=== PATIENT | female | born 1960 | race Caucasian/White ===

== ENCOUNTER 2016-09-28 08:03 | Inpatient (IN) | payer MEDICAID, MEDICARE ==
[2016-09-28] MEDS ORDERED: ASPIRIN 81 MG TABLET, CHEWABLE PO ONE (08:11)
[2016-09-28] MEDS ORDERED: IPRATROPIUM/ALBUTEROL 0.5-2.5 MG/3 ML AMPUL NEB ONE (08:24)
[2016-09-28] MEDS ORDERED: FUROSEMIDE INJ/PF 40 MG/4 ML SDV IV ONE (08:24)
[2016-09-28] MEDS ORDERED: NORMAL SALINE 500 ML IV ONE ×2 (08:40→10:44)
[2016-09-28 09:12] LABS: ABSOLUTE EOSINOPHILS # (AUTO) 0.1 10^3/uL (0.0-0.6); ABSOLUTE LYMPHOCYTES (AUTO) 1.1 10^3/uL (0.5-4.7); ABSOLUTE MONOCYTES (AUTO) 0.6 10^3/uL (0.1-1.4); ABSOLUTE NEUT (AUTO) 5.8 10^3/uL (1.7-8.2); BASOPHILS % (AUTO) 0.5 % (0-2); EOSINOPHILS % (AUTO) 0.9 % (0-6); HEMATOCRIT 39.6 % (36.0-47.0); HEMOGLOBIN 13.3 g/dL (12.0-15.5); HGB HCT DIFFERENCE 0.3; LYMPHOCYTES % (AUTO) 14.6 % (13-45); MEAN CORPUSCULAR HEMOGLOBIN 29.2 pg (27.0-33.4); MEAN CORPUSCULAR HGB CONC 33.5 g/dL (32.0-36.0); MEAN CORPUSCULAR VOLUME 87 fl (80-97); MONOCYTES % (AUTO) 7.4 % (3-13); RED BLOOD COUNT 4.54 10^6/uL (3.72-5.28); RED CELL DISTRIBUTION WIDTH 13.4 % (11.5-14.0); SEGMENTED NEUTROPHILS % (AUTO) 76.6 % (42-78); WHITE BLOOD COUNT 7.5 10^3/uL (4.0-10.5)
[2016-09-28 10:02] LABS: ALANINE AMINOTRANSFERASE 26 U/L (9-52); ALBUMIN 3.4 g/dL (3.5-5.0); ALKALINE PHOSPHATASE 74 U/L (38-126); ANION GAP 7 (5-19); ASPARTATE AMINO TRANSFERASE 16 U/L (14-36); BILIRUBIN,DIRECT 0.3 mg/dL (0.0-0.4); BILIRUBIN,TOTAL 0.3 mg/dL (0.2-1.3); BLOOD UREA NITROGEN 11 mg/dL (7-20); CALCIUM 8.5 mg/dL (8.4-10.2); CARBON DIOXIDE 29 mmol/L (22-30); CHLORIDE 103 mmol/L (98-107); CREATINE KINASE 28 U/L (30-135); CREATININE RESULT 0.73 mg/dL (0.52-1.25); GLUCOSE 135 mg/dL (75-110); LIPASE 53.2 U/L (23-300); MAGNESIUM 2.2 mg/dL (1.6-2.3); POTASSIUM 3.7 mmol/L (3.6-5.0); SODIUM 138.7 mmol/L (137-145); TOTAL PROTEIN 6.2 g/dL (6.3-8.2)
[2016-09-28 10:14] LABS: CREATINE KINASE MB 0.75 ng/mL (<4.55); TROPONIN I < 0.012 ng/mL
[2016-09-28] MEDS ORDERED: ALBUTEROL SULFATE 0.083% NEB 2.5 MG/3 ML AMPUL NEB ONE (10:57)
--- NOTE | 2016-09-28 11:37 | ER Document Report ---
ED General - General Chief Complaint: Shortness Of Breath Stated Complaint: RESPIRITORY DISTRESS Time Seen by Provider: 09/28/16 08:10 TRAVEL OUTSIDE OF THE [place] IN LAST 30 DAYS: No - HPI Patient complains to provider of: shortness of breath difficulty in breathing Notes: Patient has a history of pulmonic valve replacement CHF COPD coming in today for shortness of breath states once breath ongoing for last few days worse today upon EMS arrival patient was found to be hypoxic patient was given magnesium steroids albuterol transport to the ER for further evaluation. Upon arrival patient states breathing better over still has audible wheezing. Denies any recent travel denies fevers chills chest pain abdominal pain patient otherwise has a normal SPO2 on oxygen. - Related Data Allergies/Adverse Reactions: latex [Latex] Allergy (Mild, Verified 02/29/16 11:25) rash Bees Allergy (Severe, Uncoded 05/15/14 18:26) Facial Edema Home Medications: Current Home Medications Citalopram Hydrobromide [Celexa 20 mg Tablet] 20 mg PO DAILY 09/28/16 [History] Fluticasone/Vilanterol [Breo Ellipta 200-25 Mcg INH] 1 puff IH DAILY 09/28/16 [ History] Furosemide [Lasix 20 mg Tablet] 20 mg PO DAILY 09/28/16 [History] Ibuprofen [Advil] 800 mg PO QIDP PRN 09/28/16 [History] Tiotropium [place] [Spiriva Respimat] 2 puff IH DAILY 09/28/16 [History] Past Medical History - Social History Smoking Status: Former Smoker Chew tobacco use (# tins/day): No Frequency of alcohol use: None Drug Abuse: None Family History: Reviewed & Not Pertinent - Past Medical History Cardiac Medical History: Denies: Hx Hypercholesterolemia, Hx Hypertension Pulmonary Medical History: Reports: Hx Bronchitis, Hx COPD - pulmonary stenosis , Hx Pneumonia Endocrine Medical History: Denies: Hx Diabetes Mellitus Type 1, Hx Diabetes Mellitus Type 2 Malignancy Medical History: Reports: Hx Breast Cancer Skin Medical History: Reports Hx Psoriasis Psychiatric Medical History: Reports: Hx Anxiety, Hx Depression Past Surgical History: Reports: Hx Breast Surgery, Hx Cardiac Surgery - PULMONIC VALVULOPLASTY FOR PULM STENOSIS, Hx Section - X 2, Hx Mastectomy - RIGHT PARTIAL MASTECTOMY 1999, WITH LYMPH NODE DISSECTION, Hx Vascular Surgery - Pulmonary valvuloplasty - Immunizations Hx Diphtheria, Pertussis, Tetanus Vaccination: Yes Review of Systems - Review of Systems Constitutional: No symptoms reported EENT: No symptoms reported Cardiovascular: No symptoms reported Respiratory: Cough, Short of breath, Wheezing Gastrointestinal: No symptoms reported Genitourinary: No symptoms reported Female Genitourinary: No symptoms reported Musculoskeletal: No symptoms reported Skin: No symptoms reported Hematologic/Lymphatic: No symptoms reported Neurological/Psychological: No symptoms reported -: Yes All other systems reviewed and negative Physical Exam - Vital signs Vitals: Pulse Ox 97 09/28/16 08:11 Interpretation: Normal - General General appearance: Appears well, Alert - HEENT Head: Normocephalic, Atraumatic Eyes: Normal Pupils: PERRL - Respiratory Respiratory status: Respiratory distress - Mild to moderate, Tachypnea Chest status: Nontender Breath sounds: Wheezing Chest palpation: Normal - Cardiovascular Rhythm: Regular Heart sounds: Normal auscultation Murmur: No - Abdominal Inspection: Normal Distension: No distension Bowel sounds: Normal Tenderness: Nontender Organomegaly: No organomegaly - Back Back: Normal, Nontender - Extremities General upper extremity: Normal inspection, Nontender, Normal color, Normal ROM , Normal temperature General lower extremity: Normal inspection, Nontender, Normal color, Normal ROM , Normal temperature, Normal weight bearing. No: Mookie's sign - Neurological Neuro grossly intact: Yes Cognition: Normal Orientation: AAOx4 [place] Coma Scale Eye Opening: Spontaneous [place] Coma Scale Verbal: Oriented [place] Coma Scale Motor: Obeys Commands [place] Coma Scale Total: 15 Speech: Normal Motor strength normal: LUE, RUE, LLE, RLE Sensory: Normal - Psychological Associated symptoms: Normal affect, Normal mood - Skin Skin Temperature: Warm Skin Moisture: Dry Skin Color: Normal Course - Re-evaluation Re-evalutation: 09/28/16 15:00 Patient is coming in today for difficulty breathing. Chest x-ray did not reveal any critical pathology. Patient does have chronic pulmonary artery prominence. No signs of pneumonia. Lab work does not show any cardiac pathology EKG does not show any specific cardiac pathology. Patient continues to have audible wheezing although her story rate SPO2 has improved. More likely patient has a COPD exacerbation patient will be admitted to hospitalist for further evaluation - Vital Signs Vital signs: Temp Pulse Resp BP Pulse Ox 97.8 F 92 19 110/62 96 09/28/16 14:16 09/28/16 14:16 09/28/16 14:16 09/28/16 14:16 09/28/16 14:16 - Laboratory Result Diagrams: 09/28/16 08:38 09/28/16 09:40 Laboratory results interpreted by me: 09/28/16 09:40 Glucose 135 H Creatine Kinase 28 L Total Protein 6.2 L Albumin 3.4 L Critical Care Note - Critical Care Note Total time excluding time spent on procedures (mins): 35 Comments: Multiple evaluations for patient with respiratory distress Discharge - Discharge Clinical Impression: COPD exacerbation, Acute respiratory failure with hypoxia Admitting Provider: Hospitalist - [facility] Admitted: Telemetry
--- NOTE | 2016-09-28 12:12 | EKG REPORT ---
SEVERITY:- ABNORMAL ECG - SINUS TACHYCARDIA POSSIBLE LVH ABNRM R PROG, CONSIDER ASMI OR LEAD PLACEMENT NONSPECIFIC T ABNORMALITIES, LATERAL LEADS : Confirmed by: Vitor Lerma 28-Sep-2016 12:12:00
[2016-09-28] MEDS ORDERED: (PENDING PHARMACY ID) (Alprazolam [Xanax 1 Mg Tablet] 1 MG) PO PRN (12:44)
--- NOTE | 2016-09-28 12:44 | PDOC H&P ---
History of Present Illness Admission Date/PCP: 09/28/16 11:47 Patient complains of: Cough and shortness of breath. History of Present Illness: SHAHAB MONROE is a 56 year old female with a history of COPD on oxygen at 2 L per nasal cannula at night who quit smoking 1 week ago presents with a three- day history of worsening shortness of breath, cough, low-grade fevers, wheezing. The patient also does report some pleuritic chest pain associated with coughing. She reports she's had a dry cough and denies any orthopnea or PND. She does have some chronic lower extremity edema but it has not changed. She called the EMS because her shortness of breath and she was found to have an oxygen saturation of 86%. The patient presented at home she has checked her oxygen saturations any been in the high 70s at times. The patient is admitted for acute COPD exacerbation along with acute bronchitis. Past Medical History Cardiac Medical History: Reports: Other - Congenital pulmonic stenosis. Patient has not had valve replacement but has been seen at [facility]. Denies: Hyperlipidema, Hypertension Pulmonary Medical History: Reports: Bronchitis, Chronic Obstructive Pulmonary Disease (COPD) - pulmonary stenosis, Pneumonia EENT Medical History: Reports: None Neurological Medical History: Reports: None Endocrine Medical History: Reports: None Renal/ Medical History: Reports: None Malignancy Medical History: Reports: Breast Cancer GI Medical History: Reports: None Musculoskeltal Medical History: Reports: Other - Psoriatic arthritis Skin Medical History: Reports: Psoriasis Psychiatric Medical History: Reports: Depression Hematology: Reports: None Infectious Medical History: Reports: None Past Surgical History Past Surgical History: Reports: Section - X 2, Mastectomy - RIGHT PARTIAL MASTECTOMY 1999, WITH LYMPH NODE DISSECTION, Vascular Surgery - Pulmonary valvuloplasty per the emergency room physician although she deny Social History Information Source: Patient Lives with: Family Smoking Status: Former Smoker Frequency of Alcohol Use: None Hx Recreational Drug Use: No Drugs: None Hx Prescription Drug Abuse: No - Advance Directive Resuscitation Status: Full Code Family History Family History: Mother at age 54 with diabetes, coronary disease, CVA. Father at age 62 from COPD and coronary artery disease. Parental Family History Reviewed: Yes Children Family History Reviewed: No Sibling(s) Family History Reviewed.: No Medication/Allergy Home Medications: Alprazolam [Xanax 1 mg Tablet] 1 mg PO TID PRN 07/15/11 Albuterol Sulfate [Albuterol Sulfate 2.5mg/3 mL] 2 puff IH BID 06/11/12 Budesonide/Formoterol Fumarate [Symbicort HFA 160-4.5 mcg Inhaler 6 gm] 2 puff IH Q12 05/14/14 Albuterol Sulfate [Ventolin 0.083% Neb 2.5 mg/3 mL Ampul] 2.5 mg NEB [id number] PRN #60 vial.neb 05/16/14 Levofloxacin [Levaquin 750 mg Tablet] 750 mg PO DAILY #7 tablet 05/16/14 Prednisone [Deltasone 20 mg Tablet] 40 mg PO DAILY #7 tablet 05/16/14 Prednisone [Deltasone 20 mg Tablet] 3 tab PO DAILY 5 Days 09/12/15 Allergies/Adverse Reactions: latex [Latex] Allergy (Mild, Verified 02/29/16 11:25) rash Bees Allergy (Severe, Uncoded 05/15/14 18:26) Facial Edema Review of Systems Constitutional: PRESENT: chills, fever(s) - Temperature 100.5.. ABSENT: headache(s), weight gain, weight loss Eyes: ABSENT: visual disturbances Breasts: PRESENT: other - History of right partial mastectomy Cardiovascular: PRESENT: chest pain - Associated with coughing., dyspnea on exertion, edema - Trace chronic edema.. ABSENT: orthropnea, palpitations Respiratory: PRESENT: as per HPI Gastrointestinal: ABSENT: abdominal pain, constipation, diarrhea, hematemesis, hematochezia, nausea, vomiting Musculoskeletal: ABSENT: joint swelling Integumentary: PRESENT: other - Patient has some psoriasis. Neurological: ABSENT: abnormal gait, abnormal speech, confusion, dizziness, focal weakness, syncope Psychiatric: ABSENT: anxiety, depression Endocrine: ABSENT: cold intolerance, heat intolerance, polydipsia, polyuria Hematologic/Lymphatic: ABSENT: easy bleeding, easy bruising Physical Exam Vital Signs: Temp Pulse Resp BP Pulse Ox 97.7 F 102 H 20 116/68 96 09/28/16 08:30 09/28/16 08:30 09/28/16 12:01 09/28/16 12:01 09/28/16 12:01 General appearance: PRESENT: no acute distress Eye exam: PRESENT: conjunctiva pink. ABSENT: scleral icterus Ear exam: PRESENT: normal external ear exam Mouth exam: PRESENT: moist, tongue midline Neck exam: ABSENT: carotid bruit, JVD, lymphadenopathy, thyromegaly Respiratory exam: PRESENT: wheezes - Expiratory wheezes in all lung duque.. ABSENT: rales, rhonchi Cardiovascular exam: PRESENT: RRR. ABSENT: diastolic murmur, rubs, systolic murmur Pulses: PRESENT: normal dorsalis pedis pul Vascular exam: PRESENT: normal capillary refill GI/Abdominal exam: PRESENT: normal bowel sounds, soft. ABSENT: distended, guarding, mass, organolmegaly, rebound, tenderness Rectal exam: PRESENT: deferred Extremities exam: PRESENT: pedal edema - Trace pedal edema.. ABSENT: calf tenderness, clubbing Neurological exam: PRESENT: alert, awake, oriented to person, oriented to place , oriented to time, oriented to situation, CN II-XII grossly intact. ABSENT: motor sensory deficit Psychiatric exam: PRESENT: appropriate affect, normal mood Skin exam: PRESENT: other - Some areas of psoriasis on her palm Results Impressions: Chest X-Ray 09/28/16 08:11 IMPRESSION: STABLE CHRONIC FINDINGS. NO ACUTE RADIOGRAPHIC FINDING IN THE CHEST. Assessment & Plan - Diagnosis (1) Acute respiratory failure with hypoxia Is this a current diagnosis for this admission?: YesPlan: Secondary to acute COPD exacerbation. (2) COPD exacerbation Is this a current diagnosis for this admission?: YesPlan: We'll give IV steroids and nebulizers. Will start on Rocephin and Zithromax. (3) Psoriatic arthritis Is this a current diagnosis for this admission?: Yes (4) Pulmonic stenosis Is this a current diagnosis for this admission?: YesPlan: Emergency physician reported that the patient had had valvuloplasty. Patient reports to me that she's not had any surgery on this but has been seen by the physicians at [facility]. (5) Acute bronchitis Is this a current diagnosis for this admission?: YesPlan: Continue with Rocephin and Zithromax. (6) Breast cancer Is this a current diagnosis for this admission?: Yes (7) Anxiety Is this a current diagnosis for this admission?: YesPlan: Patient will continue Xanax when necessary. - Time Time Spent: 50 to 70 Minutes - Inpatient Certification Medical Necessity: Need for IV Antibiotics
[2016-09-28] MEDS ORDERED: ALPRAZOLAM 0.5 MG TABLET PO PRN (12:50)
[2016-09-28] MEDS ORDERED: CEFTRIAXONE 1 GM/D5W RTU 1 GM/50 ML RTUPB IV ONE (13:30)
[2016-09-28] MEDS ORDERED: METHYLPREDNISOLONE INJ 40 MG/1 ML SDV IV ONE (13:30)
[2016-09-28] MEDS ORDERED: ENOXAPARIN SODIUM INJ 40 MG/0.4 ML DISP.SYRIN SUBCUT ONE (13:30)
[2016-09-28] MEDS: IPRATROPIUM/ALBUTEROL 0.5-2.5 MG/3 ML AMPUL NEB SCH ×2 (14:14→20:06)
[2016-09-28] MEDS ORDERED: AZITHROMYCIN 500 MG in DEXTROSE 5%-WATER 250 ML IV ONE (14:30)
[2016-09-28] MEDS: IBUPROFEN 800 MG TABLET PO PRN (17:00)
[2016-09-28] MEDS ORDERED: CITALOPRAM HYDROBROMIDE 20 MG TABLET PO ONE (19:00)
[2016-09-28] MEDS: ALPRAZOLAM 0.5 MG TABLET PO PRN (21:59)
[2016-09-28] MEDS: METHYLPREDNISOLONE INJ 40 MG/1 ML SDV IV SCH (21:59)
[2016-09-28] MEDS: FAMOTIDINE 20 MG TABLET PO SCH (22:00)
[2016-09-28] MEDS: ACETAMINOPHEN 325 MG TABLET PO PRN (22:13)
[2016-09-29 05:46] LABS: HEMATOCRIT 37.2 % (36.0-47.0); HEMOGLOBIN 12.2 g/dL (12.0-15.5); HGB HCT DIFFERENCE -0.6; MEAN CORPUSCULAR HEMOGLOBIN 28.6 pg (27.0-33.4); MEAN CORPUSCULAR HGB CONC 32.7 g/dL (32.0-36.0); MEAN CORPUSCULAR VOLUME 87 fl (80-97); RED BLOOD COUNT 4.25 10^6/uL (3.72-5.28); WHITE BLOOD COUNT 4.8 10^3/uL (4.0-10.5)
[2016-09-29 05:59] LABS: ANION GAP 11 (5-19); BLOOD UREA NITROGEN 10 mg/dL (7-20); CALCIUM 8.9 mg/dL (8.4-10.2); CARBON DIOXIDE 25 mmol/L (22-30); CHLORIDE 104 mmol/L (98-107); CREATININE RESULT 0.53 mg/dL (0.52-1.25); GLUCOSE 134 mg/dL (75-110); SODIUM 140.1 mmol/L (137-145)
[2016-09-29 06:08] LABS: POTASSIUM 4.7 mmol/L (3.6-5.0)
[2016-09-29] MEDS: IBUPROFEN 800 MG TABLET PO PRN ×2 (06:30→15:46)
[2016-09-29] MEDS ORDERED: ENOXAPARIN SODIUM INJ 40 MG/0.4 ML DISP.SYRIN SUBCUT SCH (08:00)
[2016-09-29] MEDS: IPRATROPIUM/ALBUTEROL 0.5-2.5 MG/3 ML AMPUL NEB SCH ×3 (08:17→20:16)
[2016-09-29] MEDS: CEFTRIAXONE 1 GM/D5W RTU 1 GM/50 ML RTUPB IV SCH (09:14)
[2016-09-29] MEDS: FAMOTIDINE 20 MG TABLET PO SCH ×2 (09:14→20:26)
[2016-09-29] MEDS: CITALOPRAM HYDROBROMIDE 20 MG TABLET PO SCH (09:14)
[2016-09-29] MEDS: METHYLPREDNISOLONE INJ 40 MG/1 ML SDV IV SCH ×2 (09:15→20:25)
[2016-09-29] MEDS: ALPRAZOLAM 0.5 MG TABLET PO PRN ×2 (09:18→20:03)
[2016-09-29] MEDS: AZITHROMYCIN 500 MG in DEXTROSE 5%-WATER 250 ML IV SCH (10:28)
--- NOTE | 2016-09-29 11:02 | PDOC PROGRESS REPORT ---
Subjective Subjective:: Patient continues to have complaints of shortness of breath but reports is improved. Physical Exam Vital Signs: Temp Pulse Resp BP Pulse Ox 97.8 F 88 22 H 137/75 H 94 09/29/16 08:42 09/29/16 08:42 09/29/16 08:42 09/29/16 08:42 09/29/16 08:42 Intake & Output 09/28/16 09/29/16 09/30/16 06:59 06:59 06:59 Intake Total 585 Output Total 500 Balance 85 Weight 86.5 kg General appearance: PRESENT: no acute distress Eye exam: PRESENT: conjunctiva pink. ABSENT: scleral icterus Ear exam: PRESENT: normal external ear exam Mouth exam: PRESENT: moist, tongue midline Neck exam: ABSENT: JVD Respiratory exam: PRESENT: wheezes - Bilateral expiratory wheezes. ABSENT: rales, rhonchi Cardiovascular exam: PRESENT: RRR. ABSENT: diastolic murmur, rubs, systolic murmur GI/Abdominal exam: PRESENT: normal bowel sounds, soft. ABSENT: distended, guarding, mass, organolmegaly, rebound, tenderness Rectal exam: PRESENT: deferred Extremities exam: ABSENT: calf tenderness, clubbing, pedal edema Neurological exam: PRESENT: alert, awake, oriented to person, oriented to place , oriented to time, oriented to situation, CN II-XII grossly intact. ABSENT: motor sensory deficit Psychiatric exam: PRESENT: appropriate affect Skin exam: PRESENT: dry, intact, warm. ABSENT: cyanosis, rash Results Laboratory Results: 09/29/16 04:46 09/29/16 04:46 09/29/16 09/29/16 04:46 04:46 WBC 4.8 RBC 4.25 Hgb 12.2 Hct 37.2 MCV 87 MCH 28.6 MCHC 32.7 RDW 13.0 Plt Count 222 Sodium 140.1 Potassium 4.7 D Chloride 104 Carbon Dioxide 25 Anion Gap 11 BUN 10 Creatinine 0.53 Est GFR ( Amer) > 60 Est GFR (Non-Af Amer) > 60 Glucose 134 H Calcium 8.9 09/28/16 13:48 Troponin I < 0.012 Impressions: Chest X-Ray 09/28/16 08:11 IMPRESSION: STABLE CHRONIC FINDINGS. NO ACUTE RADIOGRAPHIC FINDING IN THE CHEST. Assessment & Plan - Diagnosis (1) Acute respiratory failure with hypoxia Is this a current diagnosis for this admission?: YesPlan: Secondary to acute COPD exacerbation. (2) COPD exacerbation Is this a current diagnosis for this admission?: YesPlan: We'll give IV steroids and nebulizers. Will continue Rocephin and Zithromax. (3) Psoriatic arthritis Is this a current diagnosis for this admission?: Yes (4) Pulmonic stenosis Is this a current diagnosis for this admission?: YesPlan: Emergency physician reported that the patient had had valvuloplasty. Patient reports to me that she's not had any surgery on this but has been seen by the physicians at [facility]. (5) Acute bronchitis Is this a current diagnosis for this admission?: YesPlan: Continue with Rocephin and Zithromax. (6) Breast cancer Is this a current diagnosis for this admission?: Yes (7) Anxiety Is this a current diagnosis for this admission?: YesPlan: Patient will continue Xanax when necessary. - Time Time Spent with patient: 25-34 minutes - Inpatient Certification Medical Necessity: Need Close Monitoring Due to Risk of Patient Decompensation, Need for IV Antibiotics
[2016-09-29] MEDS: ACETAMINOPHEN 325 MG TABLET PO PRN (20:04)
[2016-09-29] MEDS ORDERED: ASPIRIN 325 MG TABLET PO ONE (20:38)
[2016-09-29] MEDS ORDERED: LORAZEPAM INJ 2 MG/1 ML VIAL IV ONE (20:39)
[2016-09-29 21:05] LABS: ARTERIAL BLOOD BASE EXCESS -0.4 mmol/L; ARTERIAL BLOOD O2 SATURATION 95.3 % (94-98)
[2016-09-29 22:02] LABS: CREATINE KINASE MB 3.25 ng/mL (<4.55); TROPONIN I 0.075 ng/mL
[2016-09-30 04:53] LABS: ABSOLUTE LYMPHOCYTES (AUTO) 0.7 10^3/uL (0.5-4.7); ABSOLUTE MONOCYTES (AUTO) 0.6 10^3/uL (0.1-1.4); ABSOLUTE NEUT (AUTO) 8.8 10^3/uL (1.7-8.2); BASOPHILS % (AUTO) 0.2 % (0-2); HEMATOCRIT 38.1 % (36.0-47.0); HEMOGLOBIN 12.7 g/dL (12.0-15.5); LYMPHOCYTES % (AUTO) 6.6 % (13-45); MEAN CORPUSCULAR HEMOGLOBIN 28.9 pg (27.0-33.4); MEAN CORPUSCULAR HGB CONC 33.2 g/dL (32.0-36.0); MEAN CORPUSCULAR VOLUME 87 fl (80-97); RED BLOOD COUNT 4.39 10^6/uL (3.72-5.28); RED CELL DISTRIBUTION WIDTH 13.6 % (11.5-14.0); SEGMENTED NEUTROPHILS % (AUTO) 87.2 % (42-78)
[2016-09-30 05:09] LABS: WHITE BLOOD COUNT 10.1 10^3/uL (4.0-10.5)
[2016-09-30 05:14] LABS: ANION GAP 5 (5-19); BLOOD UREA NITROGEN 14 mg/dL (7-20); CALCIUM 9.2 mg/dL (8.4-10.2); CARBON DIOXIDE 30 mmol/L (22-30); CHLORIDE 104 mmol/L (98-107); CREATINE KINASE 52 U/L (30-135); CREATININE RESULT 0.52 mg/dL (0.52-1.25); GLUCOSE 112 mg/dL (75-110); SODIUM 138.5 mmol/L (137-145)
[2016-09-30 05:23] LABS: CREATINE KINASE MB 5.9 ng/mL (<4.55)
[2016-09-30 05:30] LABS: TROPONIN I 0.561 ng/mL
[2016-09-30] MEDS ORDERED: ATORVASTATIN CALCIUM 80 MG TABLET PO ONE (05:35)
[2016-09-30] MEDS ORDERED: CLOPIDOGREL BISULFATE 300 MG TABLET PO ONE (05:35)
[2016-09-30] MEDS ORDERED: METOPROLOL TARTRATE PF/INJ 5 MG/5 ML SDV IV ONE ×2 (05:59→06:07)
[2016-09-30] MEDS ORDERED: LORAZEPAM INJ 2 MG/1 ML VIAL ONE (06:02)
[2016-09-30] MEDS ORDERED: CLOPIDOGREL BISULFATE 300 MG TABLET ONE (06:02)
[2016-09-30] MEDS ORDERED: LORAZEPAM INJ 2 MG/1 ML VIAL IV ONE (06:07)
[2016-09-30] MEDS ORDERED: METHYLPREDNISOLONE INJ 125 MG/2 ML SDV IV SCH ×2 (06:15→09:22)
[2016-09-30 06:23] LABS: ARTERIAL BLOOD BASE EXCESS -0.3 mmol/L; ARTERIAL BLOOD O2 SATURATION 98.5 % (94-98)
[2016-09-30] MEDS: ENOXAPARIN SODIUM INJ 100 MG/1 ML DISP.SYRIN SUBCUT SCH ×2 (06:28→18:18)
[2016-09-30] MEDS ORDERED: FENTANYL CITRATE INJ/PF 100 MCG/2 ML AMPUL IV PRN (06:40)
[2016-09-30] MEDS ORDERED: PROPOFOL 100 ML IV PRN (06:40)
[2016-09-30] MEDS ORDERED: PHARMACY COMMUNICATION ORDER MC NR (06:45)
[2016-09-30] MEDS ORDERED: PROPOFOL INJ 200 MG/20 ML VIAL IV ONE (07:16)
[2016-09-30] MEDS: IPRATROPIUM/ALBUTEROL 0.5-2.5 MG/3 ML AMPUL NEB SCH ×3 (07:49→20:00)
[2016-09-30 08:24] LABS: ARTERIAL BLOOD BASE EXCESS 1.2 mmol/L; ARTERIAL BLOOD O2 SATURATION 96.5 % (94-98)
[2016-09-30] MEDS ORDERED: DEXTROSE 40% GEL 15 GM TUBE PO PRN ×4 (09:06→09:19)
[2016-09-30] MEDS ORDERED: DEXTROSE 50%-WATER 25 GM/50 ML DISP.SYRIN IV PRN ×4 (09:06→09:19)
[2016-09-30] MEDS ORDERED: GLUCAGON,HUMAN RECOMB 1 MG INJ SUBCUT PRN (09:06)
[2016-09-30] MEDS ORDERED: NORMAL SALINE 1000 ML 1,000 ML IV ONE (09:18)
[2016-09-30] MEDS ORDERED: GLUCAGON,HUMAN RECOMB 1 MG INJ IM PRN (09:19)
[2016-09-30] MEDS ORDERED: MIDAZOLAM HCL 100 ML IV ONE (09:26)
[2016-09-30] MEDS ORDERED: DEXTROSE 5%-WATER 250 ML with PHENYLEPHRINE HCL 40 MG IV PRN ×2 (09:47)
[2016-09-30 10:44] LABS: CREATINE KINASE MB 8.91 ng/mL (<4.55); TROPONIN I 1.1 ng/mL
[2016-09-30] MEDS: METHYLPREDNISOLONE INJ 40 MG/1 ML SDV IV SCH ×2 (11:01→18:18)
[2016-09-30] MEDS: CITALOPRAM HYDROBROMIDE 20 MG TABLET PO SCH (11:02)
[2016-09-30] MEDS: FAMOTIDINE 20 MG TABLET PO SCH ×2 (11:02→22:58)
[2016-09-30] MEDS: CEFTRIAXONE 1 GM/D5W RTU 1 GM/50 ML RTUPB IV SCH (11:02)
[2016-09-30] MEDS: AZITHROMYCIN 500 MG in DEXTROSE 5%-WATER 250 ML IV SCH (11:38)
[2016-09-30] MEDS: DEXTROSE 5%-NORMAL SALINE 1,000 ML IV PRN ×2 (11:39→23:00)
--- NOTE | 2016-09-30 11:40 | EKG REPORT ---
SEVERITY:- ABNORMAL ECG - SINUS TACHYCARDIA NONSPECIFIC T ABNORMALITIES, LATERAL LEADS : Confirmed by: Vitor Lerma 30-Sep-2016 11:39:43
--- NOTE | 2016-09-30 11:40 | EKG REPORT ---
SEVERITY:- ABNORMAL ECG - SINUS TACHYCARDIA NONSPECIFIC T ABNORMALITIES, LATERAL LEADS : Confirmed by: Vitor Lerma 30-Sep-2016 11:39:52
[2016-09-30 13:17] LABS: ARTERIAL BLOOD BASE EXCESS -1.9 mmol/L; ARTERIAL BLOOD O2 SATURATION 98.5 % (94-98)
--- NOTE | 2016-09-30 14:56 | PDOC CONSULTATION ---
Consultation Consult Date: 09/30/16 Attending physician:: RADHA BOBBY Consult reason:: resp fail History of Present Illness Admission Date/PCP: 09/28/16 12:19 History of Present Illness: All information from chart as patient is intubated and sedatedSHAHAB MONROE is a 56 year old female with a history of COPD on oxygen at 2 L per nasal cannula at night who quit smoking 1 week ago presents with a three-day history of worsening shortness of breath, cough, low-grade fevers, wheezing. The patient also does report some pleuritic chest pain associated with coughing. She reports she's had a dry cough and denies any orthopnea or PND. She does have some chronic lower extremity edema but it has not changed. She called the EMS because her shortness of breath and she was found to have an oxygen saturation of 86%. The patient presented at home she has checked her oxygen saturations any been in the high 70s at times. The patient is admitted for acute COPD exacerbation along with acute bronchitis. Past Medical History Cardiac Medical History: Reports: Other - Congenital pulmonic stenosis. Patient has not had valve replacement but has been seen at [facility]. Denies: Hyperlipidema, Hypertension Pulmonary Medical History: Reports: Bronchitis, Chronic Obstructive Pulmonary Disease (COPD) - pulmonary stenosis, Pneumonia EENT Medical History: Reports: None Neurological Medical History: Reports: None Endocrine Medical History: Reports: None Denies: Diabetes Mellitus Type 1, Diabetes Mellitus Type 2 Renal/ Medical History: Reports: None Malignancy Medical History: Reports: Breast Cancer GI Medical History: Reports: None Musculoskeltal Medical History: Reports: Other - Psoriatic arthritis Skin Medical History: Reports: Psoriasis Psychiatric Medical History: Reports: Depression Hematology: Reports: None Infectious Medical History: Reports: None Past Surgical History Past Surgical History: Reports: Section - X 2, Mastectomy - RIGHT PARTIAL MASTECTOMY 1999, WITH LYMPH NODE DISSECTION, Vascular Surgery - Pulmonary valvuloplasty Social History Information Source: [facility] Records Lives with: Family Smoking Status: Former Smoker Last Time Smoked: 09/25/16 Frequency of Alcohol Use: None Hx Recreational Drug Use: No Drugs: None Hx Prescription Drug Abuse: No - Advance Directive Resuscitation Status: Full Code Family History Family History: Reviewed & Not Pertinent Parental Family History Reviewed: No Children Family History Reviewed: No Sibling(s) Family History Reviewed.: No Medication/Allergy Home Medications: Alprazolam [Xanax 1 mg Tablet] 1 mg PO BIDP PRN 07/15/11 Albuterol Sulfate [Albuterol Sulfate 2.5mg/3 mL] 2 puff IH QIDP PRN 06/11/12 Citalopram Hydrobromide [Celexa 20 mg Tablet] 20 mg PO DAILY 09/28/16 Fluticasone/Vilanterol [Breo Ellipta 200-25 Mcg INH] 1 puff IH DAILY 09/28/16 Furosemide [Lasix 20 mg Tablet] 20 mg PO DAILY 09/28/16 Ibuprofen [Advil] 800 mg PO QIDP PRN 09/28/16 Tiotropium [place] [Spiriva Respimat] 2 puff IH DAILY 09/28/16 Allergies/Adverse Reactions: latex [Latex] Allergy (Mild, Verified 02/29/16 11:25) rash Bees Allergy (Severe, Uncoded 05/15/14 18:26) Facial Edema Review of Systems ROS unobtainable: Due to endotracheal tube Physical Exam Vital Signs: Temp Pulse Resp BP Pulse Ox 97.4 F 81 14 84/71 L 100 09/30/16 12:00 09/30/16 12:00 09/30/16 12:00 09/30/16 12:00 09/30/16 12:00 Intake & Output 09/29/16 09/30/16 10/01/16 06:59 06:59 06:59 Intake Total 585 930 Output Total 500 200 105 Balance 85 730 -105 Weight 86.5 kg 86.7 kg General appearance: PRESENT: no acute distress, disheveled, obese Head exam: PRESENT: atraumatic, normocephalic Eye exam: PRESENT: conjunctiva pale Mouth exam: PRESENT: dry mucosa, neck supple, other - ET tube Neck exam: ABSENT: carotid bruit, JVD, lymphadenopathy, thyromegaly Respiratory exam: PRESENT: decreased breath sounds, prolonged expiratory phas, rhonchi, symmetrical, unlabored, wheezes Cardiovascular exam: PRESENT: RRR, +S1, +S2 Pulses: PRESENT: normal radial pulses GI/Abdominal exam: PRESENT: normal bowel sounds, soft. ABSENT: distended, guarding, mass, organolmegaly, rebound, tenderness Rectal exam: PRESENT: deferred Gentrourinary exam: PRESENT: indwelling catheter Musculoskeletal exam: PRESENT: normal inspection Skin exam: PRESENT: dry, warm Results Laboratory Results: 09/30/16 03:47 09/30/16 03:47 09/29/16 09/30/16 09/30/16 20:55 03:47 03:47 WBC 10.1 D RBC 4.39 Hgb 12.7 Hct 38.1 MCV 87 MCH 28.9 MCHC 33.2 RDW 13.6 Plt Count 243 Seg Neutrophils % 87.2 H Lymphocytes % 6.6 L Monocytes % 6.0 Eosinophils % 0.0 Basophils % 0.2 Absolute Neutrophils 8.8 H Absolute Lymphocytes 0.7 Absolute Monocytes 0.6 Absolute Eosinophils 0.0 Absolute Basophils 0.0 Carbonic Acid 2.38 H HCO3/H2CO3 Ratio 12:1 ABG pH 7.20 L* ABG pCO2 79.1 H* ABG pO2 95.1 ABG HCO3 30.0 H ABG O2 Saturation 95.3 ABG Base Excess -0.4 FiO2 6 L/MIN Sodium 138.5 Potassium 5.0 Chloride 104 Carbon Dioxide 30 Anion Gap 5 BUN 14 Creatinine 0.52 Est GFR ( Amer) > 60 Est GFR (Non-Af Amer) > 60 Glucose 112 H Calcium 9.2 09/30/16 09/30/16 06:15 08:05 WBC RBC Hgb Hct MCV MCH MCHC RDW Plt Count Seg Neutrophils % Lymphocytes % Monocytes % Eosinophils % Basophils % Absolute Neutrophils Absolute Lymphocytes Absolute Monocytes Absolute Eosinophils Absolute Basophils Carbonic Acid 2.75 H 1.94 H HCO3/H2CO3 Ratio 11:1 15:1 ABG pH 7.15 L* 7.28 L ABG pCO2 91.2 H* 64.3 H ABG pO2 165.9 H 98.4 ABG HCO3 31.3 H 29.5 H ABG O2 Saturation 98.5 H 96.5 ABG Base Excess -0.3 1.2 FiO2 FLOW RATE 2 2L Sodium Potassium Chloride Carbon Dioxide Anion Gap BUN Creatinine Est GFR ( Amer) Est GFR (Non-Af Amer) Glucose Calcium 09/28/16 09/29/16 09/29/16 13:48 21:34 21:34 Creatine Kinase 42 CK-MB (CK-2) 3.25 Troponin I < 0.012 0.075 09/30/16 09/30/16 09/30/16 03:47 03:47 09:40 Creatine Kinase 52 62 CK-MB (CK-2) 5.90 H Troponin I 0.561 09/30/16 09:40 Creatine Kinase CK-MB (CK-2) 8.91 H Troponin I 1.100 Impressions: Chest X-Ray 09/30/16 07:15 IMPRESSION: No consolidation or pleural effusion. Prominent main pulmonary artery, probably corresponding to previously described aneurysmal dilation. Support devices in expected locations. Assessment & Plan - Diagnosis (1) Acute respiratory failure with hypoxia Is this a current diagnosis for this admission?: YesPlan: correcting acidosi withmechanical ventilation (2) Anxiety Is this a current diagnosis for this admission?: Yes (3) COPD exacerbation Is this a current diagnosis for this admission?: YesPlan: continue current broncho-dialator therapy - Time Critical Time spent with patient: 35 or more minutes
[2016-09-30 15:39] LABS: ARTERIAL BLOOD BASE EXCESS 0.6 mmol/L; ARTERIAL BLOOD O2 SATURATION 97.1 % (94-98)
[2016-09-30] MEDS ORDERED: PROPOFOL 100 ML IV ONE (15:41)
[2016-09-30] MEDS: PROPOFOL 100 ML IV PRN ×2 (15:47→22:59)
[2016-09-30] MEDS: MIDAZOLAM HCL 100 ML IV PRN ×2 (15:47→22:59)
--- NOTE | 2016-09-30 16:01 | XCELERA REPORT ---
[address] [address] Transthoracic Echocardiogram Report Name: SHAHBA MONROE Age: 56 yrs Gender: Female : 1960 Patient Status: Inpatient Patient Location: ICU\S\612\S\A Study Date: 09/30/2016 01:19 PM Height: 61 in Weight: 191 lb BSA: 1.9 m2 Procedure: A two-dimensional transthoracic echocardiogram with color flow and Doppler was performed. The study was technically difficult with many images being suboptimal in quality. Reason For Study: hypotension, per Dr. Rosa History: HYPOTENSION / CHF /SOB. Ordering Physician: ARABELLA WILLIS Performed By: Gudio Lemus Interpretation Summary Recommend SBE prophylaxis with antibiotics prior to GI,, and Dental surgeries / procedures. The left ventricle is normal in size. There is normal left ventricular wall thickness. LV EF is 45% T050% Left ventricular systolic function is mildly reduced. Doppler measurements suggest normal left ventricular diastolic function There is septal wall mild hypokinesis rEST OF THE lv FITZGERALD ARE NORMAL IN CONTRACTION. The right ventricle is normal in size and function. The left atrial size is normal. There is no evidence of mitral valve prolapse. There is no mitral valve stenosis. eCCENTRIC POSTERIORLY DIRECTED MODERATE TO SEVERE MR. There is no aortic valve stenosis There is no LVOT obstruction. No aortic regurgitation is present. There is a mild amount of tricuspid regurgitation Right ventricular systolic pressure is normal. RVSP is 28 mmm of Hg , with RA mean of 10. Pumonic Valve is replaced with Mild PS (Peak Gradient of 16 mm of Hg ), and mild NJ. There is no pericardial effusion. Recommend SBE prophylaxis with antibiotics prior to GI,, and Dental surgeries / procedures. MMode/2D Measurements \T\ Calculations RVDd: 2.4 cm LVIDd: 5.2 cm FS: 12.3 % Ao root diam: 3.0 cm IVSd: 0.78 cm LVIDs: 4.5 cm EDV(Teich): 127.5 ml LVPWd: 0.76 cm ESV(Teich): 93.9 ml Ao root area: 6.9 cm2 EF(Teich): 26.3 % LA dimension: 3.8 cm Doppler Measurements \T\ Calculations MV E max krystian: MV P1/2t max krystian: Ao V2 max: LV V1 max P.1 cm/sec 81.0 cm/sec 84.0 cm/sec 1.8 mmHg MV A max krystian: MV P1/2t: 53.1 msec Ao max PG: LV V1 max: 64.0 cm/sec 2.8 mmHg 66.7 cm/sec MV E/A: 1.2 MVA(P1/2t): 4.1 cm2 MV dec slope: 446.7 cm/sec2 PA V2 max: PI end-d krystian: TR max krystian: RAP systole: 201.3 cm/sec 171.6 cm/sec 214.2 cm/sec 10.0 mmHg PA max PG: TR max P.2 mmHg 18.7 mmHg RVSP(TR): 28.7 mmHg Left Ventricle The left ventricle is normal in size. There is normal left ventricular wall thickness. LV EF is 45% T050%. Left ventricular systolic function is mildly reduced. Doppler measurements suggest normal left ventricular diastolic function. There is septal wall mild hypokinesis. rEST OF THE lv [place] ARE NORMAL IN CONTRACTION. There is no ventricular septal defect visualized. There is no thrombus. Right Ventricle The right ventricle is normal in size and function. Atria The right atrium is normal. The left atrial size is normal. The interatrial septum is intact with no evidence for an atrial septal defect. Mitral Valve There is no evidence of mitral valve prolapse. There is no vegetation seen on the mitral valve. There is no mitral valve stenosis. eCCENTRIC POSTERIORLY DIRECTED MODERATE TO SEVERE MR. Aortic Valve There is no aortic valvular vegetation. There is no aortic valve stenosis. There is no LVOT obstruction. No aortic regurgitation is present. Tricuspid Valve There is no tricuspid stenosis. There is a mild amount of tricuspid regurgitation. Right ventricular systolic pressure is normal. RVSP is 28 mmm of Hg , with RA mean of 10. Pulmonic Valve Pumonic Valve is replaced with Mild PS (Peak Gradient of 16 mm of Hg ), and mild NJ. Great Vessels The aortic root is normal size. Effusions There is no pericardial effusion. : ARABELLA WILLIS > Kaylah Desouza
--- NOTE | 2016-09-30 16:02 | PDOC PROGRESS REPORT ---
Subjective Progress Note for:: 09/30/16 Subjective:: Overnight physician reports that patient had decompensated respiratory status requiring transfer to intensive care unit and intubation. I cannot obtain history from patient secondary to sedated/intubated state. Physical Exam Vital Signs: Temp Pulse Resp BP Pulse Ox 97.8 F 87 16 137/92 H 100 09/30/16 14:00 09/30/16 14:01 09/30/16 14:01 09/30/16 14:00 09/30/16 14:01 Intake & Output 09/29/16 09/30/16 10/01/16 06:59 06:59 06:59 Intake Total 585 930 Output Total 500 200 245 Balance 85 730 -245 Weight 86.5 kg 86.7 kg GENERAL: Intubated HEENT: Conjunctiva clear, nonicteric, moist mucous membranes, no JVD, midline trachea RESPIRATORY: Diminished breath sounds bilaterally, faint wheezes, poor air excursion CARDIAC: Regular rate and rhythm, no murmurs/gallops/rubs ABDOMEN: Soft, nondistended, nontender, positive bowel sounds, no rebound, no guarding EXTREMETIES: No edema, cyanosis, clubbing NEUROLOGIC: Sedated SKIN: No rash, wounds Results Laboratory Results: 09/30/16 03:47 09/30/16 03:47 09/29/16 09/30/16 09/30/16 20:55 03:47 03:47 WBC 10.1 D RBC 4.39 Hgb 12.7 Hct 38.1 MCV 87 MCH 28.9 MCHC 33.2 RDW 13.6 Plt Count 243 Seg Neutrophils % 87.2 H Lymphocytes % 6.6 L Monocytes % 6.0 Eosinophils % 0.0 Basophils % 0.2 Absolute Neutrophils 8.8 H Absolute Lymphocytes 0.7 Absolute Monocytes 0.6 Absolute Eosinophils 0.0 Absolute Basophils 0.0 Carbonic Acid 2.38 H HCO3/H2CO3 Ratio 12:1 ABG pH 7.20 L* ABG pCO2 79.1 H* ABG pO2 95.1 ABG HCO3 30.0 H ABG O2 Saturation 95.3 ABG Base Excess -0.4 FiO2 6 L/MIN Sodium 138.5 Potassium 5.0 Chloride 104 Carbon Dioxide 30 Anion Gap 5 BUN 14 Creatinine 0.52 Est GFR ( Amer) > 60 Est GFR (Non-Af Amer) > 60 Glucose 112 H Calcium 9.2 09/30/16 09/30/16 09/30/16 06:15 08:05 13:10 WBC RBC Hgb Hct MCV MCH MCHC RDW Plt Count Seg Neutrophils % Lymphocytes % Monocytes % Eosinophils % Basophils % Absolute Neutrophils Absolute Lymphocytes Absolute Monocytes Absolute Eosinophils Absolute Basophils Carbonic Acid 2.75 H 1.94 H 1.60 H HCO3/H2CO3 Ratio 11:1 15:1 15:1 ABG pH 7.15 L* 7.28 L 7.29 L ABG pCO2 91.2 H* 64.3 H 53.1 H ABG pO2 165.9 H 98.4 142.3 H ABG HCO3 31.3 H 29.5 H 25.2 ABG O2 Saturation 98.5 H 96.5 98.5 H ABG Base Excess -0.3 1.2 -1.9 FiO2 FLOW RATE 2 2L 40% Sodium Potassium Chloride Carbon Dioxide Anion Gap BUN Creatinine Est GFR ( Amer) Est GFR (Non-Af Amer) Glucose Calcium 09/30/16 15:15 WBC RBC Hgb Hct MCV MCH MCHC RDW Plt Count Seg Neutrophils % Lymphocytes % Monocytes % Eosinophils % Basophils % Absolute Neutrophils Absolute Lymphocytes Absolute Monocytes Absolute Eosinophils Absolute Basophils Carbonic Acid 1.57 H HCO3/H2CO3 Ratio 17:1 ABG pH 7.34 L ABG pCO2 52.2 H ABG pO2 100.4 H ABG HCO3 27.2 H ABG O2 Saturation 97.1 ABG Base Excess 0.6 FiO2 40% Sodium Potassium Chloride Carbon Dioxide Anion Gap BUN Creatinine Est GFR ( Amer) Est GFR (Non-Af Amer) Glucose Calcium 09/28/16 09/29/16 09/29/16 13:48 21:34 21:34 Creatine Kinase 42 CK-MB (CK-2) 3.25 Troponin I < 0.012 0.075 09/30/16 09/30/16 09/30/16 03:47 03:47 09:40 Creatine Kinase 52 62 CK-MB (CK-2) 5.90 H Troponin I 0.561 09/30/16 09:40 Creatine Kinase CK-MB (CK-2) 8.91 H Troponin I 1.100 Impressions: Chest/Abdomen CTA 09/30/16 00:00 IMPRESSION: No evidence for pulmonary embolic disease. No acute consolidations or pleural effusions are identified. Other findings as noted above Chest X-Ray 09/30/16 07:15 IMPRESSION: No consolidation or pleural effusion. Prominent main pulmonary artery, probably corresponding to previously described aneurysmal dilation. Support devices in expected locations. Assessment & Plan - Diagnosis (1) Acute and chronic respiratory failure Is this a current diagnosis for this admission?: YesPlan: Continue mechanical ventilation. Consult Dr. Larios of pulmonary medicine for ventilator management. CTA of chest negative for pulmonary embolism, infiltrate (2) COPD exacerbation Is this a current diagnosis for this admission?: YesPlan: Continue IV Solu-Medrol. Scheduled and PRN DuoNeb's. Continue IV Rocephin and IV azithromycin until clinical status improves. (3) Elevated troponin Is this a current diagnosis for this admission?: YesPlan: Dr. Desouza of cardiology following. He feels this is most likely secondary to respiratory failure and hypotension. Echocardiogram pending. Patient remains on full dose anticoagulation with Lovenox for now. (4) Anxiety Is this a current diagnosis for this admission?: Yes (5) Breast cancer Is this a current diagnosis for this admission?: Yes (6) Pulmonic stenosis Is this a current diagnosis for this admission?: Yes (7) Hypotension Is this a current diagnosis for this admission?: YesPlan: This started after patient was placed on IV sedation for mechanical ventilation. Patient was started on Frederick-Synephrine and this can be titrated off as tolerated to maintain mean arterial pressure greater than 65. - Time Critical Time spent with patient: 35 or more minutes
[2016-09-30] MEDS: INSULIN LISPRO 100 UNIT/ML 3 ML VIAL SUBCUT PRN (18:37)
[2016-09-30] MEDS ORDERED: NORMAL SALINE INJ/PF 0.9% 10 ML SDV IV PRN (18:59)
[2016-09-30] MEDS ORDERED: ASPIRIN 81 MG TABLET, CHEWABLE NG ONE (21:30)
[2016-09-30] MEDS: ALPRAZOLAM 0.5 MG TABLET PO PRN (22:58)
[2016-10-01] MEDS: INSULIN LISPRO 100 UNIT/ML 3 ML VIAL SUBCUT PRN ×2 (00:36→23:43)
[2016-10-01] MEDS: PROPOFOL 100 ML IV PRN ×5 (01:11→20:59)
[2016-10-01] MEDS: METHYLPREDNISOLONE INJ 40 MG/1 ML SDV IV SCH ×3 (01:22→17:36)
[2016-10-01] MEDS: ALBUTEROL SULFATE 0.083% NEB 2.5 MG/3 ML AMPUL NEB PRN (01:24)
[2016-10-01 07:18] LABS: ARTERIAL BLOOD BASE EXCESS 0.7 mmol/L; ARTERIAL BLOOD O2 SATURATION 98.2 % (94-98)
[2016-10-01 07:20] LABS: HEMATOCRIT 35.6 % (36.0-47.0); HEMOGLOBIN 11.8 g/dL (12.0-15.5); HGB HCT DIFFERENCE -0.2; MEAN CORPUSCULAR HEMOGLOBIN 28.9 pg (27.0-33.4); MEAN CORPUSCULAR HGB CONC 33.3 g/dL (32.0-36.0); MEAN CORPUSCULAR VOLUME 87 fl (80-97); RED BLOOD COUNT 4.09 10^6/uL (3.72-5.28); RED CELL DISTRIBUTION WIDTH 13.5 % (11.5-14.0); WHITE BLOOD COUNT 7.4 10^3/uL (4.0-10.5)
[2016-10-01 07:31] LABS: ANION GAP 6 (5-19); BLOOD UREA NITROGEN 9 mg/dL (7-20); CALCIUM 8.3 mg/dL (8.4-10.2); CARBON DIOXIDE 26 mmol/L (22-30); CHLORIDE 108 mmol/L (98-107); GLUCOSE 169 mg/dL (75-110); MAGNESIUM 1.9 mg/dL (1.6-2.3); POTASSIUM 3.9 mmol/L (3.6-5.0); SODIUM 140.3 mmol/L (137-145)
[2016-10-01] MEDS: ENOXAPARIN SODIUM INJ 100 MG/1 ML DISP.SYRIN SUBCUT SCH (07:32)
[2016-10-01] MEDS: MIDAZOLAM HCL 100 ML IV PRN (07:55)
[2016-10-01 07:59] LABS: APPEARANCE,URINE CLEAR; BILIRUBIN,URINE NEGATIVE (NEGATIVE); GLUCOSE, URINE NEGATIVE (NEGATIVE); KETONES,URINE NEGATIVE (NEGATIVE); LEUKOCYTE ESTERASE,URINE NEGATIVE (NEGATIVE); NITRITE,URINE NEGATIVE (NEGATIVE); PROTEIN,URINE NEGATIVE (NEGATIVE); URINE SPECIFIC GRAVITY 1.011; UROBILINOGEN,URINE NEGATIVE mg/dL (<2.0)
[2016-10-01] MEDS: IPRATROPIUM/ALBUTEROL 0.5-2.5 MG/3 ML AMPUL NEB SCH ×3 (08:43→20:36)
[2016-10-01] MEDS: CEFTRIAXONE 1 GM/D5W RTU 1 GM/50 ML RTUPB IV SCH (09:35)
[2016-10-01] MEDS: FAMOTIDINE 20 MG TABLET PO SCH ×2 (09:35→21:00)
[2016-10-01] MEDS: AZITHROMYCIN 500 MG in DEXTROSE 5%-WATER 250 ML IV SCH (09:35)
[2016-10-01] MEDS: CITALOPRAM HYDROBROMIDE 20 MG TABLET PO SCH (09:36)
[2016-10-01] MEDS: ASPIRIN 81 MG TABLET, CHEWABLE NG SCH (09:36)
[2016-10-01] MEDS: ALPRAZOLAM 0.5 MG TABLET PO PRN (10:56)
[2016-10-01] MEDS: IPRATROPIUM/ALBUTEROL 0.5-2.5 MG/3 ML AMPUL NEB PRN (11:51)
--- NOTE | 2016-10-01 12:23 | CONSULTATION REPORT E ---
Consultation Report NAME: SHAHAB MONROE : 1960 AGE: 56Y DATE: 09/30/2016 612 A TO: SHAYY MOYA M.D. FROM: Requesting Physician REASON FOR CONSULTATION: I was with the patient from 11:45 a.m. to 12:30 p.m., a total of 45 minutes of critical care. Note that the patient is intubated and sedated, hence there is no list available. There is no relatives to give me history or review of systems. All of the information obtained from the medical records from the patient of this admission. HISTORY: The patient is a 56-year-old female with history of COPD on home oxygen at 2L per minute nasal cannula who quit smoking about a week ago and was admitted with cough, shortness of breath, low-grade fever, wheezing and shortness of breath worsened to rest shortness of breath. She also had chest wall pain associated with coughing. She states that the cough is nonproductive, but did not have orthopnea or PND or leg edema. There are no clear-cut anginal symptoms. She had some mild lower extremity edema also. The patient was treated with acute exacerbation of COPD. The patient decompensated and had to be intubated and transferred to the ICU where she was also hypotensive with a blood pressure of 84. She was also on admission hypoxic with an O2 saturation of 86%. I believe the admitting physician said at home at times O2 saturation was in the 70's. PAST MEDICAL HISTORY: Positive for: 1. History of hypertension. 2. Hyperlipidemia. 3. COPD on home oxygen. 4. She has a history of pulmonic stenosis, status post valvuloplasty. 5. She has a history of pneumonia in the past. 6. She has a history of breast cancer. 7. Psoriatic arthritis. 8. History of depression. There is no history of sleep apnea. No history of sleep apnea. No history of TIA or CVA as per my search in the records, which has not been mentioned and hence I assume that these are not present. She has no history of diabetes mellitus and no history of chronic kidney disease. PAST SURGICAL HISTORY: 1. section x1. 2. Mastectomy, right partial in 1999 with lymph node dissection. 3. Vascular surgery. 4. Pulmonary valvuloplasty. SOCIAL HISTORY: Former smoker. Quit smoking 1 year and 1 week ago. FAMILY HISTORY: Positive for mother at 54 with diabetes, coronary artery disease and CVA. Father at age 62 from COPD and coronary artery disease. ALLERGIES: She is allergic to LATEX and BEE STINGS. CODE STATUS: As per chart the patient is a FULL CODE. Her daughter is her surrogate healthcare decision maker. REVIEW OF SYMPTOMS: Not available. MEDICATIONS: 1. Tylenol 650 mg p.o. q.4 h. p.r.n. 2. Albuterol nebulizer treatment 2.5 mg q.4 h. p.r.n. 3. Xanax 1 mg p.o. t.i.d. p.r.n. 4. Atorvastatin 80 mg p.o. x1. 5. Celexa 20 mg p.o. daily. 6. She got 2 doses of Plavix on the morning of 09/30/2016. 7. She is on 40% gel, 15 g p.o. p.r.n. 8. gel 30 g p.o. p.r.n. hypoglycemia. 9. Dextrose 50% 12.5 g IV and 25 g IV p.r.n. 10. Lovenox 90 mcg subcutaneously q.12 h. 11. Pepcid 20 mg p.o. q.12 h. 12. Her propofol drip has been stopped and she will be on a Versed drip. 13. She is on glucagon 1 mg IV p.r.n. hypoglycemia. 14. Zithromax 500 mg IV piggyback daily. 15. Ceftriaxone 1 g IV piggyback daily. 16. Normal saline, she had a 1000 mL bolus and subsequently will get dextrose 5% with normal saline at 125 mL/h. She is on Accu-Cheks a.c. and bedtime with sliding scale insulin coverage. 17. Ipratropium and albuterol nebulizer treatment q.4 h. p.r.n. 18. Methylprednisolone 80 mg IV q.8 h. PHYSICAL EXAMINATION: VITAL SIGNS: Her temperature is 97.4 degrees Fahrenheit. Her pulse is 81 beats per minute, blood pressure after she came back from the CT scan of the chest in spite of the boluses her blood pressure was 84/71, respirations 14 per minute. O2 sat is 100% with FIO2 of 40%. GENERAL: The patient is intubated and sedated. HEENT: Head is atraumatic, normocephalic. EYES: Pupils are equal, round, regular, reactive to light. EARS: Tympanic membranes are intact. External auditory canals are clear. NOSE/THROAT: Not examined. Nose not examined since the patient is intubated and has an endotracheal tube and an NG tube. SKIN: There are no skin rashes. There is no petechiae or ecchymosis. There are no skin lesions. NECK: Supple. There is no JVD. Carotids are equal. There is no bruit. There is no goiter. There is no lymphadenopathy. LUNGS: Show a few scattered rhonchi. There is hyperinflation in the lungs. HEART: Heart sounds are distant. S1 and S2 are heard. There is no S4 gallop present. There is no S3 gallop. There is a systolic murmur at left sternal border at the apex, suggestive of mitral regurgitation and tricuspid regurgitation. There is no rub. ABDOMEN: Soft, nontender. There is no hepatosplenomegaly. Bowel sounds are well heard. EXTREMITIES: Femorals are diminished. There are no femoral bruit. Leg pulses are diminished. There is trace pedal edema. There is no DVT or cellulitis. There is no calf tenderness. CENTRAL NERVOUS SYSTEM: Not examined. PSYCHIATRIC: Not examined. DIAGNOSTIC TEST RESULTS: The patient's EKG shows sinus rhythm with T-wave inversion in 1 and aVR. The patient's chest x-ray shows no heart failure or infiltrates. The patient's abdominal CT is negative for pulmonary embolism. Lungs show no masses, infiltrates pleural effusion. Essentially there is no evidence of pulmonary embolic disease. No acute consolidations or pleural effusions and no evidence of heart failure. The patient's subsequent EKG done today in the morning shows T-wave inversion in 1 and aVL. Earlier this morning sodium was 138.5, potassium was 5.0, chloride 104, CO2 was 30. The patient's BUN 14, creatinine 0.52. GFR is greater than 60, glucose 112, calcium 9.2. Her initial troponin was 0.075 and subsequently was 0.561 and subsequently went up to 1.10. The patient's white count is 10,100, hemoglobin 12.7, hematocrit is 38.1, platelet count is 243,000. Her ABGs have been noted initially on 09/29/2016. She was acidotic with a pH of 7.20, pCO2 was 79.1, pO2 was 95.1, but today her pH was 7.34, pCO2 is still high at 52.4, pO2 is 100.4 and O2 sat is 97.1% on FIO2 of 40%. IMPRESSION: 1. ELEVATED TROPONIN. The question is whether this is non ST-elevation [place] in view of the subtle EKG changes versus secondary to type 2 myocardial infarction (secondary to supply demand mismatch) due to hypotension, hypoxemia and acute exacerbation of COPD. Hence, would recommend strongly to start the patient on aspirin. The patient already got Plavix. I would not continue the patient on Plavix. We will start the patient on aspirin. The patient's blood pressure is low and hence cannot use any nitrates or beta-blockers at present and also the patient is having acute exacerbation of COPD. Would recommend getting an echocardiogram to look for wall motion abnormality in the view of patient's EKG changes being present, although subtle. 2. HYPOTENSION. Start Frederick-Synephrine drip and titrate to keep the blood pressure above 100 systolic with mean arterial pressure above 65. 3. JCMOM-QI-FRFTEXP RESPIRATORY FAILURE WITH HYPERCAPNIA. Continue intubation. Continue respiratory treatments and antibiotics. 4. ACUTE EXACERBATION OF COPD. As mentioned, continue ventilator support or oxygen, respiratory treatment and antibiotics. 5. PAST HISTORY OF HYPERTENSION. 6. 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 This is another reason for the patient to have an echocardiogram. 7. PSORIATIC ARTHRITIS. 8. HISTORY OF BREAST CANCER, STATUS POST MASTECTOMY. 9. HYPERLIPIDEMIA. RECOMMENDATIONS: Note 45 minutes of critical care time spent on this patient including review of the medication, adjusting the patient's medications and starting the patient on pressors and discussion with the nurse taking care of the patient and also discussing with Dr. Mills, who is the hospitalist taking care of the patient. We will check the patient's echocardiogram and see whether this still towards a diagnosis of non ST-elevation W[place] versus this being secondary to type 2 myocardial infarction due to supply/demand mismatch for reasons mentioned above. DICTATING PHYSICIAN: SHAYY MOYA M.D. [id number] PHY#: [id number] ID: [id number] JOB#: [id number] ACCT: [id number] cc:SHAYY MOYA M.D. >
--- NOTE | 2016-10-01 12:25 | OPERATIVE REPORT E ---
Operative Report NAME: SHAHAB MONROE : 1960 AGE: 56Y DATE OF SURGERY: 09/30/2016 ROOM: 612 PREOPERATIVE DIAGNOSIS: Poor veins for peripheral IV access. POSTOPERATIVE DIAGNOSIS: Poor veins for peripheral IV access. PROCEDURE: Placement of a right internal jugular triple-lumen catheter under ultrasound guidance. SURGEON: COLLINS GONZALEZ M.D. ANESTHESIA: Local. INDICATION: This is a 56-year-old female who was intubated and has poor veins for IV access. A request for central line placement was done by Dr. Hogan. DESCRIPTION OF PROCEDURE: The patient was in slight Trendelenburg position, intubated, and the right neck prepped and draped in the usual sterile fashion. With the use of the ultrasound, the right internal jugular vein was then identified. Local anesthesia infiltrated along the skin toward the internal jugular vein. The vein was then punctured under ultrasound guidance, and the guidewire passed through the needle into the area of the superior vena cava. The needle was then subsequently removed and the puncture site enlarged with an #11 blade. A dilator was then passed through the guidewire toward the insertion site. Next, a triple-lumen catheter was then inserted through the guidewire and into the superior vena cava. The catheter was placed up to about 16 cm. The catheter was then anchored to the skin with 3-0 silk. A Biopatch was then placed over the insertion site and a transparent sterile dressing was then placed over the Biopatch and catheter. The patient tolerated the procedure well. A chest x-ray will be obtained for placement. The 3 ports easily aspirated blood and easily injected saline. DICTATING PHYSICIAN: COLLINS GONZALEZ M.D. [id number] PHY#: [id number] ID: [id number] JOB#: [id number] ACCT: [id number] cc:COLLINS GONZALEZ M.D. >
[2016-10-01] MEDS: DEXTROSE 5%-NORMAL SALINE 1,000 ML IV PRN ×2 (13:27→22:28)
--- NOTE | 2016-10-01 13:39 | PDOC PROGRESS REPORT ---
Subjective Progress Note for:: 10/01/16 Subjective:: Patient failed ventilator weaning trial today secondary to tachypnea. I cannot obtain history from patient secondary to sedated/intubated state. Physical Exam Vital Signs: Temp Pulse Resp BP Pulse Ox 98.8 F 108 H 15 131/86 H 100 10/01/16 12:00 10/01/16 12:00 10/01/16 12:00 10/01/16 12:00 10/01/16 12:00 Intake & Output 09/30/16 10/01/16 10/02/16 06:59 06:59 06:59 Intake Total 930 4251 Output Total 200 1520 470 Balance 730 2731 -470 Weight 86.7 kg 90.9 kg GENERAL: Intubated HEENT: Conjunctiva clear, nonicteric, moist mucous membranes, no JVD, midline trachea RESPIRATORY: Clear to auscultation anteriorly CARDIAC: Regular rate and rhythm, no murmurs/gallops/rubs ABDOMEN: Soft, nondistended, nontender, positive bowel sounds, no rebound, no guarding EXTREMETIES: No edema, cyanosis, clubbing NEUROLOGIC: Sedated SKIN: No rash, wounds Results Laboratory Results: 10/01/16 07:00 10/01/16 07:00 09/30/16 10/01/16 10/01/16 15:15 07:00 07:00 WBC 7.4 RBC 4.09 Hgb 11.8 L Hct 35.6 L MCV 87 MCH 28.9 MCHC 33.3 RDW 13.5 Plt Count 241 Carbonic Acid 1.57 H 1.39 H HCO3/H2CO3 Ratio 17:1 18:1 ABG pH 7.34 L 7.37 ABG pCO2 52.2 H 46.3 H ABG pO2 100.4 H 117.3 H ABG HCO3 27.2 H 26.3 H ABG O2 Saturation 97.1 98.2 H ABG Base Excess 0.6 0.7 FiO2 40% 40% Sodium Potassium Chloride Carbon Dioxide Anion Gap BUN Creatinine Est GFR ( Amer) Est GFR (Non-Af Amer) Glucose Calcium Magnesium Urine Color Urine Appearance Urine pH Ur Specific [place] Urine Protein Urine Glucose (UA) Urine Ketones Urine Blood Urine Nitrite Ur Leukocyte Esterase Urine WBC (Auto) Urine RBC (Auto) 10/01/16 10/01/16 07:00 07:15 WBC RBC Hgb Hct MCV MCH MCHC RDW Plt Count Carbonic Acid HCO3/H2CO3 Ratio ABG pH ABG pCO2 ABG pO2 ABG HCO3 ABG O2 Saturation ABG Base Excess FiO2 Sodium 140.3 Potassium 3.9 Chloride 108 H Carbon Dioxide 26 Anion Gap 6 BUN 9 Creatinine 0.50 L Est GFR ( Amer) > 60 Est GFR (Non-Af Amer) > 60 Glucose 169 H Calcium 8.3 L Magnesium 1.9 Urine Color YELLOW Urine Appearance CLEAR Urine pH 6.0 Ur Specific [place] 1.011 Urine Protein NEGATIVE Urine Glucose (UA) NEGATIVE Urine Ketones NEGATIVE Urine Blood SMALL H Urine Nitrite NEGATIVE Ur Leukocyte Esterase NEGATIVE Urine WBC (Auto) 1 Urine RBC (Auto) 11 09/28/16 09/29/16 09/29/16 13:48 21:34 21:34 Creatine Kinase 42 CK-MB (CK-2) 3.25 Troponin I < 0.012 0.075 09/30/16 09/30/16 09/30/16 03:47 03:47 09:40 Creatine Kinase 52 62 CK-MB (CK-2) 5.90 H Troponin I 0.561 09/30/16 10/01/16 09:40 07:15 Creatine Kinase CK-MB (CK-2) 8.91 H Troponin I 1.100 0.530 Impressions: Chest/Abdomen CTA 09/30/16 00:00 IMPRESSION: No evidence for pulmonary embolic disease. No acute consolidations or pleural effusions are identified. Other findings as noted above Chest X-Ray 10/01/16 06:00 IMPRESSION: Pulmonary arterial hypertension. Lines and tubes. Assessment & Plan - Diagnosis (1) Acute and chronic respiratory failure Is this a current diagnosis for this admission?: YesPlan: Continue mechanical ventilation. Consult Dr. Larios of pulmonary medicine for ventilator management. CTA of chest negative for pulmonary embolism, infiltrate (2) COPD exacerbation Is this a current diagnosis for this admission?: YesPlan: Continue IV Solu-Medrol. Scheduled and PRN DuoNeb's. Continue IV Rocephin and IV azithromycin until clinical status improves. (3) Elevated troponin Is this a current diagnosis for this admission?: YesPlan: Dr. Desouza of cardiology following. He feels this is most likely secondary to respiratory failure and hypotension. He stated that patient had normal cardiac catheterization in October 2015. Echocardiogram shows left ventricular ejection fraction 45-50%, moderate to severe mitral regurgitation. Discontinue Lovenox. (4) Anxiety Is this a current diagnosis for this admission?: Yes (5) Breast cancer Is this a current diagnosis for this admission?: Yes (6) Pulmonic stenosis Is this a current diagnosis for this admission?: Yes (7) Hypotension Is this a current diagnosis for this admission?: YesPlan: This started after patient was placed on IV sedation for mechanical ventilation. Patient was started on Frederick-Synephrine and this can be titrated off as tolerated to maintain mean arterial pressure greater than 65. (8) Mitral regurgitation Is this a current diagnosis for this admission?: YesPlan: Dr. Desouza has recommended introducing JADA inhibitor once blood pressure is stable off Frederick-Synephrine. - Time Critical Time spent with patient: 35 or more minutes
[2016-10-01] MEDS: HEPARIN SOD (PORCINE) 5,000 UNIT/ML 1 ML SYRINGE SUBCUT SCH ×2 (14:32→21:03)
--- NOTE | 2016-10-01 20:35 | PDOC PROGRESS REPORT ---
Subjective Progress Note for:: 10/01/16 Subjective:: intubated Physical Exam Vital Signs: Temp Pulse Resp BP Pulse Ox 98.4 F 59 L 20 138/87 H 99 10/01/16 07:57 10/01/16 07:57 10/01/16 07:57 10/01/16 07:57 10/01/16 07:57 Intake & Output 09/30/16 10/01/16 10/02/16 06:59 06:59 06:59 Intake Total 930 4251 Output Total 200 1520 60 Balance 730 2731 -60 Weight 86.7 kg 90.9 kg General appearance: PRESENT: no acute distress, disheveled, obese, well- developed Head exam: PRESENT: atraumatic, normocephalic Eye exam: PRESENT: conjunctiva pale Mouth exam: PRESENT: dry mucosa, neck supple, other - ET tube in place Neck exam: ABSENT: carotid bruit, JVD, lymphadenopathy, thyromegaly Respiratory exam: PRESENT: decreased breath sounds, prolonged expiratory phas, rhonchi, symmetrical, tachypnea Cardiovascular exam: PRESENT: RRR, +S1, +S2 Pulses: PRESENT: normal radial pulses GI/Abdominal exam: PRESENT: normal bowel sounds, soft. ABSENT: distended, guarding, mass, organolmegaly, rebound, tenderness Rectal exam: PRESENT: deferred Gentrourinary exam: PRESENT: indwelling catheter Skin exam: PRESENT: dry, warm Results Laboratory Results: 10/01/16 07:00 10/01/16 07:00 09/30/16 09/30/16 10/01/16 13:10 15:15 07:00 WBC 7.4 RBC 4.09 Hgb 11.8 L Hct 35.6 L MCV 87 MCH 28.9 MCHC 33.3 RDW 13.5 Plt Count 241 Carbonic Acid 1.60 H 1.57 H HCO3/H2CO3 Ratio 15:1 17:1 ABG pH 7.29 L 7.34 L ABG pCO2 53.1 H 52.2 H ABG pO2 142.3 H 100.4 H ABG HCO3 25.2 27.2 H ABG O2 Saturation 98.5 H 97.1 ABG Base Excess -1.9 0.6 FiO2 40% 40% Sodium Potassium Chloride Carbon Dioxide Anion Gap BUN Creatinine Est GFR ( Amer) Est GFR (Non-Af Amer) Glucose Calcium Magnesium Urine Color Urine Appearance Urine pH Ur Specific [place] Urine Protein Urine Glucose (UA) Urine Ketones Urine Blood Urine Nitrite Ur Leukocyte Esterase Urine WBC (Auto) Urine RBC (Auto) 10/01/16 10/01/16 10/01/16 07:00 07:00 07:15 WBC RBC Hgb Hct MCV MCH MCHC RDW Plt Count Carbonic Acid 1.39 H HCO3/H2CO3 Ratio 18:1 ABG pH 7.37 ABG pCO2 46.3 H ABG pO2 117.3 H ABG HCO3 26.3 H ABG O2 Saturation 98.2 H ABG Base Excess 0.7 FiO2 40% Sodium 140.3 Potassium 3.9 Chloride 108 H Carbon Dioxide 26 Anion Gap 6 BUN 9 Creatinine 0.50 L Est GFR ( Amer) > 60 Est GFR (Non-Af Amer) > 60 Glucose 169 H Calcium 8.3 L Magnesium 1.9 Urine Color YELLOW Urine Appearance CLEAR Urine pH 6.0 Ur Specific [place] 1.011 Urine Protein NEGATIVE Urine Glucose (UA) NEGATIVE Urine Ketones NEGATIVE Urine Blood SMALL H Urine Nitrite NEGATIVE Ur Leukocyte Esterase NEGATIVE Urine WBC (Auto) 1 Urine RBC (Auto) 11 09/28/16 09/29/16 09/29/16 13:48 21:34 21:34 Creatine Kinase 42 CK-MB (CK-2) 3.25 Troponin I < 0.012 0.075 09/30/16 09/30/16 09/30/16 03:47 03:47 09:40 Creatine Kinase 52 62 CK-MB (CK-2) 5.90 H Troponin I 0.561 09/30/16 10/01/16 09:40 07:15 Creatine Kinase CK-MB (CK-2) 8.91 H Troponin I 1.100 0.530 Impressions: Chest/Abdomen CTA 09/30/16 00:00 IMPRESSION: No evidence for pulmonary embolic disease. No acute consolidations or pleural effusions are identified. Other findings as noted above Chest X-Ray 10/01/16 06:00 IMPRESSION: Pulmonary arterial hypertension. Lines and tubes. Assessment & Plan - Diagnosis (1) Acute respiratory failure with hypoxia Is this a current diagnosis for this admission?: YesPlan: improving very tachypnic during sedation vacation (2) Anxiety Is this a current diagnosis for this admission?: Yes (3) COPD exacerbation Is this a current diagnosis for this admission?: YesPlan: continue current broncho-dialator therapy - Time Critical Time spent with patient: 25-34 minutes
--- NOTE | 2016-10-01 23:08 | PROGRESS NOTE E ---
Progress Note NAME: SHAHAB MONROE : 1960 AGE: 56Y DATE: 10/01/2016 ROOM: 612 SUBJECTIVE: Note that the patient was seen between 2:15 and 3 o'clock on 10/01/2016. The patient is still intubated and sedated. There is no atrial fibrillation or flutter. There is no ventricular arrhythmia seen. The patient appears to be sedated and is not fighting the ventilator. She still requires 20 mcg of Frederick-Synephrine to keep her blood pressure. OBJECTIVE: VITAL SIGNS: On examination earlier, the patient is afebrile with a temperature of 98.8 degrees Fahrenheit; at present, the patient's pulse 102 beats per minute, blood pressure is 137/73 on 20 mcg of Frederick-Synephrine. Respirations are 19 per minute and O2 sats are 98% on mechanical ventilator with FiO2 of 40%. HEENT: Head: Atraumatic, normocephalic. Eyes: Pupils are equal, round, regular, and reactive to light. ENT: Tympanic membranes are intact. External auditory canals are clear. Nose, throat and mouth not examined. SKIN: There are no skin rashes. There is no petechia or ecchymosis. There are no skin lesions. NECK: Supple. There is no JVD. Carotids are equal. There is no bruit. There is no goiter. There is no lymphadenopathy. LUNGS: Show a few scattered rhonchi. There are hyperinflation of the lungs. CARDIOVASCULAR: Heart sounds are distant. S1, S2 is heard. There is no S4 gallop. There is no S3 gallop. There is a systolic murmur in the left sternal border and the apex suggestive of mitral regurgitation and tricuspid regurgitation. There is no rub. ABDOMEN: Soft, nontender. There is no hepatosplenomegaly. Bowel sounds are well heard. EXTREMITIES: Femorals are diminished. There are no femoral bruits. Leg pulses are diminished. There is no pedal edema. There is no DVT or cellulitis. There is no calf tenderness. CENTRAL NERVOUS SYSTEM: Not examined. PSYCHIATRIC: Not examined. DIAGNOSTIC DATA: The patient's chest x-ray shows pulmonary arterial hypertension, but I do not see any evidence of any congestive heart failure. There are no infiltrates. LABORATORY: The patient's white count is 7400, hemoglobin is 11.8, hematocrit 35.6, platelet count is 241,000. The patient's sodium is 140.3, potassium 3.9, chloride 108, CO2 26, BUN 9, creatinine 0.50, GFR is greater than 60, glucose is 169, calcium is 8.3, magnesium is 1.9. The patient's troponin I has trended down to 0.530. ADDENDUM: The patient had records from [facility] has been reviewed. The patient had a cardiac catheterization in November 2015 and this showed normal epicardial arteries. There was mild pulmonic stenosis with variant varying from 14 mm to 24 mmHg, moderate pulmonary hypertension, and has pulmonary artery dilatation. IMPRESSION: 1. ELEVATED TROPONIN I. This most likely is non-ST elevation IN secondary to supply-demand mismatch and not a non-ST elevation IN since the patient has normal epicardial coronary arteries in October. 2. HYPOTENSION. Blood pressure better but still requiring pressors. 3. [id number] RESPIRATORY FAILURE WITH HYPERCAPNIA. Continue intubation. Continue respiratory treatments and antibiotics. Note that the patient's blood gas today shows a slightly improved PCO2 but it is still a little high. The pH is 7.37, PCO2 is 46.3, PO2 is 117.3, FiO2 of 40%, and the O2 sat is 98.2%. 4. ACUTE EXACERBATION OF COPD. 5. PAST HISTORY OF HYPERTENSION. 6. 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 The patient has a gradient of 16 at present. 7. PSORIATIC ARTHRITIS. 8. HISTORY OF BREAST CANCER STATUS POST MASTECTOMY. 9. HYPERLIPIDEMIA. RECOMMENDATIONS: Continue pressors to keep the blood pressure up as mentioned earlier, systolic blood pressure about 100 and also mean arterial pressure about 65 mmHg. Continue ventilator support and respiratory treatments and antibiotics. Discussed this with the patient's daughter. Note, 35 minutes of critical care time spent on reviewing the patient's medications and adjusting the patient's medications and discussions with the patient's daughter and also discussion with other caregiving providers. *------* medications were reviewed. Thanking you. DICTATING PHYSICIAN: SHAYY MOYA M.D. [id number] PHY#: [id number] ID: [id number] JOB#: [id number] ACCT: [id number] cc: >
[2016-10-02] MEDS: MIDAZOLAM HCL 100 ML IV PRN (00:48)
[2016-10-02] MEDS: PROPOFOL 100 ML IV PRN ×7 (00:48→22:28)
[2016-10-02] MEDS: IPRATROPIUM/ALBUTEROL 0.5-2.5 MG/3 ML AMPUL NEB PRN (00:58)
[2016-10-02] MEDS: METHYLPREDNISOLONE INJ 40 MG/1 ML SDV IV SCH ×3 (01:59→17:20)
[2016-10-02 04:51] LABS: ARTERIAL BLOOD O2 SATURATION 98.3 % (94-98)
[2016-10-02 04:55] LABS: ABSOLUTE LYMPHOCYTES (AUTO) 0.5 10^3/uL (0.5-4.7); ABSOLUTE MONOCYTES (AUTO) 0.6 10^3/uL (0.1-1.4); ABSOLUTE NEUT (AUTO) 7.3 10^3/uL (1.7-8.2); BASOPHILS % (AUTO) 0.1 % (0-2); HEMATOCRIT 32.6 % (36.0-47.0); HEMOGLOBIN 10.8 g/dL (12.0-15.5); HGB HCT DIFFERENCE -0.2; LYMPHOCYTES % (AUTO) 6.4 % (13-45); MEAN CORPUSCULAR HEMOGLOBIN 28.8 pg (27.0-33.4); MEAN CORPUSCULAR HGB CONC 33.2 g/dL (32.0-36.0); MEAN CORPUSCULAR VOLUME 87 fl (80-97); RED BLOOD COUNT 3.76 10^6/uL (3.72-5.28); RED CELL DISTRIBUTION WIDTH 13.6 % (11.5-14.0); SEGMENTED NEUTROPHILS % (AUTO) 86.5 % (42-78); WHITE BLOOD COUNT 8.4 10^3/uL (4.0-10.5)
[2016-10-02 05:03] LABS: APPEARANCE,URINE CLEAR; BILIRUBIN,URINE NEGATIVE (NEGATIVE); GLUCOSE, URINE NEGATIVE (NEGATIVE); KETONES,URINE NEGATIVE (NEGATIVE); LEUKOCYTE ESTERASE,URINE NEGATIVE (NEGATIVE); NITRITE,URINE NEGATIVE (NEGATIVE); PROTEIN,URINE NEGATIVE (NEGATIVE); URINE SPECIFIC GRAVITY 1.011; UROBILINOGEN,URINE NEGATIVE mg/dL (<2.0)
[2016-10-02 05:08] LABS: ANION GAP 5 (5-19); BLOOD UREA NITROGEN 8 mg/dL (7-20); CALCIUM 8.2 mg/dL (8.4-10.2); CARBON DIOXIDE 28 mmol/L (22-30); CHLORIDE 110 mmol/L (98-107); CREATININE RESULT 0.51 mg/dL (0.52-1.25); GLUCOSE 151 mg/dL (75-110); MAGNESIUM 1.9 mg/dL (1.6-2.3); POTASSIUM 3.8 mmol/L (3.6-5.0); SODIUM 143.4 mmol/L (137-145)
[2016-10-02] MEDS: HEPARIN SOD (PORCINE) 5,000 UNIT/ML 1 ML SYRINGE SUBCUT SCH ×2 (05:29→16:21)
[2016-10-02] MEDS: INSULIN LISPRO 100 UNIT/ML 3 ML VIAL SUBCUT PRN (05:29)
[2016-10-02] MEDS: DEXTROSE 5%-NORMAL SALINE 1,000 ML IV PRN ×2 (06:43→16:20)
[2016-10-02] MEDS: IPRATROPIUM/ALBUTEROL 0.5-2.5 MG/3 ML AMPUL NEB SCH ×3 (08:41→19:50)
[2016-10-02] MEDS: CEFTRIAXONE 1 GM/D5W RTU 1 GM/50 ML RTUPB IV SCH (09:08)
[2016-10-02] MEDS: ASPIRIN 81 MG TABLET, CHEWABLE NG SCH (09:09)
[2016-10-02] MEDS: ALPRAZOLAM 0.5 MG TABLET PO PRN ×2 (09:09→22:27)
[2016-10-02] MEDS: CITALOPRAM HYDROBROMIDE 20 MG TABLET PO SCH (09:09)
[2016-10-02] MEDS: FAMOTIDINE 20 MG TABLET PO SCH ×2 (09:09→22:27)
[2016-10-02] MEDS: LORAZEPAM INJ 2 MG/1 ML VIAL IV PRN (09:10)
[2016-10-02] MEDS: AZITHROMYCIN 500 MG in DEXTROSE 5%-WATER 250 ML IV SCH (09:13)
--- NOTE | 2016-10-02 10:41 | EKG REPORT ---
SEVERITY:- BORDERLINE ECG - SINUS RHYTHM BORDERLINE T ABNORMALITIES, ANT-LAT LEADS : Confirmed by: Kaylah Desouza MD 02-Oct-2016 10:40:41
--- NOTE | 2016-10-02 11:27 | PDOC PROGRESS REPORT ---
Subjective Progress Note for:: 10/02/16 Subjective:: intubated failed prior sedation vacation Physical Exam Vital Signs: Temp Pulse Resp BP Pulse Ox 98.0 F 70 12 112/65 98 10/02/16 08:00 10/02/16 08:00 10/02/16 08:00 10/02/16 08:00 10/02/16 08:00 Intake & Output 10/01/16 10/02/16 10/03/16 06:59 06:59 06:59 Intake Total 4251 3836 Output Total 1520 1945 75 Balance 2731 1891 -75 Weight 90.9 kg 92.6 kg General appearance: PRESENT: no acute distress, disheveled, well-developed Head exam: PRESENT: atraumatic, normocephalic Eye exam: PRESENT: conjunctiva pale Mouth exam: PRESENT: dry mucosa, neck supple, other - ET tube Neck exam: ABSENT: carotid bruit, JVD, lymphadenopathy, thyromegaly Cardiovascular exam: PRESENT: +S1, +S2 Pulses: PRESENT: normal radial pulses GI/Abdominal exam: PRESENT: normal bowel sounds, soft. ABSENT: distended, guarding, mass, organolmegaly, rebound, tenderness Rectal exam: PRESENT: deferred Gentrourinary exam: PRESENT: indwelling catheter Musculoskeletal exam: PRESENT: normal inspection Skin exam: PRESENT: dry, warm Results Laboratory Results: 10/02/16 04:45 10/02/16 04:45 10/02/16 10/02/16 10/02/16 04:45 04:45 04:45 WBC 8.4 RBC 3.76 Hgb 10.8 L Hct 32.6 L MCV 87 MCH 28.8 MCHC 33.2 RDW 13.6 Plt Count 223 Seg Neutrophils % 86.5 H Lymphocytes % 6.4 L Monocytes % 7.0 Eosinophils % 0.0 Basophils % 0.1 Absolute Neutrophils 7.3 Absolute Lymphocytes 0.5 Absolute Monocytes 0.6 Absolute Eosinophils 0.0 Absolute Basophils 0.0 Carbonic Acid 1.63 H HCO3/H2CO3 Ratio 15:1 ABG pH 7.29 L ABG pCO2 54.2 H ABG pO2 131.8 H ABG HCO3 25.2 ABG O2 Saturation 98.3 H ABG Base Excess -2.0 FiO2 50% Sodium 143.4 Potassium 3.8 Chloride 110 H Carbon Dioxide 28 Anion Gap 5 BUN 8 Creatinine 0.51 L Est GFR ( Amer) > 60 Est GFR (Non-Af Amer) > 60 Glucose 151 H Calcium 8.2 L Magnesium 1.9 Urine Color Urine Appearance Urine pH Ur Specific [place] Urine Protein Urine Glucose (UA) Urine Ketones Urine Blood Urine Nitrite Ur Leukocyte Esterase Urine WBC (Auto) Urine RBC (Auto) 10/02/16 04:45 WBC RBC Hgb Hct MCV MCH MCHC RDW Plt Count Seg Neutrophils % Lymphocytes % Monocytes % Eosinophils % Basophils % Absolute Neutrophils Absolute Lymphocytes Absolute Monocytes Absolute Eosinophils Absolute Basophils Carbonic Acid HCO3/H2CO3 Ratio ABG pH ABG pCO2 ABG pO2 ABG HCO3 ABG O2 Saturation ABG Base Excess FiO2 Sodium Potassium Chloride Carbon Dioxide Anion Gap BUN Creatinine Est GFR ( Amer) Est GFR (Non-Af Amer) Glucose Calcium Magnesium Urine Color YELLOW Urine Appearance CLEAR Urine pH 6.0 Ur Specific [place] 1.011 Urine Protein NEGATIVE Urine Glucose (UA) NEGATIVE Urine Ketones NEGATIVE Urine Blood SMALL H Urine Nitrite NEGATIVE Ur Leukocyte Esterase NEGATIVE Urine WBC (Auto) 1 Urine RBC (Auto) 16 09/30/16 13:00 Tracheal Aspirate Gram Stain - Final 09/30/16 13:00 Tracheal Aspirate Sputum Culture - Final NORMAL JAVIER 09/28/16 09/29/16 09/29/16 13:48 21:34 21:34 Creatine Kinase 42 CK-MB (CK-2) 3.25 Troponin I < 0.012 0.075 09/30/16 09/30/16 09/30/16 03:47 03:47 09:40 Creatine Kinase 52 62 CK-MB (CK-2) 5.90 H Troponin I 0.561 09/30/16 10/01/16 10/02/16 09:40 07:15 05:00 Creatine Kinase CK-MB (CK-2) 8.91 H Troponin I 1.100 0.530 0.263 Impressions: Chest/Abdomen CTA 09/30/16 00:00 IMPRESSION: No evidence for pulmonary embolic disease. No acute consolidations or pleural effusions are identified. Other findings as noted above Chest X-Ray 10/02/16 06:00 IMPRESSION: Stable. Lines and tubes. Assessment & Plan - Diagnosis (1) Acute respiratory failure with hypoxia Is this a current diagnosis for this admission?: YesPlan: improving very tachypnic during sedation vacaalleged due to anxiety add medication per pcp (2) Anxiety Is this a current diagnosis for this admission?: Yes (3) COPD exacerbation Is this a current diagnosis for this admission?: Yes - Time Critical Time spent with patient: 35 or more minutes
[2016-10-02 12:47] LABS: ARTERIAL BLOOD BASE EXCESS 3.3 mmol/L; ARTERIAL BLOOD O2 SATURATION 95.1 % (94-98)
--- NOTE | 2016-10-02 16:08 | PDOC PROGRESS REPORT ---
Subjective Progress Note for:: 10/02/16 Subjective:: FiO2 increased to 50% overnight and patient O2 sat 98-99%. Patient's PCO2 went up afterwards and pH went down. Unable to obtain history from patient secondary to sedated/intubated state. Physical Exam Vital Signs: Temp Pulse Resp BP Pulse Ox 99.4 F 100 18 113/69 95 10/02/16 12:00 10/02/16 14:00 10/02/16 14:34 10/02/16 14:34 10/02/16 14:34 Intake & Output 10/01/16 10/02/16 10/03/16 06:59 06:59 06:59 Intake Total 4251 3836 Output Total 1520 0205 485 Balance 2731 1891 -485 Weight 90.9 kg 92.6 kg GENERAL: Intubated HEENT: Conjunctiva clear, nonicteric, moist mucous membranes, no JVD, midline trachea RESPIRATORY: Clear to auscultation anteriorly CARDIAC: Regular rate and rhythm, no murmurs/gallops/rubs ABDOMEN: Soft, nondistended, nontender, positive bowel sounds, no rebound, no guarding EXTREMETIES: No edema, cyanosis, clubbing NEUROLOGIC: Sedated SKIN: No rash, wounds Results Laboratory Results: 10/02/16 04:45 10/02/16 04:45 10/02/16 10/02/16 10/02/16 04:45 04:45 04:45 WBC 8.4 RBC 3.76 Hgb 10.8 L Hct 32.6 L MCV 87 MCH 28.8 MCHC 33.2 RDW 13.6 Plt Count 223 Seg Neutrophils % 86.5 H Lymphocytes % 6.4 L Monocytes % 7.0 Eosinophils % 0.0 Basophils % 0.1 Absolute Neutrophils 7.3 Absolute Lymphocytes 0.5 Absolute Monocytes 0.6 Absolute Eosinophils 0.0 Absolute Basophils 0.0 Carbonic Acid 1.63 H HCO3/H2CO3 Ratio 15:1 ABG pH 7.29 L ABG pCO2 54.2 H ABG pO2 131.8 H ABG HCO3 25.2 ABG O2 Saturation 98.3 H ABG Base Excess -2.0 FiO2 50% Sodium 143.4 Potassium 3.8 Chloride 110 H Carbon Dioxide 28 Anion Gap 5 BUN 8 Creatinine 0.51 L Est GFR ( Amer) > 60 Est GFR (Non-Af Amer) > 60 Glucose 151 H Calcium 8.2 L Magnesium 1.9 Urine Color Urine Appearance Urine pH Ur Specific [place] Urine Protein Urine Glucose (UA) Urine Ketones Urine Blood Urine Nitrite Ur Leukocyte Esterase Urine WBC (Auto) Urine RBC (Auto) 10/02/16 10/02/16 04:45 12:15 WBC RBC Hgb Hct MCV MCH MCHC RDW Plt Count Seg Neutrophils % Lymphocytes % Monocytes % Eosinophils % Basophils % Absolute Neutrophils Absolute Lymphocytes Absolute Monocytes Absolute Eosinophils Absolute Basophils Carbonic Acid 1.68 H HCO3/H2CO3 Ratio 17:1 ABG pH 7.35 ABG pCO2 55.8 H ABG pO2 80.5 ABG HCO3 30.0 H ABG O2 Saturation 95.1 ABG Base Excess 3.3 FiO2 35% Sodium Potassium Chloride Carbon Dioxide Anion Gap BUN Creatinine Est GFR ( Amer) Est GFR (Non-Af Amer) Glucose Calcium Magnesium Urine Color YELLOW Urine Appearance CLEAR Urine pH 6.0 Ur Specific [place] 1.011 Urine Protein NEGATIVE Urine Glucose (UA) NEGATIVE Urine Ketones NEGATIVE Urine Blood SMALL H Urine Nitrite NEGATIVE Ur Leukocyte Esterase NEGATIVE Urine WBC (Auto) 1 Urine RBC (Auto) 16 09/30/16 13:00 Tracheal Aspirate Gram Stain - Final 09/30/16 13:00 Tracheal Aspirate Sputum Culture - Final NORMAL JAVIER 09/28/16 09/29/16 09/29/16 13:48 21:34 21:34 Creatine Kinase 42 CK-MB (CK-2) 3.25 Troponin I < 0.012 0.075 09/30/16 09/30/16 09/30/16 03:47 03:47 09:40 Creatine Kinase 52 62 CK-MB (CK-2) 5.90 H Troponin I 0.561 09/30/16 10/01/16 10/02/16 09:40 07:15 05:00 Creatine Kinase CK-MB (CK-2) 8.91 H Troponin I 1.100 0.530 0.263 Impressions: Chest/Abdomen CTA 09/30/16 00:00 IMPRESSION: No evidence for pulmonary embolic disease. No acute consolidations or pleural effusions are identified. Other findings as noted above Chest X-Ray 10/02/16 06:00 IMPRESSION: Stable. Lines and tubes. Assessment & Plan - Diagnosis (1) Acute and chronic respiratory failure Is this a current diagnosis for this admission?: YesPlan: Continue mechanical ventilation. Dr. Larios of pulmonary medicine for ventilator management. Dr. Larios will attempt weaning trials today and if patient does well may consider extubation tomorrow. I have discussed with nursing and respiratory therapy staff to decrease FiO2 to maintain O2 sat in the low 90s secondary to hypercapnia and advanced lung disease. CTA of chest negative for pulmonary embolism, infiltrate (2) COPD exacerbation Is this a current diagnosis for this admission?: YesPlan: Continue IV Solu-Medrol. Scheduled and PRN DuoNeb's. Continue IV Rocephin and IV azithromycin until clinical status improves. (3) Elevated troponin Is this a current diagnosis for this admission?: YesPlan: Dr. Desouza of cardiology following. He feels this is most likely secondary to respiratory failure and hypotension. He stated that patient had normal cardiac catheterization in October 2015. Echocardiogram shows left ventricular ejection fraction 45-50%, moderate to severe mitral regurgitation. (4) Anxiety Is this a current diagnosis for this admission?: Yes (5) Breast cancer Is this a current diagnosis for this admission?: Yes (6) Pulmonic stenosis Is this a current diagnosis for this admission?: Yes (7) Hypotension Is this a current diagnosis for this admission?: YesPlan: This started after patient was placed on IV sedation for mechanical ventilation. Patient was started on Frederick-Synephrine and this can be titrated off as tolerated to maintain mean arterial pressure greater than 65. (8) Mitral regurgitation Is this a current diagnosis for this admission?: YesPlan: Dr. Desouza has recommended introducing JADA inhibitor once blood pressure is stable off Frederick-Synephrine. - Time Critical Time spent with patient: 35 or more minutes
[2016-10-02 18:32] LABS: PROTHROMBIN TIME 12.1 SEC (11.4-15.4)
[2016-10-02 18:33] LABS: PARTIAL THROMBOPLASTIN TIME 25.2 SEC (23.5-35.8)
[2016-10-03] MEDS: DEXTROSE 5%-NORMAL SALINE 1,000 ML IV PRN ×2 (00:18→21:32)
[2016-10-03] MEDS: METHYLPREDNISOLONE INJ 40 MG/1 ML SDV IV SCH ×3 (02:12→18:00)
[2016-10-03] MEDS: INSULIN LISPRO 100 UNIT/ML 3 ML VIAL SUBCUT PRN (02:12)
[2016-10-03] MEDS: PROPOFOL 100 ML IV PRN ×2 (02:13→22:52)
[2016-10-03] MEDS: IPRATROPIUM/ALBUTEROL 0.5-2.5 MG/3 ML AMPUL NEB SCH ×3 (08:00→21:03)
[2016-10-03] MEDS ORDERED: DEXAMETHASONE SOD PHOSPHATE INJ 4 MG/1 ML VIAL ONE (09:27)
[2016-10-03] MEDS: CEFTRIAXONE 1 GM/D5W RTU 1 GM/50 ML RTUPB IV SCH (10:00)
[2016-10-03] MEDS: CITALOPRAM HYDROBROMIDE 20 MG TABLET PO SCH (10:00)
[2016-10-03] MEDS: ASPIRIN 81 MG TABLET, CHEWABLE NG SCH (10:00)
[2016-10-03] MEDS: FAMOTIDINE 20 MG TABLET PO SCH ×2 (10:00→21:31)
[2016-10-03] MEDS: AZITHROMYCIN 500 MG in DEXTROSE 5%-WATER 250 ML IV SCH (10:00)
[2016-10-03] MEDS ORDERED: METOPROLOL TARTRATE PF/INJ 5 MG/5 ML SDV IV ONE (13:10)
[2016-10-04] MEDS: METHYLPREDNISOLONE INJ 40 MG/1 ML SDV IV SCH ×3 (01:40→17:15)
[2016-10-04] MEDS: PROPOFOL 100 ML IV PRN (05:48)
[2016-10-04 06:25] LABS: ARTERIAL BLOOD BASE EXCESS 2.7 mmol/L; ARTERIAL BLOOD O2 SATURATION 94.7 % (94-98)
[2016-10-04 06:32] LABS: ANION GAP 5 (5-19); BLOOD UREA NITROGEN 18 mg/dL (7-20); CALCIUM 8.2 mg/dL (8.4-10.2); CARBON DIOXIDE 29 mmol/L (22-30); CHLORIDE 110 mmol/L (98-107); CREATININE RESULT 0.49 mg/dL (0.52-1.25); GLUCOSE 172 mg/dL (75-110); POTASSIUM 3.6 mmol/L (3.6-5.0); SODIUM 144.1 mmol/L (137-145)
[2016-10-04 06:34] LABS: HEMATOCRIT 33.7 % (36.0-47.0); HEMOGLOBIN 10.8 g/dL (12.0-15.5); HGB HCT DIFFERENCE -1.3; MEAN CORPUSCULAR HEMOGLOBIN 28.1 pg (27.0-33.4); MEAN CORPUSCULAR VOLUME 88 fl (80-97); RED BLOOD COUNT 3.83 10^6/uL (3.72-5.28); RED CELL DISTRIBUTION WIDTH 13.8 % (11.5-14.0); WHITE BLOOD COUNT 9.9 10^3/uL (4.0-10.5)
[2016-10-04 07:00] LABS: BAND NEUTROPHILS % (MANUAL) 1 % (3-5); BASOPHILS % (MANUAL) 0 % (0-2); EOSINOPHILS % (MANUAL) 0 % (0-6); LYMPHOCYTES % (MANUAL) 4 % (13-45); TOTAL CELLS COUNTED 100
[2016-10-04 07:02] LABS: POLYCHROMASIA SLIGHT
[2016-10-04 07:59] LABS: ABSOLUTE LYMPHOCYTES (AUTO) 0.6 10^3/uL (0.5-4.7); ABSOLUTE MONOCYTES (AUTO) 0.5 10^3/uL (0.1-1.4); ABSOLUTE NEUT (AUTO) 6.5 10^3/uL (1.7-8.2); BASOPHILS % (AUTO) 0.1 % (0-2); HEMATOCRIT 33.3 % (36.0-47.0); HEMOGLOBIN 10.9 g/dL (12.0-15.5); HGB HCT DIFFERENCE -0.6; LYMPHOCYTES % (AUTO) 7.8 % (13-45); MEAN CORPUSCULAR HEMOGLOBIN 28.2 pg (27.0-33.4); MEAN CORPUSCULAR HGB CONC 32.7 g/dL (32.0-36.0); MEAN CORPUSCULAR VOLUME 86 fl (80-97); MONOCYTES % (AUTO) 6.8 % (3-13); RED BLOOD COUNT 3.86 10^6/uL (3.72-5.28); RED CELL DISTRIBUTION WIDTH 13.6 % (11.5-14.0); SEGMENTED NEUTROPHILS % (AUTO) 85.3 % (42-78); WHITE BLOOD COUNT 7.6 10^3/uL (4.0-10.5)
[2016-10-04] MEDS: ACETYLCYSTEINE 20% SOLN 800 MG/4 ML VIAL.NEB IH SCH ×2 (08:27→20:11)
[2016-10-04] MEDS: IPRATROPIUM/ALBUTEROL 0.5-2.5 MG/3 ML AMPUL NEB SCH ×3 (08:27→20:11)
[2016-10-04] MEDS: DEXTROSE 5%-NORMAL SALINE 1,000 ML IV PRN (08:40)
--- NOTE | 2016-10-04 08:41 | PROGRESS NOTE E ---
Progress Note NAME: SHAHAB MONROE : 1960 AGE: 56Y DATE: 10/03/2016 ROOM: 612 CRITICAL CARE TIME SPENT MANAGING PATIENT: Forty minutes. SUBJECTIVE: Patient tolerated weaning trial yesterday. She did have some issues with bleeding yesterday from her nares and in her urine. Her subcutaneous heparin was discontinued. Blood pressure is now stable off pressors. I cannot obtain history from patient secondary to sedated/intubated state. OBJECTIVE: VITAL SIGNS: Blood pressure is 147/87, pulse 62, respirations 18, O2 saturations 98% on FiO2 35% mechanical ventilation. GENERAL: Patient is sedated, intubated on the ventilator. HEENT: Endotracheal tube in place. RESPIRATORY: She has faint wheezes bilaterally, but good air excursion. ABDOMEN: Soft, nontender. EXTREMITIES: Have no edema. LABORATORY DATA: White blood count 7.6, hemoglobin 10.9, platelets 249. ABG shows pH of 7.37, PCO2 of 43, PaO2 of 84, bicarbonate 24.9. ASSESSMENT AND PLAN: 1. ACUTE ON CHRONIC HYPOXEMIC AND HYPERCAPNIC RESPIRATORY FAILURE. Continue mechanical ventilation. Continue weaning strategy per Dr. Larios of pulmonary medicine. 2. COPD EXACERBATION. Continue IV Solu-Medrol and IV antibiotics. Continue bronchodilators. 3. EPISTAXIS. Heparin was discontinued. I will also hold aspirin. 4. HYPOTENSION/SHOCK. BLOOD PRESSURE IS NOW STABLE OFF PRESSORS. DICTATING PHYSICIAN: ARABELLA WILLIS M.D. [id number] PHY#: [id number] ID: [id number] JOB#: [id number] ACCT: [id number] cc: >
[2016-10-04] MEDS ORDERED: FUROSEMIDE INJ/PF 20 MG/2 ML SDV IV ONE (09:10)
[2016-10-04] MEDS ORDERED: DEXTROSE 5%-NORMAL SALINE 1,000 ML IV PRN (09:10)
[2016-10-04] MEDS: CITALOPRAM HYDROBROMIDE 20 MG TABLET PO SCH (09:18)
[2016-10-04] MEDS: FAMOTIDINE 20 MG TABLET PO SCH ×2 (09:18→21:34)
[2016-10-04] MEDS: AZITHROMYCIN 500 MG in DEXTROSE 5%-WATER 250 ML IV SCH (09:19)
[2016-10-04] MEDS: CEFTRIAXONE 1 GM/D5W RTU 1 GM/50 ML RTUPB IV SCH (09:19)
[2016-10-04] MEDS: ALPRAZOLAM 0.5 MG TABLET PO PRN (09:19)
[2016-10-04] MEDS ORDERED: FUROSEMIDE INJ/PF 40 MG/4 ML SDV IV ONE (10:00)
--- NOTE | 2016-10-04 10:28 | PROGRESS NOTE E ---
Progress Note NAME: SHAHAB MONROE : 1960 AGE: 56Y DATE: 10/04/2016 ROOM: 612 CRITICAL CARE TIME SPENT MANAGING PATIENT: Forty minutes. SUBJECTIVE: Patient was not able to extubate yesterday due to increased respiratory rate while on pressure support trial. I have discussed the case with Dr. Larios of pulmonary medicine this morning and he states that he is going to extubate patient today as he thinks her anxiety may be contributing to these issues. I cannot obtain history from patient secondary to sedated and intubated state. OBJECTIVE: VITAL SIGNS: Temperature 98.5, blood pressure 117/74, pulse 81, respirations 25, O2 sat 96% on FiO2 35% mechanica ventilation. GENERAL: Patient is sedated and intubated on the ventilator. HEENT: Endotracheal tube in place. RESPIRATORY: She has faint wheezes bilaterally but good air excursion. CARDIAC: Regular rate and rhythm. EXTREMITIES: No edema, cyanosis, or clubbing. LABORATORY: Sputum cultures and blood cultures are no growth. CBC: White blood count 9.9, hemoglobin 10.8, hematocrit 33.7, platelets 243. Sodium 144, potassium 3.6, chloride 110, bicarb 29, BUN 18, creatinine 0.49, glucose 172, calcium 8.2. ABG shows pH of 7.39, pCO2 of 48.0, pAO2 of 74.3, bicarb 28.3. ASSESSMENT AND PLAN: 1. [id number] HYPOXEMIC AND HYPERCAPNIC RESPIRATORY FAILURE. I have discussed the case with Dr. Larios of pulmonary medicine and he will extubate today. We will have to monitor patient very closely post extubation given her advanced COPD. CTA of the chest was negative for pulmonary embolism early in admission. Note that the patient should have her O2 sat maintained in the 88-92% range given her chronic hypercapnia. 2. COPD EXACERBATION. Continue IV Solu-Medrol. Continue nebulizer treatments. Continue IV Rocephin and IV azithromycin for now until clinical status stabilizes. 3. ELEVATED TROPONIN. According to Dr. Desouza of cardiology, patient had a normal cardiac cath in October of 2015. He feels that patient's elevated troponins were likely secondary to respiratory failure and hypotension. Echocardiogram showed left ventricular ejection fraction of 45-50% and moderate to severe mitral regurgitation. 4. CHF WITH SYSTOLIC DYSFUNCTION, EF OF 45-50%, AND MODERATE TO SEVERE MITRAL REGURGITATION. Dr. Desouza has recommended starting an JADA inhibitor once patient's blood pressure stabilizes. She was hypotensive but now blood pressure is low but stable off of pressors. 5. ANXIETY. Continue patient on Xanax and Ativan p.r.n. DICTATING PHYSICIAN: ARABELLA WILLIS M.D. [id number] PHY#: [id number] ID: [id number] JOB#: [id number] ACCT: [id number] cc: >
--- NOTE | 2016-10-04 10:31 | PDOC PROGRESS REPORT ---
Subjective Progress Note for:: 10/03/16 Subjective:: Awake intubated but not responsive Physical Exam Vital Signs: Temp Pulse Resp BP Pulse Ox 98.1 F 57 L 18 117/74 93 10/04/16 06:39 10/04/16 06:39 10/04/16 06:39 10/04/16 06:39 10/04/16 06:39 Intake & Output 10/03/16 10/04/16 10/05/16 06:59 06:59 06:59 Intake Total 1835 1822 Output Total 1220 1300 Balance 615 522 Weight 95.1 kg General appearance: PRESENT: no acute distress, disheveled, obese, well- developed Head exam: PRESENT: normocephalic Eye exam: PRESENT: conjunctiva pale Mouth exam: PRESENT: dry mucosa, neck supple, other - ET tube in place Neck exam: ABSENT: carotid bruit, JVD, lymphadenopathy, thyromegaly Respiratory exam: PRESENT: decreased breath sounds, prolonged expiratory phas, rhonchi, unlabored Cardiovascular exam: PRESENT: RRR, +S1, +S2 Pulses: PRESENT: normal radial pulses GI/Abdominal exam: PRESENT: normal bowel sounds, soft. ABSENT: distended, guarding, mass, organolmegaly, rebound, tenderness Rectal exam: PRESENT: deferred Gentrourinary exam: PRESENT: indwelling catheter Musculoskeletal exam: PRESENT: tenderness Neurological exam: PRESENT: awake Skin exam: PRESENT: dry, warm Results Laboratory Results: 10/04/16 05:18 10/04/16 05:18 10/04/16 10/04/16 10/04/16 05:18 05:18 05:18 WBC 9.9 RBC 3.83 Hgb 10.8 L Hct 33.7 L MCV 88 MCH 28.1 MCHC 32.0 RDW 13.8 Plt Count 243 Seg Neutrophils % Not Reportable Lymphocytes % Not Reportable Monocytes % Not Reportable Eosinophils % Not Reportable Basophils % Not Reportable Absolute Neutrophils Not Reportable Absolute Lymphocytes Not Reportable Absolute Monocytes Not Reportable Absolute Eosinophils Not Reportable Absolute Basophils Not Reportable Carbonic Acid 1.44 H HCO3/H2CO3 Ratio 19:1 ABG pH 7.39 ABG pCO2 48.0 H ABG pO2 74.3 L ABG HCO3 28.3 H ABG O2 Saturation 94.7 ABG Base Excess 2.7 FiO2 40% Sodium 144.1 Potassium 3.6 Chloride 110 H Carbon Dioxide 29 Anion Gap 5 BUN 18 Creatinine 0.49 L Est GFR ( Amer) > 60 Est GFR (Non-Af Amer) > 60 Glucose 172 H Calcium 8.2 L 09/28/16 09/29/16 09/29/16 13:48 21:34 21:34 Creatine Kinase 42 CK-MB (CK-2) 3.25 Troponin I < 0.012 0.075 09/30/16 09/30/16 09/30/16 03:47 03:47 09:40 Creatine Kinase 52 62 CK-MB (CK-2) 5.90 H Troponin I 0.561 09/30/16 10/01/16 10/02/16 09:40 07:15 05:00 Creatine Kinase CK-MB (CK-2) 8.91 H Troponin I 1.100 0.530 0.263 Impressions: Chest/Abdomen CTA 09/30/16 00:00 IMPRESSION: No evidence for pulmonary embolic disease. No acute consolidations or pleural effusions are identified. Other findings as noted above Assessment & Plan - Diagnosis (1) Acute respiratory failure with hypoxia Is this a current diagnosis for this admission?: YesPlan: Patient continues to become very agitated during sedation vacation. (2) Anxiety Is this a current diagnosis for this admission?: YesPlan: Discussed with Dr. Mills additional therapy to treat anxiety (3) COPD exacerbation Is this a current diagnosis for this admission?: YesPlan: continue current broncho-dilator therapy - Time Critical Time spent with patient: 35 or more minutes
[2016-10-04 13:46] LABS: APPEARANCE,URINE CLEAR; BILIRUBIN,URINE NEGATIVE (NEGATIVE); GLUCOSE, URINE NEGATIVE (NEGATIVE); KETONES,URINE NEGATIVE (NEGATIVE); LEUKOCYTE ESTERASE,URINE NEGATIVE (NEGATIVE); NITRITE,URINE NEGATIVE (NEGATIVE); PROTEIN,URINE 30 mg/dL (NEGATIVE); URINE SPECIFIC GRAVITY 1.014; UROBILINOGEN,URINE NEGATIVE mg/dL (<2.0)
[2016-10-04] MEDS: ACETAMINOPHEN 325 MG TABLET PO PRN ×2 (14:19→22:44)
[2016-10-04] MEDS: HYDRALAZINE HCL INJ/PF 20 MG/1 ML SDV IV PRN (16:47)
[2016-10-04 20:04] LABS: ARTERIAL BLOOD BASE EXCESS 7.3 mmol/L; ARTERIAL BLOOD O2 SATURATION 94.5 % (94-98)
[2016-10-04] MEDS ORDERED: FUROSEMIDE INJ/PF 40 MG/4 ML SDV ONE (20:33)
[2016-10-04] MEDS ORDERED: FUROSEMIDE INJ/PF 20 MG/2 ML SDV IV SCH (22:00)
[2016-10-05] MEDS: ALPRAZOLAM 0.5 MG TABLET PO PRN (01:07)
[2016-10-05] MEDS: METHYLPREDNISOLONE INJ 40 MG/1 ML SDV IV SCH ×3 (01:11→17:36)
[2016-10-05 05:59] LABS: ARTERIAL BLOOD BASE EXCESS 13.4 mmol/L; ARTERIAL BLOOD O2 SATURATION 97.2 % (94-98)
[2016-10-05 06:05] LABS: APPEARANCE,URINE SLIGHTLY-CLOUDY; BILIRUBIN,URINE NEGATIVE (NEGATIVE); GLUCOSE, URINE NEGATIVE (NEGATIVE); KETONES,URINE NEGATIVE (NEGATIVE); LEUKOCYTE ESTERASE,URINE NEGATIVE (NEGATIVE); NITRITE,URINE NEGATIVE (NEGATIVE); PROTEIN,URINE 30 mg/dL (NEGATIVE); URINE SPECIFIC GRAVITY 1.026; UROBILINOGEN,URINE NEGATIVE mg/dL (<2.0)
[2016-10-05 06:06] LABS: HEMATOCRIT 36.1 % (36.0-47.0); HEMOGLOBIN 12.1 g/dL (12.0-15.5); HGB HCT DIFFERENCE 0.2; MEAN CORPUSCULAR HEMOGLOBIN 28.8 pg (27.0-33.4); MEAN CORPUSCULAR HGB CONC 33.4 g/dL (32.0-36.0); MEAN CORPUSCULAR VOLUME 86 fl (80-97); RED BLOOD COUNT 4.19 10^6/uL (3.72-5.28); RED CELL DISTRIBUTION WIDTH 13.6 % (11.5-14.0); WHITE BLOOD COUNT 12.6 10^3/uL (4.0-10.5)
[2016-10-05 06:10] LABS: BLOOD UREA NITROGEN 25 mg/dL (7-20); CALCIUM 8.9 mg/dL (8.4-10.2); CARBON DIOXIDE 39 mmol/L (22-30); CREATININE RESULT 0.57 mg/dL (0.52-1.25); GLUCOSE 135 mg/dL (75-110); POTASSIUM 3.3 mmol/L (3.6-5.0)
[2016-10-05 06:23] LABS: ANION GAP 6 (5-19); CHLORIDE 102 mmol/L (98-107); SODIUM 146.8 mmol/L (137-145)
[2016-10-05 06:37] LABS: BASOPHILS % (MANUAL) 0 % (0-2); EOSINOPHILS % (MANUAL) 0 % (0-6); LYMPHOCYTES % (MANUAL) 0 % (13-45); TOTAL CELLS COUNTED 100
[2016-10-05 06:40] LABS: RBC MORPHOLOGY COMMENT NORMO-CYTIC/CHROMIC; TOXIC GRANULATION 1+
[2016-10-05] MEDS ORDERED: VANCOMYCIN HCL 0 MG in DEXTROSE 5%-WATER 250 ML IV NR (08:00)
[2016-10-05] MEDS: IPRATROPIUM/ALBUTEROL 0.5-2.5 MG/3 ML AMPUL NEB SCH ×3 (08:36→20:18)
[2016-10-05] MEDS: ACETYLCYSTEINE 20% SOLN 800 MG/4 ML VIAL.NEB IH SCH ×2 (08:37→20:18)
[2016-10-05 08:51] LABS: CREATINE KINASE MB 1.34 ng/mL (<4.55); TROPONIN I 0.091 ng/mL
--- NOTE | 2016-10-05 08:53 | PROGRESS NOTE E ---
Progress Note NAME: SHAHAB MONROE : 1960 AGE: 56Y DATE: 10/05/2016 ROOM: 612 CRITICAL CARE TIME SPENT MANAGING PATIENT: 40 minutes. SUBJECTIVE: Nursing reports that patient has had lethargy overnight. This morning, patient was complaining of chest pain that was nonspecific. Nursing also reports that patient has abnormal chest x-ray this morning showing left lung field airspace disease. It is difficult to obtain history from patient due to mildly encephalopathic state. OBJECTIVE: VITAL SIGNS: Temperature 97.8, blood pressure 160/96, pulse 89, respirations 17, O2 saturation is 97% on FiO2 of 40% BiPAP. GENERAL: Patient is lethargic and will not really respond to questions consistently. HEENT: Nasogastric tube in place. Patient is on BiPAP. She has scleral edema noted. Oropharynx has moist mucous membranes. NECK: No JVD. Midline trachea. RESPIRATORY: She has wheezes in all lung duque on forced expiration, but decent air excursion. CARDIAC: Regular rate and rhythm. No murmurs, gallops, or rubs. ABDOMEN: Soft, nontender, nondistended. Positive bowel sounds. No rebound. No guarding. EXTREMITIES: No edema, cyanosis, clubbing. NEUROLOGIC: She is drowsy, but arousable and will not respond consistently to questions or command. LABORATORY: White blood count 12.6, hemoglobin 12.1, platelets 296. Sodium is 146, potassium 3.3, chloride 102, bicarb 39, BUN 25, creatinine 0.57. ABG this morning shows pH 7.45, PCO2 of 59.0, PaO2 of 92.4, bicarb 39.9. This is on BiPAP with FiO2 of 40%. Chest x-ray shows new left lung field airspace disease, likely representing pulmonary infiltrate. ASSESSMENT AND PLAN: 1. ACUTE ON CHRONIC HYPOXIC AND HYPERCAPNIC RESPIRATORY FAILURE. Patient is maintaining on BIPAP/noninvasive inhalation at this time. Dr. Larios of Pulmonary Medicine is following. Will continue to treat COPD exacerbation and also start treating new left lung field pneumonia. CTA of the chest this admission was negative for pulmonary embolism. Given patient's hypercapnia, we probably should maintain her O2 sat in the 88-92% range. 2. SYSTEMIC INFLAMMATORY RESPONSE SYNDROME. LIKELY SECONDARY TO NEW PNEUMONIA. PATIENT HAS LEUKOCYTOSIS AND WAS MILDLY HYPOTHERMIC. Blood pressure is stable, however. 3. LEFT LUNG FIELD PNEUMONIA. Discontinue Rocephin and Zithromax. Start patient on IV cefepime, IV Levaquin, IV vancomycin. Repeat blood cultures. Sputum culture is pending. We will start chest physical therapy, and patient is also on Mucomyst in addition to antibiotic therapy. 4. ELEVATED TROPONIN. Patient has been seen by Cardiology and apparently had a normal cardiac cath in October of 2015. They feel like her elevated troponin was a result of respiratory failure and hypotension. Echocardiogram showed EF 45-50%, severe mitral regurgitation. 5. CHF WITH SYSTOLIC DYSFUNCTION. EF 45-50% and moderate to severe mitral regurgitation. I will start lisinopril based on Cardiology recommendation. 6. ELEVATED BLOOD PRESSURE. Start lisinopril 5 mg daily for this as well as CHF. 7. ANXIETY. Continue Xanax and p.r.n. Ativan. 8. GASTROCCULT POSITIVE. Discontinue Pepcid and start patient on IV Protonix. 9. CHEST PAIN. Check STAT EKG and serial cardiac enzymes. As mentioned above, patient had a negative cardiac cath last year, but did have elevated troponin earlier this admission. DICTATING PHYSICIAN: ARABELLA WILLIS M.D. [id number] PHY#: [id number] ID: [id number] JOB#: [id number] ACCT: [id number] cc: >
[2016-10-05] MEDS: LEVOFLOXACIN 750 MG/D5W RTU 750 MG/150 ML RTUPB IV SCH (08:56)
[2016-10-05] MEDS ORDERED: POTASSI CL 20 MEQ/50 ML RIDER 20 MEQ/50 ML RTUPB IV ONE (09:00)
[2016-10-05] MEDS: LISINOPRIL 5 MG TABLET PO SCH (09:17)
[2016-10-05] MEDS: CITALOPRAM HYDROBROMIDE 20 MG TABLET PO SCH (09:17)
[2016-10-05] MEDS: PANTOPRAZOLE SODIUM 40 MG VIAL IV SCH ×2 (09:17→21:25)
[2016-10-05 09:51] LABS: ANION GAP 7 (5-19); BLOOD UREA NITROGEN 14 mg/dL (7-20); CALCIUM 8.4 mg/dL (8.4-10.2); CARBON DIOXIDE 27 mmol/L (22-30); CHLORIDE 110 mmol/L (98-107); CREATININE RESULT 0.49 mg/dL (0.52-1.25); GLUCOSE 174 mg/dL (75-110); POTASSIUM 3.8 mmol/L (3.6-5.0); SODIUM 144.4 mmol/L (137-145)
[2016-10-05 09:52] LABS: ARTERIAL BLOOD BASE EXCESS -0.3 mmol/L
[2016-10-05 09:53] LABS: ARTERIAL BLOOD O2 SATURATION 96.1 % (94-98)
[2016-10-05] MEDS: CEFEPIME 1 GM/D5W RTU 1 GM/50 ML RTUPB IV SCH ×2 (10:35→21:22)
[2016-10-05] MEDS: VANCOMYCIN HCL 1,500 MG in DEXTROSE 5%-WATER 250 ML IV SCH ×2 (10:36→21:58)
[2016-10-05] MEDS: DEXTROSE 5%-NORMAL SALINE 1,000 ML IV PRN (10:36)
[2016-10-05 12:43] LABS: ABSOLUTE LYMPHOCYTES (AUTO) 0.7 10^3/uL (0.5-4.7); ABSOLUTE NEUT (AUTO) 11.1 10^3/uL (1.7-8.2); BASOPHILS % (AUTO) 0.1 % (0-2); HEMOGLOBIN 11.6 g/dL (12.0-15.5); HGB HCT DIFFERENCE -1.2; LYMPHOCYTES % (AUTO) 5.5 % (13-45); MEAN CORPUSCULAR HEMOGLOBIN 27.9 pg (27.0-33.4); MEAN CORPUSCULAR HGB CONC 32.1 g/dL (32.0-36.0); MEAN CORPUSCULAR VOLUME 87 fl (80-97); RED BLOOD COUNT 4.14 10^6/uL (3.72-5.28); RED CELL DISTRIBUTION WIDTH 13.6 % (11.5-14.0); SEGMENTED NEUTROPHILS % (AUTO) 86.4 % (42-78); WHITE BLOOD COUNT 12.8 10^3/uL (4.0-10.5)
[2016-10-05 12:58] LABS: ALBUMIN 2.8 g/dL (3.5-5.0); ANION GAP 7 (5-19); BLOOD UREA NITROGEN 29 mg/dL (7-20); CALCIUM 8.9 mg/dL (8.4-10.2); CARBON DIOXIDE 39 mmol/L (22-30); CHLORIDE 101 mmol/L (98-107); CREATINE KINASE 33 U/L (30-135); CREATININE RESULT 0.51 mg/dL (0.52-1.25); GLUCOSE 156 mg/dL (75-110); MAGNESIUM 2.3 mg/dL (1.6-2.3); POTASSIUM 3.7 mmol/L (3.6-5.0); SODIUM 146.7 mmol/L (137-145)
[2016-10-05 14:21] LABS: CREATINE KINASE MB 1.05 ng/mL (<4.55); TROPONIN I 0.079 ng/mL
--- NOTE | 2016-10-05 17:57 | Progress Note ---
Provider Note Provider Note: ADDENDUM: 1. Abnormal chest x-ray- chest x-ray repeated by Dr. Larios of pulmonary medicine as he felt left lung field opacity was due to rotation and breast shadow. Repeat chest x-ray showed no airspace disease. Continue IV antibiotics for now secondary to elevated white blood count. Consider de-escalation of antibiotics if blood cultures negative.
[2016-10-05] MEDS: LORAZEPAM INJ 2 MG/1 ML VIAL IV PRN (20:51)
[2016-10-05] MEDS ORDERED: LORAZEPAM 0.5 MG TABLET NG PRN (21:22)
[2016-10-05 21:25] LABS: CREATINE KINASE MB 0.89 ng/mL (<4.55); TROPONIN I 0.067 ng/mL
[2016-10-05] MEDS: ACETAMINOPHEN 325 MG TABLET PO PRN (22:17)
[2016-10-06] MEDS: METHYLPREDNISOLONE INJ 40 MG/1 ML SDV IV SCH ×3 (01:48→17:58)
[2016-10-06 04:58] LABS: HEMATOCRIT 36.5 % (36.0-47.0); HEMOGLOBIN 11.7 g/dL (12.0-15.5); HGB HCT DIFFERENCE -1.4; MEAN CORPUSCULAR HGB CONC 32.1 g/dL (32.0-36.0); MEAN CORPUSCULAR VOLUME 87 fl (80-97); RED BLOOD COUNT 4.19 10^6/uL (3.72-5.28); RED CELL DISTRIBUTION WIDTH 13.2 % (11.5-14.0); WHITE BLOOD COUNT 13.2 10^3/uL (4.0-10.5)
[2016-10-06 05:06] LABS: ANION GAP 5 (5-19); BLOOD UREA NITROGEN 32 mg/dL (7-20); CALCIUM 9.3 mg/dL (8.4-10.2); CARBON DIOXIDE 37 mmol/L (22-30); CHLORIDE 104 mmol/L (98-107); CREATININE RESULT 0.55 mg/dL (0.52-1.25); GLUCOSE 152 mg/dL (75-110); POTASSIUM 4.1 mmol/L (3.6-5.0); SODIUM 145.7 mmol/L (137-145)
[2016-10-06 05:12] LABS: BAND NEUTROPHILS % (MANUAL) 1 % (3-5); BASOPHILS % (MANUAL) 0 % (0-2); EOSINOPHILS % (MANUAL) 0 % (0-6); LYMPHOCYTES % (MANUAL) 1 % (13-45); TOTAL CELLS COUNTED 100
[2016-10-06 05:13] LABS: ARTERIAL BLOOD BASE EXCESS 10.6 mmol/L; ARTERIAL BLOOD O2 SATURATION 96.3 % (94-98)
[2016-10-06 05:15] LABS: POIKILOCYTOSIS SLIGHT; TARGET CELLS SLIGHT; TOXIC GRANULATION SLIGHT
[2016-10-06] MEDS: DEXTROSE 5%-NORMAL SALINE 1,000 ML IV PRN (06:41)
[2016-10-06] MEDS: IPRATROPIUM/ALBUTEROL 0.5-2.5 MG/3 ML AMPUL NEB SCH ×3 (07:58→20:18)
[2016-10-06] MEDS: ACETYLCYSTEINE 20% SOLN 800 MG/4 ML VIAL.NEB IH SCH ×2 (07:58→20:18)
[2016-10-06] MEDS: LEVOFLOXACIN 750 MG/D5W RTU 750 MG/150 ML RTUPB IV SCH (08:41)
[2016-10-06] MEDS: PANTOPRAZOLE SODIUM 40 MG VIAL IV SCH ×2 (08:42→22:10)
[2016-10-06] MEDS: CITALOPRAM HYDROBROMIDE 20 MG TABLET PO SCH (08:42)
[2016-10-06] MEDS: LISINOPRIL 5 MG TABLET PO SCH (08:43)
[2016-10-06] MEDS: CEFEPIME 1 GM/D5W RTU 1 GM/50 ML RTUPB IV SCH ×2 (11:44→22:09)
[2016-10-06] MEDS: VANCOMYCIN HCL 1,500 MG in DEXTROSE 5%-WATER 250 ML IV SCH ×2 (11:45→22:09)
[2016-10-06] MEDS ORDERED: FUROSEMIDE 20 MG TABLET PO ONE (13:00)
[2016-10-06] MEDS: ALPRAZOLAM 0.5 MG TABLET PO PRN ×2 (13:08→22:10)
[2016-10-06] MEDS: HYDRALAZINE HCL INJ/PF 20 MG/1 ML SDV IV PRN (13:44)
[2016-10-06 14:21] LABS: CREATININE RESULT 0.53 mg/dL (0.52-1.25)
--- NOTE | 2016-10-06 14:45 | PDOC PROGRESS REPORT ---
Subjective Progress Note for:: 10/06/16 Subjective:: Patient seen on morning rounds, She is awake, alert, oriented x 3 but lethargic. She has continued requiring BiPAP therapy postextubation. She continues to have nasogastric feedings. She complains of sore throat secondary to NG tube. She denies any significant shortness of breath, dyspnea or cough. She denies any chest pain, palpitations or dizziness. She denies any nausea, vomiting or abdominal pain Physical Exam Vital Signs: Temp Pulse Resp BP Pulse Ox 99.1 F 112 H 23 H 136/81 H 95 10/05/16 22:00 10/06/16 07:58 10/06/16 14:00 10/06/16 13:50 10/06/16 14:00 Intake & Output 10/05/16 10/06/16 10/07/16 06:59 06:59 06:59 Intake Total 6 5 Output Total 7835 64166 875 Balance -5779 -59334 -875 Weight 95.1 kg 89.3 kg General appearance: PRESENT: no acute distress, obese, well-developed, well- nourished Head exam: PRESENT: atraumatic, normocephalic Eye exam: PRESENT: conjunctiva pink, EOMI, periorbital swelling, PERRLA. ABSENT : scleral icterus Ear exam: PRESENT: normal external ear exam Mouth exam: PRESENT: moist, tongue midline Neck exam: ABSENT: carotid bruit, JVD, lymphadenopathy, thyromegaly Respiratory exam: PRESENT: crackles, decreased breath sounds, symmetrical, unlabored Cardiovascular exam: PRESENT: RRR. ABSENT: diastolic murmur, rubs, systolic murmur Pulses: PRESENT: normal dorsalis pedis pul Vascular exam: PRESENT: normal capillary refill GI/Abdominal exam: PRESENT: normal bowel sounds, soft. ABSENT: distended, guarding, mass, organolmegaly, rebound, tenderness Rectal exam: PRESENT: deferred Extremities exam: PRESENT: full ROM. ABSENT: calf tenderness, clubbing, pedal edema Neurological exam: PRESENT: alert, awake, oriented to person, oriented to place , oriented to time, oriented to situation, CN II-XII grossly intact. ABSENT: motor sensory deficit Psychiatric exam: PRESENT: appropriate affect, normal mood. ABSENT: homicidal ideation, suicidal ideation Skin exam: PRESENT: dry, intact, warm. ABSENT: cyanosis, rash Results Laboratory Results: 10/06/16 04:20 10/06/16 11:45 10/06/16 10/06/16 10/06/16 04:20 04:20 04:20 WBC 13.2 H RBC 4.19 Hgb 11.7 L Hct 36.5 MCV 87 MCH 28.0 MCHC 32.1 RDW 13.2 Plt Count 288 Seg Neutrophils % Not Reportable Lymphocytes % Not Reportable Monocytes % Not Reportable Eosinophils % Not Reportable Basophils % Not Reportable Absolute Neutrophils Not Reportable Absolute Lymphocytes Not Reportable Absolute Monocytes Not Reportable Absolute Eosinophils Not Reportable Absolute Basophils Not Reportable Carbonic Acid 1.71 H HCO3/H2CO3 Ratio 21:1 ABG pH 7.43 ABG pCO2 56.8 H ABG pO2 83.3 ABG HCO3 36.9 H ABG O2 Saturation 96.3 ABG Base Excess 10.6 FiO2 35% Sodium 145.7 H Potassium 4.1 Chloride 104 Carbon Dioxide 37 H Anion Gap 5 BUN 32 H Creatinine 0.55 Est GFR ( Amer) > 60 Est GFR (Non-Af Amer) > 60 Glucose 152 H Calcium 9.3 10/06/16 11:45 WBC RBC Hgb Hct MCV MCH MCHC RDW Plt Count Seg Neutrophils % Lymphocytes % Monocytes % Eosinophils % Basophils % Absolute Neutrophils Absolute Lymphocytes Absolute Monocytes Absolute Eosinophils Absolute Basophils Carbonic Acid HCO3/H2CO3 Ratio ABG pH ABG pCO2 ABG pO2 ABG HCO3 ABG O2 Saturation ABG Base Excess FiO2 Sodium Potassium Chloride Carbon Dioxide Anion Gap BUN Creatinine 0.53 Est GFR ( Amer) > 60 Est GFR (Non-Af Amer) > 60 Glucose Calcium 09/28/16 09/29/16 09/29/16 13:48 21:34 21:34 Creatine Kinase 42 CK-MB (CK-2) 3.25 Troponin I < 0.012 0.075 09/30/16 09/30/16 09/30/16 03:47 03:47 09:40 Creatine Kinase 52 62 CK-MB (CK-2) 5.90 H Troponin I 0.561 09/30/16 10/01/16 10/02/16 09:40 07:15 05:00 Creatine Kinase CK-MB (CK-2) 8.91 H Troponin I 1.100 0.530 0.263 10/05/16 10/05/16 10/05/16 07:45 07:45 12:15 Creatine Kinase 32 33 CK-MB (CK-2) 1.34 Troponin I 0.091 10/05/16 10/05/16 10/05/16 13:40 20:30 20:30 Creatine Kinase 27 L CK-MB (CK-2) 1.05 0.89 Troponin I 0.079 0.067 Impressions: Chest/Abdomen CTA 09/30/16 00:00 IMPRESSION: No evidence for pulmonary embolic disease. No acute consolidations or pleural effusions are identified. Other findings as noted above Chest X-Ray 10/06/16 06:00 IMPRESSION: No significant interval change. Lines and tubes. Assessment & Plan - Diagnosis (1) Acute and chronic respiratory failure Qualifiers: Respiratory failure complication: hypoxia and hypercapnia Qualified Code(s): J96.21 - Acute and chronic respiratory failure with hypoxia; J96.22 - Acute and chronic respiratory failure with hypercapnia Is this a current diagnosis for this admission?: YesPlan: Continue BiPAP therapy. Continue nebulizers will wean steroids. Patient will be out of bed with trials of nasal cannula. (2) PNA (pneumonia) Is this a current diagnosis for this admission?: YesPlan: Continue broad spectrum antibiotics with cultures pending. (3) Mitral regurgitation Qualifiers: Cardiac valve disease etiology: nonrheumatic Qualified Code(s): I34.0 - Nonrheumatic mitral (valve) insufficiency Is this a current diagnosis for this admission?: Yes (4) Pulmonic stenosis Qualifiers: Cardiac valve disease etiology: nonrheumatic Qualified Code(s): I37.0 - Nonrheumatic pulmonary valve stenosis Is this a current diagnosis for this admission?: Yes (5) Psoriatic arthritis Is this a current diagnosis for this admission?: Yes (6) Anxiety Is this a current diagnosis for this admission?: YesPlan: Continue anxiolytics (7) COPD exacerbation Is this a current diagnosis for this admission?: Yes - Time Time Spent with patient: 25-34 minutes Critical Time spent with patient: 15-24 minutes Medications reviewed and adjusted accordingly: Yes Anticipated discharge: Home with Homehealth
[2016-10-06] MEDS: ALBUTEROL SULFATE 0.083% NEB 2.5 MG/3 ML AMPUL NEB PRN (16:40)
[2016-10-06] MEDS ORDERED: CEFTRIAXONE 1 GM/D5W RTU 1 GM/50 ML RTUPB IV SCH (17:00)
--- NOTE | 2016-10-06 17:46 | EKG REPORT ---
SEVERITY:- BORDERLINE ECG - SINUS RHYTHM BORDERLINE T ABNORMALITIES, ANT-LAT LEADS : Confirmed by: Kaylah Desouza MD 06-Oct-2016 17:46:34
[2016-10-06] MEDS ORDERED: AZITHROMYCIN 500 MG in DEXTROSE 5%-WATER 250 ML IV SCH (18:00)
--- NOTE | 2016-10-06 18:09 | PDOC PROGRESS REPORT ---
Subjective Progress Note for:: 10/02/16 Subjective:: Patient about the same and has made very little progress. There is no significant change in general condition. Patient remains intubated, sedated, patient however looks comfortable and in acute distress. Medications reviewed. Physical Exam Vital Signs: Temp Pulse Resp BP Pulse Ox 98.0 F 76 18 130/82 H 97 10/02/16 16:00 10/02/16 18:00 10/02/16 18:06 10/02/16 18:06 10/02/16 18:06 Intake & Output 10/01/16 10/02/16 10/03/16 06:59 06:59 06:59 Intake Total 4251 3836 1835 Output Total 1520 1945 695 Balance 2731 1891 1140 Weight 90.9 kg 92.6 kg Exam: GENERAL: well-nourished and in no acute distress. Patient is intubated and sedated. Orientation cannot be checked HEAD: Atraumatic, normocephalic. EYES: Pupils equal round and reactive to light, extraocular movements could not be checked, sclera anicteric, conjunctiva are normal. ENT: TMs normal, nares patent, oropharynx clear without exudates. Moist mucous membranes. No oral ulcerations or bleeding gums noted NECK: supple without lymphadenopathy or JVD. Trachea is central. No cervical or axillary lymphadenopathy noted. Carotids are 2+ LUNGS: Breath sounds mostly clear to auscultation patient is noted to have bibasal crackles at the extreme bases CHEST: Palpation of the chest wall shows no significant chest wall tenderness or abnormalities. HEART: [place] GLOVE CUFFER, No PSH, 2/6 GREG aortic area, 1/6 rene systolic murmur mitral area , no rubs or gallops. ABDOMEN: Soft, no significant tenderness appreciated, normoactive bowel sounds. No guarding, no rebound. No rigidity noted . No masses appreciated. EXTREMITIES: Pedal pulses are 1-2+, no calf tenderness noted, 1+ pedal edema noted. No clubbing or cyanosis. NEUROLOGICAL: The patient cannot participate in the neurological exam but no facial asymmetry noted. Extremities slightly hypotonic PSYCH: This cannot be evaluated. Patient cannot participate. SKIN: No significant ecchymosis, rash, or signs of pruritus noted. MUSCULOSKELETAL EXAM: No significant joint swelling noted. Patient cannot participate in musculoskeletal exam Results Laboratory Results: 10/02/16 04:45 05/16/17 04:45 10/02/16 10/02/16 10/02/16 04:45 04:45 04:45 WBC 8.4 RBC 3.76 Hgb 10.8 L Hct 32.6 L MCV 87 MCH 28.8 MCHC 33.2 RDW 13.6 Plt Count 223 Seg Neutrophils % 86.5 H Lymphocytes % 6.4 L Monocytes % 7.0 Eosinophils % 0.0 Basophils % 0.1 Absolute Neutrophils 7.3 Absolute Lymphocytes 0.5 Absolute Monocytes 0.6 Absolute Eosinophils 0.0 Absolute Basophils 0.0 Carbonic Acid 1.63 H HCO3/H2CO3 Ratio 15:1 ABG pH 7.29 L ABG pCO2 54.2 H ABG pO2 131.8 H ABG HCO3 25.2 ABG O2 Saturation 98.3 H ABG Base Excess -2.0 FiO2 50% Sodium 143.4 Potassium 3.8 Chloride 110 H Carbon Dioxide 28 Anion Gap 5 BUN 8 Creatinine 0.51 L Est GFR ( Amer) > 60 Est GFR (Non-Af Amer) > 60 Glucose 151 H Calcium 8.2 L Magnesium 1.9 Urine Color Urine Appearance Urine pH Ur Specific Campbell Urine Protein Urine Glucose (UA) Urine Ketones Urine Blood Urine Nitrite Ur Leukocyte Esterase Urine WBC (Auto) Urine RBC (Auto) 10/02/16 10/02/16 04:45 12:15 WBC RBC Hgb Hct MCV MCH MCHC RDW Plt Count Seg Neutrophils % Lymphocytes % Monocytes % Eosinophils % Basophils % Absolute Neutrophils Absolute Lymphocytes Absolute Monocytes Absolute Eosinophils Absolute Basophils Carbonic Acid 1.68 H HCO3/H2CO3 Ratio 17:1 ABG pH 7.35 ABG pCO2 55.8 H ABG pO2 80.5 ABG HCO3 30.0 H ABG O2 Saturation 95.1 ABG Base Excess 3.3 FiO2 35% Sodium Potassium Chloride Carbon Dioxide Anion Gap BUN Creatinine Est GFR ( Amer) Est GFR (Non-Af Amer) Glucose Calcium Magnesium Urine Color YELLOW Urine Appearance CLEAR Urine pH 6.0 Ur Specific Campbell 1.011 Urine Protein NEGATIVE Urine Glucose (UA) NEGATIVE Urine Ketones NEGATIVE Urine Blood SMALL H Urine Nitrite NEGATIVE Ur Leukocyte Esterase NEGATIVE Urine WBC (Auto) 1 Urine RBC (Auto) 16 09/30/16 13:00 Tracheal Aspirate Gram Stain - Final 09/30/16 13:00 Tracheal Aspirate Sputum Culture - Final NORMAL JAVIER 09/28/16 09/29/16 09/29/16 13:48 21:34 21:34 Creatine Kinase 42 CK-MB (CK-2) 3.25 Troponin I < 0.012 0.075 09/30/16 09/30/16 09/30/16 03:47 03:47 09:40 Creatine Kinase 52 62 CK-MB (CK-2) 5.90 H Troponin I 0.561 09/30/16 10/01/16 10/02/16 09:40 07:15 05:00 Creatine Kinase CK-MB (CK-2) 8.91 H Troponin I 1.100 0.530 0.263 EKG Comments: 12-lead EKG reviewed. Shows sinus rhythm, no acute ST-T wave changes are noted. Impressions: Chest/Abdomen CTA 09/30/16 00:00 IMPRESSION: No evidence for pulmonary embolic disease. No acute consolidations or pleural effusions are identified. Other findings as noted above Chest X-Ray 10/02/16 06:00 IMPRESSION: Stable. Lines and tubes. Assessment & Plan - Diagnosis (1) Hypotension Qualifiers: Hypotension type: unspecified hypotension type Qualified Code(s): I95.9 - Hypotension, unspecified Is this a current diagnosis for this admission?: Yes (2) Acute and chronic respiratory failure Qualifiers: Respiratory failure complication: hypoxia and hypercapnia Qualified Code(s): J96.21 - Acute and chronic respiratory failure with hypoxia Is this a current diagnosis for this admission?: Yes (3) COPD exacerbation Is this a current diagnosis for this admission?: Yes (4) Elevated troponin Is this a current diagnosis for this admission?: Yes (5) Pulmonic stenosis Qualifiers: Cardiac valve disease etiology: nonrheumatic Qualified Code(s): I37.0 - Nonrheumatic pulmonary valve stenosis Is this a current diagnosis for this admission?: Yes (6) Mitral regurgitation Qualifiers: Cardiac valve disease etiology: nonrheumatic Qualified Code(s): I34.0 - Nonrheumatic mitral (valve) insufficiency Is this a current diagnosis for this admission?: Yes - Notes Notes: Arterial hypotension: Patient noted to be off [place]-Synephrine. Blood pressure seems stable. Continue to follow closely. Acute on chronic respiratory failure: Patient currently intubated with some sedation. Maintain oxygenation. Pulmonary following. COPD exacerbation: Continue current therapy. Elevated troponin I in the non-STEMI range. This is secondary to supply demand mismatch. Patient was noted to have normal epicardial coronary arteries in 2016. Mitral regurgitation: Moderate to severe by recent echocardiogram. Will follow closely. Recommend vasodilator therapy as patient is able to tolerate. Pulmonary stenosis: Currently stable. Seems to be mild. - Time Time with patient: Greater than 35 minutes - Approximately 45 minutes spent in reviewing patient's chart and examining on the case. Patient is noted to be critically ill. Discussed with patient's daughter. CODE STATUS was discussed, patient remains full code. Surrogate decision-maker patient's daughter. Multiple medical problems were addressed. More than 50% of the time spent coordinating care, discussing management plans with involved caregivers. Management plans discussed with involved personnels. Medical decision making was of moderate to high complexity, patient's has multiple severe comorbidities. Medications reviewed and adjusted accordingly: Yes
--- NOTE | 2016-10-06 18:16 | PDOC PROGRESS REPORT ---
Subjective Progress Note for:: 10/03/16 Subjective:: Patient about the same and has made very little progress. There is no significant change in general condition. Patient remains off vasodilators. Still needing intubation and ventilation. Patient remains intubated, sedated, patient however looks comfortable and in acute distress. Medications reviewed. Physical Exam Vital Signs: Temp Pulse Resp BP Pulse Ox 98.8 F 93 18 130/74 H 99 10/03/16 21:48 10/03/16 21:48 10/03/16 22:00 10/03/16 21:48 10/03/16 22:00 Intake & Output 10/02/16 10/03/16 10/04/16 06:59 06:59 06:59 Intake Total 3836 1835 Output Total 1945 1220 350 Balance 1891 615 -350 Weight 92.6 kg Exam: GENERAL: well-nourished and in no acute distress. Patient is intubated and sedated. Orientation cannot be checked HEAD: Atraumatic, normocephalic. EYES: Pupils equal round and reactive to light, extraocular movements could not be checked, sclera anicteric, conjunctiva are normal. ENT: TMs normal, nares patent, oropharynx clear without exudates. Moist mucous membranes. No oral ulcerations or bleeding gums noted NECK: supple without lymphadenopathy or JVD. Trachea is central. No cervical or axillary lymphadenopathy noted. Carotids are 2+ LUNGS: Breath sounds mostly clear to auscultation patient is noted to have bibasal crackles at the extreme bases CHEST: Palpation of the chest wall shows no significant chest wall tenderness or abnormalities. 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 ABDOMEN: Soft, no significant tenderness appreciated, normoactive bowel sounds. No guarding, no rebound. No rigidity noted . No masses appreciated. EXTREMITIES: Pedal pulses are 1-2+, no calf tenderness noted, 1+ pedal edema noted. No clubbing or cyanosis. NEUROLOGICAL: The patient cannot participate in the neurological exam but no facial asymmetry noted. Extremities slightly hypotonic PSYCH: This cannot be evaluated. Patient cannot participate. SKIN: No significant ecchymosis, rash, or signs of pruritus noted. MUSCULOSKELETAL EXAM: No significant joint swelling noted. Patient cannot participate in musculoskeletal exam Results Laboratory Results: 10/02/16 04:45 10/02/16 04:45 09/28/16 09/29/16 09/29/16 13:48 21:34 21:34 Creatine Kinase 42 CK-MB (CK-2) 3.25 Troponin I < 0.012 0.075 09/30/16 09/30/16 09/30/16 03:47 03:47 09:40 Creatine Kinase 52 62 CK-MB (CK-2) 5.90 H Troponin I 0.561 09/30/16 10/01/16 10/02/16 09:40 07:15 05:00 Creatine Kinase CK-MB (CK-2) 8.91 H Troponin I 1.100 0.530 0.263 Impressions: Chest/Abdomen CTA 09/30/16 00:00 IMPRESSION: No evidence for pulmonary embolic disease. No acute consolidations or pleural effusions are identified. Other findings as noted above Chest X-Ray 10/03/16 06:00 IMPRESSION: Stable mild prominence of interstitial markings in small left mid lung atelectasis or scar. Lines and tubes. Assessment & Plan - Diagnosis (1) Acute and chronic respiratory failure Qualifiers: Respiratory failure complication: hypoxia and hypercapnia Qualified Code(s): J96.21 - Acute and chronic respiratory failure with hypoxia Is this a current diagnosis for this admission?: Yes (2) COPD exacerbation Is this a current diagnosis for this admission?: Yes (3) Elevated troponin Is this a current diagnosis for this admission?: Yes (4) Hypotension Qualifiers: Hypotension type: unspecified hypotension type Qualified Code(s): I95.9 - Hypotension, unspecified Is this a current diagnosis for this admission?: Yes (5) Mitral regurgitation Qualifiers: Cardiac valve disease etiology: nonrheumatic Qualified Code(s): I34.0 - Nonrheumatic mitral (valve) insufficiency Is this a current diagnosis for this admission?: Yes (6) Pulmonic stenosis Qualifiers: Cardiac valve disease etiology: nonrheumatic Qualified Code(s): I37.0 - Nonrheumatic pulmonary valve stenosis Is this a current diagnosis for this admission?: Yes - Notes Notes: Arterial hypotension: Patient remains off off [place]-Synephrine and other vasopressors. Blood pressure seems stable. Continue to follow closely. Acute on chronic respiratory failure: Patient currently intubated with some sedation. Maintain oxygenation. Pulmonary following. COPD exacerbation: Continue current therapy. Elevated troponin I in the non-STEMI range. This is secondary to supply demand mismatch. Patient was noted to have normal epicardial coronary arteries in 2016. Mitral regurgitation: Moderate to severe by recent echocardiogram. Will follow closely. Recommend vasodilator therapy as patient is able to tolerate. Pulmonary stenosis: Currently stable. Seems to be mild. Possibly not a problem. - Time Time with patient: 15-25 minutes - More than 50% of the time spent coordinating care, discussing management plans with involved caregivers. Management plans discussed with involved personnels. Medical decision making was of moderate to high complexity, patient's has multiple severe comorbidities. Medications reviewed and adjusted accordingly: Yes
--- NOTE | 2016-10-06 18:20 | PDOC PROGRESS REPORT ---
Subjective Progress Note for:: 10/04/16 Subjective:: Patient about the same and has made some progress. There is no significant change in general condition. Telemetry strips reviewed patient maintaining sinus rhythm. Patient noted to be more alert by the nurses. Patient to have a weaning trial today and attempt to wean from ventilator. Patient was seen on morning rounds. Patient remains intubated, sedated, patient however looks comfortable and in acute distress. Medications reviewed. Physical Exam Vital Signs: Temp Pulse Resp BP Pulse Ox 96.5 F L 108 H 22 H 153/98 H 94 10/04/16 20:00 10/04/16 20:00 10/04/16 20:00 10/04/16 20:00 10/04/16 20:00 Intake & Output 10/03/16 10/04/16 10/05/16 06:59 06:59 06:59 Intake Total 1835 1822 1581 Output Total 1220 1300 4835 Balance 615 522 -3254 Weight 95.1 kg Exam: GENERAL: well-nourished and in no acute distress. Patient is intubated. Orientation cannot be checked HEAD: Atraumatic, normocephalic. EYES: Pupils equal round and reactive to light, extraocular movements could not be checked, sclera anicteric, conjunctiva are normal. ENT: TMs normal, nares patent, oropharynx clear without exudates. Moist mucous membranes. No oral ulcerations or bleeding gums noted NECK: supple without lymphadenopathy or JVD. Trachea is central. No cervical or axillary lymphadenopathy noted. Carotids are 2+ LUNGS: Breath sounds mostly clear to auscultation patient is noted to have bibasal crackles at the extreme bases CHEST: Palpation of the chest wall shows no significant chest wall tenderness or abnormalities. 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 ABDOMEN: Soft, no significant tenderness appreciated, normoactive bowel sounds. No guarding, no rebound. No rigidity noted . No masses appreciated. EXTREMITIES: Pedal pulses are 1-2+, no calf tenderness noted, 1+ pedal edema noted. No clubbing or cyanosis. NEUROLOGICAL: The patient cannot participate in the neurological exam but no facial asymmetry noted. Extremities slightly hypotonic PSYCH: This cannot be evaluated. Patient cannot participate. SKIN: No significant ecchymosis, rash, or signs of pruritus noted. MUSCULOSKELETAL EXAM: No significant joint swelling noted. Patient cannot participate in musculoskeletal exam Results Laboratory Results: 10/04/16 05:18 10/04/16 05:18 10/03/16 10/03/16 10/04/16 05:57 05:57 05:18 WBC 7.6 9.9 RBC 3.86 3.83 Hgb 10.9 L 10.8 L Hct 33.3 L 33.7 L MCV 86 88 MCH 28.2 28.1 MCHC 32.7 32.0 RDW 13.6 13.8 Plt Count 249 243 Seg Neutrophils % 85.3 H Not Reportable Lymphocytes % 7.8 L Not Reportable Monocytes % 6.8 Not Reportable Eosinophils % 0.0 Not Reportable Basophils % 0.1 Not Reportable Absolute Neutrophils 6.5 Not Reportable Absolute Lymphocytes 0.6 Not Reportable Absolute Monocytes 0.5 Not Reportable Absolute Eosinophils 0.0 Not Reportable Absolute Basophils 0.0 Not Reportable Carbonic Acid HCO3/H2CO3 Ratio ABG pH ABG pCO2 ABG pO2 ABG HCO3 ABG O2 Saturation ABG Base Excess FiO2 Sodium Potassium Chloride Carbon Dioxide Anion Gap BUN Creatinine Est GFR ( Amer) Est GFR (Non-Af Amer) Glucose Calcium Urine Color YELLOW Urine Appearance CLEAR Urine pH 6.0 Ur Specific [place] 1.014 Urine Protein 30 H Urine Glucose (UA) NEGATIVE Urine Ketones NEGATIVE Urine Blood LARGE H Urine Nitrite NEGATIVE Ur Leukocyte Esterase NEGATIVE Urine WBC (Auto) 11 Urine RBC (Auto) >182 10/04/16 10/04/16 10/04/16 05:18 05:18 19:30 WBC RBC Hgb Hct MCV MCH MCHC RDW Plt Count Seg Neutrophils % Lymphocytes % Monocytes % Eosinophils % Basophils % Absolute Neutrophils Absolute Lymphocytes Absolute Monocytes Absolute Eosinophils Absolute Basophils Carbonic Acid 1.44 H 1.51 H HCO3/H2CO3 Ratio 19:1 21:1 ABG pH 7.39 7.43 ABG pCO2 48.0 H 50.2 H ABG pO2 74.3 L 70.7 L ABG HCO3 28.3 H 32.9 H ABG O2 Saturation 94.7 94.5 ABG Base Excess 2.7 7.3 FiO2 40% 40% Sodium 144.1 Potassium 3.6 Chloride 110 H Carbon Dioxide 29 Anion Gap 5 BUN 18 Creatinine 0.49 L Est GFR ( Amer) > 60 Est GFR (Non-Af Amer) > 60 Glucose 172 H Calcium 8.2 L Urine Color Urine Appearance Urine pH Ur Specific [place] Urine Protein Urine Glucose (UA) Urine Ketones Urine Blood Urine Nitrite Ur Leukocyte Esterase Urine WBC (Auto) Urine RBC (Auto) 09/28/16 09/29/16 09/29/16 13:48 21:34 21:34 Creatine Kinase 42 CK-MB (CK-2) 3.25 Troponin I < 0.012 0.075 09/30/16 09/30/16 09/30/16 03:47 03:47 09:40 Creatine Kinase 52 62 CK-MB (CK-2) 5.90 H Troponin I 0.561 09/30/16 10/01/16 10/02/16 09:40 07:15 05:00 Creatine Kinase CK-MB (CK-2) 8.91 H Troponin I 1.100 0.530 0.263 Impressions: Chest/Abdomen CTA 09/30/16 00:00 IMPRESSION: No evidence for pulmonary embolic disease. No acute consolidations or pleural effusions are identified. Other findings as noted above Chest X-Ray 10/04/16 06:00 IMPRESSION: A limited left lower lobe or lingular infiltrate cannot be ruled out. Assessment & Plan - Diagnosis (1) Acute and chronic respiratory failure Qualifiers: Respiratory failure complication: hypoxia and hypercapnia Qualified Code(s): J96.21 - Acute and chronic respiratory failure with hypoxia Is this a current diagnosis for this admission?: Yes (2) COPD exacerbation Is this a current diagnosis for this admission?: Yes (3) Elevated troponin Is this a current diagnosis for this admission?: Yes (4) Hypotension Qualifiers: Hypotension type: unspecified hypotension type Qualified Code(s): I95.9 - Hypotension, unspecified Is this a current diagnosis for this admission?: Yes (5) Mitral regurgitation Qualifiers: Cardiac valve disease etiology: nonrheumatic Qualified Code(s): I34.0 - Nonrheumatic mitral (valve) insufficiency Is this a current diagnosis for this admission?: Yes (6) Pulmonic stenosis Qualifiers: Cardiac valve disease etiology: nonrheumatic Qualified Code(s): I37.0 - Nonrheumatic pulmonary valve stenosis Is this a current diagnosis for this admission?: Yes - Notes Notes: Arterial hypotension: Blood pressure has been stable for last several days.. Continue to follow closely. Acute on chronic respiratory failure: Patient currently intubated and is going to have weaning trial. Maintain oxygenation. Pulmonary following. COPD exacerbation: Continue current therapy. Elevated troponin I in the non-STEMI range. This is secondary to supply demand mismatch. Patient was noted to have normal epicardial coronary arteries in 2016. Will continue to follow patient expectantly. Mitral regurgitation: Moderate to severe by recent echocardiogram. Will follow closely. Recommend vasodilator therapy as patient is able to tolerate. Pulmonary stenosis: Currently stable. Seems to be mild. We will continue to follow patient is very sick. But has shown gradual improvement. - Time Time with patient: 15-25 minutes - More than 50% of the time spent coordinating care, discussing management plans with involved caregivers. Management plans discussed with involved personnels. Medical decision making was of moderate to high complexity, patient's has multiple severe comorbidities. CODE STATUS was discussed, patient remains full code. Surrogate decision-maker unchanged. Multiple medical problems were addressed. Medications reviewed and adjusted accordingly: Yes
--- NOTE | 2016-10-06 18:26 | PDOC PROGRESS REPORT ---
Subjective Progress Note for:: 10/05/16 Subjective:: And has been extubated. Currently she is on noninvasive positive pressure ventilation via mask. Patient did complain of some chest discomfort. 12-lead EKG shows no ischemic changes.. Patient is now suspected to have systemic inflammatory response syndrome and also pneumonia. Patient being started on lisinopril. Medications reviewed. Physical Exam Vital Signs: Temp Pulse Resp BP Pulse Ox 98.5 F 90 27 H 160/86 H 98 10/05/16 12:00 10/05/16 21:09 10/05/16 20:18 10/05/16 20:00 10/05/16 20:18 Intake & Output 10/04/16 10/05/16 10/06/16 06:59 06:59 06:59 Intake Total 1822 2056 1000 Output Total 9830 7834 12817 Balance 587 -9510 -40792 Weight 95.1 kg 95.1 kg Exam: GENERAL: well-nourished and in no acute distress. Patient is alert but not oriented to place time or person. Patient currently on noninvasive ventilation. HEAD: Atraumatic, normocephalic. EYES: Pupils equal round and reactive to light, extraocular movements intact, sclera anicteric, conjunctiva are normal. ENT: TMs normal, nares patent, oropharynx clear without exudates. Moist mucous membranes. No oral ulcerations or bleeding gums noted NECK: supple without lymphadenopathy or JVD. Trachea is central. No cervical or axillary lymphadenopathy noted. Carotids are 2+ LUNGS: Breath sounds bibasilar fine crackles at bases. No significant dullness noted. CHEST: Palpation of chest wall shows no significant chest wall tenderness. 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 ABDOMEN: Soft, no significant tenderness appreciated, normoactive bowel sounds. No guarding, no rebound. No rigidity noted . No masses appreciated. EXTREMITIES: Pedal pulses are 1-2+, no calf tenderness noted, Trace + pedal edema noted. No clubbing or cyanosis. NEUROLOGICAL: Patient is alert but is not able to participate in neurological exam because of patient's current mental status PSYCH: Patient cannot participate in a neurologic and psych exam because of the patient's current mental status SKIN: No significant ecchymosis, rash, ulcerations or signs of pruritus noted. MUSCULOSKELETAL EXAM: No significant joint swelling noted. Results Laboratory Results: 10/05/16 12:15 10/05/16 12:15 10/03/16 10/03/16 10/05/16 05:57 05:57 05:28 WBC RBC Hgb Hct MCV MCH MCHC RDW Plt Count Seg Neutrophils % Lymphocytes % Monocytes % Eosinophils % Basophils % Absolute Neutrophils Absolute Lymphocytes Absolute Monocytes Absolute Eosinophils Absolute Basophils Carbonic Acid 1.30 HCO3/H2CO3 Ratio 19:1 ABG pH 7.38 ABG pCO2 43.2 ABG pO2 84.1 ABG HCO3 24.9 ABG O2 Saturation 96.1 ABG Base Excess -0.3 FiO2 35% Sodium 144.4 Potassium 3.8 Chloride 110 H Carbon Dioxide 27 Anion Gap 7 BUN 14 Creatinine 0.49 L Est GFR ( Amer) > 60 Est GFR (Non-Af Amer) > 60 Glucose 174 H Calcium 8.4 Magnesium 2.0 Albumin Urine Color YELLOW Urine Appearance SLIGHTLY-CLOUDY Urine pH 6.0 Ur Specific [place] 1.026 Urine Protein 30 H Urine Glucose (UA) NEGATIVE Urine Ketones NEGATIVE Urine Blood MODERATE H Urine Nitrite NEGATIVE Ur Leukocyte Esterase NEGATIVE Urine RBC (Auto) >182 10/05/16 10/05/16 10/05/16 05:35 05:35 05:40 WBC 12.6 H RBC 4.19 Hgb 12.1 Hct 36.1 MCV 86 MCH 28.8 MCHC 33.4 RDW 13.6 Plt Count 296 Seg Neutrophils % Not Reportable Lymphocytes % Not Reportable Monocytes % Not Reportable Eosinophils % Not Reportable Basophils % Not Reportable Absolute Neutrophils Not Reportable Absolute Lymphocytes Not Reportable Absolute Monocytes Not Reportable Absolute Eosinophils Not Reportable Absolute Basophils Not Reportable Carbonic Acid 1.78 H HCO3/H2CO3 Ratio 22:1 ABG pH 7.45 ABG pCO2 59.0 H ABG pO2 92.4 ABG HCO3 39.9 H ABG O2 Saturation 97.2 ABG Base Excess 13.4 FiO2 40% Sodium 146.8 H Potassium 3.3 L Chloride 102 Carbon Dioxide 39 H Anion Gap 6 BUN 25 H Creatinine 0.57 Est GFR ( Amer) > 60 Est GFR (Non-Af Amer) > 60 Glucose 135 H Calcium 8.9 Magnesium Albumin Urine Color Urine Appearance Urine pH Ur Specific [place] Urine Protein Urine Glucose (UA) Urine Ketones Urine Blood Urine Nitrite Ur Leukocyte Esterase Urine RBC (Auto) 10/05/16 10/05/16 12:15 12:15 WBC 12.8 H RBC 4.14 Hgb 11.6 L Hct 36.0 MCV 87 MCH 27.9 MCHC 32.1 RDW 13.6 Plt Count 280 Seg Neutrophils % 86.4 H Lymphocytes % 5.5 L Monocytes % 8.0 Eosinophils % 0.0 Basophils % 0.1 Absolute Neutrophils 11.1 H Absolute Lymphocytes 0.7 Absolute Monocytes 1.0 Absolute Eosinophils 0.0 Absolute Basophils 0.0 Carbonic Acid HCO3/H2CO3 Ratio ABG pH ABG pCO2 ABG pO2 ABG HCO3 ABG O2 Saturation ABG Base Excess FiO2 Sodium 146.7 H Potassium 3.7 Chloride 101 Carbon Dioxide 39 H Anion Gap 7 BUN 29 H Creatinine 0.51 L Est GFR ( Amer) > 60 Est GFR (Non-Af Amer) > 60 Glucose 156 H Calcium 8.9 Magnesium 2.3 Albumin 2.8 L Urine Color Urine Appearance Urine pH Ur Specific [place] Urine Protein Urine Glucose (UA) Urine Ketones Urine Blood Urine Nitrite Ur Leukocyte Esterase Urine RBC (Auto) 10/03/16 14:30 Sputum Gram Stain - Final 10/03/16 14:30 Sputum Sputum Culture - Final REDUCED NORMAL JAVIER 09/28/16 09/29/16 09/29/16 13:48 21:34 21:34 Creatine Kinase 42 CK-MB (CK-2) 3.25 Troponin I < 0.012 0.075 09/30/16 09/30/16 09/30/16 03:47 03:47 09:40 Creatine Kinase 52 62 CK-MB (CK-2) 5.90 H Troponin I 0.561 09/30/16 10/01/16 10/02/16 09:40 07:15 05:00 Creatine Kinase CK-MB (CK-2) 8.91 H Troponin I 1.100 0.530 0.263 10/05/16 10/05/16 10/05/16 07:45 07:45 12:15 Creatine Kinase 32 33 CK-MB (CK-2) 1.34 Troponin I 0.091 10/05/16 10/05/16 10/05/16 13:40 20:30 20:30 Creatine Kinase 27 L CK-MB (CK-2) 1.05 0.89 Troponin I 0.079 0.067 Impressions: Chest/Abdomen CTA 09/30/16 00:00 IMPRESSION: No evidence for pulmonary embolic disease. No acute consolidations or pleural effusions are identified. Other findings as noted above Chest X-Ray 10/05/16 09:00 IMPRESSION: IMPROVED AERATION. INTERVAL REMOVAL OF THE ENDOTRACHEAL TUBE. Assessment & Plan - Diagnosis (1) Acute and chronic respiratory failure Qualifiers: Respiratory failure complication: hypoxia and hypercapnia Qualified Code(s): J96.21 - Acute and chronic respiratory failure with hypoxia Is this a current diagnosis for this admission?: Yes (2) Elevated troponin Is this a current diagnosis for this admission?: Yes (3) Mitral regurgitation Qualifiers: Cardiac valve disease etiology: nonrheumatic Qualified Code(s): I34.0 - Nonrheumatic mitral (valve) insufficiency Is this a current diagnosis for this admission?: Yes (4) Pulmonic stenosis Qualifiers: Cardiac valve disease etiology: nonrheumatic Qualified Code(s): I37.0 - Nonrheumatic pulmonary valve stenosis Is this a current diagnosis for this admission?: Yes - Notes Notes: Acute on chronic respiratory failure: Patient currently noninvasive ventilation with facial mask. Maintain oxygenation. Pulmonary following. At some point patient will need a sleep study. COPD exacerbation: Continue current therapy. Elevated troponin I in the non-STEMI range. This is secondary to supply demand mismatch. Patient was noted to have normal epicardial coronary arteries in 2016. Mitral regurgitation: Moderate to severe by recent echocardiogram. Patient on lisinopril. Gradually escalate the dose. No evidence of CHF by chest x-ray. BNP level was WNL. Pulmonary stenosis: Currently stable. Seems to be mild. - Time Time with patient: 15-25 minutes Medications reviewed and adjusted accordingly: Yes
--- NOTE | 2016-10-06 18:32 | PDOC PROGRESS REPORT ---
Subjective Progress Note for:: 10/06/16 Subjective:: Patient is much more alert and is oriented 2. She has no ongoing complaints. Her breathing is easy. She did use intermittent bilevel therapy but currently on nasal cannula. Patient does have a history of COPD. Yesterday's twelve- lead EKG reviewed and it shows shows no ischemic changes.. Patient tolerating lisinopril.. Medications reviewed. Physical Exam Vital Signs: Temp Pulse Resp BP Pulse Ox 98.4 F 92 16 132/72 H 94 10/06/16 15:28 10/06/16 15:28 10/06/16 15:28 10/06/16 15:28 10/06/16 15:41 Intake & Output 10/05/16 10/06/16 10/07/16 06:59 06:59 06:59 Intake Total 2055 2044 Output Total 7835 34647 875 Balance -5779 -14224 -875 Weight 95.1 kg 89.3 kg Exam: GENERAL: well-nourished and in no acute distress. Alert and oriented x 2 HEAD: Atraumatic, normocephalic. EYES: Pupils equal round and reactive to light, extraocular movements intact, sclera anicteric, conjunctiva are normal. ENT: TMs normal, nares patent, oropharynx clear without exudates. Moist mucous membranes. No oral ulcerations or bleeding gums noted NECK: supple without lymphadenopathy. Trachea is central. No cervical or axillary lymphadenopathy noted. Carotids are 2+, JVD WNL LUNGS: Respiration seems nonlabored, no significant accessory muscle action noted. Few bibasilar crackles noted. No significant wheezing noted no dullness noted CHEST: Palpation of the chest wall shows no significant chest wall tenderness. No other significant abnormalities noted. HEART: [place] RN IV THERAPY, No PSH, 1/6 GREG aortic area, 1/6 rene systolic murmur mitral area, no rubs, no gallops. ABDOMEN: Soft, no significant tenderness appreciated, normoactive bowel sounds. No guarding, no rebound. No rigidity noted . No masses appreciated. EXTREMITIES: Pedal pulses are 1-2+, no calf tenderness noted. No clubbing or cyanosis.trace to 1+ pedal edema noted NEUROLOGICAL: Focused neurological exam showed no significant neurologic deficit. Normal speech, no focal weakness appreciated. PSYCH: Normal mood, normal affect. Judgment and insight within normal limits. SKIN: No significant ecchymosis, rash, ulcerations or signs of pruritus noted. MUSCULOSKELETAL EXAM: No significant joint swelling noted. Results Laboratory Results: 10/06/16 04:20 10/06/16 11:45 10/06/16 10/06/16 10/06/16 04:20 04:20 04:20 WBC 13.2 H RBC 4.19 Hgb 11.7 L Hct 36.5 MCV 87 MCH 28.0 MCHC 32.1 RDW 13.2 Plt Count 288 Seg Neutrophils % Not Reportable Lymphocytes % Not Reportable Monocytes % Not Reportable Eosinophils % Not Reportable Basophils % Not Reportable Absolute Neutrophils Not Reportable Absolute Lymphocytes Not Reportable Absolute Monocytes Not Reportable Absolute Eosinophils Not Reportable Absolute Basophils Not Reportable Carbonic Acid 1.71 H HCO3/H2CO3 Ratio 21:1 ABG pH 7.43 ABG pCO2 56.8 H ABG pO2 83.3 ABG HCO3 36.9 H ABG O2 Saturation 96.3 ABG Base Excess 10.6 FiO2 35% Sodium 145.7 H Potassium 4.1 Chloride 104 Carbon Dioxide 37 H Anion Gap 5 BUN 32 H Creatinine 0.55 Est GFR ( Amer) > 60 Est GFR (Non-Af Amer) > 60 Glucose 152 H Calcium 9.3 10/06/16 11:45 WBC RBC Hgb Hct MCV MCH MCHC RDW Plt Count Seg Neutrophils % Lymphocytes % Monocytes % Eosinophils % Basophils % Absolute Neutrophils Absolute Lymphocytes Absolute Monocytes Absolute Eosinophils Absolute Basophils Carbonic Acid HCO3/H2CO3 Ratio ABG pH ABG pCO2 ABG pO2 ABG HCO3 ABG O2 Saturation ABG Base Excess FiO2 Sodium Potassium Chloride Carbon Dioxide Anion Gap BUN Creatinine 0.53 Est GFR ( Amer) > 60 Est GFR (Non-Af Amer) > 60 Glucose Calcium 09/28/16 09/29/16 09/29/16 13:48 21:34 21:34 Creatine Kinase 42 CK-MB (CK-2) 3.25 Troponin I < 0.012 0.075 09/30/16 09/30/16 09/30/16 03:47 03:47 09:40 Creatine Kinase 52 62 CK-MB (CK-2) 5.90 H Troponin I 0.561 09/30/16 10/01/16 10/02/16 09:40 07:15 05:00 Creatine Kinase CK-MB (CK-2) 8.91 H Troponin I 1.100 0.530 0.263 10/05/16 10/05/16 10/05/16 07:45 07:45 12:15 Creatine Kinase 32 33 CK-MB (CK-2) 1.34 Troponin I 0.091 10/05/16 10/05/16 10/05/16 13:40 20:30 20:30 Creatine Kinase 27 L CK-MB (CK-2) 1.05 0.89 Troponin I 0.079 0.067 Impressions: Chest/Abdomen CTA 09/30/16 00:00 IMPRESSION: No evidence for pulmonary embolic disease. No acute consolidations or pleural effusions are identified. Other findings as noted above Chest X-Ray 10/06/16 06:00 IMPRESSION: No significant interval change. Lines and tubes. Assessment & Plan - Diagnosis (1) Acute and chronic respiratory failure Qualifiers: Respiratory failure complication: hypoxia and hypercapnia Qualified Code(s): J96.21 - Acute and chronic respiratory failure with hypoxia Is this a current diagnosis for this admission?: Yes (2) Elevated troponin Is this a current diagnosis for this admission?: Yes (3) Mitral regurgitation Qualifiers: Cardiac valve disease etiology: nonrheumatic Qualified Code(s): I34.0 - Nonrheumatic mitral (valve) insufficiency Is this a current diagnosis for this admission?: Yes (4) Pulmonic stenosis Qualifiers: Cardiac valve disease etiology: nonrheumatic Qualified Code(s): I37.0 - Nonrheumatic pulmonary valve stenosis Is this a current diagnosis for this admission?: Yes - Notes Notes: Acute on chronic respiratory failure: Stable on intermittent bilevel therapy and mostly oxygen supplementation by nasal cannula. Maintain oxygenation. Pulmonary following. COPD exacerbation: Continue current therapy. Elevated troponin I in the non-STEMI range. This is secondary to supply demand mismatch. Patient was noted to have normal epicardial coronary arteries in 2016. Mitral regurgitation: Moderate to severe by recent echocardiogram. Recommend gradual escalation of lisinopril dose. Patient will benefit from periodic repeat echocardiogram. Pulmonary stenosis: Currently stable. Seems to be mild. - Time Time with patient: 15-25 minutes Medications reviewed and adjusted accordingly: Yes
[2016-10-06 22:06] LABS: CREATININE RESULT 0.55 mg/dL (0.52-1.25)
[2016-10-07] MEDS: METHYLPREDNISOLONE INJ 40 MG/1 ML SDV IV SCH ×2 (01:17→09:45)
[2016-10-07 05:22] LABS: BLOOD UREA NITROGEN 27 mg/dL (7-20); CALCIUM 8.6 mg/dL (8.4-10.2); CARBON DIOXIDE 39 mmol/L (22-30); CREATININE RESULT 0.56 mg/dL (0.52-1.25); GLUCOSE 122 mg/dL (75-110); MAGNESIUM 2.1 mg/dL (1.6-2.3); POTASSIUM 4.3 mmol/L (3.6-5.0)
[2016-10-07 05:32] LABS: ANION GAP 2 (5-19); CHLORIDE 100 mmol/L (98-107); SODIUM 141.2 mmol/L (137-145)
[2016-10-07] MEDS: LEVOFLOXACIN 750 MG/D5W RTU 750 MG/150 ML RTUPB IV SCH (07:49)
[2016-10-07] MEDS: IPRATROPIUM/ALBUTEROL 0.5-2.5 MG/3 ML AMPUL NEB SCH ×3 (08:52→20:01)
[2016-10-07] MEDS: ACETYLCYSTEINE 20% SOLN 800 MG/4 ML VIAL.NEB IH SCH ×2 (08:54→20:03)
[2016-10-07] MEDS: CITALOPRAM HYDROBROMIDE 20 MG TABLET PO SCH (09:44)
[2016-10-07] MEDS: PANTOPRAZOLE SODIUM 40 MG VIAL IV SCH ×2 (09:44→21:20)
[2016-10-07] MEDS: LISINOPRIL 5 MG TABLET PO SCH (09:44)
[2016-10-07] MEDS: FUROSEMIDE 20 MG TABLET PO SCH (09:44)
[2016-10-07] MEDS: CEFEPIME 1 GM/D5W RTU 1 GM/50 ML RTUPB IV SCH ×2 (09:45→21:19)
[2016-10-07] MEDS ORDERED: (PENDING PHARMACY ID) (Tiotropium Bromide [Spiriva Respimat] 2 PUFF) IH SCH (10:00)
[2016-10-07] MEDS ORDERED: CITALOPRAM HYDROBROMIDE 20 MG TABLET PO SCH (10:00)
[2016-10-07] MEDS ORDERED: (PENDING PHARMACY ID) (Fluticasone/Vilanterol [Breo Ellipta 200-25 Mcg Inh] 1 PUFF) IH SCH (10:00)
--- NOTE | 2016-10-07 10:50 | PDOC PROGRESS REPORT ---
Subjective Progress Note for:: 10/07/16 Subjective:: Patient seen on morning rounds, She is awake, alert, oriented x 3 presently on a nasal cannula at 3l/min. She looks much less puffy from yesterday. She has been able to tolerate clear liquid diet. She states she is hungry. She denies any significant shortness of breath, dyspnea or cough. She denies any chest pain , palpitations or dizziness. She denies any nausea, vomiting or abdominal pain. Rest of the review of systems are negative. Physical Exam Vital Signs: Temp Pulse Resp BP Pulse Ox 98.2 F 74 20 145/81 H 99 10/07/16 07:10 10/07/16 07:10 10/07/16 07:10 10/07/16 07:10 10/07/16 07:10 Intake & Output 10/06/16 10/07/16 10/08/16 06:59 06:59 06:59 Intake Total 2045 528 Output Total 39069 1805 Balance -86701 -8877 Weight 89.3 kg 92.6 kg General appearance: PRESENT: no acute distress, obese, well-developed, well- nourished Head exam: PRESENT: atraumatic, normocephalic Eye exam: PRESENT: conjunctiva pink, EOMI, PERRLA. ABSENT: scleral icterus Ear exam: PRESENT: normal external ear exam Mouth exam: PRESENT: moist, tongue midline Neck exam: PRESENT: carotid bruit Respiratory exam: PRESENT: crackles, symmetrical, unlabored - right base Cardiovascular exam: PRESENT: +S1, +S2 - 3/6 mitral area, systolic murmur Pulses: PRESENT: normal dorsalis pedis pul Vascular exam: PRESENT: normal capillary refill GI/Abdominal exam: PRESENT: normal bowel sounds, soft. ABSENT: distended, guarding, mass, organolmegaly, rebound, tenderness Rectal exam: PRESENT: deferred Extremities exam: PRESENT: calf tenderness, +1 edema - lower extremities Musculoskeletal exam: PRESENT: full ROM, normal inspection Neurological exam: PRESENT: alert, awake, oriented to person, oriented to place , oriented to time, oriented to situation, CN II-XII grossly intact. ABSENT: motor sensory deficit Psychiatric exam: PRESENT: appropriate affect, normal mood. ABSENT: homicidal ideation, suicidal ideation Skin exam: PRESENT: dry, intact, warm. ABSENT: cyanosis, rash Results Laboratory Results: 10/06/16 04:20 10/07/16 04:30 10/06/16 10/06/16 10/07/16 11:45 21:25 04:30 Sodium 141.2 Potassium 4.3 Chloride 100 Carbon Dioxide 39 H Anion Gap 2 L BUN 27 H Creatinine 0.53 0.55 0.56 Est GFR ( Amer) > 60 > 60 > 60 Est GFR (Non-Af Amer) > 60 > 60 > 60 Glucose 122 H Calcium 8.6 Magnesium 2.1 09/28/16 09/29/16 09/29/16 13:48 21:34 21:34 Creatine Kinase 42 CK-MB (CK-2) 3.25 Troponin I < 0.012 0.075 NT-Pro-B Natriuret Pep 09/30/16 09/30/16 09/30/16 03:47 03:47 09:40 Creatine Kinase 52 62 CK-MB (CK-2) 5.90 H Troponin I 0.561 NT-Pro-B Natriuret Pep 09/30/16 10/01/16 10/02/16 09:40 07:15 05:00 Creatine Kinase CK-MB (CK-2) 8.91 H Troponin I 1.100 0.530 0.263 NT-Pro-B Natriuret Pep 10/05/16 10/05/16 10/05/16 07:45 07:45 12:15 Creatine Kinase 32 33 CK-MB (CK-2) 1.34 Troponin I 0.091 NT-Pro-B Natriuret Pep 10/05/16 10/05/16 10/05/16 13:40 20:30 20:30 Creatine Kinase 27 L CK-MB (CK-2) 1.05 0.89 Troponin I 0.079 0.067 NT-Pro-B Natriuret Pep 10/07/16 04:30 Creatine Kinase CK-MB (CK-2) Troponin I NT-Pro-B Natriuret Pep 1300 H Impressions: Chest/Abdomen CTA 09/30/16 00:00 IMPRESSION: No evidence for pulmonary embolic disease. No acute consolidations or pleural effusions are identified. Other findings as noted above Chest X-Ray 10/06/16 06:00 IMPRESSION: No significant interval change. Lines and tubes. Assessment & Plan - Diagnosis (1) Acute and chronic respiratory failure Qualifiers: Respiratory failure complication: hypoxia and hypercapnia Qualified Code(s): J96.21 - Acute and chronic respiratory failure with hypoxia Is this a current diagnosis for this admission?: YesPlan: Improving. She has diuresed well over the last 48hrs. She has been able to be weaned down to nasal cannula. Will start to descalate antibiotics. Check PA/lat chest xray tomorrow (2) PNA (pneumonia) Is this a current diagnosis for this admission?: YesPlan: Continue broad spectrum antibiotics with cultures pending. (3) Mitral regurgitation Qualifiers: Cardiac valve disease etiology: nonrheumatic Qualified Code(s): I34.0 - Nonrheumatic mitral (valve) insufficiency Is this a current diagnosis for this admission?: YesPlan: Continue current medications. Cardiology consult (4) Pulmonic stenosis Qualifiers: Cardiac valve disease etiology: nonrheumatic Qualified Code(s): I37.0 - Nonrheumatic pulmonary valve stenosis Is this a current diagnosis for this admission?: Yes (5) Psoriatic arthritis Is this a current diagnosis for this admission?: Yes (6) Anxiety Is this a current diagnosis for this admission?: YesPlan: Continue anxiolytics (7) COPD exacerbation Is this a current diagnosis for this admission?: YesPlan: Continue nebulizers . Wean steroids - Time Time Spent with patient: 25-34 minutes Medications reviewed and adjusted accordingly: Yes
[2016-10-07] MEDS: ALPRAZOLAM 0.5 MG TABLET PO PRN (13:31)
--- NOTE | 2016-10-07 18:57 | PDOC PROGRESS REPORT ---
Subjective Progress Note for:: 10/07/16 Subjective:: Patient is much more alert and is oriented to treat today. She has no ongoing complaints. Her breathing is easy. She did use intermittent bilevel therapy but currently on nasal cannula. Patient does have a history of COPD. Patient is resting comfortably. Patient named that she was smoking until recent admission. She is going to quit smoking. Physical Exam Vital Signs: Temp Pulse Resp BP Pulse Ox 98.0 F 79 18 153/77 H 91 L 10/07/16 15:38 10/07/16 15:38 10/07/16 15:38 10/07/16 15:38 10/07/16 15:38 Intake & Output 10/06/16 10/07/16 10/08/16 06:59 06:59 06:59 Intake Total 2045 528 1596 Output Total 32962 2155 1400 Balance -71521 -4365 196 Weight 89.3 kg 92.6 kg Exam: GENERAL: well-nourished and in no acute distress. Alert and oriented x3 HEAD: Atraumatic, normocephalic. EYES: Pupils equal round and reactive to light, extraocular movements intact, sclera anicteric, conjunctiva are normal. ENT: TMs normal, nares patent, oropharynx clear without exudates. Moist mucous membranes. No oral ulcerations or bleeding gums noted NECK: supple without lymphadenopathy. Trachea is central. No cervical or axillary lymphadenopathy noted. Carotids are 2+, JVD WNL LUNGS: Respiration seems nonlabored, no significant accessory muscle action noted. Bibasilar fine crackles are noted. No wheezing noted. Minimal dullness noted both bases CHEST: Palpation of the chest wall shows no significant chest wall tenderness. No other significant abnormalities noted. 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 ABDOMEN: Soft, no significant tenderness appreciated, normoactive bowel sounds. No guarding, no rebound. No rigidity noted . No masses appreciated. EXTREMITIES: Pedal pulses are 1-2+, no calf tenderness noted. No clubbing or cyanosis. 1+ pedal edema noted NEUROLOGICAL: Focused neurological exam showed no significant neurologic deficit. Normal speech, no focal weakness appreciated. PSYCH: Normal mood, normal affect. Judgment and insight within normal limits. SKIN: No significant ecchymosis, rash, ulcerations or signs of pruritus noted. MUSCULOSKELETAL EXAM: No significant joint swelling noted. Results Laboratory Results: 10/06/16 04:20 10/07/16 04:30 10/06/16 10/07/16 21:25 04:30 Sodium 141.2 Potassium 4.3 Chloride 100 Carbon Dioxide 39 H Anion Gap 2 L BUN 27 H Creatinine 0.55 0.56 Est GFR ( Amer) > 60 > 60 Est GFR (Non-Af Amer) > 60 > 60 Glucose 122 H Calcium 8.6 Magnesium 2.1 09/28/16 09/29/16 09/29/16 13:48 21:34 21:34 Creatine Kinase 42 CK-MB (CK-2) 3.25 Troponin I < 0.012 0.075 NT-Pro-B Natriuret Pep 09/30/16 09/30/16 09/30/16 03:47 03:47 09:40 Creatine Kinase 52 62 CK-MB (CK-2) 5.90 H Troponin I 0.561 NT-Pro-B Natriuret Pep 09/30/16 10/01/16 10/02/16 09:40 07:15 05:00 Creatine Kinase CK-MB (CK-2) 8.91 H Troponin I 1.100 0.530 0.263 NT-Pro-B Natriuret Pep 10/05/16 10/05/16 10/05/16 07:45 07:45 12:15 Creatine Kinase 32 33 CK-MB (CK-2) 1.34 Troponin I 0.091 NT-Pro-B Natriuret Pep 10/05/16 10/05/16 10/05/16 13:40 20:30 20:30 Creatine Kinase 27 L CK-MB (CK-2) 1.05 0.89 Troponin I 0.079 0.067 NT-Pro-B Natriuret Pep 10/07/16 04:30 Creatine Kinase CK-MB (CK-2) Troponin I NT-Pro-B Natriuret Pep 1300 H Impressions: Chest/Abdomen CTA 09/30/16 00:00 IMPRESSION: No evidence for pulmonary embolic disease. No acute consolidations or pleural effusions are identified. Other findings as noted above Chest X-Ray 10/06/16 06:00 IMPRESSION: No significant interval change. Lines and tubes. Assessment & Plan - Diagnosis (1) Acute and chronic respiratory failure Qualifiers: Respiratory failure complication: hypoxia and hypercapnia Qualified Code(s): J96.21 - Acute and chronic respiratory failure with hypoxia Is this a current diagnosis for this admission?: Yes (2) Elevated troponin Is this a current diagnosis for this admission?: Yes (3) Mitral regurgitation Qualifiers: Cardiac valve disease etiology: nonrheumatic Qualified Code(s): I34.0 - Nonrheumatic mitral (valve) insufficiency Is this a current diagnosis for this admission?: Yes (4) Pulmonic stenosis Qualifiers: Cardiac valve disease etiology: nonrheumatic Qualified Code(s): I37.0 - Nonrheumatic pulmonary valve stenosis Is this a current diagnosis for this admission?: Yes - Notes Notes: Acute on chronic respiratory failure: Patient has tolerated extubation. Currently on nasal cannula. Patient has underlying COPD and possibly obesity hypoventilation syndrome. Patient has a history of nocturnal hypoxemia but will benefit from evaluation for underlying sleep apnea. Elevated troponin I: [place] to be related to supply demand mismatch and not related to ACS. Patient did have a recent heart catheterization which was negative. Mitral regurgitation: Patient will need follow-up echocardiogram. This will be scheduled as an outpatient. Pulmonary stenosis: [place] to be mild based on echocardiogram. Obesity: Patient advised on weight loss. We will continue to follow patient. Telemetry strips reviewed showed sinus rhythm. - Time Time with patient: 15-25 minutes - CODE STATUS was discussed, patient remains full code. Surrogate decision-maker patient's daughter. Multiple medical problems were addressed. More than 50% of the time spent coordinating care, discussing management plans with involved caregivers. Management plans discussed with involved personnels. Medical decision making was of moderate to high complexity, patient's has multiple comorbidities.
[2016-10-07] MEDS ORDERED: METHYLPREDNISOLONE INJ 40 MG/1 ML SDV IV SCH (22:00)
[2016-10-08 05:19] LABS: AMORPHOUS SEDIMENT,URINE 1+ /HPF; APPEARANCE,URINE CLOUDY; BILIRUBIN,URINE NEGATIVE (NEGATIVE); GLUCOSE, URINE NEGATIVE (NEGATIVE); KETONES,URINE NEGATIVE (NEGATIVE); LEUKOCYTE ESTERASE,URINE NEGATIVE (NEGATIVE); NITRITE,URINE NEGATIVE (NEGATIVE); PROTEIN,URINE NEGATIVE (NEGATIVE); URINE SPECIFIC GRAVITY 1.012; UROBILINOGEN,URINE NEGATIVE mg/dL (<2.0)
[2016-10-08 05:41] LABS: ABSOLUTE NEUT (AUTO) 12.2 10^3/uL (1.7-8.2); BASOPHILS % (AUTO) 0.1 % (0-2); HEMATOCRIT 35.2 % (36.0-47.0); HEMOGLOBIN 11.4 g/dL (12.0-15.5); MEAN CORPUSCULAR HEMOGLOBIN 28.1 pg (27.0-33.4); MEAN CORPUSCULAR HGB CONC 32.5 g/dL (32.0-36.0); MEAN CORPUSCULAR VOLUME 87 fl (80-97); RED BLOOD COUNT 4.06 10^6/uL (3.72-5.28); RED CELL DISTRIBUTION WIDTH 13.2 % (11.5-14.0); SEGMENTED NEUTROPHILS % (AUTO) 85.9 % (42-78); WHITE BLOOD COUNT 14.1 10^3/uL (4.0-10.5)
[2016-10-08 06:06] LABS: BLOOD UREA NITROGEN 23 mg/dL (7-20); CALCIUM 8.6 mg/dL (8.4-10.2); CREATININE RESULT 0.54 mg/dL (0.52-1.25); GLUCOSE 119 mg/dL (75-110)
[2016-10-08 06:20] LABS: CARBON DIOXIDE 39 mmol/L (22-30); CHLORIDE 97 mmol/L (98-107); POTASSIUM 4.4 mmol/L (3.6-5.0); SODIUM 137.7 mmol/L (137-145)
[2016-10-08 06:31] LABS: ANION GAP 2 (5-19)
[2016-10-08] MEDS: LEVOFLOXACIN 750 MG/D5W RTU 750 MG/150 ML RTUPB IV SCH (07:22)
[2016-10-08] MEDS: ALPRAZOLAM 0.5 MG TABLET PO PRN ×2 (07:22→17:32)
[2016-10-08] MEDS: ACETAMINOPHEN 325 MG TABLET PO PRN (07:22)
[2016-10-08] MEDS: IPRATROPIUM/ALBUTEROL 0.5-2.5 MG/3 ML AMPUL NEB SCH ×3 (07:57→20:38)
[2016-10-08] MEDS: ACETYLCYSTEINE 20% SOLN 800 MG/4 ML VIAL.NEB IH SCH ×2 (07:57→20:37)
[2016-10-08] MEDS ORDERED: PREDNISONE 20 MG TABLET PO SCH (10:00)
[2016-10-08] MEDS: FUROSEMIDE 20 MG TABLET PO SCH (10:07)
[2016-10-08] MEDS: CITALOPRAM HYDROBROMIDE 20 MG TABLET PO SCH (10:07)
[2016-10-08] MEDS: LEVOFLOXACIN 750 MG TABLET PO SCH (10:09)
[2016-10-08] MEDS: LISINOPRIL 5 MG TABLET PO SCH (10:10)
[2016-10-08] MEDS ORDERED: LANSOPRAZOLE 30 MG TAB.RAP.DR PO ONE (10:15)
--- NOTE | 2016-10-08 12:52 | RADIOLOGY REPORT (SQ) ---
EXAM DESCRIPTION: CHEST PA/LAT COMPLETED DATE/TIME: 10/08/2016 12:38 pm REASON FOR STUDY: cough, shortness of breath COMPARISON: 10/06/2016 EXAM PARAMETERS: NUMBER OF VIEWS: two views TECHNIQUE: Digital Frontal and Lateral radiographic views of the chest acquired. RADIATION DOSE: NA LIMITATIONS: none FINDINGS: LUNGS AND PLEURA: Subsegmental atelectasis in the left base. MEDIASTINUM AND HILAR STRUCTURES: No masses or contour abnormalities. HEART AND VASCULAR STRUCTURES: Heart normal size. No evidence for failure. BONES: No acute findings. HARDWARE: Right internal jugular catheter has its tip in the superior vena cava. An NG tube is been removed. OTHER: No other significant finding. IMPRESSION: No acute cardiopulmonary disease. Catheter remains in good position. TECHNICAL DOCUMENTATION: JOB ID: [id number] [employer]- All Rights Reserved
[2016-10-08 15:11] LABS: ARTERIAL BLOOD BASE EXCESS 10.1 mmol/L; ARTERIAL BLOOD O2 SATURATION 90.3 % (94-98)
--- NOTE | 2016-10-08 15:37 | PDOC PROGRESS REPORT ---
Subjective Progress Note for:: 10/08/16 Subjective:: Patient seen on morning rounds, She is awake, alert, oriented x 3 presently on a nasal cannula at 3l/min. She states she was able to get out of bed to the chair yesterday. She has been able to tolerate a regular diet. She denies any significant shortness of breath, dyspnea or cough. She denies any chest pain, palpitations or dizziness. She denies any nausea, vomiting or abdominal pain. Rest of the review of systems are negative. Physical Exam Vital Signs: Temp Pulse Resp BP Pulse Ox 97.4 F 90 18 127/102 H 95 10/08/16 11:25 10/08/16 14:14 10/08/16 14:14 10/08/16 11:25 10/08/16 14:14 Intake & Output 10/07/16 10/08/16 10/09/16 06:59 06:59 06:59 Intake Total 528 2236 Output Total 4075 2340 Balance -3547 -104 Weight 92.6 kg 91 kg General appearance: PRESENT: no acute distress, well-developed, well-nourished Head exam: PRESENT: atraumatic, normocephalic Eye exam: PRESENT: conjunctiva pink, EOMI, PERRLA. ABSENT: scleral icterus Ear exam: PRESENT: normal external ear exam Mouth exam: PRESENT: moist, tongue midline Neck exam: ABSENT: carotid bruit, JVD, lymphadenopathy, thyromegaly Respiratory exam: PRESENT: clear to auscultation joseluis. ABSENT: rales, rhonchi, wheezes Cardiovascular exam: PRESENT: RRR. ABSENT: diastolic murmur, rubs, systolic murmur Pulses: PRESENT: normal dorsalis pedis pul Vascular exam: PRESENT: normal capillary refill GI/Abdominal exam: PRESENT: normal bowel sounds, soft. ABSENT: distended, guarding, mass, organolmegaly, rebound, tenderness Rectal exam: PRESENT: deferred Extremities exam: PRESENT: full ROM. ABSENT: calf tenderness, clubbing, pedal edema Neurological exam: PRESENT: alert, awake, oriented to person, oriented to place , oriented to time, oriented to situation, CN II-XII grossly intact. ABSENT: motor sensory deficit Psychiatric exam: PRESENT: appropriate affect, normal mood. ABSENT: homicidal ideation, suicidal ideation Skin exam: PRESENT: dry, intact, warm. ABSENT: cyanosis, rash Results Laboratory Results: 10/08/16 04:45 10/08/16 04:45 10/08/16 10/08/16 10/08/16 04:45 04:45 04:50 WBC 14.1 H RBC 4.06 Hgb 11.4 L Hct 35.2 L MCV 87 MCH 28.1 MCHC 32.5 RDW 13.2 Plt Count 285 Seg Neutrophils % 85.9 H Lymphocytes % 7.0 L Monocytes % 7.0 Eosinophils % 0.0 Basophils % 0.1 Absolute Neutrophils 12.2 H Absolute Lymphocytes 1.0 Absolute Monocytes 1.0 Absolute Eosinophils 0.0 Absolute Basophils 0.0 Carbonic Acid HCO3/H2CO3 Ratio ABG pH ABG pCO2 ABG pO2 ABG HCO3 ABG O2 Saturation ABG Base Excess FiO2 Sodium 137.7 Potassium 4.4 Chloride 97 L Carbon Dioxide 39 H Anion Gap 2 L BUN 23 H Creatinine 0.54 Est GFR ( Amer) > 60 Est GFR (Non-Af Amer) > 60 Glucose 119 H Calcium 8.6 Urine Color YELLOW Urine Appearance CLOUDY Urine pH 8.0 Ur Specific [place] 1.012 Urine Protein NEGATIVE Urine Glucose (UA) NEGATIVE Urine Ketones NEGATIVE Urine Blood MODERATE H Urine Nitrite NEGATIVE Ur Leukocyte Esterase NEGATIVE Urine WBC (Auto) 1 Urine RBC (Auto) 12 10/08/16 15:00 WBC RBC Hgb Hct MCV MCH MCHC RDW Plt Count Seg Neutrophils % Lymphocytes % Monocytes % Eosinophils % Basophils % Absolute Neutrophils Absolute Lymphocytes Absolute Monocytes Absolute Eosinophils Absolute Basophils Carbonic Acid 1.43 H HCO3/H2CO3 Ratio 24:1 ABG pH 7.49 H ABG pCO2 47.5 H ABG pO2 54.6 L ABG HCO3 35.0 H ABG O2 Saturation 90.3 L ABG Base Excess 10.1 FiO2 32% Sodium Potassium Chloride Carbon Dioxide Anion Gap BUN Creatinine Est GFR ( Amer) Est GFR (Non-Af Amer) Glucose Calcium Urine Color Urine Appearance Urine pH Ur Specific [place] Urine Protein Urine Glucose (UA) Urine Ketones Urine Blood Urine Nitrite Ur Leukocyte Esterase Urine WBC (Auto) Urine RBC (Auto) 09/28/16 09/29/16 09/29/16 13:48 21:34 21:34 Creatine Kinase 42 CK-MB (CK-2) 3.25 Troponin I < 0.012 0.075 NT-Pro-B Natriuret Pep 09/30/16 09/30/16 09/30/16 03:47 03:47 09:40 Creatine Kinase 52 62 CK-MB (CK-2) 5.90 H Troponin I 0.561 NT-Pro-B Natriuret Pep 09/30/16 10/01/16 10/02/16 09:40 07:15 05:00 Creatine Kinase CK-MB (CK-2) 8.91 H Troponin I 1.100 0.530 0.263 NT-Pro-B Natriuret Pep 10/05/16 10/05/16 10/05/16 07:45 07:45 12:15 Creatine Kinase 32 33 CK-MB (CK-2) 1.34 Troponin I 0.091 NT-Pro-B Natriuret Pep 10/05/16 10/05/16 10/05/16 13:40 20:30 20:30 Creatine Kinase 27 L CK-MB (CK-2) 1.05 0.89 Troponin I 0.079 0.067 NT-Pro-B Natriuret Pep 10/07/16 04:30 Creatine Kinase CK-MB (CK-2) Troponin I NT-Pro-B Natriuret Pep 1300 H Impressions: Chest/Abdomen CTA 09/30/16 00:00 IMPRESSION: No evidence for pulmonary embolic disease. No acute consolidations or pleural effusions are identified. Other findings as noted above Chest X-Ray 10/08/16 00:00 IMPRESSION: No acute cardiopulmonary disease. Catheter remains in good position. Assessment & Plan - Diagnosis (1) Acute and chronic respiratory failure Qualifiers: Respiratory failure complication: hypoxia and hypercapnia Qualified Code(s): J96.21 - Acute and chronic respiratory failure with hypoxia Is this a current diagnosis for this admission?: YesPlan: Chest xray shows no infiltrate or signs of failure. Descalated antibiotics and prednisone (2) PNA (pneumonia) Is this a current diagnosis for this admission?: YesPlan: Levaquin 750 mg daily (3) Mitral regurgitation Qualifiers: Cardiac valve disease etiology: nonrheumatic Qualified Code(s): I34.0 - Nonrheumatic mitral (valve) insufficiency Is this a current diagnosis for this admission?: YesPlan: Continue current medications. Cardiology consult (4) Pulmonic stenosis Qualifiers: Cardiac valve disease etiology: nonrheumatic Qualified Code(s): I37.0 - Nonrheumatic pulmonary valve stenosis Is this a current diagnosis for this admission?: Yes (5) Psoriatic arthritis Is this a current diagnosis for this admission?: Yes (6) Anxiety Is this a current diagnosis for this admission?: YesPlan: Continue anxiolytics (7) COPD exacerbation Is this a current diagnosis for this admission?: YesPlan: Continue nebulizers . Wean steroids - Time Time Spent with patient: 25-34 minutes Critical Time spent with patient: 15-24 minutes Medications reviewed and adjusted accordingly: Yes
--- NOTE | 2016-10-08 19:55 | PDOC PROGRESS REPORT ---
Subjective Progress Note for:: 10/08/16 Subjective:: Patient seen on morning rounds, She is awake, alert, oriented x 3 presently on a nasal cannula at 3l/min. She states she was able to get out of bed to the chair yesterday. She has been able to tolerate a regular diet. She denies any significant shortness of breath, dyspnea or cough. She denies any chest pain, palpitations or dizziness. She denies any nausea, vomiting or abdominal pain. Patient gets however extremely fatigued and tired and also gets short of breath on minimal exertion. Patient got very tired after physical therapy session. Rest of the review of systems are negative. . Physical Exam Vital Signs: Temp Pulse Resp BP Pulse Ox 98.6 F 102 H 18 144/97 H 95 10/08/16 16:52 10/08/16 18:33 10/08/16 14:14 10/08/16 16:52 10/08/16 16:52 Intake & Output 10/07/16 10/08/16 10/09/16 06:59 06:59 06:59 Intake Total 528 2236 1733 Output Total 4075 2340 1999 [facility] -[id number] -104 -267 Weight 92.6 kg 91 kg Exam: GENERAL: well-nourished and in no acute distress. Alert and oriented x3 HEAD: Atraumatic, normocephalic. EYES: Pupils equal round and reactive to light, extraocular movements intact, sclera anicteric, conjunctiva are normal. ENT: TMs normal, nares patent, oropharynx clear without exudates. Moist mucous membranes. No oral ulcerations or bleeding gums noted NECK: supple without lymphadenopathy. Trachea is central. No cervical or axillary lymphadenopathy noted. Carotids are 2+, JVD WNL LUNGS: Respiration seems nonlabored, no significant accessory muscle action noted. Breath sounds clear to auscultation bilaterally and equal noted. No wheezes rales or rhonchi noted. No significant dullness noted on percussion. CHEST: Palpation of the chest wall shows no significant chest wall tenderness. No other significant abnormalities noted. HEART: [place] [employer], No PSH, 1/6 GREG aortic area, 1/6 rene systolic murmur mitral area, no rubs, no gallops. ABDOMEN: Soft, no significant tenderness appreciated, normoactive bowel sounds. No guarding, no rebound. No rigidity noted . No masses appreciated. EXTREMITIES: Pedal pulses are 1-2+, no calf tenderness noted. No clubbing or cyanosis. 1+ pedal edema noted NEUROLOGICAL: Focused neurological exam showed no significant neurologic deficit. Normal speech, no focal weakness appreciated. PSYCH: Normal mood, normal affect. Judgment and insight within normal limits. SKIN: No significant ecchymosis, rash, ulcerations or signs of pruritus noted. MUSCULOSKELETAL EXAM: No significant joint swelling noted. Results Laboratory Results: 10/08/16 04:45 10/08/16 04:45 10/08/16 10/08/16 10/08/16 04:45 04:45 04:50 WBC 14.1 H RBC 4.06 Hgb 11.4 L Hct 35.2 L MCV 87 MCH 28.1 MCHC 32.5 RDW 13.2 Plt Count 285 Seg Neutrophils % 85.9 H Lymphocytes % 7.0 L Monocytes % 7.0 Eosinophils % 0.0 Basophils % 0.1 Absolute Neutrophils 12.2 H Absolute Lymphocytes 1.0 Absolute Monocytes 1.0 Absolute Eosinophils 0.0 Absolute Basophils 0.0 Carbonic Acid HCO3/H2CO3 Ratio ABG pH ABG pCO2 ABG pO2 ABG HCO3 ABG O2 Saturation ABG Base Excess FiO2 Sodium 137.7 Potassium 4.4 Chloride 97 L Carbon Dioxide 39 H Anion Gap 2 L BUN 23 H Creatinine 0.54 Est GFR ( Amer) > 60 Est GFR (Non-Af Amer) > 60 Glucose 119 H Calcium 8.6 Urine Color YELLOW Urine Appearance CLOUDY Urine pH 8.0 Ur Specific [place] 1.012 Urine Protein NEGATIVE Urine Glucose (UA) NEGATIVE Urine Ketones NEGATIVE Urine Blood MODERATE H Urine Nitrite NEGATIVE Ur Leukocyte Esterase NEGATIVE Urine WBC (Auto) 1 Urine RBC (Auto) 12 10/08/16 15:00 WBC RBC Hgb Hct MCV MCH MCHC RDW Plt Count Seg Neutrophils % Lymphocytes % Monocytes % Eosinophils % Basophils % Absolute Neutrophils Absolute Lymphocytes Absolute Monocytes Absolute Eosinophils Absolute Basophils Carbonic Acid 1.43 H HCO3/H2CO3 Ratio 24:1 ABG pH 7.49 H ABG pCO2 47.5 H ABG pO2 54.6 L ABG HCO3 35.0 H ABG O2 Saturation 90.3 L ABG Base Excess 10.1 FiO2 32% Sodium Potassium Chloride Carbon Dioxide Anion Gap BUN Creatinine Est GFR ( Amer) Est GFR (Non-Af Amer) Glucose Calcium Urine Color Urine Appearance Urine pH Ur Specific [place] Urine Protein Urine Glucose (UA) Urine Ketones Urine Blood Urine Nitrite Ur Leukocyte Esterase Urine WBC (Auto) Urine RBC (Auto) 09/28/16 09/29/16 09/29/16 13:48 21:34 21:34 Creatine Kinase 42 CK-MB (CK-2) 3.25 Troponin I < 0.012 0.075 NT-Pro-B Natriuret Pep 09/30/16 09/30/16 09/30/16 03:47 03:47 09:40 Creatine Kinase 52 62 CK-MB (CK-2) 5.90 H Troponin I 0.561 NT-Pro-B Natriuret Pep 09/30/16 10/01/16 10/02/16 09:40 07:15 05:00 Creatine Kinase CK-MB (CK-2) 8.91 H Troponin I 1.100 0.530 0.263 NT-Pro-B Natriuret Pep 10/05/16 10/05/16 10/05/16 07:45 07:45 12:15 Creatine Kinase 32 33 CK-MB (CK-2) 1.34 Troponin I 0.091 NT-Pro-B Natriuret Pep 10/05/16 10/05/16 10/05/16 13:40 20:30 20:30 Creatine Kinase 27 L CK-MB (CK-2) 1.05 0.89 Troponin I 0.079 0.067 NT-Pro-B Natriuret Pep 10/07/16 04:30 Creatine Kinase CK-MB (CK-2) Troponin I NT-Pro-B Natriuret Pep 1300 H Impressions: Chest/Abdomen CTA 09/30/16 00:00 IMPRESSION: No evidence for pulmonary embolic disease. No acute consolidations or pleural effusions are identified. Other findings as noted above Chest X-Ray 10/08/16 00:00 IMPRESSION: No acute cardiopulmonary disease. Catheter remains in good position. Assessment & Plan - Diagnosis (1) Acute and chronic respiratory failure Qualifiers: Respiratory failure complication: hypoxia and hypercapnia Qualified Code(s): J96.21 - Acute and chronic respiratory failure with hypoxia Is this a current diagnosis for this admission?: Yes (2) Elevated troponin Is this a current diagnosis for this admission?: Yes (3) Mitral regurgitation Qualifiers: Cardiac valve disease etiology: nonrheumatic Qualified Code(s): I34.0 - Nonrheumatic mitral (valve) insufficiency Is this a current diagnosis for this admission?: Yes (4) Pulmonic stenosis Qualifiers: Cardiac valve disease etiology: nonrheumatic Qualified Code(s): I37.0 - Nonrheumatic pulmonary valve stenosis Is this a current diagnosis for this admission?: Yes - Notes Notes: Acute on chronic respiratory failure: Much improved currently on nasal cannula oxygen. Chest x-ray shows clearing lung [place]. Elevated troponin I: Secondary to supply demand mismatch. No ischemia evaluation planned. Patient has history of nose widely patent coronaries by heart cath about a year ago. This is by her history. Mitral regurgitation: Moderate to severe by echo report. Patient will need follow-up. Pulmonary stenosis: Stable COPD: Currently stable continue bronchodilator therapy. Obesity: Patient probably has associated obesity hypoventilation syndrome. Patient likely to have underlying sleep apnea and may need evaluation as an outpatient. - Time Time with patient: 15-25 minutes - CODE STATUS was discussed, patient remains full code. Surrogate decision-maker patient's daughter. More than 50% of the time spent coordinating care, discussing management plans with involved caregivers. Management plans discussed with involved personnels. Medical decision making was of moderate to high complexity, patient's has multiple comorbidities. Medications reviewed and adjusted accordingly: Yes
[2016-10-09] MEDS: IPRATROPIUM/ALBUTEROL 0.5-2.5 MG/3 ML AMPUL NEB SCH ×3 (08:02→20:54)
[2016-10-09] MEDS: ACETYLCYSTEINE 20% SOLN 800 MG/4 ML VIAL.NEB IH SCH ×2 (08:02→20:54)
[2016-10-09] MEDS: LANSOPRAZOLE 30 MG TAB.RAP.DR PO SCH (08:38)
[2016-10-09] MEDS: ALPRAZOLAM 0.5 MG TABLET PO PRN ×2 (08:41→21:17)
[2016-10-09] MEDS: LISINOPRIL 5 MG TABLET PO SCH (10:52)
[2016-10-09] MEDS: FUROSEMIDE 20 MG TABLET PO SCH (10:52)
[2016-10-09] MEDS: LEVOFLOXACIN 750 MG TABLET PO SCH (10:52)
[2016-10-09] MEDS: CITALOPRAM HYDROBROMIDE 20 MG TABLET PO SCH (10:52)
[2016-10-09] MEDS: PREDNISONE 20 MG TABLET PO SCH (10:53)
--- NOTE | 2016-10-09 13:53 | PDOC PROGRESS REPORT ---
Subjective Progress Note for:: 10/09/16 Subjective:: Patient seen on morning rounds, She is awake, alert, oriented x 3 presently on a nasal cannula at 3l/min. She states she was able to get out of bed to the chair yesterday with the assistance of 2 people. She has been able to tolerate a regular diet. She denies any significant shortness of breath, dyspnea or cough at rest, mild with exertion. She denies any chest pain, palpitations or dizziness. She denies any nausea, vomiting or abdominal pain. Rest of the review of systems are negative. Physical Exam Vital Signs: Temp Pulse Resp BP Pulse Ox 97.9 F 95 18 94/53 L 93 10/09/16 11:24 10/09/16 11:24 10/09/16 11:24 10/09/16 11:24 10/09/16 11:24 Intake & Output 10/08/16 10/09/16 10/10/16 06:59 06:59 06:59 Intake Total 2236 2453 459 Output Total 2340 2900 200 Balance -104 -447 259 Weight 91 kg 88.9 kg General appearance: PRESENT: no acute distress, well-developed, well-nourished Head exam: PRESENT: atraumatic, normocephalic Eye exam: PRESENT: conjunctiva pink, EOMI, PERRLA. ABSENT: scleral icterus Ear exam: PRESENT: normal external ear exam Mouth exam: PRESENT: moist, tongue midline Respiratory exam: PRESENT: clear to auscultation joseluis, decreased breath sounds - bilateral bases, symmetrical, unlabored Cardiovascular exam: PRESENT: RRR. ABSENT: diastolic murmur, rubs, systolic murmur Pulses: PRESENT: normal dorsalis pedis pul Vascular exam: PRESENT: normal capillary refill GI/Abdominal exam: PRESENT: normal bowel sounds, soft. ABSENT: distended, guarding, mass, organolmegaly, rebound, tenderness Rectal exam: PRESENT: deferred Extremities exam: PRESENT: full ROM. ABSENT: calf tenderness, clubbing, pedal edema Neurological exam: PRESENT: alert, awake, oriented to person, oriented to place , oriented to time, oriented to situation, CN II-XII grossly intact. ABSENT: motor sensory deficit Psychiatric exam: PRESENT: appropriate affect, normal mood. ABSENT: homicidal ideation, suicidal ideation Skin exam: PRESENT: dry, intact, warm. ABSENT: cyanosis, rash Results Laboratory Results: 10/08/16 04:45 10/08/16 04:45 10/08/16 10/09/16 15:00 03:20 Carbonic Acid 1.43 H HCO3/H2CO3 Ratio 24:1 ABG pH 7.49 H ABG pCO2 47.5 H ABG pO2 54.6 L ABG HCO3 35.0 H ABG O2 Saturation 90.3 L ABG Base Excess 10.1 FiO2 32% Stool Occult Blood NEGATIVE 09/28/16 09/29/16 09/29/16 13:48 21:34 21:34 Creatine Kinase 42 CK-MB (CK-2) 3.25 Troponin I < 0.012 0.075 NT-Pro-B Natriuret Pep 09/30/16 09/30/16 09/30/16 03:47 03:47 09:40 Creatine Kinase 52 62 CK-MB (CK-2) 5.90 H Troponin I 0.561 NT-Pro-B Natriuret Pep 09/30/16 10/01/16 10/02/16 09:40 07:15 05:00 Creatine Kinase CK-MB (CK-2) 8.91 H Troponin I 1.100 0.530 0.263 NT-Pro-B Natriuret Pep 10/05/16 10/05/16 10/05/16 07:45 07:45 12:15 Creatine Kinase 32 33 CK-MB (CK-2) 1.34 Troponin I 0.091 NT-Pro-B Natriuret Pep 10/05/16 10/05/16 10/05/16 13:40 20:30 20:30 Creatine Kinase 27 L CK-MB (CK-2) 1.05 0.89 Troponin I 0.079 0.067 NT-Pro-B Natriuret Pep 10/07/16 04:30 Creatine Kinase CK-MB (CK-2) Troponin I NT-Pro-B Natriuret Pep 1300 H Impressions: Chest/Abdomen CTA 09/30/16 00:00 IMPRESSION: No evidence for pulmonary embolic disease. No acute consolidations or pleural effusions are identified. Other findings as noted above Chest X-Ray 10/08/16 00:00 IMPRESSION: No acute cardiopulmonary disease. Catheter remains in good position. Assessment & Plan - Diagnosis (1) Acute and chronic respiratory failure Qualifiers: Respiratory failure complication: hypoxia and hypercapnia Qualified Code(s): J96.21 - Acute and chronic respiratory failure with hypoxia Is this a current diagnosis for this admission?: YesPlan: Slowly improving. Chest xray shows no infiltrates or effusions (2) PNA (pneumonia) Is this a current diagnosis for this admission?: YesPlan: Levaquin 750 mg daily (3) Mitral regurgitation Qualifiers: Cardiac valve disease etiology: nonrheumatic Qualified Code(s): I34.0 - Nonrheumatic mitral (valve) insufficiency Is this a current diagnosis for this admission?: YesPlan: Continue current medications. Cardiology following. Patient has diuresed well (4) Pulmonic stenosis Qualifiers: Cardiac valve disease etiology: nonrheumatic Qualified Code(s): I37.0 - Nonrheumatic pulmonary valve stenosis Is this a current diagnosis for this admission?: Yes (5) Psoriatic arthritis Is this a current diagnosis for this admission?: Yes (6) Anxiety Is this a current diagnosis for this admission?: YesPlan: Continue anxiolytics (7) COPD exacerbation Is this a current diagnosis for this admission?: YesPlan: Continue nebulizers . Wean steroids - Time Time Spent with patient: 25-34 minutes Critical Time spent with patient: 15-24 minutes Medications reviewed and adjusted accordingly: Yes Anticipated discharge: Home with Homehealth
[2016-10-09] MEDS: ACETAMINOPHEN 325 MG TABLET PO PRN (15:05)
--- NOTE | 2016-10-09 19:45 | PDOC PROGRESS REPORT ---
Subjective Progress Note for:: 10/09/16 Subjective:: Patient seen on morning rounds, She is awake, alert, oriented x 3 presently on a nasal cannula at 3l/min. She states she was able to get out of bed to the chair yesterday. She has been able to tolerate a regular diet. She denies any significant shortness of breath, dyspnea or cough. She denies any chest pain, palpitations or dizziness. She denies any nausea, vomiting or abdominal pain. Patient gets however extremely fatigued and tired and also gets short of breath on minimal exertion. Patient got very tired after physical therapy session. Rest of the review of systems are negative. Telemetry strips reviewed shows sinus rhythm . Physical Exam Vital Signs: Temp Pulse Resp BP Pulse Ox 98.1 F 94 18 94/64 L 91 L 10/09/16 07:16 10/09/16 08:20 10/09/16 08:20 10/09/16 07:16 10/09/16 08:20 Intake & Output 10/08/16 10/09/16 10/10/16 06:59 06:59 06:59 Intake Total 2236 2453 Output Total 2340 2900 Balance -104 -447 Weight 91 kg 88.9 kg Exam: GENERAL: well-nourished and in no acute distress. Alert and oriented x3 HEAD: Atraumatic, normocephalic. EYES: Pupils equal round and reactive to light, extraocular movements intact, sclera anicteric, conjunctiva are normal. ENT: TMs normal, nares patent, oropharynx clear without exudates. Moist mucous membranes. No oral ulcerations or bleeding gums noted NECK: supple without lymphadenopathy. Trachea is central. No cervical or axillary lymphadenopathy noted. Carotids are 2+, JVD WNL LUNGS: Respiration seems nonlabored, no significant accessory muscle action noted. Breath sounds clear to auscultation bilaterally and equal noted. No wheezes rales or rhonchi noted. No significant dullness noted on percussion. CHEST: Palpation of the chest wall shows no significant chest wall tenderness. No other significant abnormalities noted. HEART: [place] [employer], No PSH, 1/6 GREG aortic area, 1/6 rene systolic murmur mitral area, no rubs, no gallops. ABDOMEN: Soft, no significant tenderness appreciated, normoactive bowel sounds. No guarding, no rebound. No rigidity noted . No masses appreciated. EXTREMITIES: Pedal pulses are 1-2+, no calf tenderness noted. No clubbing or cyanosis.trace to 1+ pedal edema noted NEUROLOGICAL: Focused neurological exam showed no significant neurologic deficit. Normal speech, no focal weakness appreciated. PSYCH: Normal mood, normal affect. Judgment and insight within normal limits. SKIN: No significant ecchymosis, rash, ulcerations or signs of pruritus noted. MUSCULOSKELETAL EXAM: No significant joint swelling noted. Results Laboratory Results: 10/08/16 04:45 10/08/16 04:45 10/08/16 10/09/16 15:00 03:20 Carbonic Acid 1.43 H HCO3/H2CO3 Ratio 24:1 ABG pH 7.49 H ABG pCO2 47.5 H ABG pO2 54.6 L ABG HCO3 35.0 H ABG O2 Saturation 90.3 L ABG Base Excess 10.1 FiO2 32% Stool Occult Blood NEGATIVE 09/28/16 09/29/16 09/29/16 13:48 21:34 21:34 Creatine Kinase 42 CK-MB (CK-2) 3.25 Troponin I < 0.012 0.075 NT-Pro-B Natriuret Pep 09/30/16 09/30/16 09/30/16 03:47 03:47 09:40 Creatine Kinase 52 62 CK-MB (CK-2) 5.90 H Troponin I 0.561 NT-Pro-B Natriuret Pep 09/30/16 10/01/16 10/02/16 09:40 07:15 05:00 Creatine Kinase CK-MB (CK-2) 8.91 H Troponin I 1.100 0.530 0.263 NT-Pro-B Natriuret Pep 10/05/16 10/05/16 10/05/16 07:45 07:45 12:15 Creatine Kinase 32 33 CK-MB (CK-2) 1.34 Troponin I 0.091 NT-Pro-B Natriuret Pep 10/05/16 10/05/16 10/05/16 13:40 20:30 20:30 Creatine Kinase 27 L CK-MB (CK-2) 1.05 0.89 Troponin I 0.079 0.067 NT-Pro-B Natriuret Pep 10/07/16 04:30 Creatine Kinase CK-MB (CK-2) Troponin I NT-Pro-B Natriuret Pep 1300 H Impressions: Chest/Abdomen CTA 09/30/16 00:00 IMPRESSION: No evidence for pulmonary embolic disease. No acute consolidations or pleural effusions are identified. Other findings as noted above Chest X-Ray 10/08/16 00:00 IMPRESSION: No acute cardiopulmonary disease. Catheter remains in good position. Assessment & Plan - Diagnosis (1) Acute and chronic respiratory failure Qualifiers: Respiratory failure complication: hypoxia and hypercapnia Qualified Code(s): J96.21 - Acute and chronic respiratory failure with hypoxia Is this a current diagnosis for this admission?: Yes (2) Elevated troponin Is this a current diagnosis for this admission?: Yes (3) Mitral regurgitation Qualifiers: Cardiac valve disease etiology: nonrheumatic Qualified Code(s): I34.0 - Nonrheumatic mitral (valve) insufficiency Is this a current diagnosis for this admission?: Yes (4) Pulmonic stenosis Qualifiers: Cardiac valve disease etiology: nonrheumatic Qualified Code(s): I37.0 - Nonrheumatic pulmonary valve stenosis Is this a current diagnosis for this admission?: Yes - Notes Notes: Acute on chronic respiratory failure: Much improved currently on nasal cannula oxygen. Chest x-ray from yesterday results reviewed. Elevated troponin I: Secondary to supply demand mismatch. No ischemia evaluation planned. Patient has history of widely patent coronaries by heart cath about a year ago. This is by her history. Mitral regurgitation: Moderate to severe by echo report. Patient will need follow-up. Pulmonary stenosis: Stable COPD: Currently stable continue bronchodilator therapy. Obesity: Patient probably has associated obesity hypoventilation syndrome. Patient likely to have underlying sleep apnea and may need evaluation as an outpatient. Patient has been stable from cardiac standpoint. We will therefore off sign off. Please reconsult if needed. - Time Time with patient: 15-25 minutes - CODE STATUS was discussed, patient remains full code. Surrogate decision-maker unchanged. Multiple medical problems were addressed. More than 50% of the time spent coordinating care, discussing management plans with involved caregivers. Management plans discussed with involved personnels. Medical decision making was of moderate to high complexity , patient's has multiple comorbidities.
[2016-10-10 06:06] LABS: HEMATOCRIT 35.5 % (36.0-47.0); HEMOGLOBIN 11.7 g/dL (12.0-15.5); HGB HCT DIFFERENCE -0.4; MEAN CORPUSCULAR HEMOGLOBIN 28.6 pg (27.0-33.4); MEAN CORPUSCULAR VOLUME 87 fl (80-97); RED CELL DISTRIBUTION WIDTH 13.5 % (11.5-14.0); WHITE BLOOD COUNT 14.9 10^3/uL (4.0-10.5)
[2016-10-10] MEDS: IPRATROPIUM/ALBUTEROL 0.5-2.5 MG/3 ML AMPUL NEB SCH ×3 (08:37→20:46)
[2016-10-10] MEDS: ACETYLCYSTEINE 20% SOLN 800 MG/4 ML VIAL.NEB IH SCH ×2 (08:37→20:47)
[2016-10-10] MEDS: LANSOPRAZOLE 30 MG TAB.RAP.DR PO SCH (08:43)
[2016-10-10] MEDS ORDERED: SODIUM CHLORIDE NASAL SPRAY 44 ML NASL PRN (09:15)
[2016-10-10] MEDS: FLUTICASONE NASAL SPRAY 50 MCG/SPRY 120 SPRAY/16 GM NASL SCH (09:49)
[2016-10-10] MEDS: LEVOFLOXACIN 750 MG TABLET PO SCH (09:50)
[2016-10-10] MEDS: CITALOPRAM HYDROBROMIDE 20 MG TABLET PO SCH (09:50)
[2016-10-10] MEDS: FUROSEMIDE 20 MG TABLET PO SCH (09:50)
[2016-10-10] MEDS: ACETAMINOPHEN 325 MG TABLET PO PRN ×3 (09:51→21:27)
[2016-10-10] MEDS: LISINOPRIL 5 MG TABLET PO SCH (09:51)
[2016-10-10] MEDS: PREDNISONE 20 MG TABLET PO SCH (09:53)
--- NOTE | 2016-10-10 13:27 | PDOC PROGRESS REPORT ---
Subjective Progress Note for:: 10/10/16 Subjective:: Patient seen on morning rounds, She is awake, alert, oriented x 3 presently on a nasal cannula at 3l/min. She states she was able to get out of bed to the chair yesterday with the assistance of 2 people. She has been able to tolerate a regular diet. She denies any significant shortness of breath, dyspnea or cough at rest, mild with exertion. She denies any chest pain, palpitations or dizziness. She denies any nausea, vomiting or abdominal pain. Rest of the review of systems are negative. Physical Exam Vital Signs: Temp Pulse Resp BP Pulse Ox 97.5 F 98 16 121/83 96 10/10/16 11:59 10/10/16 11:59 10/10/16 11:59 10/10/16 11:59 10/10/16 11:59 Intake & Output 10/09/16 10/10/16 10/11/16 06:59 06:59 06:59 Intake Total 2453 2135 Output Total 2900 1600 Balance -447 535 Weight 88.9 kg 87.8 kg General appearance: PRESENT: no acute distress, obese, well-developed, well- nourished Head exam: PRESENT: atraumatic, normocephalic Eye exam: PRESENT: conjunctiva pink, EOMI, PERRLA. ABSENT: scleral icterus Ear exam: PRESENT: normal external ear exam Mouth exam: PRESENT: moist, tongue midline Neck exam: ABSENT: carotid bruit, JVD, lymphadenopathy, thyromegaly Respiratory exam: PRESENT: decreased breath sounds, symmetrical, unlabored Cardiovascular exam: PRESENT: RRR. ABSENT: diastolic murmur, rubs, systolic murmur Pulses: PRESENT: normal dorsalis pedis pul Vascular exam: PRESENT: normal capillary refill GI/Abdominal exam: PRESENT: normal bowel sounds, soft. ABSENT: distended, guarding, mass, organolmegaly, rebound, tenderness Rectal exam: PRESENT: deferred Extremities exam: PRESENT: full ROM. ABSENT: calf tenderness, clubbing, pedal edema Musculoskeletal exam: PRESENT: ambulatory, full ROM, normal inspection Neurological exam: PRESENT: alert, awake, oriented to person, oriented to place , oriented to time, oriented to situation, CN II-XII grossly intact. ABSENT: motor sensory deficit Psychiatric exam: PRESENT: appropriate affect, normal mood. ABSENT: homicidal ideation, suicidal ideation Skin exam: PRESENT: dry, intact, warm. ABSENT: cyanosis, rash Results Laboratory Results: 10/10/16 05:15 10/08/16 04:45 10/10/16 05:15 WBC 14.9 H RBC 4.10 Hgb 11.7 L Hct 35.5 L MCV 87 MCH 28.6 MCHC 33.0 RDW 13.5 Plt Count 290 10/05/16 12:15 Blood Blood Culture - Final NO GROWTH IN 5 DAYS 09/28/16 09/29/16 09/29/16 13:48 21:34 21:34 Creatine Kinase 42 CK-MB (CK-2) 3.25 Troponin I < 0.012 0.075 NT-Pro-B Natriuret Pep 09/30/16 09/30/16 09/30/16 03:47 03:47 09:40 Creatine Kinase 52 62 CK-MB (CK-2) 5.90 H Troponin I 0.561 NT-Pro-B Natriuret Pep 09/30/16 10/01/16 10/02/16 09:40 07:15 05:00 Creatine Kinase CK-MB (CK-2) 8.91 H Troponin I 1.100 0.530 0.263 NT-Pro-B Natriuret Pep 10/05/16 10/05/16 10/05/16 07:45 07:45 12:15 Creatine Kinase 32 33 CK-MB (CK-2) 1.34 Troponin I 0.091 NT-Pro-B Natriuret Pep 10/05/16 10/05/16 10/05/16 13:40 20:30 20:30 Creatine Kinase 27 L CK-MB (CK-2) 1.05 0.89 Troponin I 0.079 0.067 NT-Pro-B Natriuret Pep 10/07/16 04:30 Creatine Kinase CK-MB (CK-2) Troponin I NT-Pro-B Natriuret Pep 1300 H Impressions: Chest/Abdomen CTA 09/30/16 00:00 IMPRESSION: No evidence for pulmonary embolic disease. No acute consolidations or pleural effusions are identified. Other findings as noted above Chest X-Ray 10/08/16 00:00 IMPRESSION: No acute cardiopulmonary disease. Catheter remains in good position. Assessment & Plan - Diagnosis (1) Acute and chronic respiratory failure Qualifiers: Respiratory failure complication: hypoxia and hypercapnia Qualified Code(s): J96.21 - Acute and chronic respiratory failure with hypoxia Is this a current diagnosis for this admission?: YesPlan: Slowly improving. Chest xray shows no infiltrates or effusions (2) PNA (pneumonia) Is this a current diagnosis for this admission?: YesPlan: Levaquin 750 mg daily (3) Mitral regurgitation Qualifiers: Cardiac valve disease etiology: nonrheumatic Qualified Code(s): I34.0 - Nonrheumatic mitral (valve) insufficiency Is this a current diagnosis for this admission?: YesPlan: Continue current medications. Cardiology following. Patient has diuresed well (4) Pulmonic stenosis Qualifiers: Cardiac valve disease etiology: nonrheumatic Qualified Code(s): I37.0 - Nonrheumatic pulmonary valve stenosis Is this a current diagnosis for this admission?: Yes (5) Psoriatic arthritis Is this a current diagnosis for this admission?: Yes (6) Anxiety Is this a current diagnosis for this admission?: YesPlan: Continue anxiolytics (7) COPD exacerbation Is this a current diagnosis for this admission?: YesPlan: Continue nebulizers . Wean steroids - Time Time Spent with patient: 25-34 minutes Critical Time spent with patient: 15-24 minutes Smoking Cessation Education: 3 to 10 minutes Medications reviewed and adjusted accordingly: Yes Anticipated discharge: Home with Homehealth Within: within 24 hours
[2016-10-10] MEDS: ALPRAZOLAM 0.5 MG TABLET PO PRN ×2 (13:57→21:27)
[2016-10-10 21:34] LABS: APPEARANCE,URINE CLEAR; BILIRUBIN,URINE NEGATIVE (NEGATIVE); GLUCOSE, URINE NEGATIVE (NEGATIVE); KETONES,URINE NEGATIVE (NEGATIVE); LEUKOCYTE ESTERASE,URINE NEGATIVE (NEGATIVE); NITRITE,URINE NEGATIVE (NEGATIVE); PROTEIN,URINE NEGATIVE (NEGATIVE); UROBILINOGEN,URINE NEGATIVE mg/dL (<2.0)
[2016-10-11] MEDS: IPRATROPIUM/ALBUTEROL 0.5-2.5 MG/3 ML AMPUL NEB SCH ×3 (08:34→19:33)
[2016-10-11] MEDS: FUROSEMIDE 20 MG TABLET PO SCH (09:53)
[2016-10-11] MEDS: PREDNISONE 20 MG TABLET PO SCH (09:53)
[2016-10-11] MEDS: LISINOPRIL 5 MG TABLET PO SCH (09:53)
[2016-10-11] MEDS: ALPRAZOLAM 0.5 MG TABLET PO PRN ×2 (09:54→19:36)
[2016-10-11] MEDS: LANSOPRAZOLE 30 MG TAB.RAP.DR PO SCH (09:54)
[2016-10-11] MEDS: ACETAMINOPHEN 325 MG TABLET PO PRN ×2 (09:54→19:35)
[2016-10-11] MEDS: CITALOPRAM HYDROBROMIDE 20 MG TABLET PO SCH (09:55)
[2016-10-11] MEDS: LEVOFLOXACIN 750 MG TABLET PO SCH (09:55)
[2016-10-11] MEDS: FLUTICASONE NASAL SPRAY 50 MCG/SPRY 120 SPRAY/16 GM NASL SCH (09:59)
[2016-10-11 12:45] LABS: ARTERIAL BLOOD O2 SATURATION 92.7 % (94-98)
--- NOTE | 2016-10-11 15:13 | PDOC PROGRESS REPORT ---
Subjective Progress Note for:: 10/11/16 Subjective:: Patient seen on morning rounds, She is awake, alert, oriented x 3 presently on a nasal cannula at 2l/min. She states she was able to get out of bed to the chair yesterday with the assistance of 2 people. She is improving her endurance daily. She has been able to tolerate a regular diet. She denies any significant shortness of breath, dyspnea or cough at rest, mild with exertion. She denies any chest pain, palpitations or dizziness. She denies any nausea, vomiting or abdominal pain. Rest of the review of systems are negative. Physical Exam Vital Signs: Temp Pulse Resp BP Pulse Ox 97.8 F 101 H 28 H 98/57 L 92 10/11/16 04:36 10/11/16 13:53 10/11/16 13:53 10/11/16 04:36 10/11/16 14:10 Intake & Output 10/10/16 10/11/16 10/12/16 06:59 06:59 06:59 Intake Total 2135 1289 Output Total 1600 1675 Balance 535 -386 Weight 87.8 kg 88.1 kg General appearance: PRESENT: no acute distress, obese, well-developed, well- nourished Head exam: PRESENT: atraumatic, normocephalic Eye exam: PRESENT: conjunctiva pink, EOMI, PERRLA. ABSENT: scleral icterus Ear exam: PRESENT: normal external ear exam Mouth exam: PRESENT: moist, tongue midline Neck exam: ABSENT: carotid bruit, JVD, lymphadenopathy, thyromegaly Respiratory exam: PRESENT: decreased breath sounds, unlabored Cardiovascular exam: PRESENT: RRR. ABSENT: diastolic murmur, rubs, systolic murmur Pulses: PRESENT: normal dorsalis pedis pul Vascular exam: PRESENT: normal capillary refill GI/Abdominal exam: PRESENT: normal bowel sounds, soft. ABSENT: distended, guarding, mass, organolmegaly, rebound, tenderness Rectal exam: PRESENT: deferred Extremities exam: PRESENT: full ROM. ABSENT: calf tenderness, clubbing, pedal edema Musculoskeletal exam: PRESENT: ambulatory, full ROM, normal inspection Neurological exam: PRESENT: alert, awake, oriented to person, oriented to place , oriented to time, oriented to situation, CN II-XII grossly intact. ABSENT: motor sensory deficit Psychiatric exam: PRESENT: anxious, appropriate affect. ABSENT: homicidal ideation, suicidal ideation Skin exam: PRESENT: dry, intact, warm. ABSENT: cyanosis, rash Results Laboratory Results: 10/10/16 05:15 10/08/16 04:45 10/10/16 10/11/16 17:15 11:54 Carbonic Acid 1.37 H HCO3/H2CO3 Ratio 23:1 ABG pH 7.46 H ABG pCO2 45.4 H ABG pO2 61.8 L ABG HCO3 31.7 H ABG O2 Saturation 92.7 L ABG Base Excess 7.0 FiO2 3L Urine Color YELLOW Urine Appearance CLEAR Urine pH 7.0 Ur Specific [place] 1.010 Urine Protein NEGATIVE Urine Glucose (UA) NEGATIVE Urine Ketones NEGATIVE Urine Blood NEGATIVE Urine Nitrite NEGATIVE Ur Leukocyte Esterase NEGATIVE Urine WBC (Auto) 1 Urine RBC (Auto) 1 10/05/16 13:40 Blood Blood Culture - Final NO GROWTH IN 5 DAYS 10/05/16 12:15 Blood Blood Culture - Final NO GROWTH IN 5 DAYS 09/28/16 09/29/16 09/29/16 13:48 21:34 21:34 Creatine Kinase 42 CK-MB (CK-2) 3.25 Troponin I < 0.012 0.075 NT-Pro-B Natriuret Pep 09/30/16 09/30/16 09/30/16 03:47 03:47 09:40 Creatine Kinase 52 62 CK-MB (CK-2) 5.90 H Troponin I 0.561 NT-Pro-B Natriuret Pep 09/30/16 10/01/16 10/02/16 09:40 07:15 05:00 Creatine Kinase CK-MB (CK-2) 8.91 H Troponin I 1.100 0.530 0.263 NT-Pro-B Natriuret Pep 10/05/16 10/05/16 10/05/16 07:45 07:45 12:15 Creatine Kinase 32 33 CK-MB (CK-2) 1.34 Troponin I 0.091 NT-Pro-B Natriuret Pep 10/05/16 10/05/16 10/05/16 13:40 20:30 20:30 Creatine Kinase 27 L CK-MB (CK-2) 1.05 0.89 Troponin I 0.079 0.067 NT-Pro-B Natriuret Pep 10/07/16 04:30 Creatine Kinase CK-MB (CK-2) Troponin I NT-Pro-B Natriuret Pep 1300 H Impressions: Chest/Abdomen CTA 09/30/16 00:00 IMPRESSION: No evidence for pulmonary embolic disease. No acute consolidations or pleural effusions are identified. Other findings as noted above Chest X-Ray 10/08/16 00:00 IMPRESSION: No acute cardiopulmonary disease. Catheter remains in good position. Assessment & Plan - Diagnosis (1) Acute and chronic respiratory failure Qualifiers: Respiratory failure complication: hypoxia and hypercapnia Qualified Code(s): J96.21 - Acute and chronic respiratory failure with hypoxia Is this a current diagnosis for this admission?: YesPlan: Slowly improving. Chest xray shows no infiltrates or effusions. She does require oxygen at the present time 10/12. Order for home oxygen given to discharge planning. (2) PNA (pneumonia) Is this a current diagnosis for this admission?: YesPlan: Levaquin 750 mg daily (3) Mitral regurgitation Qualifiers: Cardiac valve disease etiology: nonrheumatic Qualified Code(s): I34.0 - Nonrheumatic mitral (valve) insufficiency Is this a current diagnosis for this admission?: YesPlan: Continue current medications. Cardiology following. Patient has diuresed well (4) Pulmonic stenosis Qualifiers: Cardiac valve disease etiology: nonrheumatic Qualified Code(s): I37.0 - Nonrheumatic pulmonary valve stenosis Is this a current diagnosis for this admission?: Yes (5) Psoriatic arthritis Is this a current diagnosis for this admission?: Yes (6) Anxiety Is this a current diagnosis for this admission?: YesPlan: Continue anxiolytics (7) COPD exacerbation Is this a current diagnosis for this admission?: YesPlan: Continue nebulizers . Wean steroids - Time Time Spent with patient: 25-34 minutes Smoking Cessation Education: 3 to 10 minutes Medications reviewed and adjusted accordingly: Yes Anticipated discharge: Home with Homehealth Within: within 24 hours
--- NOTE | 2016-10-11 17:10 | PDOC PROGRESS REPORT ---
Subjective Progress Note for:: 10/08/16 Subjective:: Awake INTUBATED Physical Exam Vital Signs: Temp Pulse Resp BP Pulse Ox 97.7 F 106 H 18 134/95 H 94 10/08/16 08:32 10/08/16 08:32 10/08/16 08:00 10/08/16 08:32 10/08/16 08:32 Intake & Output 10/07/16 10/08/16 10/09/16 06:59 06:59 06:59 Intake Total 528 2236 Output Total 4079 4740 Balance -3547 -104 Weight 92.6 kg 91 kg General appearance: PRESENT: no acute distress, disheveled, obese, well- nourished Head exam: PRESENT: atraumatic, normocephalic Eye exam: PRESENT: conjunctiva pale Mouth exam: PRESENT: dry mucosa, neck supple Neck exam: ABSENT: carotid bruit, JVD, lymphadenopathy, thyromegaly Respiratory exam: PRESENT: decreased breath sounds, prolonged expiratory phas, rhonchi, symmetrical, unlabored Cardiovascular exam: PRESENT: RRR, +S1, +S2 Pulses: PRESENT: normal radial pulses GI/Abdominal exam: PRESENT: ascites Rectal exam: PRESENT: deferred Gentrourinary exam: PRESENT: indwelling catheter Musculoskeletal exam: PRESENT: normal inspection Neurological exam: PRESENT: alert, awake Skin exam: PRESENT: dry, warm Results Laboratory Results: 10/08/16 04:45 10/08/16 04:45 10/08/16 10/08/16 10/08/16 04:45 04:45 04:50 WBC 14.1 H RBC 4.06 Hgb 11.4 L Hct 35.2 L MCV 87 MCH 28.1 MCHC 32.5 RDW 13.2 Plt Count 285 Seg Neutrophils % 85.9 H Lymphocytes % 7.0 L Monocytes % 7.0 Eosinophils % 0.0 Basophils % 0.1 Absolute Neutrophils 12.2 H Absolute Lymphocytes 1.0 Absolute Monocytes 1.0 Absolute Eosinophils 0.0 Absolute Basophils 0.0 Sodium 137.7 Potassium 4.4 Chloride 97 L Carbon Dioxide 39 H Anion Gap 2 L BUN 23 H Creatinine 0.54 Est GFR ( Amer) > 60 Est GFR (Non-Af Amer) > 60 Glucose 119 H Calcium 8.6 Urine Color YELLOW Urine Appearance CLOUDY Urine pH 8.0 Ur Specific [place] 1.012 Urine Protein NEGATIVE Urine Glucose (UA) NEGATIVE Urine Ketones NEGATIVE Urine Blood MODERATE H Urine Nitrite NEGATIVE Ur Leukocyte Esterase NEGATIVE Urine WBC (Auto) 1 Urine RBC (Auto) 12 09/28/16 09/29/16 09/29/16 13:48 21:34 21:34 Creatine Kinase 42 CK-MB (CK-2) 3.25 Troponin I < 0.012 0.075 NT-Pro-B Natriuret Pep 09/30/16 09/30/16 09/30/16 03:47 03:47 09:40 Creatine Kinase 52 62 CK-MB (CK-2) 5.90 H Troponin I 0.561 NT-Pro-B Natriuret Pep 09/30/16 10/01/16 10/02/16 09:40 07:15 05:00 Creatine Kinase CK-MB (CK-2) 8.91 H Troponin I 1.100 0.530 0.263 NT-Pro-B Natriuret Pep 10/05/16 10/05/16 10/05/16 07:45 07:45 12:15 Creatine Kinase 32 33 CK-MB (CK-2) 1.34 Troponin I 0.091 NT-Pro-B Natriuret Pep 10/05/16 10/05/16 10/05/16 13:40 20:30 20:30 Creatine Kinase 27 L CK-MB (CK-2) 1.05 0.89 Troponin I 0.079 0.067 NT-Pro-B Natriuret Pep 10/07/16 04:30 Creatine Kinase CK-MB (CK-2) Troponin I NT-Pro-B Natriuret Pep 1300 H Impressions: Chest/Abdomen CTA 09/30/16 00:00 IMPRESSION: No evidence for pulmonary embolic disease. No acute consolidations or pleural effusions are identified. Other findings as noted above Chest X-Ray 10/08/16 00:00 IMPRESSION: No acute cardiopulmonary disease. Catheter remains in good position. Assessment & Plan - Diagnosis (1) Acute respiratory failure with hypoxia Is this a current diagnosis for this admission?: YesPlan: IMPROVING WILL TRY TO EXTUBATE (2) Anxiety Is this a current diagnosis for this admission?: YesPlan: Discussed with Dr. Mills additional therapy to treat anxiety (3) COPD exacerbation Is this a current diagnosis for this admission?: YesPlan: continue current broncho-dilator therapy
--- NOTE | 2016-10-11 17:18 | PDOC PROGRESS REPORT ---
Subjective Progress Note for:: 10/11/16 Subjective:: BIPAP MACHINE REMOVED Physical Exam Vital Signs: Temp Pulse Resp BP Pulse Ox 97.8 F 89 28 H 98/57 L 92 10/11/16 04:36 10/11/16 14:00 10/11/16 13:53 10/11/16 04:36 10/11/16 14:10 Intake & Output 10/10/16 10/11/16 10/12/16 06:59 06:59 06:59 Intake Total 2135 1289 Output Total 1600 1675 Balance 535 -386 Weight 87.8 kg 88.1 kg General appearance: PRESENT: no acute distress, disheveled, obese, well- developed Head exam: PRESENT: atraumatic, normocephalic Eye exam: PRESENT: conjunctiva pale, EOMI Mouth exam: PRESENT: dry mucosa, neck supple, tongue midline Neck exam: ABSENT: carotid bruit, JVD, lymphadenopathy, thyromegaly Respiratory exam: PRESENT: decreased breath sounds, prolonged expiratory phas, rhonchi, symmetrical, unlabored Cardiovascular exam: PRESENT: RRR, +S1, +S2 Pulses: PRESENT: normal radial pulses GI/Abdominal exam: PRESENT: normal bowel sounds, soft. ABSENT: distended, guarding, mass, organolmegaly, rebound, tenderness Rectal exam: PRESENT: deferred Gentrourinary exam: PRESENT: indwelling catheter Neurological exam: PRESENT: alert, awake Skin exam: PRESENT: dry, warm Results Laboratory Results: 10/10/16 05:15 10/08/16 04:45 10/10/16 10/11/16 17:15 11:54 Carbonic Acid 1.37 H HCO3/H2CO3 Ratio 23:1 ABG pH 7.46 H ABG pCO2 45.4 H ABG pO2 61.8 L ABG HCO3 31.7 H ABG O2 Saturation 92.7 L ABG Base Excess 7.0 FiO2 3L Urine Color YELLOW Urine Appearance CLEAR Urine pH 7.0 Ur Specific [place] 1.010 Urine Protein NEGATIVE Urine Glucose (UA) NEGATIVE Urine Ketones NEGATIVE Urine Blood NEGATIVE Urine Nitrite NEGATIVE Ur Leukocyte Esterase NEGATIVE Urine WBC (Auto) 1 Urine RBC (Auto) 1 10/05/16 13:40 Blood Blood Culture - Final NO GROWTH IN 5 DAYS 09/28/16 09/29/16 09/29/16 13:48 21:34 21:34 Creatine Kinase 42 CK-MB (CK-2) 3.25 Troponin I < 0.012 0.075 NT-Pro-B Natriuret Pep 09/30/16 09/30/16 09/30/16 03:47 03:47 09:40 Creatine Kinase 52 62 CK-MB (CK-2) 5.90 H Troponin I 0.561 NT-Pro-B Natriuret Pep 09/30/16 10/01/16 10/02/16 09:40 07:15 05:00 Creatine Kinase CK-MB (CK-2) 8.91 H Troponin I 1.100 0.530 0.263 NT-Pro-B Natriuret Pep 10/05/16 10/05/16 10/05/16 07:45 07:45 12:15 Creatine Kinase 32 33 CK-MB (CK-2) 1.34 Troponin I 0.091 NT-Pro-B Natriuret Pep 10/05/16 10/05/16 10/05/16 13:40 20:30 20:30 Creatine Kinase 27 L CK-MB (CK-2) 1.05 0.89 Troponin I 0.079 0.067 NT-Pro-B Natriuret Pep 10/07/16 04:30 Creatine Kinase CK-MB (CK-2) Troponin I NT-Pro-B Natriuret Pep 1300 H Impressions: Chest/Abdomen CTA 09/30/16 00:00 IMPRESSION: No evidence for pulmonary embolic disease. No acute consolidations or pleural effusions are identified. Other findings as noted above Chest X-Ray 10/08/16 00:00 IMPRESSION: No acute cardiopulmonary disease. Catheter remains in good position. Assessment & Plan - Diagnosis (1) Acute respiratory failure with hypoxia Is this a current diagnosis for this admission?: No (2) Anxiety Is this a current diagnosis for this admission?: Yes (3) COPD exacerbation Is this a current diagnosis for this admission?: Yes
--- NOTE | 2016-10-11 17:21 | PDOC PROGRESS REPORT ---
Subjective Progress Note for:: 10/09/16 Subjective:: BIPAP MACHINE REMOVED Physical Exam Vital Signs: Temp Pulse Resp BP Pulse Ox 97.8 F 89 28 H 98/57 L 92 10/11/16 04:36 10/11/16 14:00 10/11/16 13:53 10/11/16 04:36 10/11/16 14:10 Intake & Output 10/10/16 10/11/16 10/12/16 06:59 06:59 06:59 Intake Total 2135 1289 Output Total 1600 1675 Balance 535 -386 Weight 87.8 kg 88.1 kg General appearance: PRESENT: no acute distress, cooperative, disheveled, obese, well-developed Head exam: PRESENT: atraumatic, normocephalic Eye exam: PRESENT: conjunctiva pale, EOMI Mouth exam: PRESENT: dry mucosa, neck supple Neck exam: ABSENT: carotid bruit, JVD, lymphadenopathy, thyromegaly Respiratory exam: PRESENT: decreased breath sounds, prolonged expiratory phas, rhonchi, symmetrical, unlabored Cardiovascular exam: PRESENT: RRR, +S1, +S2 Pulses: PRESENT: normal radial pulses GI/Abdominal exam: PRESENT: normal bowel sounds, soft. ABSENT: distended, guarding, mass, organolmegaly, rebound, tenderness Rectal exam: PRESENT: deferred Gentrourinary exam: PRESENT: indwelling catheter Musculoskeletal exam: PRESENT: normal inspection Neurological exam: PRESENT: alert, awake Skin exam: PRESENT: dry, warm Results Laboratory Results: 10/10/16 05:15 10/08/16 04:45 10/10/16 10/11/16 17:15 11:54 Carbonic Acid 1.37 H HCO3/H2CO3 Ratio 23:1 ABG pH 7.46 H ABG pCO2 45.4 H ABG pO2 61.8 L ABG HCO3 31.7 H ABG O2 Saturation 92.7 L ABG Base Excess 7.0 FiO2 3L Urine Color YELLOW Urine Appearance CLEAR Urine pH 7.0 Ur Specific [place] 1.010 Urine Protein NEGATIVE Urine Glucose (UA) NEGATIVE Urine Ketones NEGATIVE Urine Blood NEGATIVE Urine Nitrite NEGATIVE Ur Leukocyte Esterase NEGATIVE Urine WBC (Auto) 1 Urine RBC (Auto) 1 10/05/16 13:40 Blood Blood Culture - Final NO GROWTH IN 5 DAYS 09/28/16 09/29/16 09/29/16 13:48 21:34 21:34 Creatine Kinase 42 CK-MB (CK-2) 3.25 Troponin I < 0.012 0.075 NT-Pro-B Natriuret Pep 09/30/16 09/30/16 09/30/16 03:47 03:47 09:40 Creatine Kinase 52 62 CK-MB (CK-2) 5.90 H Troponin I 0.561 NT-Pro-B Natriuret Pep 09/30/16 10/01/16 10/02/16 09:40 07:15 05:00 Creatine Kinase CK-MB (CK-2) 8.91 H Troponin I 1.100 0.530 0.263 NT-Pro-B Natriuret Pep 10/05/16 10/05/16 10/05/16 07:45 07:45 12:15 Creatine Kinase 32 33 CK-MB (CK-2) 1.34 Troponin I 0.091 NT-Pro-B Natriuret Pep 10/05/16 10/05/16 10/05/16 13:40 20:30 20:30 Creatine Kinase 27 L CK-MB (CK-2) 1.05 0.89 Troponin I 0.079 0.067 NT-Pro-B Natriuret Pep 10/07/16 04:30 Creatine Kinase CK-MB (CK-2) Troponin I NT-Pro-B Natriuret Pep 1300 H Impressions: Chest/Abdomen CTA 09/30/16 00:00 IMPRESSION: No evidence for pulmonary embolic disease. No acute consolidations or pleural effusions are identified. Other findings as noted above Chest X-Ray 10/08/16 00:00 IMPRESSION: No acute cardiopulmonary disease. Catheter remains in good position. Assessment & Plan - Diagnosis (1) Acute respiratory failure with hypoxia Is this a current diagnosis for this admission?: Yes (2) Anxiety Is this a current diagnosis for this admission?: Yes (3) COPD exacerbation Is this a current diagnosis for this admission?: YesPlan: continue current broncho-dilator therapy NEEDS avaps MAY DECREASE READMISSIONS
--- NOTE | 2016-10-11 17:24 | PDOC PROGRESS REPORT ---
Subjective Progress Note for:: 10/06/16 Physical Exam Vital Signs: Temp Pulse Resp BP Pulse Ox 99.1 F 112 H 22 H 167/92 H 99 10/05/16 22:00 10/06/16 07:58 10/06/16 07:58 10/06/16 05:50 10/06/16 07:58 Intake & Output 10/05/16 10/06/16 10/07/16 06:59 06:59 06:59 Intake Total 20556 Output Total 9718 [id number] [facility] [id number] [id number] Weight 95.1 kg 89.3 kg General appearance: PRESENT: no acute distress, cooperative, disheveled, obese, well-developed Head exam: PRESENT: atraumatic, normocephalic Eye exam: PRESENT: conjunctiva pale, EOMI Mouth exam: PRESENT: dry mucosa, neck supple Neck exam: PRESENT: carotid bruit Respiratory exam: PRESENT: decreased breath sounds, prolonged expiratory phas, rhonchi, symmetrical, unlabored Cardiovascular exam: PRESENT: RRR, +S1, +S2 Pulses: PRESENT: normal radial pulses GI/Abdominal exam: PRESENT: normal bowel sounds, soft. ABSENT: distended, guarding, mass, organolmegaly, rebound, tenderness Rectal exam: PRESENT: deferred Gentrourinary exam: PRESENT: indwelling catheter Musculoskeletal exam: PRESENT: normal inspection Neurological exam: PRESENT: alert, awake Psychiatric exam: PRESENT: normal mood Skin exam: PRESENT: dry, warm Results Laboratory Results: 10/06/16 04:20 10/06/16 04:20 10/03/16 10/03/16 10/05/16 05:57 05:57 12:15 WBC RBC Hgb Hct MCV MCH MCHC RDW Plt Count Seg Neutrophils % Lymphocytes % Monocytes % Eosinophils % Basophils % Absolute Neutrophils Absolute Lymphocytes Absolute Monocytes Absolute Eosinophils Absolute Basophils Carbonic Acid 1.30 HCO3/H2CO3 Ratio 19:1 ABG pH 7.38 ABG pCO2 43.2 ABG pO2 84.1 ABG HCO3 24.9 ABG O2 Saturation 96.1 ABG Base Excess -0.3 FiO2 35% Sodium 144.4 146.7 H Potassium 3.8 3.7 Chloride 110 H 101 Carbon Dioxide 27 39 H Anion Gap 7 7 BUN 14 29 H Creatinine 0.49 L 0.51 L Est GFR ( Amer) > 60 > 60 Est GFR (Non-Af Amer) > 60 > 60 Glucose 174 H 156 H Calcium 8.4 8.9 Magnesium 2.0 2.3 Albumin 2.8 L 10/05/16 10/06/16 10/06/16 12:15 04:20 04:20 WBC 12.8 H RBC 4.14 Hgb 11.6 L Hct 36.0 MCV 87 MCH 27.9 MCHC 32.1 RDW 13.6 Plt Count 280 Seg Neutrophils % 86.4 H Lymphocytes % 5.5 L Monocytes % 8.0 Eosinophils % 0.0 Basophils % 0.1 Absolute Neutrophils 11.1 H Absolute Lymphocytes 0.7 Absolute Monocytes 1.0 Absolute Eosinophils 0.0 Absolute Basophils 0.0 Carbonic Acid 1.71 H HCO3/H2CO3 Ratio 21:1 ABG pH 7.43 ABG pCO2 56.8 H ABG pO2 83.3 ABG HCO3 36.9 H ABG O2 Saturation 96.3 ABG Base Excess 10.6 FiO2 35% Sodium 145.7 H Potassium 4.1 Chloride 104 Carbon Dioxide 37 H Anion Gap 5 BUN 32 H Creatinine 0.55 Est GFR ( Amer) > 60 Est GFR (Non-Af Amer) > 60 Glucose 152 H Calcium 9.3 Magnesium Albumin 10/06/16 04:20 WBC 13.2 H RBC 4.19 Hgb 11.7 L Hct 36.5 MCV 87 MCH 28.0 MCHC 32.1 RDW 13.2 Plt Count 288 Seg Neutrophils % Not Reportable Lymphocytes % Not Reportable Monocytes % Not Reportable Eosinophils % Not Reportable Basophils % Not Reportable Absolute Neutrophils Not Reportable Absolute Lymphocytes Not Reportable Absolute Monocytes Not Reportable Absolute Eosinophils Not Reportable Absolute Basophils Not Reportable Carbonic Acid HCO3/H2CO3 Ratio ABG pH ABG pCO2 ABG pO2 ABG HCO3 ABG O2 Saturation ABG Base Excess FiO2 Sodium Potassium Chloride Carbon Dioxide Anion Gap BUN Creatinine Est GFR ( Amer) Est GFR (Non-Af Amer) Glucose Calcium Magnesium Albumin 10/03/16 14:30 Sputum Gram Stain - Final 10/03/16 14:30 Sputum Sputum Culture - Final REDUCED NORMAL JAVIER 09/28/16 09/29/16 09/29/16 13:48 21:34 21:34 Creatine Kinase 42 CK-MB (CK-2) 3.25 Troponin I < 0.012 0.075 05/09/30/16 09/30/16 03:47 03:47 09:40 Creatine Kinase 52 62 CK-MB (CK-2) 5.90 H Troponin I 0.561 09/30/16 10/01/16 10/02/16 09:40 07:15 05:00 Creatine Kinase CK-MB (CK-2) 8.91 H Troponin I 1.100 0.530 0.263 10/05/16 10/05/16 10/05/16 07:45 07:45 12:15 Creatine Kinase 32 33 CK-MB (CK-2) 1.34 Troponin I 0.091 10/05/16 10/05/16 10/05/16 13:40 20:30 20:30 Creatine Kinase 27 L CK-MB (CK-2) 1.05 0.89 Troponin I 0.079 0.067 Impressions: Chest/Abdomen CTA 09/30/16 00:00 IMPRESSION: No evidence for pulmonary embolic disease. No acute consolidations or pleural effusions are identified. Other findings as noted above Chest X-Ray 10/06/16 06:00 IMPRESSION: No significant interval change. Lines and tubes. Assessment & Plan - Diagnosis (1) Acute respiratory failure with hypoxia Is this a current diagnosis for this admission?: Yes (2) Anxiety Is this a current diagnosis for this admission?: Yes (3) COPD exacerbation Is this a current diagnosis for this admission?: Yes - Time Critical Time spent with patient: 35 or more minutes
--- NOTE | 2016-10-11 17:26 | PDOC PROGRESS REPORT ---
Subjective Progress Note for:: 10/05/16 Subjective:: INTUBATED Physical Exam Vital Signs: Temp Pulse Resp BP Pulse Ox 97.8 F 89 17 160/96 H 97 10/05/16 08:00 10/05/16 08:00 10/05/16 08:00 10/05/16 08:00 10/05/16 08:00 Intake & Output 10/04/16 10/05/16 10/06/16 06:59 06:59 06:59 Intake Total 1827 9032 Output Total 8899 7826 Balance 522 -6824 Weight 95.1 kg 95.1 kg General appearance: PRESENT: no acute distress, disheveled, obese, well- developed Head exam: PRESENT: atraumatic, normocephalic Eye exam: PRESENT: conjunctiva pale, EOMI Mouth exam: PRESENT: moist, neck supple Neck exam: PRESENT: carotid bruit Respiratory exam: PRESENT: decreased breath sounds, prolonged expiratory phas, symmetrical Cardiovascular exam: PRESENT: RRR, +S1, +S2 Pulses: PRESENT: normal radial pulses GI/Abdominal exam: PRESENT: normal bowel sounds, soft. ABSENT: distended, guarding, mass, organolmegaly, rebound, tenderness Rectal exam: PRESENT: deferred Gentrourinary exam: PRESENT: indwelling catheter Musculoskeletal exam: PRESENT: normal inspection Skin exam: PRESENT: dry, warm Results Laboratory Results: 10/05/16 05:35 10/05/16 05:35 10/03/16 10/03/16 10/04/16 05:57 05:57 19:30 WBC 7.6 RBC 3.86 Hgb 10.9 L Hct 33.3 L MCV 86 MCH 28.2 MCHC 32.7 RDW 13.6 Plt Count 249 Seg Neutrophils % 85.3 H Lymphocytes % 7.8 L Monocytes % 6.8 Eosinophils % 0.0 Basophils % 0.1 Absolute Neutrophils 6.5 Absolute Lymphocytes 0.6 Absolute Monocytes 0.5 Absolute Eosinophils 0.0 Absolute Basophils 0.0 Carbonic Acid 1.51 H HCO3/H2CO3 Ratio 21:1 ABG pH 7.43 ABG pCO2 50.2 H ABG pO2 70.7 L ABG HCO3 32.9 H ABG O2 Saturation 94.5 ABG Base Excess 7.3 FiO2 40% Sodium Potassium Chloride Carbon Dioxide Anion Gap BUN Creatinine Est GFR ( Amer) Est GFR (Non-Af Amer) Glucose Calcium Urine Color YELLOW Urine Appearance CLEAR Urine pH 6.0 Ur Specific [place] 1.014 Urine Protein 30 H Urine Glucose (UA) NEGATIVE Urine Ketones NEGATIVE Urine Blood LARGE H Urine Nitrite NEGATIVE Ur Leukocyte Esterase NEGATIVE Urine WBC (Auto) 11 Urine RBC (Auto) >182 10/05/16 10/05/16 10/05/16 05:28 05:35 05:35 WBC 12.6 H RBC 4.19 Hgb 12.1 Hct 36.1 MCV 86 MCH 28.8 MCHC 33.4 RDW 13.6 Plt Count 296 Seg Neutrophils % Not Reportable Lymphocytes % Not Reportable Monocytes % Not Reportable Eosinophils % Not Reportable Basophils % Not Reportable Absolute Neutrophils Not Reportable Absolute Lymphocytes Not Reportable Absolute Monocytes Not Reportable Absolute Eosinophils Not Reportable Absolute Basophils Not Reportable Carbonic Acid HCO3/H2CO3 Ratio ABG pH ABG pCO2 ABG pO2 ABG HCO3 ABG O2 Saturation ABG Base Excess FiO2 Sodium 146.8 H Potassium 3.3 L Chloride 102 Carbon Dioxide 39 H Anion Gap 6 BUN 25 H Creatinine 0.57 Est GFR ( Amer) > 60 Est GFR (Non-Af Amer) > 60 Glucose 135 H Calcium 8.9 Urine Color YELLOW Urine Appearance SLIGHTLY-CLOUDY Urine pH 6.0 Ur Specific [place] 1.026 Urine Protein 30 H Urine Glucose (UA) NEGATIVE Urine Ketones NEGATIVE Urine Blood MODERATE H Urine Nitrite NEGATIVE Ur Leukocyte Esterase NEGATIVE Urine WBC (Auto) Urine RBC (Auto) >182 10/05/16 05:40 WBC RBC Hgb Hct MCV MCH MCHC RDW Plt Count Seg Neutrophils % Lymphocytes % Monocytes % Eosinophils % Basophils % Absolute Neutrophils Absolute Lymphocytes Absolute Monocytes Absolute Eosinophils Absolute Basophils Carbonic Acid 1.78 H HCO3/H2CO3 Ratio 22:1 ABG pH 7.45 ABG pCO2 59.0 H ABG pO2 92.4 ABG HCO3 39.9 H ABG O2 Saturation 97.2 ABG Base Excess 13.4 FiO2 40% Sodium Potassium Chloride Carbon Dioxide Anion Gap BUN Creatinine Est GFR ( Amer) Est GFR (Non-Af Amer) Glucose Calcium Urine Color Urine Appearance Urine pH Ur Specific [place] Urine Protein Urine Glucose (UA) Urine Ketones Urine Blood Urine Nitrite Ur Leukocyte Esterase Urine WBC (Auto) Urine RBC (Auto) 09/28/16 09/29/16 09/29/16 13:48 21:34 21:34 Creatine Kinase 42 CK-MB (CK-2) 3.25 Troponin I < 0.012 0.075 09/30/16 09/30/16 09/30/16 03:47 03:47 09:40 Creatine Kinase 52 62 CK-MB (CK-2) 5.90 H Troponin I 0.561 09/30/16 10/01/16 10/02/16 09:40 07:15 05:00 Creatine Kinase CK-MB (CK-2) 8.91 H Troponin I 1.100 0.530 0.263 Impressions: Chest/Abdomen CTA 09/30/16 00:00 IMPRESSION: No evidence for pulmonary embolic disease. No acute consolidations or pleural effusions are identified. Other findings as noted above Chest X-Ray 10/05/16 06:00 IMPRESSION: New, large haziness-opacity overlies the left upper-mid hemithorax. Interval absence of an endotracheal tube. Assessment & Plan - Diagnosis (1) Acute respiratory failure with hypoxia Is this a current diagnosis for this admission?: Yes (2) Anxiety Is this a current diagnosis for this admission?: Yes (3) COPD exacerbation Is this a current diagnosis for this admission?: Yes
--- NOTE | 2016-10-11 17:26 | PDOC PROGRESS REPORT ---
Subjective Progress Note for:: 10/04/16 Subjective:: Awake intubated but not responsive Physical Exam Vital Signs: Temp Pulse Resp BP Pulse Ox 98.1 F 57 L 18 117/74 93 10/04/16 06:39 10/04/16 06:39 10/04/16 06:39 10/04/16 06:39 10/04/16 06:39 Intake & Output 10/03/16 10/04/16 10/05/16 06:59 06:59 06:59 Intake Total 1835 1822 Output Total 1220 1300 Balance 615 522 Weight 95.1 kg General appearance: PRESENT: no acute distress, disheveled, obese, well- developed Head exam: PRESENT: atraumatic, normocephalic Eye exam: PRESENT: conjunctiva pale Mouth exam: PRESENT: dry mucosa, neck supple, other - Endotracheal tube in place Neck exam: ABSENT: carotid bruit, JVD, lymphadenopathy, thyromegaly Respiratory exam: PRESENT: decreased breath sounds, prolonged expiratory phas, rhonchi, symmetrical, unlabored Cardiovascular exam: PRESENT: RRR, +S1, +S2 Pulses: PRESENT: normal radial pulses GI/Abdominal exam: PRESENT: normal bowel sounds, soft. ABSENT: distended, guarding, mass, organolmegaly, rebound, tenderness Rectal exam: PRESENT: deferred Gentrourinary exam: PRESENT: indwelling catheter Neurological exam: PRESENT: awake Skin exam: PRESENT: dry, warm Results Laboratory Results: 10/04/16 05:18 10/04/16 05:18 10/04/16 10/04/16 10/04/16 05:18 05:18 05:18 WBC 9.9 RBC 3.83 Hgb 10.8 L Hct 33.7 L MCV 88 MCH 28.1 MCHC 32.0 RDW 13.8 Plt Count 243 Seg Neutrophils % Not Reportable Lymphocytes % Not Reportable Monocytes % Not Reportable Eosinophils % Not Reportable Basophils % Not Reportable Absolute Neutrophils Not Reportable Absolute Lymphocytes Not Reportable Absolute Monocytes Not Reportable Absolute Eosinophils Not Reportable Absolute Basophils Not Reportable Carbonic Acid 1.44 H HCO3/H2CO3 Ratio 19:1 ABG pH 7.39 ABG pCO2 48.0 H ABG pO2 74.3 L ABG HCO3 28.3 H ABG O2 Saturation 94.7 ABG Base Excess 2.7 FiO2 40% Sodium 144.1 Potassium 3.6 Chloride 110 H Carbon Dioxide 29 Anion Gap 5 BUN 18 Creatinine 0.49 L Est GFR ( Amer) > 60 Est GFR (Non-Af Amer) > 60 Glucose 172 H Calcium 8.2 L 09/28/16 09/29/16 09/29/16 13:48 21:34 21:34 Creatine Kinase 42 CK-MB (CK-2) 3.25 Troponin I < 0.012 0.075 09/30/16 09/30/16 09/30/16 03:47 03:47 09:40 Creatine Kinase 52 62 CK-MB (CK-2) 5.90 H Troponin I 0.561 09/30/16 10/01/16 10/02/16 09:40 07:15 05:00 Creatine Kinase CK-MB (CK-2) 8.91 H Troponin I 1.100 0.530 0.263 Impressions: Chest/Abdomen CTA 09/30/16 00:00 IMPRESSION: No evidence for pulmonary embolic disease. No acute consolidations or pleural effusions are identified. Other findings as noted above Assessment & Plan - Diagnosis (1) Acute respiratory failure with hypoxia Is this a current diagnosis for this admission?: YesPlan: Minute volume, respiratory rate, FiO2, airway pressures all suggest successful extubation mental status is questionable but we will proceed with extubation (2) Anxiety Is this a current diagnosis for this admission?: YesPlan: Discussed with Dr. Mills additional therapy to treat anxiety (3) COPD exacerbation Is this a current diagnosis for this admission?: YesPlan: continue current broncho-dilator therapy - Time Critical Time spent with patient: 35 or more minutes - 55 minutes extubation
--- NOTE | 2016-10-11 17:30 | PDOC PROGRESS REPORT ---
Subjective Progress Note for:: 10/10/16 Subjective:: AWAKE Physical Exam Vital Signs: Temp Pulse Resp BP Pulse Ox 97.8 F 89 28 H 98/57 L 92 10/11/16 04:36 10/11/16 14:00 10/11/16 13:53 10/11/16 04:36 10/11/16 14:10 Intake & Output 10/10/16 10/11/16 10/12/16 06:59 06:59 06:59 Intake Total 2135 1289 Output Total 1600 1675 Balance 535 -386 Weight 87.8 kg 88.1 kg General appearance: PRESENT: no acute distress, disheveled, obese, well- developed Head exam: PRESENT: atraumatic, normocephalic Eye exam: PRESENT: conjunctiva pale, EOMI Mouth exam: PRESENT: dry mucosa, neck supple Neck exam: ABSENT: carotid bruit, JVD, lymphadenopathy, thyromegaly Respiratory exam: PRESENT: decreased breath sounds, prolonged expiratory phas, rhonchi, symmetrical, unlabored Cardiovascular exam: PRESENT: RRR, +S1, +S2 Pulses: PRESENT: normal radial pulses GI/Abdominal exam: PRESENT: normal bowel sounds, soft. ABSENT: distended, guarding, mass, organolmegaly, rebound, tenderness Rectal exam: PRESENT: deferred Gentrourinary exam: PRESENT: indwelling catheter Musculoskeletal exam: PRESENT: normal inspection Neurological exam: PRESENT: awake Skin exam: PRESENT: dry, warm Results Laboratory Results: 10/10/16 05:15 10/08/16 04:45 10/10/16 10/11/16 17:15 11:54 Carbonic Acid 1.37 H HCO3/H2CO3 Ratio 23:1 ABG pH 7.46 H ABG pCO2 45.4 H ABG pO2 61.8 L ABG HCO3 31.7 H ABG O2 Saturation 92.7 L ABG Base Excess 7.0 FiO2 3L Urine Color YELLOW Urine Appearance CLEAR Urine pH 7.0 Ur Specific [place] 1.010 Urine Protein NEGATIVE Urine Glucose (UA) NEGATIVE Urine Ketones NEGATIVE Urine Blood NEGATIVE Urine Nitrite NEGATIVE Ur Leukocyte Esterase NEGATIVE Urine WBC (Auto) 1 Urine RBC (Auto) 1 10/05/16 13:40 Blood Blood Culture - Final NO GROWTH IN 5 DAYS 09/28/16 09/29/16 09/29/16 13:48 21:34 21:34 Creatine Kinase 42 CK-MB (CK-2) 3.25 Troponin I < 0.012 0.075 NT-Pro-B Natriuret Pep 09/30/16 09/30/16 09/30/16 03:47 03:47 09:40 Creatine Kinase 52 62 CK-MB (CK-2) 5.90 H Troponin I 0.561 NT-Pro-B Natriuret Pep 09/30/16 10/01/16 10/02/16 09:40 07:15 05:00 Creatine Kinase CK-MB (CK-2) 8.91 H Troponin I 1.100 0.530 0.263 NT-Pro-B Natriuret Pep 10/05/16 10/05/16 10/05/16 07:45 07:45 12:15 Creatine Kinase 32 33 CK-MB (CK-2) 1.34 Troponin I 0.091 NT-Pro-B Natriuret Pep 10/05/16 10/05/16 10/05/16 13:40 20:30 20:30 Creatine Kinase 27 L CK-MB (CK-2) 1.05 0.89 Troponin I 0.079 0.067 NT-Pro-B Natriuret Pep 10/07/16 04:30 Creatine Kinase CK-MB (CK-2) Troponin I NT-Pro-B Natriuret Pep 1300 H Impressions: Chest/Abdomen CTA 09/30/16 00:00 IMPRESSION: No evidence for pulmonary embolic disease. No acute consolidations or pleural effusions are identified. Other findings as noted above Chest X-Ray 10/08/16 00:00 IMPRESSION: No acute cardiopulmonary disease. Catheter remains in good position. Assessment & Plan - Diagnosis (1) Acute respiratory failure with hypoxia Is this a current diagnosis for this admission?: YesPlan: STABLE OFF VENTLATOR (2) Anxiety Is this a current diagnosis for this admission?: Yes (3) COPD exacerbation Is this a current diagnosis for this admission?: Yes - Time Critical Time spent with patient: 25-34 minutes
[2016-10-12 05:02] LABS: ABSOLUTE EOSINOPHILS # (AUTO) 0.1 10^3/uL (0.0-0.6); ABSOLUTE LYMPHOCYTES (AUTO) 2.5 10^3/uL (0.5-4.7); ABSOLUTE MONOCYTES (AUTO) 1.3 10^3/uL (0.1-1.4); ABSOLUTE NEUT (AUTO) 7.2 10^3/uL (1.7-8.2); BASOPHILS % (AUTO) 0.1 % (0-2); EOSINOPHILS % (AUTO) 1.2 % (0-6); HEMATOCRIT 30.9 % (36.0-47.0); HEMOGLOBIN 10.2 g/dL (12.0-15.5); HGB HCT DIFFERENCE -0.3; LYMPHOCYTES % (AUTO) 22.7 % (13-45); MEAN CORPUSCULAR HEMOGLOBIN 28.5 pg (27.0-33.4); MEAN CORPUSCULAR VOLUME 87 fl (80-97); MONOCYTES % (AUTO) 11.5 % (3-13); RED BLOOD COUNT 3.57 10^6/uL (3.72-5.28); RED CELL DISTRIBUTION WIDTH 13.5 % (11.5-14.0); SEGMENTED NEUTROPHILS % (AUTO) 64.5 % (42-78); WHITE BLOOD COUNT 11.2 10^3/uL (4.0-10.5)
[2016-10-12 05:27] LABS: BLOOD UREA NITROGEN 10 mg/dL (7-20); CALCIUM 8.7 mg/dL (8.4-10.2); CHLORIDE 98 mmol/L (98-107); GLUCOSE 78 mg/dL (75-110); POTASSIUM 3.6 mmol/L (3.6-5.0)
[2016-10-12 05:39] LABS: ANION GAP 5 (5-19); CARBON DIOXIDE 33 mmol/L (22-30); SODIUM 136.4 mmol/L (137-145)
[2016-10-12] MEDS: IPRATROPIUM/ALBUTEROL 0.5-2.5 MG/3 ML AMPUL NEB SCH (08:26)
[2016-10-12] MEDS: CITALOPRAM HYDROBROMIDE 20 MG TABLET PO SCH (09:57)
[2016-10-12] MEDS: LANSOPRAZOLE 30 MG TAB.RAP.DR PO SCH (09:57)
[2016-10-12] MEDS: ALPRAZOLAM 0.5 MG TABLET PO PRN (09:57)
[2016-10-12] MEDS: ACETAMINOPHEN 325 MG TABLET PO PRN (09:58)
[2016-10-12] MEDS: PREDNISONE 20 MG TABLET PO SCH (09:58)
[2016-10-12] MEDS: FUROSEMIDE 20 MG TABLET PO SCH (09:58)
[2016-10-12] MEDS: LISINOPRIL 5 MG TABLET PO SCH (09:58)
[2016-10-12] MEDS: FLUTICASONE NASAL SPRAY 50 MCG/SPRY 120 SPRAY/16 GM NASL SCH (10:05)
[2016-10-12] MEDS: LEVOFLOXACIN 750 MG TABLET PO SCH (10:08)
[2016-10-12 11:37] VITALS: BP 162/89
--- NOTE | 2016-10-12 16:49 | PDOC DISCHARGE SUMMARY ---
General - Admit/Disc Date/PCP Admission Date/Primary Care Provider: 09/28/16 12:19 Discharge Date: 10/12/16 - Discharge Diagnosis (1) Acute and chronic respiratory failure Is this a current diagnosis for this admission?: YesSummary: Patient is now on 2 L/min nasal cannula continuously. She will continue current inhalers and follow-up with Dr. Larios (2) PNA (pneumonia) Is this a current diagnosis for this admission?: YesSummary: She will have levaquin 750 daily for the next 4 days and then stop (3) Mitral regurgitation Is this a current diagnosis for this admission?: YesSummary: Follow up with manager operations and procurement, Dr Wray in [place] (4) Pulmonic stenosis Is this a current diagnosis for this admission?: Yes (5) Psoriatic arthritis Is this a current diagnosis for this admission?: Yes (6) Anxiety Is this a current diagnosis for this admission?: YesSummary: Continue anxiolytic (7) COPD exacerbation Is this a current diagnosis for this admission?: YesSummary: Steroid taper continue inhalers much improved.. - Additional Information Resuscitation Status: Full Code Discharge Diet: Regular Discharge Activity: Activity As Tolerated, Balance Activity w/Rest Home Medications: Alprazolam [Xanax 1 mg Tablet] 1 mg PO BIDP PRN 07/15/11 Albuterol Sulfate [Albuterol Sulfate 2.5mg/3 mL] 2 puff IH QIDP PRN 06/11/12 Citalopram Hydrobromide [Celexa 20 mg Tablet] 20 mg PO DAILY 09/28/16 Fluticasone/Vilanterol [Breo Ellipta 200-25 Mcg INH] 1 puff IH DAILY 09/28/16 Furosemide [Lasix 20 mg Tablet] 20 mg PO DAILY 09/28/16 Ibuprofen [Advil] 800 mg PO QIDP PRN 09/28/16 Tiotropium [place] [Spiriva Respimat] 2 puff IH DAILY 09/28/16 Walker [Folding Walker] 1 each MC ASDIR PRN #1 each 10/11/16 Fluticasone Propionate [Flonase Nasal [place] 50 Mcg/[place] 16 gm] 2 spray NASL DAILY #0 spray.pump 10/12/16 Levofloxacin [Levaquin 750 mg Tablet] 750 mg PO DAILY #4 tablet 10/12/16 Lisinopril [Prinivil 5 mg Tablet] 5 mg PO DAILY #30 tablet 10/12/16 Prednisone [Deltasone 20 mg Tablet] 20 mg PO DAILY #4 tablet 10/12/16 Sodium Chloride [[place] Nasal [place] 44 ml Bottle] 1 spray NASL Q1HP PRN bottle 10/12/16 History of Present Illness Patient complains of: Increasing dyspnea History of Present Illness: SHAHAB MONROE is a 56 year old female with a history of COPD on oxygen at 2 L per nasal cannula at night who quit smoking 1 week ago presents with a three- day history of worsening shortness of breath, cough, low-grade fevers, wheezing. The patient also does report some pleuritic chest pain associated with coughing. She reports she's had a dry cough and denies any orthopnea or PND. She does have some chronic lower extremity edema but it has not changed. She called the EMS because her shortness of breath and she was found to have an oxygen saturation of 86%. The patient presented at home she has checked her oxygen saturations any been in the high 70s at times. The patient is admitted for acute COPD exacerbation along with acute bronchitis. Hospital Course Hospital Course: SHAHAB MONROE is a 56 year old female with a history of COPD on oxygen at 2 L per nasal cannula at night who quit smoking 1 week ago presents with a three- day history of worsening shortness of breath, cough, low-grade fevers, wheezing. The patient also does report some pleuritic chest pain associated with coughing. She reports she's had a dry cough and denies any orthopnea or PND. She does have some chronic lower extremity edema but it has not changed. She called the EMS because her shortness of breath and she was found to have an oxygen saturation of 86%. The patient presented at home she has checked her oxygen saturations any been in the high 70s at times. The patient is admitted for acute COPD exacerbation along with acute bronchitis. Patient had deterioration of condition on IMCU. She is noted to have increasing tachypnea on BiPAP therapy. ABG was drawn which showed increased hypercapnia and worsening hypoxemia. Patient was transferred to the intensive care unit where she was intubated. She was maintained on the ventilator for the next 4 days. She was noted to have worsening heart murmur. She also appears of hypotension. Cardiology was consulted Dr. Lerma saw the patient in consult. Transthoracic echocardiogram was done which showed a moderate to severe mitral regurgitation and mild pulmonary stenosis. Patient was diuresed. She is eventually able to be extubated to BiPAP therapy. BiPAP therapy was weaned over the next 2 days. She was transferred back to [facility]. She had physical therapy consulted for mobility assistance. She was slow to progress due to severe debilitation. She improvement of her pain requirements she is able to be weaned to 2 L by nasal cannula. Room air oxygen saturation was noted to be 86%. Nasal cannula 2 L/ min She was placed continuously with oxygen saturations of 95%. Discharge planning was consulted. Patient will require home physical therapy and home health nursing. She will be discharged home today with her daughter appointments with appropriate specialists and primary care provider.. Physical Exam Vital Signs: Temp Pulse Resp BP Pulse Ox 98.6 F 86 18 162/89 H 96 10/12/16 11:35 10/12/16 11:35 10/12/16 11:35 10/12/16 11:35 10/12/16 11:35 Intake & Output 10/11/16 10/12/16 10/13/16 06:59 06:59 06:59 Intake Total 1289 1480 Output Total 1675 2350 Balance -386 -870 Weight 88.1 kg 86.8 kg General appearance: PRESENT: no acute distress, obese, well-developed, well- nourished Head exam: PRESENT: atraumatic, normocephalic Eye exam: PRESENT: conjunctiva pink, EOMI, PERRLA. ABSENT: scleral icterus Ear exam: PRESENT: normal external ear exam Mouth exam: PRESENT: moist, tongue midline Neck exam: ABSENT: carotid bruit, JVD, lymphadenopathy, thyromegaly Respiratory exam: PRESENT: clear to auscultation joseluis. ABSENT: rales, rhonchi, wheezes Cardiovascular exam: PRESENT: RRR, systolic murmur - 3/6. ABSENT: diastolic murmur, rubs Pulses: PRESENT: normal dorsalis pedis pul Vascular exam: PRESENT: normal capillary refill GI/Abdominal exam: PRESENT: normal bowel sounds, soft. ABSENT: distended, guarding, mass, organolmegaly, rebound, tenderness Rectal exam: PRESENT: deferred Extremities exam: PRESENT: full ROM. ABSENT: calf tenderness, clubbing, pedal edema Neurological exam: PRESENT: alert, awake, oriented to person, oriented to place , oriented to time, oriented to situation, CN II-XII grossly intact. ABSENT: motor sensory deficit Psychiatric exam: PRESENT: appropriate affect, normal mood. ABSENT: homicidal ideation, suicidal ideation Skin exam: PRESENT: dry, intact, warm. ABSENT: cyanosis, rash Results Laboratory Results: 10/12/16 04:40 10/12/16 04:40 10/12/16 10/12/16 04:40 04:40 WBC 11.2 H RBC 3.57 L Hgb 10.2 L Hct 30.9 L MCV 87 MCH 28.5 MCHC 33.0 RDW 13.5 Plt Count 238 Seg Neutrophils % 64.5 Lymphocytes % 22.7 Monocytes % 11.5 Eosinophils % 1.2 Basophils % 0.1 Absolute Neutrophils 7.2 Absolute Lymphocytes 2.5 Absolute Monocytes 1.3 Absolute Eosinophils 0.1 Absolute Basophils 0.0 Sodium 136.4 L Potassium 3.6 Chloride 98 Carbon Dioxide 33 H Anion Gap 5 BUN 10 Creatinine 0.50 L Est GFR ( Amer) > 60 Est GFR (Non-Af Amer) > 60 Glucose 78 Calcium 8.7 09/28/16 09/29/16 09/29/16 13:48 21:34 21:34 Creatine Kinase 42 CK-MB (CK-2) 3.25 Troponin I < 0.012 0.075 NT-Pro-B Natriuret Pep 09/30/16 09/30/16 09/30/16 03:47 03:47 09:40 Creatine Kinase 52 62 CK-MB (CK-2) 5.90 H Troponin I 0.561 NT-Pro-B Natriuret Pep 09/30/16 10/01/16 10/02/16 09:40 07:15 05:00 Creatine Kinase CK-MB (CK-2) 8.91 H Troponin I 1.100 0.530 0.263 NT-Pro-B Natriuret Pep 10/05/16 10/05/16 10/05/16 07:45 07:45 12:15 Creatine Kinase 32 33 CK-MB (CK-2) 1.34 Troponin I 0.091 NT-Pro-B Natriuret Pep 10/05/16 10/05/16 10/05/16 13:40 20:30 20:30 Creatine Kinase 27 L CK-MB (CK-2) 1.05 0.89 Troponin I 0.079 0.067 NT-Pro-B Natriuret Pep 10/07/16 04:30 Creatine Kinase CK-MB (CK-2) Troponin I NT-Pro-B Natriuret Pep 1300 H Impressions: Chest/Abdomen CTA 09/30/16 00:00 IMPRESSION: No evidence for pulmonary embolic disease. No acute consolidations or pleural effusions are identified. Other findings as noted above Chest X-Ray 10/08/16 00:00 IMPRESSION: No acute cardiopulmonary disease. Catheter remains in good position. Qualifiers PATEINT BEING DISCHARGED WITH ANY OF THE FOLLOWING DIAGNOSIS?: No Plan Discharge Plan: No Time Spent: Less than 30 Minutes
--- NOTE | 2016-10-13 11:20 | PDOC PROGRESS REPORT ---
Subjective Progress Note for:: 10/12/16 Subjective:: AWAKE Physical Exam Vital Signs: Temp Pulse Resp BP Pulse Ox 98.6 F 86 18 162/89 H 96 10/12/16 11:35 10/12/16 11:35 10/12/16 11:35 10/12/16 11:35 10/12/16 11:35 Intake & Output 10/12/16 10/13/16 10/14/16 06:59 06:59 06:59 Intake Total 1480 Output Total 2350 Balance -870 Weight 86.8 kg General appearance: PRESENT: no acute distress, cooperative, disheveled Head exam: PRESENT: atraumatic, normocephalic Eye exam: PRESENT: conjunctiva pale, EOMI Mouth exam: PRESENT: dry mucosa, neck supple, tongue midline Neck exam: PRESENT: carotid bruit Respiratory exam: PRESENT: decreased breath sounds, prolonged expiratory phas, rhonchi, symmetrical, unlabored Cardiovascular exam: PRESENT: RRR, +S1, +S2 GI/Abdominal exam: PRESENT: normal bowel sounds, soft. ABSENT: distended, guarding, mass, organolmegaly, rebound, tenderness Rectal exam: PRESENT: deferred Musculoskeletal exam: PRESENT: normal inspection Neurological exam: PRESENT: alert, awake Skin exam: PRESENT: dry Results Laboratory Results: 10/12/16 04:40 10/12/16 04:40 09/28/16 09/29/16 09/29/16 13:48 21:34 21:34 Creatine Kinase 42 CK-MB (CK-2) 3.25 Troponin I < 0.012 0.075 NT-Pro-B Natriuret Pep 09/30/16 09/30/16 09/30/16 03:47 03:47 09:40 Creatine Kinase 52 62 CK-MB (CK-2) 5.90 H Troponin I 0.561 NT-Pro-B Natriuret Pep 09/30/16 10/01/16 10/02/16 09:40 07:15 05:00 Creatine Kinase CK-MB (CK-2) 8.91 H Troponin I 1.100 0.530 0.263 NT-Pro-B Natriuret Pep 10/05/16 10/05/16 10/05/16 07:45 07:45 12:15 Creatine Kinase 32 33 CK-MB (CK-2) 1.34 Troponin I 0.091 NT-Pro-B Natriuret Pep 10/05/16 10/05/16 10/05/16 13:40 20:30 20:30 Creatine Kinase 27 L CK-MB (CK-2) 1.05 0.89 Troponin I 0.079 0.067 NT-Pro-B Natriuret Pep 10/07/16 04:30 Creatine Kinase CK-MB (CK-2) Troponin I NT-Pro-B Natriuret Pep 1300 H Impressions: Chest/Abdomen CTA 09/30/16 00:00 IMPRESSION: No evidence for pulmonary embolic disease. No acute consolidations or pleural effusions are identified. Other findings as noted above Chest X-Ray 10/08/16 00:00 IMPRESSION: No acute cardiopulmonary disease. Catheter remains in good position. Assessment & Plan - Diagnosis (1) Acute respiratory failure with hypoxia Is this a current diagnosis for this admission?: YesPlan: The above patient has failed BiPAP. This patient would benefit from noninvasive mechanical ventilation via the trilogy AVAPS/AE and faster responding AVAPS rates. The trilogy is able to provide a target tidal volume and also adjusting the EPAP pressures to maintain a patent airway as well as an oral backup rate this machine will help improve PaCO2 levels. The severity of the patient's condition will lead to future hospitalizations and readmissions as well as life-threatening situations without the use of this device trilogy home vent needed for hypercapnic respiratory failure. Family medical to follow for trilogy set up. (2) Anxiety Is this a current diagnosis for this admission?: Yes (3) COPD exacerbation Is this a current diagnosis for this admission?: Yes
== END 2016-10-12 12:09 | disposition home or self-care (01) | DRG 207 ==
LOC: ER 08:03 → EH 11:47 → UNDOADMIN 11:47 → EH 12:19 → 4S 13:20 → ICU 09-30 06:58 → 3S 10-06 15:29
PROVIDERS: ADMIT Internal Medicine; ATTEND Internal Medicine
PROC: 5A1955Z Respiratory Ventilation, Greater than 96 Consecutive Hours (ICD-10-PCS; principal; 2016-09-30)
PROC: B548ZZA Ultrasonography of Superior Vena Cava, Guidance (ICD-10-PCS; 2016-09-30)
PROC: 02HV33Z Insertion of Infusion Device into Superior Vena Cava, Percutaneous Approach (ICD-10-PCS; 2016-09-30)
PROC: 0BH17EZ Insertion of Endotracheal Airway into Trachea, Via Natural or Artificial Opening (ICD-10-PCS; 2016-09-30)
PROC: 3E043XZ Introduction of Vasopressor into Central Vein, Percutaneous Approach (ICD-10-PCS; 2016-10-02)
DX: J96.21 Acute and chronic respiratory failure with hypoxia (principal); J18.9 Pneumonia, unspecified organism; J44.0 Chronic obstructive pulmonary disease with (acute) lower respiratory infection; J44.1 Chronic obstructive pulmonary disease with (acute) exacerbation; Q22.1 Congenital pulmonary valve stenosis; I50.22 Chronic systolic (congestive) heart failure; D68.32 Hemorrhagic disorder due to extrinsic circulating anticoagulants; E66.2 Morbid (severe) obesity with alveolar hypoventilation; J96.22 Acute and chronic respiratory failure with hypercapnia; J20.9 Acute bronchitis, unspecified; F41.9 Anxiety disorder, unspecified; I34.0 Nonrheumatic mitral (valve) insufficiency; I95.9 Hypotension, unspecified; E78.5 Hyperlipidemia, unspecified; R77.8 Other specified abnormalities of plasma proteins; L40.50 Arthropathic psoriasis, unspecified; F17.201 Nicotine dependence, unspecified, in remission; R04.0 Epistaxis; T45.515A Adverse effect of anticoagulants, initial encounter; Y92.230 Patient room in hospital as the place of occurrence of the external cause; Z79.51 Long term (current) use of inhaled steroids; Z79.52 Long term (current) use of systemic steroids; Z79.899 Other long term (current) drug therapy; Z68.36 Body mass index [BMI] 36.0-36.9, adult; Z85.3 Personal history of malignant neoplasm of breast; Z90.11 Acquired absence of right breast and nipple
CPT/HCPCS: 31500; 36415; 36600; 71010; 71020; 71275; 80048; 80053; 80202; 81001; 82040; 82271; 82272; 82550; 82553; 82565; 82803; 82962; 83605; 83690; 83735; 83880; 84484; 85025; 85027; 85610; 85730; 87040; 87070; 87205; 93005; 93010; 93306; 94002; 94003; 94640; 94660; 94799; 96360; 99291; C1751; G8978-GP; G8979-GP; J0360; J0456; J0692; J0696; J1100; J1642; J1644; J1650; J1815; J1940; J1956; J2060; J2250; J2370; J2704; J2920; J3010; J3370; J3480; J3490; J7030; J7040; J7060; J7512; J7620; S0164

== ENCOUNTER → 2016-11-01 | Outpatient (CLI) | payer MEDICARE, MEDICAID ==
[2016-11-01 11:34] LABS: ARTERIAL BLOOD BASE EXCESS 4.9 mmol/L; ARTERIAL BLOOD O2 SATURATION 97.5 % (94-98)
== END ==
LOC: OD 10:19
PROVIDERS: ATTEND Internal Medicine Pulmonary Disease
DX: J44.1 Chronic obstructive pulmonary disease with (acute) exacerbation (principal)
CPT/HCPCS: 36600; 82803

== ENCOUNTER 2017-07-10 07:00 | Day surgery (SDC) | payer MEDICARE, MEDICAID ==
[2017-07-05 11:53] LABS: APPEARANCE,URINE CLEAR; BILIRUBIN,URINE NEGATIVE (NEGATIVE); COLOR,URINE COLORLESS; GLUCOSE, URINE NEGATIVE (NEGATIVE); KETONES,URINE NEGATIVE (NEGATIVE); LEUKOCYTE ESTERASE,URINE NEGATIVE (NEGATIVE); NITRITE,URINE NEGATIVE (NEGATIVE); PROTEIN,URINE NEGATIVE (NEGATIVE); URINE SPECIFIC GRAVITY 1.005; UROBILINOGEN,URINE NEGATIVE mg/dL (<2.0)
[2017-07-05 11:59] LABS: HEMATOCRIT 37.5 % (36.0-47.0); HEMOGLOBIN 12.7 g/dL (12.0-15.5); MEAN CORPUSCULAR HEMOGLOBIN 28.3 pg (27.0-33.4); MEAN CORPUSCULAR HGB CONC 33.9 g/dL (32.0-36.0); MEAN CORPUSCULAR VOLUME 84 fl (80-97); PLATELET COUNT 370 10^3/uL (150-450); RED BLOOD COUNT 4.49 10^6/uL (3.72-5.28); RED CELL DISTRIBUTION WIDTH 13.7 % (11.5-14.0); WHITE BLOOD COUNT 7.2 10^3/uL (4.0-10.5)
[~2017-07-10 07:00] MED LIST: LACTATED RINGERS 1000 ML IV PRN; LIDOCAINE 0.5% INJ-PF (5 MG/ML) 50 ML SDV SUBCUT PRN
[2017-07-10] MEDS ORDERED: FAMOTIDINE INJ/PF 20 MG/2 ML SDV IV ONE (09:08)
[2017-07-10] MEDS: MIDAZOLAM 2 MG/2 ML INJ ONE ×2 (09:10→09:20)
[2017-07-10] MEDS ORDERED: METOCLOPRAMIDE HCL INJ/PF 10 MG/2 ML SDV ONE (09:11)
[2017-07-10] MEDS ORDERED: MIDAZOLAM 2 MG/2 ML INJ ONE ×2 (09:39)
[2017-07-10] MEDS ORDERED: FENTANYL CITRATE INJ/PF 100 MCG/2 ML AMPUL ONE (09:40)
[2017-07-10] MEDS ORDERED: PROPOFOL INJ 200 MG/20 ML VIAL IV ONE (09:40)
[2017-07-10] MEDS ORDERED: KETAMINE HCL INJ 500 MG/10 ML VIAL ONE (09:40)
[2017-07-10] MEDS ORDERED: BUPIVACAINE HCL 0.25 % INJ/PF (2.5 MG/1 ML) 30 ML VIAL ONE (10:01)
--- NOTE | 2017-07-10 10:33 | OPERATIVE REPORT E ---
Operative Report NAME: SHAHAB MONROE : 1960 AGE: 57Y DATE OF SURGERY: 07/10/2017 ROOM: PREOPERATIVE DIAGNOSIS: Postmenopausal bleeding. POSTOPERATIVE DIAGNOSES: 1. Postmenopausal bleeding. 2. Atrophic endometrium. PROCEDURES: 1. D and C. 2. Hysteroscopy. SURGEON: Destini PINEDO M.D. ESTIMATED BLOOD LOSS: Negligible. TISSUE REMOVED OR ALTERED: Endometrium. ANESTHESIA: Sedation and local. DESCRIPTION OF PROCEDURE: The patient was placed in the dorsal lithotomy position, prepped and draped in sterile fashion. Speculum was placed and cervix was visualized with a single-toothed tenaculum and sounded to a depth of 14 cm. The local was placed at 3 and 9, 10 mL on each side of [place]. Using careful dilation, the cervix was dilated to admit hysteroscope. Hysteroscopy then performed with findings what appeared to be atrophic endometrium. No subserosal fibroids were noted. The hysteroscope was removed and sharp curettage was performed with a minimal amount of tissue being recovered. The single-toothed tenaculum was removed and hemostasis was noted. She tolerated it well and was taken to recovery in good condition. DICTATING PHYSICIAN: Destini PINEDO M.D. [id number] PHY#: [id number] ID: [id number] JOB#: [id number] ACCT: [id number] cc:Destini PINEDO M.D. >
[2017-07-10] MEDS ORDERED: KETOROLAC TROMETHAMINE INJ/PF 30 MG/1 ML SDV ONE (10:54)
[2017-07-10] MEDS ORDERED: ACETAMINOPHEN 100 ML IV ONE (10:54)
[2017-07-10] MEDS ORDERED: IBUPROFEN 800 MG TABLET PO PRN (10:58)
[2017-07-10] MEDS ORDERED: OXYCODONE-ACETAMINOPHEN 5-325 MG TABLET PO PRN (11:30)
[2017-07-10 12:53] VITALS: BP 106/63
== END 2017-07-10 12:40 | disposition home or self-care (01) ==
LOC: OROUT 07:00
PROVIDERS: ATTEND Obstetrics & Gynecology Gynecology
PROC: 0UJD8ZZ Inspection of Uterus and Cervix, Via Natural or Artificial Opening Endoscopic (ICD-10-PCS; 2017-07-10)
PROC: 0UDB7ZX Extraction of Endometrium, Via Natural or Artificial Opening, Diagnostic (ICD-10-PCS; principal; 2017-07-10 09:15)
DX: N95.0 Postmenopausal bleeding (principal); N85.8 Other specified noninflammatory disorders of uterus
CPT/HCPCS: 58558; 36415 ×2; 84132; 85027; 81001; 88305 ×2; J2250; J3010; J3490; J1885; J2765; J2704; S0028; J0131; 952

== ENCOUNTER → 2017-08-23 | Outpatient (CLI) | payer MEDICARE, MEDICAID ==
--- NOTE | 2017-08-23 15:20 | RADIOLOGY REPORT (SQ) ---
EXAM DESCRIPTION: CHEST PA/LATERAL COMPLETED DATE/TIME: 08/23/2017 3:09 pm REASON FOR STUDY: CHEST PAIN, UNSPECIFIED COMPARISON: 10/08/2016 EXAM PARAMETERS: NUMBER OF VIEWS: two views TECHNIQUE: Digital Frontal and Lateral radiographic views of the chest acquired. RADIATION DOSE: NA LIMITATIONS: none FINDINGS: LUNGS AND PLEURA: Subsegmental atelectasis on the left. No infiltrate or effusion. No ma ss. MEDIASTINUM AND HILAR STRUCTURES: No masses or contour abnormalities. HEART AND VASCULAR STRUCTURES: Heart normal size. No evidence for failure. BONES: No acute findings. HARDWARE: None in the chest. OTHER: No other significant finding. IMPRESSION: Subsegmental atelectasis with no acute cardiopulmonary disease. TECHNICAL DOCUMENTATION: JOB ID: [id number] [employer]- All Rights Reserved Reading location - IP/workstation name: [email or web address]
== END ==
LOC: OD 14:52
PROVIDERS: ATTEND Internal Medicine Cardiovascular Disease
DX: R07.9 Chest pain, unspecified (principal); I50.9 Heart failure, unspecified; J98.11 Atelectasis
CPT/HCPCS: 71046

== ENCOUNTER 2017-08-26 16:16 | Emergency (ER) | payer MEDICARE, MEDICAID ==
--- NOTE | 2017-08-26 16:27 | ER Document Report ---
ED Medical Screen (RME) - General Chief Complaint: Respiratory Distress Stated Complaint: POSSIBLE COLLAPSED LUNG Time Seen by Provider: 08/26/17 16:26 Notes: Patient states that she had a chest x-ray done on Saturday. She states she received a phone call today time her that she may have a collapsed lung and she should come to the emergency department. Patient complains of cough and shortness of breath. TRAVEL OUTSIDE OF THE [place] IN LAST 30 DAYS: No - Related Data Allergies/Adverse Reactions: latex [Latex] Allergy (Mild, Verified 07/10/17 07:32) rash Bees Allergy (Severe, Uncoded 05/15/14 18:26) Facial Edema Past Medical History - Social History Chew tobacco use (# tins/day): No Frequency of alcohol use: None Drug Abuse: None - Past Medical History Cardiac Medical History: Denies: Hx Coronary Artery Disease, Hx Heart Attack, Hx Hypercholesterolemia , Hx Hypertension Pulmonary Medical History: Reports: Hx Bronchitis, Hx COPD - pulmonary stenosis , Hx Pneumonia Denies: Hx Asthma Neurological Medical History: Denies: Hx Cerebrovascular Accident, Hx Seizures Endocrine Medical History: Denies: Hx Diabetes Mellitus Type 1, Hx Diabetes Mellitus Type 2 Renal/ Medical History: Denies: Hx Peritoneal Dialysis Malignancy Medical History: Reports: Hx Breast Cancer Musculoskeltal Medical History: Reports Hx Arthritis - psoriatic arthritis Skin Medical History: Reports Hx Psoriasis Psychiatric Medical History: Reports: Hx Anxiety, Hx Depression Past Surgical History: Reports: Hx Breast Surgery, Hx Cardiac Surgery - PULMONIC VALVULOPLASTY FOR PULM STENOSIS, Hx Section - X 2, Hx Mastectomy - RIGHT PARTIAL MASTECTOMY 1999, WITH LYMPH NODE DISSECTION, Hx Vascular Surgery - Pulmonary valvuloplasty - Immunizations Hx Diphtheria, Pertussis, Tetanus Vaccination: No History of Influenza Vaccine for 02/2017 - 07/2017 Season: Yes Influenza Administration Date for 02/2017 - 07/2017 Season: 02/17/17 Physical Exam - Vital signs Vitals: Temp Pulse Resp BP Pulse Ox 98.2 F 93 16 123/85 94 08/26/17 16:22 08/26/17 16:22 08/26/17 16:22 08/26/17 16:22 08/26/17 16:22 Course - Vital Signs Vital signs: Temp Pulse Resp BP Pulse Ox 98.2 F 93 16 123/85 94 08/26/17 16:22 08/26/17 16:22 08/26/17 16:22 08/26/17 16:22 08/26/17 16:22
--- NOTE | 2017-08-26 17:05 | RADIOLOGY REPORT (SQ) ---
EXAM DESCRIPTION: CHEST 2 VIEWS COMPLETED DATE/TIME: 08/26/2017 4:47 pm REASON FOR STUDY: cp/sob/hx ?ptx COMPARISON: CT chest 09/30/2016 Two-view chest 02/29/2016, 08/23/2017 EXAM PARAMETERS: NUMBER OF VIEWS: two views TECHNIQUE: Digital Frontal and Lateral radiographic views of the chest acquired. RADIATION DOSE: NA LIMITATIONS: none FINDINGS: LUNGS AND PLEURA: Chronic bandlike scarring in the lingula. Chronic bandlike scarring in the posterior right upper lobe. Lungs are hyperinflated and hyperlucent from obstructive disease No pleural effusions. No pneumothorax. MEDIASTINUM AND HILAR STRUCTURES: No masses or contour abnormalities. HEART AND VASCULAR STRUCTURES: Heart normal size. No evidence for failure. BONES: Osteoporotic HARDWARE: None in the chest. OTHER: No other significant finding. IMPRESSION: No acute findings. No pneumothorax. Chronic bandlike scarring in the lingula and posterior right upper lobe TECHNICAL DOCUMENTATION: JOB ID: [id number] [employer]- All Rights Reserved Reading location - IP/workstation name: [email or web address]
[2017-08-26 17:17] LABS: ABSOLUTE BASOPHILS # (AUTO) 0.1 10^3/uL (0.0-0.2); ABSOLUTE EOSINOPHILS # (AUTO) 0.3 10^3/uL (0.0-0.6); ABSOLUTE LYMPHOCYTES (AUTO) 1.8 10^3/uL (0.5-4.7); ABSOLUTE MONOCYTES (AUTO) 0.7 10^3/uL (0.1-1.4); ABSOLUTE NEUT (AUTO) 5.4 10^3/uL (1.7-8.2); BASOPHILS % (AUTO) 1.1 % (0-2); EOSINOPHILS % (AUTO) 3.2 % (0-6); HEMATOCRIT 35.2 % (36.0-47.0); HEMOGLOBIN 11.8 g/dL (12.0-15.5); LYMPHOCYTES % (AUTO) 21.4 % (13-45); MEAN CORPUSCULAR HEMOGLOBIN 27.9 pg (27.0-33.4); MEAN CORPUSCULAR HGB CONC 33.5 g/dL (32.0-36.0); MEAN CORPUSCULAR VOLUME 83 fl (80-97); MONOCYTES % (AUTO) 8.7 % (3-13); PLATELET COUNT 372 10^3/uL (150-450); RED BLOOD COUNT 4.23 10^6/uL (3.72-5.28); RED CELL DISTRIBUTION WIDTH 13.6 % (11.5-14.0); SEGMENTED NEUTROPHILS % (AUTO) 65.6 % (42-78); TOTAL CELLS COUNTED % (AUTO) 100 %; WHITE BLOOD COUNT 8.3 10^3/uL (4.0-10.5)
[2017-08-26 17:34] LABS: ALANINE AMINOTRANSFERASE 22 U/L (9-52); ALBUMIN 4.1 g/dL (3.5-5.0); ALKALINE PHOSPHATASE 117 U/L (38-126); ANION GAP 12 (5-19); ASPARTATE AMINO TRANSFERASE 15 U/L (14-36); BILIRUBIN,DIRECT 0.5 mg/dL (0.0-0.4); BILIRUBIN,TOTAL 0.6 mg/dL (0.2-1.3); BLOOD UREA NITROGEN 14 mg/dL (7-20); CALCIUM 9.5 mg/dL (8.4-10.2); CARBON DIOXIDE 28 mmol/L (22-30); CHLORIDE 98 mmol/L (98-107); GLUCOSE 95 mg/dL (75-110); POTASSIUM 3.8 mmol/L (3.6-5.0); SODIUM 138.2 mmol/L (137-145)
--- NOTE | 2017-08-26 17:55 | RADIOLOGY REPORT (SQ) ---
EXAM DESCRIPTION: CTA CHEST COMPLETED DATE/TIME: 08/26/2017 5:39 pm REASON FOR STUDY: L cp with sob COMPARISON: 2017. Radiographs from today. TECHNIQUE: CT scan of the chest performed using helical scanning technique with dynamic intravenous contrast injection. Images reviewed with lung, soft tissue and bone windows. Reconstructed coronal and sagittal MPR images reviewed. Additional 3 dimensional post-processing performed to develop Maximal Intensity Projection images (CT P). All images stored on PACS. All CT scanners at this facility use dose modulation, iterative reconstruction, and/or weight based d osing when appropriate to reduce radiation dose to as low as reasonably achievable (ALARA). [facility]: Dose Right [facility]: CareDose [facility]: Dose Right [facility]: Teradose 4D [facility]: [employer] CONTRAST TYPE AND DOSE: contrast/concentration: Isovue 370.00 mg/ml; Total Contrast Delivered: 82.0 ml; Total Saline Delivered: 101.0 ml Contrast bolus optimized for the pulmonary arteries. Not diagnostic for the aorta. RENAL FUNCTION: GFR > 60. RADIATION DOSE: CT Rad equipment meets quality standard of care and radiation dose reduction techniq ues were employed. CTDIvol: 19.8 - 23.0 mGy. DLP: 848 mGy-cm. . LIMITATIONS: None. FINDINGS: LUNGS AND PLEURA: Bullous emphysema. Areas of linear scarring and left lung. No consolid ating pneumonia. No pleural effusion. AORTA AND GREAT VESSELS: Caliber looks relatively normal. Phase of contrast limits further assessmen t. No gross dissection is suggested. HEART: No pericardial effusion. No significant coronary artery calcifications. PULMONARY ARTERIES: Pronounced dilatation of the pulmonary arterial root and left proximal pulmonary artery. Configuration looks similar to prior. Root measures up to 4.9 cm transverse dimension. Lef t pulmonary artery measures up to 3.6 cm with dilatation of the proximal left upper and lower lobe br anches as well. Normal caliber right pulmonary artery. HILAR AND MEDIASTINAL STRUCTURES: Chronic small low density node or fluid in the anterior mediastinum . No developing mass or adenopathy. HARDWARE: No lines. Bilateral breast implants look grossly intact. UPPER ABDOMEN: No significant findings. Limited exam. THYROID AND OTHER SOFT TISSUES: No masses. No adenopathy. BONES: No acute or significant finding. 3D MIPS: Confirm above findings. OTHER: No other significant finding. IMPRESSION: 1. Chronic changes include main and left pulmonary arterial dilatation (potentially rela negro to valvular stenosis or pulmonary arterial hypertension), as well as bullous emphysema and scarri ng. 2. No evidence of acute pulmonary embolus. COMMENT: Quality ID # [id number]: Final reports with documentation of one or more dose reduction techniques (e.g., Automated exposure control, adjustment of the mA and/or kV according to patient size, use of iterative reconstruction technique) TECHNICAL DOCUMENTATION: JOB ID: [id number] [employer]- All Rights Reserved Reading location - IP/workstation name: [email or web address]
[2017-08-26] MEDS ORDERED: PREDNISONE 20 MG TABLET PO ONE (19:10)
[2017-08-26] MEDS ORDERED: ACETAMINOPHEN WITH CODEINE #3 TABLET PO ONE (19:10)
[2017-08-26] MEDS ORDERED: AZITHROMYCIN 250 MG TABLET PO ONE (19:10)
--- NOTE | 2017-08-26 19:12 | ER Document Report ---
ED General - General Chief Complaint: Respiratory Distress Stated Complaint: POSSIBLE COLLAPSED LUNG Time Seen by Provider: 08/26/17 16:26 TRAVEL OUTSIDE OF THE [place] 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 Lerma had a chest x-ray performed on Saturday was notified today that there is concern for possible collapse of the lung and therefore to come to the ER for further evaluation. Patient also states that her major was concerning for possible PE. Patient denies any recent travel denies any swelling to her legs denies history of PE DVT in the past. Patient states her shortness of breath has worsened although she is currently very anxious. Patient denies fevers chills however patient states she has had a change in her chronic sputum from clear to yellow over the last few days. Denies any recent antibiotics. - Related Data Allergies/Adverse Reactions: latex [Latex] Allergy (Mild, Verified 07/10/17 07:32) rash Bees Allergy (Severe, Uncoded 05/15/14 18:26) Facial Edema Past Medical History - Social History Smoking Status: Current Every Day Smoker Chew tobacco use (# tins/day): No Frequency of alcohol use: None Drug Abuse: None Family History: Reviewed & Not Pertinent Patient has suicidal ideation: No Patient has homicidal ideation: No - Past Medical History Cardiac Medical History: Denies: Hx Coronary Artery Disease, Hx Heart Attack, Hx Hypercholesterolemia , Hx Hypertension Pulmonary Medical History: Reports: Hx Bronchitis, Hx COPD - pulmonary stenosis , Hx Pneumonia Denies: Hx Asthma Neurological Medical History: Denies: Hx Cerebrovascular Accident, Hx Seizures Endocrine Medical History: Denies: Hx Diabetes Mellitus Type 1, Hx Diabetes Mellitus Type 2 Renal/ Medical History: Denies: Hx Peritoneal Dialysis Malignancy Medical History: Reports: Hx Breast Cancer Musculoskeltal Medical History: Reports Hx Arthritis - psoriatic arthritis Skin Medical History: Reports Hx Psoriasis Psychiatric Medical History: Reports: Hx Anxiety, Hx Depression Past Surgical History: Reports: Hx Breast Surgery, Hx Cardiac Surgery - PULMONIC VALVULOPLASTY FOR PULM STENOSIS, Hx Section - X 2, Hx Mastectomy - RIGHT PARTIAL MASTECTOMY 1999, WITH LYMPH NODE DISSECTION, Hx Vascular Surgery - Pulmonary valvuloplasty - Immunizations Hx Diphtheria, Pertussis, Tetanus Vaccination: No Review of Systems - Review of Systems Constitutional: No symptoms reported EENT: No symptoms reported Cardiovascular: No symptoms reported Respiratory: Short of breath Gastrointestinal: No symptoms reported Genitourinary: No symptoms reported Female Genitourinary: No symptoms reported Musculoskeletal: No symptoms reported Skin: No symptoms reported Hematologic/Lymphatic: No symptoms reported Neurological/Psychological: No symptoms reported -: Yes All other systems reviewed and negative Physical Exam - Vital signs Vitals: Temp Pulse Resp BP Pulse Ox 98.2 F 93 16 123/85 94 08/26/17 16:22 08/26/17 16:22 08/26/17 16:22 08/26/17 16:22 08/26/17 16:22 Interpretation: Normal - General General appearance: Appears well, Alert - HEENT Head: Normocephalic, Atraumatic Eyes: Normal Pupils: PERRL - Respiratory Respiratory status: No respiratory distress Chest status: Nontender Breath sounds: Rhonchi, Wheezing Chest palpation: Normal - Cardiovascular Rhythm: Regular Heart sounds: Normal auscultation Murmur: No - Abdominal Inspection: Normal Distension: No distension Bowel sounds: Normal Tenderness: Nontender Organomegaly: No organomegaly - Back Back: Normal, Nontender - Extremities General upper extremity: Normal inspection, Nontender, Normal color, Normal ROM , Normal temperature General lower extremity: Normal inspection, Nontender, Normal color, Normal ROM , Normal temperature, Normal weight bearing. No: Mookie's sign - Neurological Neuro grossly intact: Yes Cognition: Normal Orientation: AAOx4 [place] Coma Scale Eye Opening: Spontaneous [place] Coma Scale Verbal: Oriented [place] Coma Scale Motor: Obeys Commands Lambert Coma Scale Total: 15 Speech: Normal Motor strength normal: LUE, RUE, LLE, RLE Sensory: Normal - Psychological Associated symptoms: Normal affect, Normal mood - Skin Skin Temperature: Warm Skin Moisture: Dry Skin Color: Normal Course - Re-evaluation Re-evalutation: 08/26/17 23:46 Chest x-ray CTA of the chest did not reveal any signs of pneumothorax or pulmonary embolism. Patient has bullous emphysema. Possibility that on Fridays x-ray this was mistaken for a possible collapse of the lung or pneumothorax. With the patient's change in sputum more likely patient has underlying bronchitis. Because the patient's history of significant emphysema chronic O2 use we will go ahead and treat the patient with azithromycin and prednisone and bronchodilators. Patient states she will continue bronchodilator therapy at home prednisone versus Zithromax was given I did contact Dr. Lerma and inform him of our results. - Vital Signs Vital signs: Temp Pulse Resp BP Pulse Ox 97.7 F 93 20 112/57 L 96 08/26/17 19:30 08/26/17 16:22 08/26/17 19:24 08/26/17 19:25 08/26/17 19:24 - Laboratory Result Diagrams: 08/26/17 17:05 08/26/17 17:05 Laboratory results interpreted by me: 08/26/17 08/26/17 17:05 17:05 Hgb 11.8 L Hct 35.2 L Est GFR (Non-Af Amer) 59 L Direct Bilirubin 0.5 H Discharge - Discharge Clinical Impression: Bullous emphysema, Bronchitis Condition: Good Disposition: HOME, SELF-CARE Instructions: Bronchitis ([facility]), Chest Wall Pain ([facility]) Additional Instructions: Your chest x-ray and CAT scan of the chest does not show any signs of lung collapse nor does show signs of a pulmonary embolism. With recent change in sputum do believe you have underlying bronchitis we will switch in treatment of steroids prednisone antibiotic Zithromax please continue your inhalers at home. Follow-up with your primary care physician. Return to the ER for any concerning issues. Prescriptions: Acetaminophen with Codeine [Tylenol #3 Tablet] 1 each PO Q6HP PRN #14 tablet PRN Reason: Azithromycin [Zithromax] 250 mg PO DAILY #4 tablet Prednisone [Deltasone] 60 mg PO DAILY 4 Days tablet
[2017-08-26 19:35] VITALS: BP 112/57
--- NOTE | 2017-08-26 19:40 | EKG REPORT ---
SEVERITY:- NORMAL ECG - SINUS RHYTHM : Confirmed by: Thomas Contreras MD 26-Aug-2017 19:40:16
== END 2017-08-26 19:35 | disposition home or self-care (01) ==
LOC: ER 16:16
DX: J40 Bronchitis, not specified as acute or chronic (principal); J43.9 Emphysema, unspecified; Z99.81 Dependence on supplemental oxygen; F41.9 Anxiety disorder, unspecified; R06.02 Shortness of breath; F17.200 Nicotine dependence, unspecified, uncomplicated; Z91.040 Latex allergy status; Z91.030 Bee allergy status; Z87.01 Personal history of pneumonia (recurrent); Z85.3 Personal history of malignant neoplasm of breast
CPT/HCPCS: 93005; 99285; 36415; 85025; 80053; 84484; 71046; 71275; 93010; A9270 ×3; J7512

== ENCOUNTER → 2018-03-06 | Outpatient (CLI) | payer MEDICAID, MEDICARE ==
--- NOTE | 2018-03-06 10:53 | RADIOLOGY REPORT (SQ) ---
EXAM DESCRIPTION: CT ABD/PELVIS WITH IV ORAL COMPLETED DATE/TIME: 03/06/2018 8:44 am REASON FOR STUDY: GENERALIZED INTRA ABDOMINAL AND PELVIC SWELLING R10.30 LOWER ABDOMINAL PAIN, UNSP ECIFIED R19.07 GENERALIZED INTRA-ABD AND PELVIC SWELLING, MASS AND L Z85.3 PERSONAL HISTORY OF SIDDHARTHA GNANT NEOPLASM OF BREAST COMPARISON: CT chest 08/26/2017 TECHNIQUE: CT scan of the abdomen and pelvis performed using helical scanning technique with dynamic intravenous contrast injection. Patient drank oral contrast. Images reviewed with lung, soft tissue , and bone windows. Reconstructed coronal and sagittal MPR images reviewed. Delayed images for evalua tion of the urinary system also acquired. All images stored on PACS. All CT scanners at this facility use dose modulation, iterative reconstruction, and/or weight based d osing when appropriate to reduce radiation dose to as low as reasonably achievable (ALARA). [facility]: Dose Right [facility]: CareDose [facility]: Dose Right [facility]: Teradose 4D [facility]: [employer] CONTRAST TYPE AND DOSE: contrast/concentration: Isovue 350.00 mg/ml; Total Contrast Delivered: 100.0 ml; Total Saline Delivered: 72.0 ml RENAL FUNCTION: Creatinine 0.8 RADIATION DOSE: CT Rad equipment meets quality standard of care and radiation dose reduction techniq ues were employed. CTDIvol: 24.8 - 28.8 mGy. DLP: 2796 mGy-cm.. LIMITATIONS: None. FINDINGS: LOWER CHEST: No significant findings. No nodules or infiltrates. LIVER: Normal size. No masses. No dilated ducts. SPLEEN: Normal size. No focal lesions. PANCREAS: No masses. No significant calcifications. No adjacent inflammation or peripancreatic fluid collections. Pancreatic duct not dilated. GALLBLADDER: No identified stones by CT criteria. No inflammatory changes to suggest cholecystitis. ADRENAL GLANDS: No significant masses or asymmetry. RIGHT KIDNEY AND URETER: No solid masses. No significant calcifications. No hydronephrosis or hyd roureter. LEFT KIDNEY AND URETER: No solid masses. No significant calcifications. No hydronephrosis or hydr oureter. AORTA AND VESSELS: No aneurysm. No dissection. Renal arteries, SMA, celiac without stenosis. RETROPERITONEUM: No retroperitoneal adenopathy, hemorrhage or masses. BOWEL AND PERITONEAL CAVITY: No masses or inflammatory changes. No free fluid or peritoneal masses. APPENDIX: Normal. PELVIS: No mass. No free fluid. Normal bladder. Normal size uterus and ovaries. Endometrial stripe on sagittal image number 54 is 16 mm in thickness, abnormally thickened for postmenopausal female. Endometrial hyperplasia or neoplasia could be present. ABDOMINAL WALL: No masses. No hernias. BONES: No significant or acute findings. OTHER: No other significant finding. IMPRESSION: No CT evidence of bowel obstruction. No CT findings to explain history of right upper q uadrant pain. Incidental finding of a thickened abnormal endometrium, which could reflect endometrial hyperplasia o r neoplasia. TECHNICAL DOCUMENTATION: JOB ID: [id number] Quality ID # [id number]: Final reports with documentation of one or more dose reduction techniques (e.g., Au tomated exposure control, adjustment of the mA and/or kV according to patient size, use of iterative reconstruction technique) 2010 [employer]- All Rights Reserved Reading location - IP/workstation name: [email or web address]
== END ==
LOC: RAD 07:53
PROVIDERS: ATTEND Physician Assistant Medical
DX: R10.30 Lower abdominal pain, unspecified (principal); R19.07 Generalized intra-abdominal and pelvic swelling, mass and lump; Z85.3 Personal history of malignant neoplasm of breast
CPT/HCPCS: 74177; 82565

== ENCOUNTER 2018-04-30 10:48 | Inpatient (IN) | payer MEDICARE, MEDICAID ==
[2018-04-30] MEDS ORDERED: NORMAL SALINE 1000 ML 1,000 ML IV ONE ×2 (11:06→13:16)
--- NOTE | 2018-04-30 11:06 | ER Document Report ---
ED Medical Screen (RME) - General Chief Complaint: High Blood Sugar Stated Complaint: BLOOD SUGAR ISSUES Time Seen by Provider: 04/30/18 11:06 Notes: Patient is a 57-year-old female with diabetes and COPD that presents to the emergency department for chief complaint of high blood sugar, noted in her medical parasitologist office. She does note she is been more short of breath recently as well. She was recently started on Metformin, for diabetes, she states several weeks ago she was given prednisone, and she thinks that is what triggered her higher blood glucose levels. ROS: Other than noted above, the 12 point review of systems was reviewed with the patient and were negative, all pertinent findings are included in the HPI. PHYSICAL EXAMINATION: Vital signs reviewed. GENERAL: Ill-appearing female, but in no immediate distress. HEAD: Atraumatic, normocephalic. EYES: Pupils equal round extraocular movements intact, conjunctiva are normal. ENT: Nares patent NECK: Normal range of motion CV: Heart rate tachycardic, regular rhythm LUNGS: No respiratory distress, on O2, no wheezing or rhonchi or rales Musculoskeletal: Normal range of motion NEUROLOGICAL: Normal speech PSYCH: Normal mood, normal affect. MDM: Patient seen and examined for rapid initial assessment. Vital signs reviewed. A comprehensive ED assessment and evaluation of the patient, analysis of test results and completion of the medical decision making process will be conducted by additional ED providers. *Note is created using voice recognition software and may contain spelling, syntax or grammatical errors. TRAVEL OUTSIDE OF THE [place] IN LAST 30 DAYS: No - Related Data Allergies/Adverse Reactions: latex [Latex] Allergy (Mild, Verified 07/10/17 07:32) rash Bees Allergy (Severe, Uncoded 05/15/14 18:26) Facial Edema Past Medical History - Past Medical History Cardiac Medical History: Denies: Hx Coronary Artery Disease, Hx Heart Attack, Hx Hypercholesterolemia , Hx Hypertension Pulmonary Medical History: Reports: Hx Bronchitis, Hx COPD - pulmonary stenosis , Hx Pneumonia Denies: Hx Asthma Neurological Medical History: Denies: Hx Cerebrovascular Accident, Hx Seizures Endocrine Medical History: Denies: Hx Diabetes Mellitus Type 1, Hx Diabetes Mellitus Type 2 Renal/ Medical History: Denies: Hx Peritoneal Dialysis Malignancy Medical History: Reports: Hx Breast Cancer Musculoskeltal Medical History: Reports Hx Arthritis - psoriatic arthritis Skin Medical History: Reports Hx Psoriasis Psychiatric Medical History: Reports: Hx Anxiety, Hx Depression Past Surgical History: Reports: Hx Breast Surgery, Hx Cardiac Surgery - PULMONIC VALVULOPLASTY FOR PULM STENOSIS, Hx Section - X 2, Hx Mastectomy - RIGHT PARTIAL MASTECTOMY 1999, WITH LYMPH NODE DISSECTION, Hx Vascular Surgery - Pulmonary valvuloplasty - Immunizations Hx Diphtheria, Pertussis, Tetanus Vaccination: No History of Influenza Vaccine for 02/2017 - 07/2017 Season: Yes Influenza Administration Date for 02/2017 - 07/2017 Season: 02/17/17 Doctor's Discharge - Discharge Referrals: ALMA SHERMAN PA-C [Primary Care Provider] - Follow up as needed
[2018-04-30 11:36] LABS: ABSOLUTE EOSINOPHILS # (AUTO) 0.1 10^3/uL (0.0-0.6); ABSOLUTE LYMPHOCYTES (AUTO) 1.4 10^3/uL (0.5-4.7); ABSOLUTE MONOCYTES (AUTO) 0.7 10^3/uL (0.1-1.4); ABSOLUTE NEUT (AUTO) 7.9 10^3/uL (1.7-8.2); BASOPHILS % (AUTO) 0.2 % (0-2); EOSINOPHILS % (AUTO) 1.1 % (0-6); HEMATOCRIT 39.4 % (36.0-47.0); HEMOGLOBIN 13.3 g/dL (12.0-15.5); LYMPHOCYTES % (AUTO) 14.2 % (13-45); MEAN CORPUSCULAR HEMOGLOBIN 28.2 pg (27.0-33.4); MEAN CORPUSCULAR HGB CONC 33.7 g/dL (32.0-36.0); MEAN CORPUSCULAR VOLUME 84 fl (80-97); MONOCYTES % (AUTO) 7.2 % (3-13); PLATELET COUNT 355 10^3/uL (150-450); RED CELL DISTRIBUTION WIDTH 14.1 % (11.5-14.0); SEGMENTED NEUTROPHILS % (AUTO) 77.3 % (42-78); TOTAL CELLS COUNTED % (AUTO) 100 %; WHITE BLOOD COUNT 10.2 10^3/uL (4.0-10.5)
[2018-04-30 11:37] LABS: VENOUS BLOOD BASE EXCESS 4.6 mmol/L; VENOUS BLOOD HCO3 29.1 mmol/L (20-32); VENOUS BLOOD PCO2 43.1 mmHg (35-63); VENOUS BLOOD PH 7.45 (7.30-7.42)
--- NOTE | 2018-04-30 12:18 | RADIOLOGY REPORT (SQ) ---
EXAM DESCRIPTION: CHEST 2 VIEWS COMPLETED DATE/TIME: 04/30/2018 12:11 pm REASON FOR STUDY: shortness of breath COMPARISON: 08/26/2017 EXAM PARAMETERS: NUMBER OF VIEWS: two views TECHNIQUE: Digital Frontal and Lateral radiographic views of the chest acquired. RADIATION DOSE: NA LIMITATIONS: none FINDINGS: LUNGS AND PLEURA: There chronic changes in the left base. No consolidation or effusions. No pneumothorax. Probable pleural thickening in the right upper lobe which is unchanged as well. MEDIASTINUM AND HILAR STRUCTURES: No masses or contour abnormalities. HEART AND VASCULAR STRUCTURES: Heart normal size. No evidence for failure. BONES: No acute findings. HARDWARE: None in the chest. OTHER: No other significant finding. IMPRESSION: Chronic pleural and parenchymal changes in the right upper lobe and left base. No acute findings. TECHNICAL DOCUMENTATION: JOB ID: [id number] [employer]- All Rights Reserved Reading location - IP/workstation name: [email or web address]
--- NOTE | 2018-04-30 12:31 | ER Document Report ---
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 She had a scheduled appointment today and found her blood sugar was reading high on the glucometer so she was sent here. Patient says that she feels "like crap", tired and dizzy, drinking fluids insatiably. She has been nauseated and vomited once 3 or 4 days ago. Has been feeling short of breath as well. History of COPD. No recent illness or fevers. TRAVEL OUTSIDE OF THE [place] IN LAST 30 DAYS: No - Related Data Allergies/Adverse Reactions: latex [Latex] Allergy (Mild, Verified 07/10/17 07:32) rash Bees Allergy (Severe, Uncoded 05/15/14 18:26) Facial Edema Past Medical History - Social History Smoking Status: Former Smoker - Stopped 2 years ago. Chew tobacco use (# tins/day): No Frequency of alcohol use: None Drug Abuse: None Family History: Reviewed & Not Pertinent Patient has suicidal ideation: No Patient has homicidal ideation: No Pulmonary Medical History: Reports: Hx Bronchitis, Hx COPD - pulmonary stenosis , Hx Pneumonia Endocrine Medical History: Reports: Hx Diabetes Mellitus Type 2 Malignancy Medical History: Reports: Hx Breast Cancer Musculoskeletal Medical History: Reports Hx Arthritis - psoriatic arthritis Skin Medical History: Reports Hx Psoriasis Psychiatric Medical History: Reports: Hx Anxiety, Hx Depression Past Surgical History: Reports: Hx Breast Surgery, Hx Cardiac Surgery - PULMONIC VALVULOPLASTY FOR PULM STENOSIS, Hx Section - X 2, Hx Mastectomy - RIGHT PARTIAL MASTECTOMY 1999, WITH LYMPH NODE DISSECTION, Hx Vascular Surgery - Pulmonary valvuloplasty - Immunizations Hx Diphtheria, Pertussis, Tetanus Vaccination: No Review of Systems - Review of Systems Notes: REVIEW OF SYSTEMS: CONSTITUTIONAL : Denies fever. EENT: Denies eye, ear, nose or mouth or throat pain or other symptoms. CARDIOVASCULAR: Denies chest pain. Mild swelling of her legs. RESPIRATORY: Says she has had shortness of breath. GASTROINTESTINAL: Has had some nausea and vomited once.. GENITOURINARY: Denies difficulty or painful urinating, urinary frequency, blood in urine. MUSCULOSKELETAL: Denies back or neck pain. Denies joint pain or swelling. Negative Homans bilaterally. SKIN: Denies rash or skin lesions. NEUROLOGICAL: Denies LOC or altered mental status. Denies headache. Denies sensory loss or motor deficits. ALL OTHER SYSTEMS REVIEWED AND NEGATIVE. Physical Exam - Vital signs Interpretation: Normal Notes: PHYSICAL EXAMINATION: GENERAL: Well-appearing, in no acute distress. On O2 by nasal cannula HEAD: Atraumatic, normocephalic. EYES: Pupils equal round and reactive to light, extraocular movements intact. ENT: oropharynx clear without exudates. Moist mucous membranes. NECK: Normal range of motion, supple. LUNGS: Breath sounds clear and equal bilaterally. HEART: Regular rate and rhythm without murmurs. ABDOMEN: Soft, nontender. No guarding or rebound. No masses. BACK: No tenderness throughout entire back. EXTREMITIES: Normal range of motion without pain. Negative Homans bilaterally. Only trace pitting edema of either lower leg. NEUROLOGICAL: Normal speech, normal gait. Normal sensory, motor, and reflex exams. Awake, alert, and oriented x3. Cranial nerves normal. PSYCH: Normal mood, normal affect. SKIN: Warm, dry, no rashes. Course - Re-evaluation Re-evalutation: 04/30/18 13:35 Patient's blood sugar came back at 643. Her sodium and chloride are also low. She is not in ketoacidosis, however. Spoke with the hospitalist who will admit the patient to [facility] to manage her blood sugar. Has had 1 L of saline infused and a second liter hung. Insulin drip will be started. - Laboratory Result Diagrams: 04/30/18 11:17 04/30/18 12:11 Laboratory results interpreted by me: 04/30/18 04/30/18 04/30/18 11:17 11:17 12:11 RDW 14.1 H VBG pH 7.45 H Sodium 129.5 L Chloride 85 L Glucose 643 H* AST 37 H Alkaline Phosphatase 185 H Urine Glucose (UA) 04/30/18 12:11 RDW VBG pH Sodium Chloride Glucose AST Alkaline Phosphatase Urine Glucose (UA) >=500 H - Diagnostic Test Radiology results interpreted by me: 04/30/18 13:38 Chest x-ray shows chronic changes in the right upper lung and left lower lung regions. Nothing acute, according to the radiologist. - EKG Interpretation by Dc EKG shows normal: Sinus rhythm Rate: Normal Rhythm: NSR Additional EKG results interpreted by me: 04/30/18 13:39 EKG is normal. Critical Care Note - Critical Care Note Total time excluding time spent on procedures (mins): 35 Discharge - Discharge Clinical Impression: Hyperglycemia, Hyponatremia Condition: Stable Disposition: ADMITTED INPATIENT Admitting Provider: Hospitalist Unit Admitted: IMCU Referrals: ALMA SHERMAN PA-C [NO LOCAL MD] - Follow up as needed
[2018-04-30 12:46] LABS: ALANINE AMINOTRANSFERASE 45 U/L (9-52); ALBUMIN 4.4 g/dL (3.5-5.0); ALKALINE PHOSPHATASE 185 U/L (38-126); ANION GAP 16 (5-19); ASPARTATE AMINO TRANSFERASE 37 U/L (14-36); BILIRUBIN,DIRECT 0.4 mg/dL (0.0-0.4); BILIRUBIN,TOTAL 0.9 mg/dL (0.2-1.3); BLOOD UREA NITROGEN 20 mg/dL (7-20); CALCIUM 9.7 mg/dL (8.4-10.2); CARBON DIOXIDE 29 mmol/L (22-30); CHLORIDE 85 mmol/L (98-107); LIPASE 228.8 U/L (23-300); POTASSIUM 4.1 mmol/L (3.6-5.0); SODIUM 129.5 mmol/L (137-145); TOTAL PROTEIN 7.6 g/dL (6.3-8.2)
[2018-04-30 12:59] LABS: GLUCOSE 643 mg/dL (75-110)
[2018-04-30 13:25] LABS: APPEARANCE,URINE CLEAR; BILIRUBIN,URINE NEGATIVE (NEGATIVE); COLOR,URINE COLORLESS; GLUCOSE, URINE >=500 mg/dL (NEGATIVE); KETONES,URINE NEGATIVE (NEGATIVE); LEUKOCYTE ESTERASE,URINE NEGATIVE (NEGATIVE); NITRITE,URINE NEGATIVE (NEGATIVE); PROTEIN,URINE NEGATIVE (NEGATIVE); URINE SPECIFIC GRAVITY 1.016; UROBILINOGEN,URINE NEGATIVE mg/dL (<2.0)
[2018-04-30] MEDS ORDERED: INSULIN REG, HUMAN 100 UNIT/ML 3 ML VIAL (PYX) IV ONE ×2 (13:36→16:00)
[2018-04-30] MEDS ORDERED: NORMAL SALINE 1000 ML 1,000 ML IV PRN (13:56)
[2018-04-30] MEDS ORDERED: ONDANSETRON 4 MG TAB.RAPDIS PO PRN (13:56)
[2018-04-30] MEDS ORDERED: DEXTROSE 40% GEL 15 GM TUBE PO PRN ×2 (14:06)
[2018-04-30] MEDS ORDERED: GLUCAGON,HUMAN RECOMB 1 MG INJ IM PRN (14:06)
[2018-04-30] MEDS ORDERED: DEXTROSE 50%-WATER 25 GM/50 ML DISP.SYRIN IV PRN ×2 (14:06)
[2018-04-30] MEDS: NORMAL SALINE 100 ML with INSULIN REGULAR, HUMAN 100 UNIT IV PRN ×4 (14:23→15:33)
[2018-04-30] MEDS: HEPARIN SOD (PORCINE) 5,000 UNIT/ML 1 ML SYRINGE SUBCUT SCH ×2 (14:41→22:03)
[2018-04-30] MEDS ORDERED: ALPRAZOLAM 0.5 MG TABLET PO ONE (15:00)
[2018-04-30] MEDS ORDERED: ALBUTEROL SULFATE HFA (90 MCG/PUFF) 200 PUFF/8.5 GM MDI IH PRN (15:25)
--- NOTE | 2018-04-30 15:25 | PDOC H&P ---
History of Present Illness Admission Date/PCP: 04/30/18 13:55 Dr. 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 History of Present Illness: SHAHAB MONROE is a 57 year old female with a past medical history of diabetes mellitus type II and oxygen-dependent chronic obstructive pulmonary disease. 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 Patient says that she was discovered to be diabetic about a month to 2 ago and was started on metformin 500 mg daily. The patient had a scheduled appointment today and found her blood sugar was reading high on the glucometer so she was sent here. Patient says that she feels "like crap", tired and dizzy , drinking fluids insatiably. She has been nauseated and vomited once 3 or 4 days ago. No recent illness or fevers. While in the emergency department, the patient was found to have a blood glucose greater than 600 and so the patient was referred to the hospitalist for admission and management. 04/30/18 12:11 Sodium 129.5 L Glucose 643 H* Past Medical History Cardiac Medical History: Reports: Congestive Heart Failure - Diastolic, Other - Pulmonic stenosis Pulmonary Medical History: Reports: Bronchitis, Chronic Obstructive Pulmonary Disease (COPD) - pulmonary stenosis, Pneumonia Endocrine Medical History: Reports: Diabetes Mellitus Type 2 Malignancy Medical History: Reports: Breast Cancer Musculoskeltal Medical History: Reports: Arthritis - psoriatic arthritis Skin Medical History: Reports: Psoriasis Psychiatric Medical History: Reports: Depression Past Surgical History Past Surgical History: Reports: Section - X 2, Mastectomy - RIGHT PARTIAL MASTECTOMY 1999, WITH LYMPH NODE DISSECTION, Vascular Surgery - Pulmonary valvuloplasty Social History Information Source: Patient Lives with: Family Smoking Status: Former Smoker - Stopped 2 years ago. Frequency of Alcohol Use: None Hx Recreational Drug Use: No Drugs: None Hx Prescription Drug Abuse: No - Advance Directive Resuscitation Status: Full Code Surrogate healthcare decision maker:: Vijay Dang [phone] Family History Family History: COPD, DM, Malignancy Parental Family History Reviewed: Yes Children Family History Reviewed: Yes Sibling(s) Family History Reviewed.: Yes Medication/Allergy Home Medications: Acetaminophen [Tylenol 325 mg Tablet] 650 mg PO Q4HP PRN 04/30/18 Albuterol Sulfate [Proair HFA Inhalation Aerosol 8.5 gm MDI] 2 puff IH Q6HP PRN 04/30/18 Alprazolam [Xanax] 1 mg PO BIDP PRN 04/30/18 Atorvastatin Calcium [Lipitor 40 mg Tablet] 40 mg PO QHS 04/30/18 Benzonatate [Tessalon Perle 100 mg Capsule] 100 mg PO TIDP PRN 04/30/18 Fluticasone/Vilanterol [Breo Ellipta 100-25 Mcg INH] 1 puff IH DAILY 04/30/18 Metformin HCl [Glucophage 500 mg Tablet] 500 mg PO QPM 04/30/18 Metolazone [Zaroxolyn 2.5 mg Tablet] 2.5 mg PO MOWE 04/30/18 Metoprolol Succinate [Toprol Xl 25 mg Tab.sr] 25 mg PO NOON 04/30/18 Nystatin [Mycostatin 932461 Unit/1 ml Susp 60 ml Btl] 5 ml PO QIDX5D MDD SWISH AND SWALLOW 04/30/18 Pantoprazole Sodium [Protonix] 40 mg PO QPM 04/30/18 Spironolactone [Aldactone] 50 mg PO DAILY 04/30/18 Torsemide [Demadex 20 mg Tablet] 20 mg PO DAILY 04/30/18 Umeclidinium Mcgrath [Incruse Ellipta] 1 puff IH DAILY 04/30/18 Vortioxetine Hydrobromide [Trintellix] 20 mg PO DAILY 04/30/18 Allergies/Adverse Reactions: latex [Latex] Allergy (Mild, Verified 07/10/17 07:32) rash Bees Allergy (Severe, Uncoded 05/15/14 18:26) Facial Edema Review of Systems Constitutional: ABSENT: chills, fever(s), headache(s), weight gain, weight loss Eyes: ABSENT: visual disturbances Ears: ABSENT: hearing changes Cardiovascular: ABSENT: chest pain, dyspnea on exertion, edema, orthropnea, palpitations Respiratory: PRESENT: dyspnea. ABSENT: cough, hemoptysis Gastrointestinal: PRESENT: diarrhea, nausea, vomiting. ABSENT: abdominal pain, constipation, hematemesis, hematochezia Genitourinary: ABSENT: dysuria, hematuria Musculoskeletal: ABSENT: joint swelling Integumentary: ABSENT: rash, wounds Neurological: ABSENT: abnormal gait, abnormal speech, confusion, dizziness, focal weakness, syncope Psychiatric: ABSENT: anxiety, depression, homidical ideation, suicidal ideation Endocrine: ABSENT: cold intolerance, heat intolerance, polydipsia, polyuria Hematologic/Lymphatic: ABSENT: easy bleeding, easy bruising Physical Exam Vital Signs: Selected Entries 04/30/18 04/30/18 10:51 16:45 Temperature 97.7 F 97.7 F Pulse Rate 107 H 96 Respiratory 20 Rate Blood Pressure 145/85 H 124/75 Blood Pressure 105 Mean O2 Sat by Pulse 97 98 Oximetry General appearance: PRESENT: no acute distress, well-developed, well-nourished Head exam: PRESENT: atraumatic, normocephalic Eye exam: PRESENT: conjunctiva pink, EOMI, PERRLA. ABSENT: scleral icterus Ear exam: PRESENT: normal external ear exam Mouth exam: PRESENT: moist, tongue midline Neck exam: ABSENT: carotid bruit, JVD, lymphadenopathy, thyromegaly Respiratory exam: PRESENT: clear to auscultation joseluis. ABSENT: rales, rhonchi, wheezes Cardiovascular exam: PRESENT: RRR. ABSENT: diastolic murmur, rubs, systolic murmur Pulses: PRESENT: normal dorsalis pedis pul Vascular exam: PRESENT: normal capillary refill GI/Abdominal exam: PRESENT: firm, normal bowel sounds, soft. ABSENT: guarding, mass, organolmegaly, rebound, tenderness Rectal exam: PRESENT: deferred Extremities exam: PRESENT: full ROM. ABSENT: calf tenderness, clubbing, pedal edema Neurological exam: PRESENT: alert, awake, oriented to person, oriented to place , oriented to time, oriented to situation, CN II-XII grossly intact. ABSENT: motor sensory deficit Psychiatric exam: PRESENT: anxious, appropriate affect, normal mood. ABSENT: homicidal ideation, suicidal ideation Skin exam: PRESENT: dry, intact, warm. ABSENT: cyanosis, rash Results Laboratory Results: Labs- Last Values WBC 10.2 10^3/uL (4.0-10.5) 04/30/18 11:17 RBC 4.70 10^6/uL (3.72-5.28) 04/30/18 11:17 Hgb 13.3 g/dL (12.0-15.5) 04/30/18 11:17 Hct 39.4 % (36.0-47.0) 04/30/18 11:17 MCV 84 fl (80-97) 04/30/18 11:17 MCH 28.2 pg (27.0-33.4) 04/30/18 11:17 MCHC 33.7 g/dL (32.0-36.0) 04/30/18 11:17 RDW 14.1 % (11.5-14.0) H 04/30/18 11:17 Plt Count 355 10^3/uL (150-450) 04/30/18 11:17 Seg Neutrophils % 77.3 % (42-78) 04/30/18 11:17 Lymphocytes % 14.2 % (13-45) 04/30/18 11:17 Monocytes % 7.2 % (3-13) 04/30/18 11:17 Eosinophils % 1.1 % (0-6) 04/30/18 11:17 Basophils % 0.2 % (0-2) 04/30/18 11:17 Absolute Neutrophils 7.9 10^3/uL (1.7-8.2) 04/30/18 11:17 Absolute Lymphocytes 1.4 10^3/uL (0.5-4.7) 04/30/18 11:17 Absolute Monocytes 0.7 10^3/uL (0.1-1.4) 04/30/18 11:17 Absolute Eosinophils 0.1 10^3/uL (0.0-0.6) 04/30/18 11:17 Absolute Basophils 0.0 10^3/uL (0.0-0.2) 04/30/18 11:17 VBG pH 7.45 (7.30-7.42) H 04/30/18 11:17 VBG pCO2 43.1 mmHg (35-63) 04/30/18 11:17 VBG HCO3 29.1 mmol/L (20-32) 04/30/18 11:17 VBG Base Excess 4.6 mmol/L 04/30/18 11:17 Sodium 129.5 mmol/L (137-145) L 04/30/18 12:11 Potassium 4.1 mmol/L (3.6-5.0) 04/30/18 12:11 Chloride 85 mmol/L (98-107) L 04/30/18 12:11 Carbon Dioxide 29 mmol/L (22-30) 04/30/18 12:11 Anion Gap 16 (5-19) 04/30/18 12:11 BUN 20 mg/dL (7-20) 04/30/18 12:11 Creatinine 0.84 mg/dL (0.52-1.25) 04/30/18 12:11 Est GFR ( Amer) > 60 (>60) 04/30/18 12:11 Est GFR (Non-Af Amer) > 60 (>60) 04/30/18 12:11 Glucose 643 mg/dL (75-110) H* 04/30/18 12:11 Calcium 9.7 mg/dL (8.4-10.2) 04/30/18 12:11 Total Bilirubin 0.9 mg/dL (0.2-1.3) 04/30/18 12:11 Direct Bilirubin 0.4 mg/dL (0.0-0.4) 04/30/18 12:11 Neonat Total Bilirubin Not Reportable 04/30/18 12:11 Neonat Direct Bilirubin Not Reportable 04/30/18 12:11 Neonat Indirect Bili Not Reportable 04/30/18 12:11 AST 37 U/L (14-36) H 04/30/18 12:11 ALT 45 U/L (9-52) 04/30/18 12:11 Alkaline Phosphatase 185 U/L (38-126) H 04/30/18 12:11 Troponin I < 0.012 ng/mL 04/30/18 11:17 Total Protein 7.6 g/dL (6.3-8.2) 04/30/18 12:11 Albumin 4.4 g/dL (3.5-5.0) 04/30/18 12:11 Lipase 228.8 U/L (23-300) 04/30/18 12:11 Urine Color COLORLESS 04/30/18 12:11 Urine Appearance CLEAR 04/30/18 12:11 Urine pH 5.0 (5.0-9.0) 04/30/18 12:11 Ur Specific [place] 1.016 04/30/18 12:11 Urine Protein NEGATIVE mg/dL (NEGATIVE) 04/30/18 12:11 Urine Glucose (UA) >=500 mg/dL (NEGATIVE) H 04/30/18 12:11 Urine Ketones NEGATIVE mg/dL (NEGATIVE) 04/30/18 12:11 Urine Blood NEGATIVE (NEGATIVE) 04/30/18 12:11 Urine Nitrite NEGATIVE (NEGATIVE) 04/30/18 12:11 Urine Bilirubin NEGATIVE (NEGATIVE) 04/30/18 12:11 Urine Urobilinogen NEGATIVE mg/dL (<2.0) 04/30/18 12:11 Ur Leukocyte Esterase NEGATIVE (NEGATIVE) 04/30/18 12:11 Urine WBC (Auto) 1 /HPF 04/30/18 12:11 Urine RBC (Auto) 1 /HPF 04/30/18 12:11 Squamous Epi Cells Auto 2 /HPF 04/30/18 12:11 Urine Mucus (Auto) RARE /LPF 04/30/18 12:11 Urine Ascorbic Acid NEGATIVE (NEGATIVE) 04/30/18 12:11 Impressions: Chest X-Ray 04/30/18 11:08 IMPRESSION: Chronic pleural and parenchymal changes in the right upper lobe and left base. No acute findings. Assessment & Plan - Diagnosis (1) Hyperglycemia without ketosis Is this a current diagnosis for this admission?: Yes Plan: Rapidly improving with hydration. Will continue to hydrate and forgo insulin gtt. Will start AC & HS accuchecks, A1C, and diabetic teaching. Will follow. 04/30/18 04/30/18 12:11 14:29 Glucose 643 H* POC Glucose 452 H* 04/30/18 04/30/18 04/30/18 11:17 11:17 12:11 WBC 10.2 VBG pH 7.45 H BUN 20 Urine Glucose (UA) Urine Ketones 04/30/18 12:11 Urine Glucose (UA) >=500 H Urine Ketones NEGATIVE (2) Hyponatremia Is this a current diagnosis for this admission?: Yes Plan: Secondary to #1. Will aggressively hydrate. (3) Diabetes mellitus type II, uncontrolled Qualifiers: Glycemic state: with hyperglycemia Qualified Code(s): E11.65 - Type 2 diabetes mellitus with hyperglycemia Is this a current diagnosis for this admission?: Yes Plan: Teaching (4) COPD (chronic obstructive pulmonary disease) Qualifiers: COPD type: chronic bronchitis Is this a current diagnosis for this admission?: Yes Plan: Home O2 dependent. Currently at baseline. (5) JODI (generalized anxiety disorder) Is this a current diagnosis for this admission?: Yes Plan: Continue home benzos for now. (6) Mitral regurgitation Qualifiers: Cardiac valve disease etiology: nonrheumatic Qualified Code(s): I34.0 - Nonrheumatic mitral (valve) insufficiency Is this a current diagnosis for this admission?: Yes (7) Psoriatic arthritis Is this a current diagnosis for this admission?: Yes (8) Pulmonic stenosis Qualifiers: Cardiac valve disease etiology: nonrheumatic Qualified Code(s): I37.0 - Nonrheumatic pulmonary valve stenosis Is this a current diagnosis for this admission?: Yes (9) Morbid obesity Is this a current diagnosis for this admission?: Yes - Time Time Spent: 50 to 70 Minutes Medications reviewed and adjusted accordingly: Yes Anticipated discharge: Home Within: within 48 hours - Inpatient Certification Based on my medical assessment, after consideration of the patient's comorbidities, presenting symptoms, or acuity I expect that the services needed warrant INPATIENT care.: Yes I certify that my determination is in accordance with my understanding of Medicare's requirements for reasonable and necessary INPATIENT services [42 CFR 412.3e].: Yes Medical Necessity: Failure to Improve With Outpatient Therapy, Need For IV Fluids, Risk of Complication if Not Cared For in Hospital Post Hospital Care: D/C or Transfer Summary
[2018-04-30] MEDS ORDERED: (PENDING PHARMACY ID) (Nystatin 5 ML) PO SCH (15:30)
[2018-04-30 16:16] LABS: ANION GAP 10 (5-19); BLOOD UREA NITROGEN 17 mg/dL (7-20); CALCIUM 8.6 mg/dL (8.4-10.2); CARBON DIOXIDE 29 mmol/L (22-30); CHLORIDE 95 mmol/L (98-107); POTASSIUM 3.6 mmol/L (3.6-5.0); SODIUM 133.7 mmol/L (137-145)
[2018-04-30 16:26] LABS: GLUCOSE 410 mg/dL (75-110)
[2018-04-30] MEDS ORDERED: POTASSIUM CHLORIDE 10 MEQ CAPSULE.ER PO ONE (17:00)
[2018-04-30] MEDS: METOPROLOL SUCCINATE 25 MG TAB.SR.24H PO SCH (17:25)
[2018-04-30] MEDS: LANSOPRAZOLE 30 MG TAB.RAP.DR PO SCH (18:01)
[2018-04-30] MEDS: NYSTATIN 500000 UNIT/5 ML UDCUP PO SCH ×2 (20:55→22:03)
--- NOTE | 2018-04-30 21:00 | EKG REPORT ---
SEVERITY:- NORMAL ECG - SINUS RHYTHM : Confirmed by: Kaylah Desouza MD 30-Apr-2018 20:59:38
[2018-04-30] MEDS ORDERED: INSULIN LISPRO 100 UNIT/ML 3 ML VIAL SUBCUT ONE (21:30)
[2018-04-30] MEDS: INSULIN LISPRO 100 UNIT/ML 3 ML VIAL SUBCUT PRN (22:04)
[2018-04-30] MEDS: ATORVASTATIN CALCIUM 40 MG TABLET PO SCH (22:04)
[2018-04-30] MEDS: ALPRAZOLAM 0.5 MG TABLET PO PRN (22:20)
[2018-05-01] MEDS ORDERED: ACETAMINOPHEN 325 MG TABLET PO PRN (03:28)
[2018-05-01] MEDS ORDERED: BENZONATATE 100 MG CAPSULE PO PRN (03:28)
[2018-05-01 05:26] LABS: HEMATOCRIT 35.5 % (36.0-47.0); MEAN CORPUSCULAR HEMOGLOBIN 28.1 pg (27.0-33.4); MEAN CORPUSCULAR HGB CONC 33.9 g/dL (32.0-36.0); MEAN CORPUSCULAR VOLUME 83 fl (80-97); PLATELET COUNT 281 10^3/uL (150-450); RED BLOOD COUNT 4.28 10^6/uL (3.72-5.28); WHITE BLOOD COUNT 7.2 10^3/uL (4.0-10.5)
[2018-05-01 05:42] LABS: ANION GAP 8 (5-19); BLOOD UREA NITROGEN 13 mg/dL (7-20); CALCIUM 8.5 mg/dL (8.4-10.2); CARBON DIOXIDE 27 mmol/L (22-30); CHLORIDE 102 mmol/L (98-107); GLUCOSE 304 mg/dL (75-110); SODIUM 136.7 mmol/L (137-145)
[2018-05-01] MEDS: ACETAMINOPHEN 325 MG TABLET PO PRN ×2 (06:07→14:58)
[2018-05-01] MEDS: INSULIN LISPRO 100 UNIT/ML 3 ML VIAL SUBCUT PRN ×3 (06:07→16:29)
[2018-05-01] MEDS: HEPARIN SOD (PORCINE) 5,000 UNIT/ML 1 ML SYRINGE SUBCUT SCH ×3 (06:07→21:20)
[2018-05-01] MEDS ORDERED: INSULIN GLARGINE,HUM.REC.ANLOG 1,000 UNIT/10 ML UNIT SUBCUT ONE (07:00)
[2018-05-01] MEDS: ALPRAZOLAM 0.5 MG TABLET PO PRN ×2 (08:02→21:21)
[2018-05-01] MEDS: TORSEMIDE 20 MG TABLET PO SCH (09:53)
[2018-05-01] MEDS: NYSTATIN 500000 UNIT/5 ML UDCUP PO SCH ×4 (09:54→21:21)
[2018-05-01] MEDS: SPIRONOLACTONE 25 MG TABLET PO SCH (09:54)
[2018-05-01] MEDS ORDERED: (PENDING PHARMACY ID) (Vortioxetine Hydrobromide [Trintellix] 20 MG) PO SCH (10:00)
[2018-05-01] MEDS ORDERED: (PENDING PHARMACY ID) (Fluticasone/Vilanterol [Breo Ellipta 100-25 Mcg Inh] 1 PUFF) IH SCH (10:00)
[2018-05-01] MEDS ORDERED: (PENDING PHARMACY ID) (Umeclidinium Bromide [Incruse Ellipta] 1 PUFF) IH SCH (10:00)
[2018-05-01] MEDS: METOPROLOL SUCCINATE 25 MG TAB.SR.24H PO SCH (12:25)
--- NOTE | 2018-05-01 14:07 | PROGRESS NOTE E ---
Progress Note NAME: SHAHAB MONROE : 1960 AGE: 57Y DATE: 05/01/2018 ROOM: 414 SUBJECTIVE: The patient is currently lying in bed. She states she feels much better today in comparison to yesterday. The patient denies any nausea, vomiting, diarrhea. No shortness of breath, dizziness, chest pain. No fevers, chills. The patient has been afebrile. Blood pressure has been in good range. The patient does not voice any other concerns at this time. REVIEW OF SYSTEMS: The rest of the review of systems is negative. MEDICATIONS: Reviewed. OBJECTIVE: GENERAL: The patient is a 57-year-old female, who is awake, alert and oriented to person, place, time and situation. She is verbal, conversational and does not appear to be in any acute distress. VITAL SIGNS: Temperature is 97.7, pulse 73, respirations 16, blood pressure 124/64, oxygen saturation 97% on room air. SKIN: Warm and dry. No rash, not diaphoretic. HEENT: Pupils equal, round, reactive to light and accommodation. Conjunctivae pink. No evidence of JVP. CVS: Heart is regular. No murmur or rub. CHEST: Clear, symmetric, unlabored. ABDOMEN: Soft, nontender, nondistended. BACK: No CVA tenderness or sacral edema. EXTREMITIES: No clubbing, cyanosis or edema. PSYCHIATRIC: Appropriate affect, pleasant mood. DIAGNOSTICS: Lab values are as follows: Hematology obtained on 05/01/2018: WBC 7.2, hemoglobin is 12.0, hematocrit 35.5, platelet count is 281,000. Chemistry obtained on 05/01/2018: Sodium is 136, potassium 4.0, chloride is 102, carbon dioxide 27, BUN 13, creatinine is 0.54, glucose 304. Calcium is 8.5. Magnesium is 1.9. IMPRESSION AND PLAN: 1. UNCONTROLLED DIABETES MELLITUS TYPE 2. I have started patient on basal dose of Lantus. A1c is pending. The patient has no evidence of ketosis. Will monitor the patient's glucose. The patient has received diet education as well as diabetes education. Will follow. 2. HYPONATREMIA, SECONDARY TO #1. The patient received 3 liters of saline. 3. CHRONIC OBSTRUCTIVE PULMONARY DISEASE. The patient is home O2-dependent, currently at her baseline. 4. GENERAL ANXIETY DISORDER. Continue home medication. 5. MITRAL REGURGITATION. 6. PSORIATIC ARTHRITIS. 7. PULMONARY STENOSIS. 8. MORBID OBESITY WITH A BMI OF 48. I have encouraged weight reduction. DISPOSITION: The patient is a FULL CODE. Pending patient's symptomatology and diagnostic findings, will reevaluate in the a.m. Time spent on this followup, including assessment, plan, physical examination, patient education and review of records, is 25 minutes. DICTATING PHYSICIAN: SHANNON KENT NP [id number] PHY#: [id number] ID: [id number] JOB#: [id number] ACCT: [id number] cc: >
[2018-05-01] MEDS: Vortioxetine Hydrobromide [Trintellix] 20 MG PO SCH (15:32)
[2018-05-01] MEDS: LANSOPRAZOLE 30 MG TAB.RAP.DR PO SCH (17:32)
[2018-05-01] MEDS: ATORVASTATIN CALCIUM 40 MG TABLET PO SCH (21:21)
[2018-05-02] MEDS: INSULIN LISPRO 100 UNIT/ML 3 ML VIAL SUBCUT PRN ×3 (02:52→12:55)
[2018-05-02] MEDS: HEPARIN SOD (PORCINE) 5,000 UNIT/ML 1 ML SYRINGE SUBCUT SCH ×2 (05:23→13:07)
[2018-05-02] MEDS: ALPRAZOLAM 0.5 MG TABLET PO PRN (09:08)
[2018-05-02] MEDS ORDERED: INSULIN GLARGINE,HUM.REC.ANLOG 300 UNIT/3 ML INSULN.PEN SUBCUT SCH (10:00)
[2018-05-02] MEDS ORDERED: INSULIN GLARGINE,HUM.REC.ANLOG 1,000 UNIT/10 ML UNIT SUBCUT SCH ×3 (10:00)
[2018-05-02] MEDS: TORSEMIDE 20 MG TABLET PO SCH (11:02)
[2018-05-02] MEDS: NYSTATIN 500000 UNIT/5 ML UDCUP PO SCH (11:03)
[2018-05-02] MEDS: SPIRONOLACTONE 25 MG TABLET PO SCH (11:03)
[2018-05-02] MEDS: Vortioxetine Hydrobromide [Trintellix] 20 MG PO SCH (11:08)
[2018-05-02] MEDS: METOPROLOL SUCCINATE 25 MG TAB.SR.24H PO SCH (13:13)
[2018-05-02 14:23] VITALS: BP 126/75
--- NOTE | 2018-05-03 22:32 | DISCHARGE SUMMARY E ---
Discharge Summary NAME: SHAHAB MONROE : 1960 AGE: 57Y ADMITTED: 04/30/2018 DISCHARGED: 05/02/2018 CODE STATUS: Full code. PRIMARY CARE PROVIDER: The patient will be referred to Dr. Quick. DISCHARGE DIAGNOSES: 1. Poorly controlled diabetes mellitus type 2. 2. Hyponatremia secondary to #1. 3. Chronic obstructive pulmonary disease. 4. General anxiety disorder. 5. Mitral regurgitation. 6. Psoriatic arthritis. 7. Pulmonary stenosis. 8. Morbid obesity with a BMI of 48. DISCHARGE MEDICATIONS: 1. Humalog sliding scale coverage a.c. and at bedtime. 2. Lantus 20 units sub-Q daily. 3. Trintellix 20 mg p.o. daily. 4. Ellipta 1 puff inhalation daily. 5. Torsemide 20 mg p.o. daily. 6. Aldactone 50 mg p.o. daily. 7. Protonix 40 mg p.o. q.p.m. 8. Toprol XL 25 mg p.o. daily at noon. 9. Zaroxolyn 2.5 mg p.o. Saturday and Saturday. 10. BREO 1 puff inhalation daily. 11. Tessalon Perles 100 mg p.o. t.i.d. p.r.n. 12. Lipitor 40 mg p.o. at hour of sleep. 13. Xanax 1 mg p.o. b.i.d. p.r.n. 14. ProAir HFA 2 puffs inhalation q.6 hours p.r.n. ACTIVITY: Recommend 45 minutes of cardiovascular activity most days of the week. DIET: Diabetic heart healthy. CONDITION: Fair. DIAGNOSTICS: Lab values are as follows - Hematology obtained on 05/01/2018; WBC is 10.2, hemoglobin is 12.0, hematocrit is 35.5, platelet count is 281,000. Venous blood gas obtained on 04/30/2018; pH 7.45, pCO2 of 43.1, bicarb is 29.1. Chemistry obtained on 05/01/2018; sodium is 136, potassium 4.0, chloride is 102, carbon dioxide 27, BUN 13, creatinine is 0.54, glucose is 304. A1c is 12.1. Calcium is 8.5, magnesium is 1.9, bilirubin 0.9, AST 37, ALT is 45, alk-phos 185. Troponin is 0.012. Total protein 7.6, albumin 4.4, lipase is 228.8. Urinalysis obtained on 04/30/2018; color - colorless, appears clear, pH is 5.0, specific gravity is 1.016, protein negative, glucose greater than 500, ketones negative, occult blood negative, nitrite negative, BILI negative, urobilinogen negative, leukocyte esterase negative, WBC is 1, RBC is 1. Chest x-ray obtained on 04/30/2018 revealed chronic pleural and parenchymal changes in the right upper lobe and left lung base. No acute findings. PHYSICAL EXAMINATION: GENERAL: On examination the patient is a well-developed, well-nourished, 57-year-old female who is awake, alert, and oriented to person, place, time, and situation. She is verbal, conversational, ambulatory, and does not appear to be in any acute distress. VITAL SIGNS: Temperature is 98.2, pulse 95, respirations 20, blood pressure is 126/75, oxygen saturation is 100% on 2 liters nasal cannula. SKIN: Warm and dry. No rash. She is not diaphoretic. HEENT: Pupils equal, round, reactive to light and accommodation. Conjunctivae pink. No evidence of JVP. CARDIOVASCULAR: Heart is regular. There is no murmur or rub. CHEST: Clear, symmetrical, unlabored. ABDOMEN: Soft, nontender, nondistended. BACK: No CVA tenderness, sacral edema. EXTREMITIES: No clubbing, cyanosis, or edema. PSYCHIATRIC: Appropriate affect, pleasant mood. HISTORY OF PRESENT ILLNESS: The patient is a 57-year-old female with a past medical history of diabetes mellitus type 2 that was diagnosed about a month ago by her senior svp. The patient said that about a month or 2 ago she had been started on metformin 500 mg daily. The patient stated that she initially had a little diarrhea with this but overall adapted to it. The patient stated that since [place] she has just felt absolutely run down. The patient describes herself as tired and constantly drinking water. The patient has been nauseated and vomited once about 2-3 days ago. The patient had no recent fevers, no illness. While in the emergency department the patient was found to have a glucose of 643 and a sodium of 129, and the patient was referred to the hospitalist for admission and management. HOSPITAL COURSE: The patient was admitted to the medical unit. The patient was hydrated 3 liters of fluids and the patient's appetite significantly improved. The patient did receive diabetes education both about diet as well as medication management. The patient was able to inject her insulin. During her stay she was taught how to prep her site and administer insulin. The patient's A1c was 12.1, therefore, she was started on basal insulin with sliding scale coverage until the patient's blood sugars could be better controlled and then can deescalate her coverage. The patient is in agreeance to this plan and the patient will be established with a new primary care provider. DISPOSITION: The patient is to follow up with her new primary care provider, Dr. Quick, within 1-2 weeks for hospital follow up. The patient is to follow with her senior svp as scheduled for follow up. TIME SPENT: On this discharge including assessment and plan, physical examination, patient education, review of records is 35 minutes. DICTATING PHYSICIAN: SHANNON KENT NP [id number] PHY#: [id number] ID: [id number] JOB#: [id number] ACCT: [id number] cc:La LOPEZ NP >
[2018-05-05] MEDS ORDERED: METOLAZONE 2.5 MG TABLET PO SCH (10:00)
== END 2018-05-02 14:44 | disposition home or self-care (01) | DRG 638 ==
LOC: ER 10:48 → EH 13:55 → 4N 20:00
PROVIDERS: ADMIT Family Medicine; ATTEND Family Medicine
DX: E11.65 Type 2 diabetes mellitus with hyperglycemia (principal); E87.1 Hypo-osmolality and hyponatremia; Z68.42 Body mass index [BMI] 45.0-49.9, adult; I50.32 Chronic diastolic (congestive) heart failure; J44.9 Chronic obstructive pulmonary disease, unspecified; F41.1 Generalized anxiety disorder; I34.0 Nonrheumatic mitral (valve) insufficiency; L40.50 Arthropathic psoriasis, unspecified; E66.01 Morbid (severe) obesity due to excess calories; F32.9 Major depressive disorder, single episode, unspecified; L40.9 Psoriasis, unspecified; I37.0 Nonrheumatic pulmonary valve stenosis; Z23 Encounter for immunization; Z79.899 Other long term (current) drug therapy; Z79.4 Long term (current) use of insulin; Z99.81 Dependence on supplemental oxygen; Z85.3 Personal history of malignant neoplasm of breast; Z90.11 Acquired absence of right breast and nipple; Z87.891 Personal history of nicotine dependence; Z91.030 Bee allergy status; Z91.040 Latex allergy status; Z83.6 Family history of other diseases of the respiratory system; Z83.3 Family history of diabetes mellitus; Z80.9 Family history of malignant neoplasm, unspecified
CPT/HCPCS: 36415; 71046; 80048; 80053; 81001; 82803; 82962; 83036; 83690; 83735; 84484; 85025; 85027; 90471; 90686; 93005; 93010; 96360; 99291; G0008; J1644; J1815; J3490; J7030

== ENCOUNTER → 2018-10-15 | Outpatient (CLI) | payer MEDICARE ==
--- NOTE | 2018-10-15 12:43 | RADIOLOGY REPORT (SQ) ---
EXAM DESCRIPTION: CT LUNG CANCER SCREENING COMPLETED DATE/TIME: 10/15/2018 9:32 am REASON FOR STUDY: HISTORY OF TOBACCO ABUSE Z87.891 PERSONAL HISTORY OF NICOTINE DEPENDENCE Has the patient had a Chest CT scan within the past year? No Was the patient offered tobacco cessation counseling? No Was the patient engaged in shared decision making for this test? Yes Does the patient have signs or symptoms of Lung Cancer? No Is the patient a smoker? No How many pack years? 65 How many years since quitting smoking? 2 years were Patients age: 58 COMPARISON: CT chest 08/26/2017, 09/30/2016 TECHNIQUE: Low Dose CT scan performed of the chest without intravenous contrast for purposes of scre ening for lung cancer. Images reviewed with lung, soft tissue and bone windows. Reconstructed coron al and sagittal MPR images reviewed. All images stored on PACS. All CT scanners at this facility use dose modulation, iterative reconstruction, and/or weight based d osing when appropriate to reduce radiation dose to as low as reasonably achievable (ALARA). [facility]: Dose Right [facility]: CareDose [facility]: Dose Right [facility]: Teradose 4D [facility]: Smart Technologies RADIATION DOSE: CT Rad equipment meets quality standard of care and radiation dose reduction techniq ues were employed. CTDIvol: NaN mGy. DLP: 0 mGy-cm. mGy. . LIMITATIONS: No technical limitations. FINDINGS: LUNG NODULES: Multiple subcentimeter ill-defined subpleural pulmonary nodules are present as follows: 5 to 6 mm ill-defined nodule right lung apex medially, axial image 81/490 7 mm ill-defined nodule right upper lobe laterally, axial image 176/490 6 mm ill-defined nodule medial right upper lobe axial image 187/490 6 mm ill-defined nodule right upper lobe near the minor fissure axial image 2006/490 REMAINING LUNGS AND PLEURA: Diffuse moderate obstructive lung disease. No pleural effusions or calc ifications. No pneumothorax. Linear bandlike scar, left upper lobe axial image 212/490. HILAR AND MEDIASTINAL STRUCTURES: No identified masses. No abnormal nodes. HEART AND VASCULAR STRUCTURES: No aortic aneurysm. No pericardial effusion. No cardiac devices. M arked enlargement of the main pulmonary artery is present, 4.6 cm in greatest transverse diameter CORONARY ARTERY CALCIFICATIONS: No significant calcifications. UPPER ABDOMEN, THYROID, BONES, OTHER SOFT TISSUES: Bilateral breast implants IMPRESSION: PROBABLY BENIGN FINDINGS IN THE LUNGS. Obstructive lung disease with pulmonary hypertension LUNGRADS: LUNGRADS: 3, PROBABLY BENIGN. PROBABLY BENIGN FINDING(S)- SHORT TERM FOLLOW UP SUGGESTED; INCLUDES NODULES WITH A LOW LIKELIHOOD OF BECOMING A CLINICALLY ACTIVE CANCER. MODIFIER: NONE. RECOMMENDATION: Followup LDCT in 6 months. COMMENT: CRITERIA: Solid nodule(s): ? 6 mm to < 8 mm at baseline OR new 4 mm to < 6 mm. Part solid nodule(s): ? 6 mm total diameter with solid component < 6 mm OR new < 6 mm total diameter . Non solid nodule(s) (GGN): ? [address] or new. TECHNICAL DOCUMENTATION: JOB ID: [id number] Quality ID # [id number]: Final reports with documentation of one or more dose reduction techniques (e.g., Au tomated exposure control, adjustment of the mA and/or kV according to patient size, use of iterative reconstruction technique) 2010 [facility] Radiology Reading location - IP/workstation name: [email or web address]
== END ==
LOC: RAD 09:22
PROVIDERS: ATTEND Internal Medicine Pulmonary Disease
DX: Z12.2 Encounter for screening for malignant neoplasm of respiratory organs (principal); Z87.891 Personal history of nicotine dependence
CPT/HCPCS: G0297

== ENCOUNTER → 2018-12-11 | Outpatient (CLI) | payer MEDICARE ==
--- NOTE | 2018-12-11 12:08 | WOMENS IMAGING REPORT ---
EXAM DESCRIPTION: 3D SCREENING MAMMO BILAT COMPLETED DATE/TIME: 12/11/2018 11:03 am REASON FOR STUDY: Z12.31 ROUTINE 3D BILATERAL SCREENING Z12.31 ENCNTR SCREEN MAMMOGRAM FOR MALIGNAN T NEOPLASM OF ZACK COMPARISON: 02/29/2016 and 09/15/2014. EXAM PARAMETERS: Standard craniocaudal and mediolateral oblique views of each breast recorded using digital acquisition and breast tomosynthesis. Additional "push-back craniocaudal and mediolateral ob lique images acquired. Read with the assistance of CAD. .[facility] - R2 Neurosurgery Physician Version 9.2 LIMITATIONS: None. FINDINGS: IMPLANTS: Bilateral subpectoral implants. Findings present which are benign by mammographic criteria. No suspicious masses, calcifications or a rchitectural distortion. Benign mammographic findings may include one or more of the following: Smooth masses, popcorn/rim/co arse calcifications, asymmetries, post-procedure changes, and lesions with long-standing stability. IMPRESSION: BENIGN MAMMOGRAPHIC FINDINGS. BIRADS 2 BREAST DENSITY: b. There are scattered areas of fibroglandular density. BIRAD: ASSESSMENT: 2 BENIGN FINDING(S) RECOMMENDATION: ROUTINE SCREENING COMMENT: The patient has been notified of the results by letter per MQSA requirements. Additional no tification policies are in place for contacting patient with suspicious or incomplete findings. Quality ID #225: The [employer] recommends an annual screening mammogram for women aged 40 years or over. This facility utilizes a reminder system to ensure that all patients receive reminder letters, and/or direct phone calls for appointments. This includes reminders for routine scr eening mammograms, diagnostic mammograms, or other Breast Imaging Interventions when appropriate. Th is patient will be placed in the appropriate reminder system. TECHNICAL DOCUMENTATION: FINDING NUMBER: (1) ASSESSMENT: (1) JOB ID: [id number] [employer]- All Rights Reserved Reading location - IP/workstation name: [email or web address]
== END ==
LOC: WI 10:41
PROVIDERS: ATTEND Physician Assistant
DX: Z12.31 Encounter for screening mammogram for malignant neoplasm of breast (principal)
CPT/HCPCS: 77063; 77067

== ENCOUNTER → 2019-01-29 | Outpatient (CLI) | payer MEDICARE, MEDICAID ==
--- NOTE | 2019-01-29 14:15 | RADIOLOGY REPORT (SQ) ---
EXAM DESCRIPTION: CHEST PA/LATERAL COMPLETED DATE/TIME: 01/29/2019 1:42 pm REASON FOR STUDY: COUGH COMPARISON: 04/30/2018 EXAM PARAMETERS: NUMBER OF VIEWS: two views TECHNIQUE: Digital Frontal and Lateral radiographic views of the chest acquired. RADIATION DOSE: NA LIMITATIONS: none FINDINGS: LUNGS AND PLEURA: Linear atelectasis in the left base. No infiltrate, effusion, or mass. MEDIASTINUM AND HILAR STRUCTURES: No masses or contour abnormalities. HEART AND VASCULAR STRUCTURES: Heart normal size. No evidence for failure. BONES: No acute findings. HARDWARE: None in the chest. OTHER: No other significant finding. IMPRESSION: No significant cardiopulmonary findings. No interval change. TECHNICAL DOCUMENTATION: JOB ID: [id number] [employer]- All Rights Reserved Reading location - IP/workstation name: [email or web address]
[2019-01-29 14:23] LABS: ABSOLUTE BASOPHILS # (AUTO) 0.1 10^3/uL (0.0-0.2); ABSOLUTE EOSINOPHILS # (AUTO) 0.2 10^3/uL (0.0-0.6); ABSOLUTE LYMPHOCYTES (AUTO) 1.3 10^3/uL (0.5-4.7); ABSOLUTE MONOCYTES (AUTO) 0.5 10^3/uL (0.1-1.4); ABSOLUTE NEUT (AUTO) 6.8 10^3/uL (1.7-8.2); BASOPHILS % (AUTO) 0.8 % (0-2); EOSINOPHILS % (AUTO) 2.7 % (0-6); HEMATOCRIT 36.8 % (36.0-47.0); HEMOGLOBIN 12.5 g/dL (12.0-15.5); LYMPHOCYTES % (AUTO) 14.9 % (13-45); MEAN CORPUSCULAR HEMOGLOBIN 28.3 pg (27.0-33.4); MEAN CORPUSCULAR VOLUME 83 fl (80-97); MONOCYTES % (AUTO) 5.6 % (3-13); PLATELET COUNT 348 10^3/uL (150-450); RED BLOOD COUNT 4.43 10^6/uL (3.72-5.28); RED CELL DISTRIBUTION WIDTH 14.4 % (11.5-14.0); TOTAL CELLS COUNTED % (AUTO) 100 %; WHITE BLOOD COUNT 8.9 10^3/uL (4.0-10.5)
[2019-01-29 14:41] LABS: ALBUMIN 4.4 g/dL (3.5-5.0); ALKALINE PHOSPHATASE 131 U/L (38-126); ANION GAP 12 (5-19); ASPARTATE AMINO TRANSFERASE 18 U/L (14-36); BILIRUBIN,DIRECT 0.1 mg/dL (0.0-0.4); BILIRUBIN,TOTAL 0.5 mg/dL (0.2-1.3); BLOOD UREA NITROGEN 25 mg/dL (7-20); CALCIUM 9.9 mg/dL (8.4-10.2); CARBON DIOXIDE 29 mmol/L (22-30); CHLORIDE 95 mmol/L (98-107); GLUCOSE 271 mg/dL (75-110); POTASSIUM 3.9 mmol/L (3.6-5.0); TOTAL PROTEIN 7.4 g/dL (6.3-8.2)
== END ==
LOC: OD 13:15
PROVIDERS: ATTEND Physician Assistant
DX: R07.9 Chest pain, unspecified (principal); R05 Cough
CPT/HCPCS: 36415; 71046; 80053; 84484; 85025

== ENCOUNTER → 2019-03-24 | Outpatient (CLI) | payer MEDICARE, MEDICAID ==
--- NOTE | 2019-03-25 12:24 | RADIOLOGY REPORT (SQ) ---
EXAM DESCRIPTION: PET CT SKULL/THIGH COMPLETED DATE/TIME: 03/24/2019 9:55 pm REASON FOR STUDY: R91.1 SOLITARY PULMONARY NODULE R91.1 SOLITARY PULMONARY NODULE R91.8 OTHER NONS PECIFIC ABNORMAL FINDING OF LUNG FIELD COMPARISON: CT chest dated 10/15/2018 RADIONUCLIDE AND DOSE: 11.31 mCi F18 FDG The route of agent administration: Intravenous FASTING BLOOD SUGAR: 140 mg/dl CONTRAST TYPE AND DOSE: No CT contrast given. TECHNIQUE: Blood glucose level was verified. Above dose of FDG was injected intravenously. 2-D seg mented attenuation correction images were obtained from the base of the skull to the midthighs. Nonc ontrast CT images were obtained for attenuation correction and fusion with emission images. CT image s were performed without oral or intravenous contrast and are not sensitive for parenchymal lesions. A series of overlapping emission PET images were obtained. Images reviewed and manipulated at [facility] work station by the radiologist. Images stored on PACS. LIMITATIONS: None. FINDINGS: HEAD AND NECK: No areas of abnormal metabolic activity in the soft tissues of the head and neck. CHEST: There is a dominant 1.2 cm nodule in the right middle lobe best demonstrated on series 3, imag e 79. This demonstrates minimal metabolic activity. Smaller nodules previously described on prior C T scan are less prominent or have resolved. ABDOMEN AND PELVIS: No areas of abnormal metabolic activity in the abdomen or pelvis. Expected physi ologic activity is present in the genitourinary system and bowel. PROXIMAL LOWER EXTREMITIES: No areas of abnormal metabolic activity in the soft tissues of the lower extremities. BONES: No abnormal metabolic activity in the visualized skeleton. ADDITIONAL CT FINDINGS: Enlargement of the pulmonary trunk and left pulmonary artery stable from prio r CT. OTHER: No other significant findings. IMPRESSION: 1.2 cm nodule in the right upper lobe demonstrates an SUV slightly less than background. Continued CT surveillance is recommended. TECHNICAL DOCUMENTATION: JOB ID: [id number] [employer]- All Rights Reserved Reading location - IP/workstation name: [email or web address]
== END ==
LOC: RAD 15:49
PROVIDERS: ATTEND Internal Medicine Pulmonary Disease
DX: R91.1 Solitary pulmonary nodule (principal); R91.8 Other nonspecific abnormal finding of lung field
CPT/HCPCS: 78815; A9552

== ENCOUNTER → 2019-07-20 | Outpatient (CLI) | payer MEDICARE, MEDICAID ==
--- NOTE | 2019-07-20 12:31 | RADIOLOGY REPORT (SQ) ---
EXAM DESCRIPTION: CT CHEST WITHOUT COMPLETED DATE/TIME: 07/20/2019 9:50 am REASON FOR STUDY: R91.1 SOLITARY PULMONARY NcODULE R91.1 SOLITARY PULMONARY NODULE COMPARISON: CT of the chest without contrast from 10/15/2018 and PET from 03/24/2019. TECHNIQUE: CT scan performed of the chest without intravenous contrast. Images reviewed with lung, soft tissue and bone windows. Reconstructed coronal and sagittal MPR images reviewed. All images st ored on PACS. All CT scanners at this facility use dose modulation, iterative reconstruction, and/or weight based d osing when appropriate to reduce radiation dose to as low as reasonably achievable (ALARA). [facility]: Dose Right [facility]: CareDose [facility]: Dose Right [facility]: Teradose 4D [facility]: [employer] RADIATION DOSE: CT Rad equipment meets quality standard of care and radiation dose reduction techniq ues were employed. CTDIvol: 17.3 mGy. DLP: 673 mGy-cm. LIMITATIONS: No technical limitations. FINDINGS: LUNGS AND PLEURA: There is upper lobe predominant centrilobular and paraseptal emphysema. The trachea and main bronchi are patent. There is mild bronchial wall thickening without bronchiect asis or segmental mucus plugging. The nodular branching opacities described on the prior CT and PET have either decreased in size or are no longer present for reference the nodular opacity on image 206 of series 2 of the 10/15/2018 CT has decreased in size and at it measures 4 mm compared to 6 mm on th e prior CT. The other nodules including the 3 mm perifissural nodule in the right middle lobe (image 64 of series 4), the solid 5 mm nodule in the right lower lobe (image 77 of series 4) and the solid 4 mm nodule in the left lower lobe (image 73 of series 4) are stable in size from the prior CT. Ther e is no acute consolidation, ground-glass opacification, pleural effusion, pleural thickening or pneu mothorax. HILAR AND MEDIASTINAL STRUCTURES: The ovoid hyperdense nodule in the anterior mediastinum that measur es 2.2 x 1.5 cm is stable in size compared to the prior CTs and PET. There is no enlarged mediastina l adenopathy. HEART AND VASCULAR STRUCTURES: The pulmonary artery is dilated. The heart is normal in size. There is no pericardial effusion or thoracic aortic aneurysm UPPER ABDOMEN: No acute findings. THYROID AND OTHER SOFT TISSUES: Bilateral breast implants. BONES: No acute findings. HARDWARE: None in the chest. OTHER: No other finding. IMPRESSION: 1. The nodular branching opacities described on the prior CT and PET have either decreas ed in size or are no longer present for reference the nodular opacity on image 206 of series 2 of the 10/15/2018 CT has decreased in size and at it measures 4 mm compared to 6 mm on the prior CT. The oth er nodules including the 3 mm perifissural nodule in the right middle lobe (image 64 of series 4), th e solid 5 mm nodule in the right lower lobe (image 77 of series 4) and the solid 4 mm nodule in the l eft lower lobe (image 73 of series 4) are stable in size from the prior CT. There is no acute consoli dation, ground-glass opacification, pleural effusion, pleural thickening or pneumothorax. 2. Aneurysmal dilatation of the pulmonary arteries. COMMENT: Considered continued annual CT surveillance. TECHNICAL DOCUMENTATION: JOB ID: [id number] Quality ID # 436: Final reports with documentation of one or more dose reduction techniques (e.g., Au tomated exposure control, adjustment of the mA and/or kV according to patient size, use of iterative reconstruction technique) 2010 [employer]- All Rights Reserved Reading location - IP/workstation name: [email or web address]
== END ==
LOC: RAD 09:22
PROVIDERS: ATTEND Registered Nurse
DX: R91.1 Solitary pulmonary nodule (principal)
CPT/HCPCS: 71250

== ENCOUNTER 2019-09-22 16:13 | Emergency (ER) | payer MEDICARE, MEDICAID ==
--- NOTE | 2019-09-22 16:36 | ER Document Report ---
ED Medical Screen (RME) - General Chief Complaint: Abdominal Pain Stated Complaint: ABDOMINAL PAIN,DIARRHEA,VOMITING Time Seen by Provider: 09/22/19 16:25 Primary Care Provider: BRUNA RUSHING PA [Primary Care Provider] - Follow up as needed TRAVEL OUTSIDE OF THE [place] IN LAST 30 DAYS: No - HPI Notes: 09/22/19 16:36 59-year-old female presents from primary care office for complaints of abdominal pain for the last 2 weeks with nausea vomiting and diarrhea. Patient had a CT scan this morning and lab work done. CT abdomen pelvis shows diffuse inflammatory changes of the descending colon, hepatic flexure, transverse colon. Infectious inflammatory colitis favored over ischemia with a white count of 14.5. Reports vomiting started today. Denies any fevers or chills. I have greeted and performed a rapid initial assessment of this patient. A comprehensive ED assessment and evaluation of the patient, analysis of test results and completion of the medical decision making process will be conducted by additional ED providers. PHYSICAL EXAMINATION: GENERAL: Well-appearing, well-nourished and in no acute distress. CV: s1, s2 regular LUNGS: No respiratory distress abd: diffuse - Related Data Allergies/Adverse Reactions: latex [Latex] Allergy (Mild, Verified 07/10/17 07:32) rash Bees Allergy (Severe, Uncoded 05/15/14 18:26) Facial Edema Past Medical History - Past Medical History Cardiac Medical History: Reports: Hx Congestive Heart Failure - Diastolic Denies: Hx Coronary Artery Disease, Hx Heart Attack, Hx Hypercholesterolemia, Hx Hypertension Pulmonary Medical History: Reports: Hx Bronchitis, Hx COPD - pulmonary stenosis, Hx Pneumonia Denies: Hx Asthma Neurological Medical History: Denies: Hx Cerebrovascular Accident, Hx Seizures Endocrine Medical History: Reports: Hx Diabetes Mellitus Type 2. Denies: Hx Diabetes Mellitus Type 1 Renal/ Medical History: Denies: Hx Peritoneal Dialysis Malignancy Medical History: Reports: Hx Breast Cancer Musculoskeltal Medical History: Reports Hx Arthritis - psoriatic arthritis Skin Medical History: Reports Hx Psoriasis Psychiatric Medical History: Reports: Hx Anxiety, Hx Depression Past Surgical History: Reports: Hx Breast Surgery, Hx Cardiac Surgery - PULMONIC VALVULOPLASTY FOR PULM STENOSIS, Hx Section - X 2, Hx Mastectomy - RIGHT PARTIAL MASTECTOMY 1999, WITH LYMPH NODE DISSECTION, Hx Vascular Surgery - Pulmonary valvuloplasty - Immunizations Hx Diphtheria, Pertussis, Tetanus Vaccination: No Physical Exam - Vital signs Vitals: Temp Pulse Resp BP Pulse Ox 98.9 F 117 H 20 101/88 H 98 09/22/19 16:17 09/22/19 16:17 09/22/19 16:17 09/22/19 16:17 09/22/19 16:17 Course - Vital Signs Vital signs: Temp Pulse Resp BP Pulse Ox 98.9 F 117 H 20 101/88 H 98 09/22/19 16:23 09/22/19 16:17 09/22/19 16:17 09/22/19 16:17 09/22/19 16:17 Doctor's Discharge - Discharge Referrals: BRUNA RUSHING PA [Primary Care Provider] - Follow up as needed
[2019-09-22 17:26] LABS: APPEARANCE,URINE CLEAR; BILIRUBIN,URINE NEGATIVE (NEGATIVE); COLOR,URINE YELLOW; GLUCOSE, URINE NEGATIVE (NEGATIVE); INTERNATIONAL RATION (INR) 1.01; KETONES,URINE NEGATIVE (NEGATIVE); LEUKOCYTE ESTERASE,URINE TRACE (NEGATIVE); NITRITE,URINE NEGATIVE (NEGATIVE); PROTEIN,URINE NEGATIVE (NEGATIVE); PROTHROMBIN TIME 13.3 SEC (11.4-15.4); UROBILINOGEN,URINE NEGATIVE mg/dL (<2.0)
[2019-09-22 17:27] LABS: PARTIAL THROMBOPLASTIN TIME 31.3 SEC (23.5-35.8)
[2019-09-22 17:30] LABS: URINE SPECIFIC GRAVITY > 1.060
[2019-09-22] MEDS ORDERED: ONDANSETRON HCL INJ/PF 4 MG/2 ML SDV IV ONE (18:28)
[2019-09-22] MEDS ORDERED: DICYCLOMINE HCL INJ 20 MG/2 ML AMPULE IM ONE (18:28)
[2019-09-22] MEDS ORDERED: NORMAL SALINE 1000 ML 1,000 ML IV ONE (18:29)
--- NOTE | 2019-09-22 18:39 | ER Document Report ---
ED General - General Chief Complaint: Abdominal Pain Stated Complaint: ABDOMINAL PAIN,DIARRHEA,VOMITING Time Seen by Provider: 09/22/19 16:25 Primary Care Provider: BRUNA RUSHING PA [Primary Care Provider] - Follow up as needed TRAVEL OUTSIDE OF THE [place] IN LAST 30 DAYS: No - HPI Notes: Patient is a 59-year-old female who presents to the emergency department for evaluation. She states that she has had diarrhea for about the last 2 weeks. She states she is having roughly 5 episodes a day. She denies any blood in her stool. No melena. She admits that several days prior to her diarrhea starting she was started on Cipro for a urinary tract infection. She states that and she started the diarrhea. She followed up with her primary care provider. She was started on Flagyl, which she could not tolerate, and promptly started vomiting. She is stopped taking that. She had laboratory investigations ordered today, including stool for C. difficile and an outpatient CT scan of the abdomen and pelvis. CT scan showed colitis, and the patient presents for further evaluation. She describes a diffuse cramping abdominal pain, which is constant in nature. She states that nothing seems to make it better or worse. She has had no fevers to her knowledge. She is still urinating. - Related Data Allergies/Adverse Reactions: latex [Latex] Allergy (Mild, Verified 07/10/17 07:32) rash Bees Allergy (Severe, Uncoded 05/15/14 18:26) Facial Edema Past Medical History - General Information source: Patient - Social History Smoking Status: Former Smoker Family History: COPD, DM, Malignancy Patient has homicidal ideation: No - Past Medical History Cardiac Medical History: Reports: Hx Congestive Heart Failure - Diastolic, Hx Hypertension Denies: Hx Coronary Artery Disease, Hx Heart Attack, Hx Hypercholesterolemia Pulmonary Medical History: Reports: Hx Bronchitis, Hx COPD - pulmonary stenosis, Hx Pneumonia Denies: Hx Asthma Neurological Medical History: Denies: Hx Cerebrovascular Accident, Hx Seizures Endocrine Medical History: Reports: Hx Diabetes Mellitus Type 2. Denies: Hx Diabetes Mellitus Type 1 Renal/ Medical History: Denies: Hx Peritoneal Dialysis Malignancy Medical History: Reports: Hx Breast Cancer Musculoskeletal Medical History: Reports Hx Arthritis - psoriatic arthritis Skin Medical History: Reports Hx Psoriasis Psychiatric Medical History: Reports: Hx Anxiety, Hx Depression Past Surgical History: Reports: Hx Breast Surgery, Hx Cardiac Surgery - PULMONIC VALVULOPLASTY FOR PULM STENOSIS, Hx Section - X 2, Hx Mastectomy - RIGHT PARTIAL MASTECTOMY 1999, WITH LYMPH NODE DISSECTION, Hx Vascular Surgery - Pulmonary valvuloplasty - Immunizations Hx Diphtheria, Pertussis, Tetanus Vaccination: No Review of Systems - Review of Systems Constitutional: See HPI Gastrointestinal: See HPI -: Yes All other systems reviewed and negative Physical Exam - Vital signs Vitals: Temp Pulse Resp BP Pulse Ox 98.9 F 117 H 20 101/88 H 98 09/22/19 16:17 09/22/19 16:17 09/22/19 16:17 09/22/19 16:17 09/22/19 16:17 - Notes Notes: This is a 59-year-old female who appears her stated age. She sitting upright in the bed, oxygen per nasal cannula in place. She appears tired, but no acute distress, GCS 15. Vital signs reviewed, please refer to chart. Head is normocephalic, atraumatic. Pupils equal round, reactive to light. Neck is supple without meningismus. Heart is regular rate and rhythm. Lungs are clear to auscultation bilaterally. Abdomen is soft, diffusely tender without rebound or guarding, normoactive bowel sounds throughout. Extremities without cyanosis, clubbing. Posterior calves are nontender. Peripheral pulses are equal. Skin is warm and dry. Patient is awake, alert, neurological exam is nonfocal. Course - Re-evaluation Re-evalutation: 09/22/19 18:37 Patient presents to the emergency department for evaluation. I reviewed her labs from earlier today, as well as labs ordered here, and her imaging from earlier today. She has a diffuse colitis, thought to be infectious or inflammatory per radiology. She is in sinus here, I do not have a high suspicion for ischemic colitis based on her exam as well as the fact that she is in sinus here. Her symptoms seem most consistent with infectious colitis. She did have a stool for C. difficile, which was found to be negative, but I do not believe that one negative test rules this out. Patient was moderately tachycardic on arrival. She remains tachycardic at 104. I will give her IV fluids, Bentyl, Zofran. We will assess for response and continue to monitor. 09/22/19 19:46 I spoke with patient and she is feeling significantly improved. If possible she would like to go home. Serial abdominal exams reveal tenderness but no rebound or guarding. I discussed this case with Dr. Quick. She has a negative lactic. She has no risk factors for ischemia on her bowels, and has had no blood in her stool. I strongly suspect infectious colitis. We will treat her empirically with vancomycin for presumed C. difficile. He will follow-up with her in the office closely this week. Patient is amenable to this plan and she will return to the ED with worsening or new concerning symptoms of any sort. - Vital Signs Vital signs: Temp Pulse Resp BP Pulse Ox 98.9 F 117 H 20 101/88 H 98 09/22/19 16:23 09/22/19 16:17 09/22/19 16:17 09/22/19 16:17 09/22/19 16:17 - Laboratory Laboratory results interpreted by me: 09/22/19 16:58 Ur Leukocyte Esterase TRACE H - Diagnostic Test Radiology reviewed: Reports reviewed - Report from earlier today, not performed in the ED - EKG Interpretation by Me Additional EKG results interpreted by me: 09/22/19 18:38 Sinus tachycardia with a rate of 104 bpm. Normal axis and intervals, no acute ST changes concerning for ischemia or infarction. Discharge - Discharge Clinical Impression: Colitis Condition: Stable Disposition: HOME, SELF-CARE Instructions: Abdominal Pain ([facility]), Colitis, Nonspecific ([facility]) Additional Instructions: You are being treated for presumed C. difficile colitis. Please take the antibiotics as prescribed until gone. Take the Bentyl as needed for cramping abdominal pain. Try to stay hydrated. Follow-up with Dr. Quick, call his office tomorrow morning for follow-up. If your pain worsens, you develop fevers, vomiting, or any other new or concerning symptoms, please return immediately to the emergency department for reevaluation. Referrals: BRUNA RUSHING PA [Primary Care Provider] - Follow up as needed
[2019-09-22] MEDS ORDERED: VANCOMYCIN HCL INJ 500 MG VIAL PO ONE (19:41)
[2019-09-22 19:44] VITALS: BP 120/55
--- NOTE | 2019-09-22 20:50 | EKG REPORT ---
SEVERITY:- BORDERLINE ECG - SINUS TACHYCARDIA BORDERLINE T ABNORMALITIES, ANT-LAT LEADS : Confirmed by: Thomas Contreras MD 22-Sep-2019 20:50:12
== END 2019-09-22 20:21 | disposition home or self-care (01) ==
LOC: ER 16:13
DX: K52.9 Noninfective gastroenteritis and colitis, unspecified (principal); R10.84 Generalized abdominal pain; R00.0 Tachycardia, unspecified; I10 Essential (primary) hypertension; J44.9 Chronic obstructive pulmonary disease, unspecified; E11.9 Type 2 diabetes mellitus without complications; Z85.3 Personal history of malignant neoplasm of breast; Z87.440 Personal history of urinary (tract) infections; Z91.040 Latex allergy status; Z91.030 Bee allergy status; Z87.891 Personal history of nicotine dependence
CPT/HCPCS: 93005; 99284; 96372; 96374; 36415; 83605; 85610; 85730; 81001; 93010; J0500; J2405; J3370; J7030; 96361

== ENCOUNTER → 2019-09-22 | Outpatient (CLI) | payer MEDICAID, MEDICARE ==
[2019-09-22 08:59] LABS: ABSOLUTE EOSINOPHILS # (AUTO) 0.3 10^3/uL (0.0-0.6); ABSOLUTE LYMPHOCYTES (AUTO) 1.7 10^3/uL (0.5-4.7); ABSOLUTE MONOCYTES (AUTO) 1.2 10^3/uL (0.1-1.4); ABSOLUTE NEUT (AUTO) 11.3 10^3/uL (1.7-8.2); BASOPHILS % (AUTO) 0.2 % (0-2); EOSINOPHILS % (AUTO) 2.2 % (0-6); HEMATOCRIT 36.8 % (36.0-47.0); HEMOGLOBIN 12.6 g/dL (12.0-15.5); LYMPHOCYTES % (AUTO) 11.5 % (13-45); MEAN CORPUSCULAR HEMOGLOBIN 28.9 pg (27.0-33.4); MEAN CORPUSCULAR HGB CONC 34.3 g/dL (32.0-36.0); MEAN CORPUSCULAR VOLUME 84 fl (80-97); MONOCYTES % (AUTO) 8.2 % (3-13); PLATELET COUNT 433 10^3/uL (150-450); RED BLOOD COUNT 4.36 10^6/uL (3.72-5.28); RED CELL DISTRIBUTION WIDTH 13.6 % (11.5-14.0); SEGMENTED NEUTROPHILS % (AUTO) 77.9 % (42-78); TOTAL CELLS COUNTED % (AUTO) 100 %; WHITE BLOOD COUNT 14.5 10^3/uL (4.0-10.5)
[2019-09-22 09:32] LABS: ALKALINE PHOSPHATASE 126 U/L (38-126); ANION GAP 13 (5-19); ASPARTATE AMINO TRANSFERASE 18 U/L (14-36); BILIRUBIN,TOTAL 0.6 mg/dL (0.2-1.3); BLOOD UREA NITROGEN 16 mg/dL (7-20); CALCIUM 9.2 mg/dL (8.4-10.2); CARBON DIOXIDE 25 mmol/L (22-30); CHLORIDE 97 mmol/L (98-107); GLUCOSE 149 mg/dL (75-110); POTASSIUM 3.7 mmol/L (3.6-5.0); TOTAL PROTEIN 7.1 g/dL (6.3-8.2)
--- NOTE | 2019-09-22 14:57 | RADIOLOGY REPORT (SQ) ---
EXAM DESCRIPTION: CT ABD/PELVIS WITH IV ONLY IMAGES COMPLETED DATE/TIME: 09/22/2019 2:42 pm REASON FOR STUDY: (R10.30)LOWER ABDOMINAL PAIN, UNSPECIFIED R19.7 DIARRHEA, UNSPECIFIED R10.30 LOW ER ABDOMINAL PAIN, UNSPECIFIED R10.9 UNSPECIFIED ABDOMINAL PAIN COMPARISON: CT abdomen pelvis 03/06/2018 PET-CT 03/24/2019 CT chest 07/20/2019 TECHNIQUE: CT scan of the abdomen and pelvis performed using helical scanning technique with dynamic intravenous contrast injection. No oral contrast. Images reviewed with lung, soft tissue, and bone windows. Reconstructed coronal and sagittal MPR images reviewed. Delayed images for evaluation of the urinary system also acquired. All images stored on PACS. All CT scanners at this facility use dose modulation, iterative reconstruction, and/or weight based d osing when appropriate to reduce radiation dose to as low as reasonably achievable (ALARA). [facility]: Dose Right [facility]: CareDose [facility]: Dose Right [facility]: Teradose 4D [facility]: [employer] CONTRAST TYPE AND DOSE: contrast/concentration: Isovue 350.00 mg/ml; Total Contrast Delivered: 100.0 ml; Total Saline Delivered: 72.0 ml RENAL FUNCTION: Creatinine 1.0 RADIATION DOSE: CT Rad equipment meets quality standard of care and radiation dose reduction techniq ues were employed. CTDIvol: 22.5 - 22.6 mGy. DLP: 2307 mGy-cm.. LIMITATIONS: No oral contrast FINDINGS: Abnormal colon wall thickening and luminal narrowing is present with some mild surrounding inflammatory change in the pericolic fat, along the ascending colon, hepatic flexure and transverse colon. Findings are worrisome for diffuse ascending and transverse colitis, infectious or inflammato ry is favored over ischemic, there is normal enhancement of the SMA SMV and celiac artery. No free intraperitoneal air or free fluid. No bowel obstruction. Stomach, small bowel are unremarka ble. Descending and sigmoid colon unremarkable aside from a few noninflamed diverticuli. LOWER CHEST: No significant findings. No nodules or infiltrates. LIVER: Normal size. No masses. No dilated ducts. SPLEEN: Normal size. No focal lesions. PANCREAS: No masses. No significant calcifications. No adjacent inflammation or peripancreatic fluid collections. Pancreatic duct not dilated. GALLBLADDER: No identified stones by CT criteria. No inflammatory changes to suggest cholecystitis. ADRENAL GLANDS: No significant masses or asymmetry. RIGHT KIDNEY AND URETER: No solid masses. No significant calcifications. No hydronephrosis or hyd roureter. LEFT KIDNEY AND URETER: No solid masses. No significant calcifications. No hydronephrosis or hydr oureter. AORTA AND VESSELS: No aneurysm. No dissection. Renal arteries, SMA, celiac without stenosis. RETROPERITONEUM: No retroperitoneal adenopathy, hemorrhage or masses. BOWEL AND PERITONEAL CAVITY: No masses or inflammatory changes. No free fluid or peritoneal masses. APPENDIX: Normal. PELVIS: No mass. No free fluid. Normal bladder. Normal size female pelvic organs. There is a promi nent endometrial stripe this postmenopausal patient, measuring 13 mm thickness. Follow-up endovagina l ultrasound recommended ABDOMINAL WALL: No masses. No hernias. BONES: No significant or acute findings. OTHER: No other significant finding. IMPRESSION: Diffuse inflammatory changes of the ascending colon, hepatic flexure, transverse colon. Infectious or inflammatory colitis favored over ischemia Prominent endometrial stripe for postmenopausal woman. Consider endovaginal ultrasound for followup TECHNICAL DOCUMENTATION: JOB ID: [id number] Quality ID # [id number]: Final reports with documentation of one or more dose reduction techniques (e.g., Au tomated exposure control, adjustment of the mA and/or kV according to patient size, use of iterative reconstruction technique) 2010 [employer]- All Rights Reserved Reading location - IP/workstation name: [email or web address]
[2019-09-22 15:16] LABS: C DIFFICILE GDH NEGATIVE (NEGATIVE)
== END ==
LOC: OD 08:09
PROVIDERS: ATTEND Physician Assistant
DX: K57.30 Diverticulosis of large intestine without perforation or abscess without bleeding (principal); R10.30 Lower abdominal pain, unspecified; R11.2 Nausea with vomiting, unspecified; R19.7 Diarrhea, unspecified; D72.829 Elevated white blood cell count, unspecified; R50.9 Fever, unspecified
CPT/HCPCS: 36415; 74177; 80053; 83690; 85025; 87045; 87205; 87324; 87449

== ENCOUNTER → 2019-11-17 | Outpatient (CLI) | payer MEDICARE, MEDICAID ==
[2019-11-17 10:25] VITALS: BP 114/62
--- NOTE | 2019-11-17 10:25 | ER RDC ASSESSMENT REPORT ---
Intake - In the Last 14 days Have you traveled outside [place]?: No Have you been in close contact with someone CONFIRMED: No Worked in Healthcare?: No - Symptoms Subjective Fever([place] feverish): Yes Chills: Yes Muscule Aches: Yes Runny Nose: Yes Sore Throat: Yes Cough (New or worsening chronic cough): Yes Shortness of breath: Yes Nausea or Vomiting: Yes Headache: Yes Abdominal Pain: No Diarrhea(3 or more loose stools in last 24 hours): Yes - Do you have any of the following Chronic lung disease: Asthma or emphysema or COPD: Yes Chronic Lung Disease Comment: History of COPD patient uses oxygen 2 L per nasal cannula Cystic Fibrosis: No Diabetes: Yes Diabetes Comment: Type 2 diabetes High Blood Pressure: Yes Cardiovascular Disease: Yes Cardiovascular Disease Comment: History of CHF Chronic Kidney Disease: No Chronic Liver Disease: No Chronic blood disorder like Sickle Cell Disease: No Weak immune system due to disease or medication: No Immune System Comment: Patient has history of Crohn's disease takes a chemo therapy medication for that condition Neurologic condition that limits movement: No Developmental delay - Moderate to Severe: No Recent (within past 2 weeks) or current : No Morbid Obesity (>100 pounds over ideal weight): No Obesity Comment: Height 5 feet 1 inches weight 203 pounds - Objective Vital Signs: 98.1 Temperature: 98.1 F Pulse Rate: 101 Respiratory Rate: 22 Blood Pressure: 114/62 O2 Sat by Pulse Oximetry: 97 Objective: Given above, testing performed: If Testing Performed: Test Specimen Type Sent to General - General Information source: Patient Notes: Patient reports symptoms began last Saturday about November 10 started worsening by Saturday contacted Nazia Bruce at [facility] has finished erythromycin that was prescribed. Reports no change in condition. Plans to follow-up with Nazia Bruce today this afternoon. Recommended patient have screening for COVID testing. - Related Data Allergies/Adverse Reactions: latex [Latex] Allergy (Mild, Verified 07/10/17 07:32) rash Bees Allergy (Severe, Uncoded 05/15/14 18:26) Facial Edema Past Medical History - General Information source: Patient - Social History Smoking Status: Former Smoker - Quit 3 years ago Family History: COPD, DM, Malignancy - Past Medical History Cardiac Medical History: Reports: Hx Congestive Heart Failure - Diastolic, Hx Hypertension Denies: Hx Coronary Artery Disease, Hx Heart Attack, Hx Hypercholesterolemia Pulmonary Medical History: Reports: Hx Bronchitis, Hx COPD - pulmonary stenosis, Hx Pneumonia Denies: Hx Asthma Neurological Medical History: Denies: Hx Cerebrovascular Accident, Hx Seizures Endocrine Medical History: Reports: Hx Diabetes Mellitus Type 2. Denies: Hx Diabetes Mellitus Type 1 Renal/ Medical History: Denies: Hx Peritoneal Dialysis Malignancy Medical History: Reports: Hx Breast Cancer Musculoskeletal Medical History: Reports Hx Arthritis - psoriatic arthritis Skin Medical History: Reports Hx Psoriasis Psychiatric Medical History: Reports: Hx Anxiety, Hx Depression Past Surgical History: Reports: Hx Breast Surgery, Hx Cardiac Surgery - PULMONIC VALVULOPLASTY FOR PULM STENOSIS, Hx Section - X 2, Hx Mastectomy - RIGHT PARTIAL MASTECTOMY 1999, WITH LYMPH NODE DISSECTION, Hx Vascular Surgery - Pulmonary valvuloplasty Physical Exam - General General appearance: Appears well, Alert In distress: None Notes: PHYSICAL EXAMINATION: GENERAL: Well-appearing and in no acute distress. HEAD: Atraumatic, normocephalic. EYES: sclera anicteric, conjunctiva are normal. ENT: nares patent. Moist mucous membranes. NECK: Normal range of motion, supple without lymphadenopathy LUNGS: CTAB and equal. No wheezes rales or rhonchi. Resp even and unlabored. Lung sounds clear. O2 at 2 L NC in use. HEART: Regular rate and rhythm without murmurs ABDOMEN: Soft, nontender, normal bowel sounds, no guarding. EXTREMITIES: Normal range of motion, no pitting edema. No cyanosis. NEUROLOGICAL: Normal speech. PSYCH: Normal mood, normal affect. SKIN: Warm, Dry, normal turgor, Diagnostic Results Laboratory Results: Patient informed of negative rapid strep and negative rapid flu results pending strep culture pending COVID testing results. Patient provided instructions regarding COVID to include: As a person under investigation for Covid 19, the [place] department of Health and Human Services, division of public health advises you to adhere to the following guidance until your test results are reported to you. If your test result is positive, you will receive additional information from your provider and your local health department at that time. Remain at home until you are cleared by the health provider or public health authorities. Keep a log of visitors to your home, notify any visitors to your home of your isolation status. If you plan to move to a new address or leave the [facility], notify the local health department in your County. Call your doctor or seek care if you have an urgent medical need. Before seeking medical care, call ahead to get instructions from the provider before arriving at the medical office clinic or hospital. Notify them that you are being tested for the virus that causes Covid 19 so that arrangements can be made, as necessary, to prevent transmission to others in the healthcare setting. Next, notify the local health department in your county. If a medical emergency arises and you need to call 911, inform the first responders that you are being tested for the virus that causes Covid 19. Next, notify the local health department in your [facility]. Patient Education/Counseling Counseling/Education: Patient presents with upper respiratory symptoms worrisome for possible Covid 19. Patient does not have emergency worring symptoms such as difficulty breathing, shortness of breath, chest pain, pressure, confusion or cyanosis. Patient appears suitable for discharge. Patient instructed to follow up with PCP Nazia Bruce today. To ED for persistent or worsening symptoms. Patient's vital signs are stable and patient is nontoxic in appearance. Good return precautions have been discussed with patient, patient verbalized understanding and is agreeable with discharge plan of care at this time. RDC Discharge - Discharge Clinical Impression: COVID - 19 SCREENING Condition: Stable Disposition: Home; Selfcare
[2019-11-17 11:05] LABS: A TYPE INFLUENZA AG NEGATIVE (NEGATIVE); B INFLUENZA AG NEGATIVE (NEGATIVE)
== END ==
LOC: RDC 09:00
PROVIDERS: ATTEND Nurse Practitioner Family
DX: Z03.818 Encounter for observation for suspected exposure to other biological agents ruled out (principal); R50.9 Fever, unspecified; M79.10 Myalgia, unspecified site; R09.89 Other specified symptoms and signs involving the circulatory and respiratory systems; J02.9 Acute pharyngitis, unspecified; R05 Cough; R06.00 Dyspnea, unspecified; R11.10 Vomiting, unspecified; R51 Headache; R19.7 Diarrhea, unspecified; J44.9 Chronic obstructive pulmonary disease, unspecified; E11.9 Type 2 diabetes mellitus without complications; Z87.891 Personal history of nicotine dependence; Z99.81 Dependence on supplemental oxygen; Z91.040 Latex allergy status; I11.0 Hypertensive heart disease with heart failure; I50.30 Unspecified diastolic (congestive) heart failure; Z85.3 Personal history of malignant neoplasm of breast
CPT/HCPCS: 87070; 87880; 87804; 99201; U0003; G0463; C9803; 87635; 99211

== ENCOUNTER → 2020-01-22 | Outpatient (CLI) | payer MEDICAID, MEDICARE ==
--- NOTE | 2020-01-22 23:43 | RADIOLOGY REPORT (SQ) ---
EXAM DESCRIPTION: CT ABDOMEN PELVIS WITH IV CONTRAST COMPLETED DATE/TME: 01/22/2020 15:26 CLINICAL HISTORY: 59 years, Female, R19.7 DIARRHEA, UNSPECIFIED, K50.90 CROHN'S DISEASE, UNSPECIFIED, WITHOUT C COMPARISON: 09/22/2019 CT TECHNIQUE: 305 Images stored on PACS. All CT scanners at this facility use dose modulation, iterative reconstruction, and/or weight based dosing when appropriate to reduce radiation dose to as low as reasonably achievable (ALARA). [facility]: Dose Right [facility]: CareDose [facility]: Dose Right [facility]: Teradose 4D [facility]: MySiteApp LIMITATIONS: None. FINDINGS: Please note that there are images submitted into the system with the wrong patient name, for this date. Those images do not include coronal and sagittal reconstructions, nor do they include delayed sequences. Limited evaluation of the lung bases shows emphysematous change. Osseous structures are grossly intact. The liver, spleen, adrenal glands, pancreas, kidneys are unremarkable. The gallbladder is present. No gross evidence for bowel obstruction. Sigmoid diverticulosis without CT evidence for diverticulitis. There is fluid in the endocervical canal with calcified uterine fibroids. Correlate with history. Normal appendix. IMPRESSION: Sigmoid diverticulosis. No CT evidence for diverticulitis. Calcified uterine fibroids. Nonspecific fluid in the endocervical canal. Emphysematous changes in the lung bases TECHNICAL DOCUMENTATION: Quality ID # 436: Final reports with documentation of one or more dose reduction techniques (e.g., Automated exposure control, adjustment of the mA and/or kV according to patient size, use of iterative reconstruction technique) copyright 2011 [employer]- All Rights Reserved
== END ==
LOC: RAD 15:21
PROVIDERS: ATTEND Internal Medicine Gastroenterology
DX: R19.7 Diarrhea, unspecified (principal); K50.90 Crohn's disease, unspecified, without complications; K57.30 Diverticulosis of large intestine without perforation or abscess without bleeding; D25.9 Leiomyoma of uterus, unspecified; J43.9 Emphysema, unspecified
CPT/HCPCS: 74177; 82565

== ENCOUNTER → 2020-03-29 | Outpatient (CLI) | payer MEDICARE, MEDICAID ==
--- NOTE | 2020-03-29 11:06 | WOMENS IMAGING REPORT ---
EXAM DESCRIPTION: BILAT SCREENING MAMMO W/CAD IMAGES COMPLETED DATE/TIME: 03/29/2020 8:40 am REASON FOR STUDY: Z12.31 ENCOUNTER FOR SCREENING MAMMOGRAM FOR MALIGNANT NEOPLASM OF BREAST Z12.31 ENCNTR SCREEN MAMMOGRAM FOR MALIGNANT NEOPLASM OF ZACK COMPARISON: Priors back to 2011 EXAM PARAMETERS: Standard craniocaudal and mediolateral oblique views of each breast recorded using digital acquisition. Additional "push-back" craniocaudal and mediolateral oblique images acquired. Read with the assistance of CAD. .[facility] - [employer] Senior Business [employer] Manager Version 9.2 LIMITATIONS: None. FINDINGS: IMPLANTS: Bilateral subpectoral implants. Findings present which are benign by mammographic criteria. No suspicious masses, calcifications or architectural distortion. Benign mammographic findings may include one or more of the following: Smooth masses, popcorn/rim/co arse calcifications, asymmetries, post-procedure changes, and lesions with long-standing stability. IMPRESSION: BENIGN MAMMOGRAPHIC FINDINGS. BIRADS 2 BREAST DENSITY: b. There are scattered areas of fibroglandular density. BIRAD: ASSESSMENT: 2 BENIGN FINDING(S) RECOMMENDATION: ROUTINE SCREENING COMMENT: The patient has been notified of the results by letter per MQSA requirements. Additional no tification policies are in place for contacting patient with suspicious or incomplete findings. Quality ID #225: The [employer] recommends an annual screening mammogram for women aged 40 years or over. This facility utilizes a reminder system to ensure that all patients receive reminder letters, and/or direct phone calls for appointments. This includes reminders for routine scr eening mammograms, diagnostic mammograms, or other Breast Imaging Interventions when appropriate. Th is patient will be placed in the appropriate reminder system. TECHNICAL DOCUMENTATION: FINDING NUMBER: (1) ASSESSMENT: (1) JOB ID: [id number] 2010 [employer]- All Rights Reserved Reading location - IP/workstation name: [email or web address]
== END ==
LOC: WI 08:14
PROVIDERS: ATTEND Physician Assistant
DX: Z12.31 Encounter for screening mammogram for malignant neoplasm of breast (principal)
CPT/HCPCS: 77067